=== PATIENT | male | born 1945 | race African-American/Black ===

== ENCOUNTER 2017-03-19 14:05 | Inpatient (IN) ==
--- NOTE | 2017-03-19 14:52 | EKG Report ---
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
[2017-03-19] MEDS ORDERED: VANCOMYCIN INJ 1,750 MG in SODIUM CHLORIDE 0.9% 500 ML IV PRN (14:57)
[2017-03-19 15:08] LABS: Basophils % 0.3 % (0.0-0.8); Eosinophils # 0.1 10*3/uL (0.0-0.87); Eosinophils % 0.6 % (0.00-10.9); Hematocrit 35.7 VOL% (42.0-52.0); Hemoglobin 11.4 GM/DL (14.0-18.0); Immature Granulocytes % 0.2 %; Immature Granulocytes Absolute 0.02 #; Lymphocytes % 9.6 % (21.2-54.2); Mean Corpuscular HGB Conc 31.9 GM/DL (32-36); Mean Corpuscular Hemoglobin 27 PG (27-34); Mean Corpuscular Volume 84.2 FL (87-102); Mean Platelet Volume 9.2 FL (9.6-12.0); Monocytes # 1.2 10*3/uL (0.11-0.8); Monocytes % 11.8 % (1.7-12.7); Neutrophils # 7.9 10*3/uL (1.4-7.4); Neutrophils % 77.5 % (38.7-73.9); Platelet Count 359 T/CUMM (130-400); Red Blood Count 4.24 MC/CUMM (3.8-5.5); Red Cell Distribution Width 12.9 % (9.3-17.3); White Blood Count 10.2 T/CUMM (4-12)
--- NOTE | 2017-03-19 15:13 | Cardiology Consult Note ---
<Mandi Espana E - Last Filed: 03/19/17 14:52> Assessment and Plan - Time spent with patient Time spent with patient: Greater than 30 minutes (1) PVD (peripheral vascular disease) Status: Chronic Assessment and plan: SEE PLAN OF CARE LISTED BELOW Current Visit: Yes (2) Dyslipidemia Status: Chronic Assessment and plan: SEE PLAN OF CARE LISTED BELOW Current Visit: Yes (3) Cardiac murmur Status: Chronic Assessment and plan: SEE PLAN OF CARE LISTED BELOW Current Visit: Yes (4) SOB (shortness of breath) Status: Chronic Assessment and plan: SEE PLAN OF CARE LISTED BELOW Current Visit: Yes (5) PTSD (post-traumatic stress disorder) Status: Chronic Assessment and plan: SEE PLAN OF CARE LISTED BELOW Current Visit: Yes (6) Sleep apnea Status: Chronic Assessment and plan: SEE PLAN OF CARE LISTED BELOW Current Visit: Yes (7) CAD (coronary artery disease) Status: Chronic Assessment and plan: SEE PLAN OF CARE LISTED BELOW Current Visit: No (8) S/P CABG (coronary artery bypass graft) Status: Chronic Assessment and plan: SEE PLAN OF CARE LISTED BELOW Current Visit: No (9) Hypertension Status: Chronic Assessment and plan: SEE PLAN OF CARE LISTED BELOW Current Visit: No (10) Diabetic neuropathy Status: Chronic Assessment and plan: SEE PLAN OF CARE LISTED BELOW Current Visit: No History of Present Illness - Data of Consult Patient: known to practice within the last 3 years Consult date: 03/19/17 Requesting Physician: Moiz Chambers - Consult Narrative Reason for consult: CAD, PVD History of present illness: SCALP TREATMENT SPECIALIST: DR. STONER Mr. Chong, 72BM, routinely followed by Dr. Stoner. He was last seen in cardiology clinic January 10, 2017. Risk factors include: Known coronary artery disease (S/P CABG: KAPLAN - LAD, SVG - OM February [address] Suero), hypertension, dyslipidemia, diabetes, PVD, sedentary lifestyle. EF 55-60% per LV gram February 2016. History of obstructive sleep apnea (intolerant to BiPAP/CPAP), PTSD. Patient was directly from Dr. Beard's office for right lower extremity PVD, severe pain in the right second toe with possible gangrene. He is to undergo CT angiogram today for evaluation of any vessel suitable for revascularization right lower extremity. However, he may require amputation. He is also going to be treated with Vancomycin, venous dopplers are ordered today. Patient denies chest pain, heaviness or tightness. He is chronically short of breath not necessarily with exertion. When he takes a deep breath, breathing does get better. He does have claudication of the right lower extremity which limits his exercise. In cardiology clinic in January, Dr. Stoner increased his Sertraline to a higher dose in the evening and he believes this may have helped his shortness of breath. He is chronically short of breath and uses nocturnal oxygen. He is intolerant to his sleep device. Shortness of breath actually improved after CABG 1 year ago. There is no orthopnea or PND. Denies heart racing or palpitations. His right lower extremity has been more swollen than the left lower extremity. At this time, patient is in a great deal of pain from his right foot. In anticipation of possible upcoming surgery, echocardiogram has been ordered. There is not an echocardiogram in our clinic computer system, nor do I see one in [facility]. Last LV gram February 2016 reveals EF of 55-60%. Venous Dopplers have been ordered. Pain control is imperative, IV vancomycin has been ordered as well. ASSESSMENT/PLAN: 1. PVD WITH GANGRENOUS RIGHT SECOND TOE - CT angiogram has been ordered today. Also venous ultrasound to rule out DVT. Patient may require amputation per Dr. Chambers's note. In anticipation of possible surgery, will order an EKG and echocardiogram today. 2. KNOWN CAD S/P CABG - currently takes aspirin, Plavix, beta-megha, ARB and lipid-lowering agent. I will hold Plavix at this time. 3. HYPERTENSION - usually well controlled. Will adjust medications accordingly during the hospital stay 4. DYSLIPIDEMIA - previous clinic notes revealed that patient has "statin intolerance." However, he is taking Pravastatin and we will reincorporate this into his medication regimen. Fasting lipid profile in the morning. 5. DIABETES - cover with sliding scale while hospitalized. 6. SLEEP APNEA INTOLERANT TO SLEEP DEVICE - consider having Dr. Morris reevaluate patient for sleep disorder and advice for tolerating machine. At this time, he uses nocturnal oxygen. 7. PTSD - continue home meds 8. RIGHT FOOT PAIN - control pain. He tells me Lortab makes him very nauseated. I will add to allergies. Will administer IV morphine 1 and defer pain management to Dr. Chambers. 9. SOB, CHRONIC - multifactorial. Echocardiogram has been ordered. Suspect much of this may be related to inability to use his sleep mask to treat sleep apnea. CC: Moiz Chambers MD - Home Medications and Allergies Home Medications: Home Medications Medication Instructions Recorded Confirmed Type Pravastatin [Pravachol] 80 mg PO BEDTIME #30 tablet 03/16/16 03/19/17 Rx ACETAMIN/diphenhydrAMIN 500-25 1 tablet PO BEDTIME PRN 08/22/16 03/19/17 History [Tylenol PM] Carvedilol [Coreg] 12.5 mg PO BID 08/22/16 03/19/17 History Clopidogrel [Plavix] 75 mg PO DAILY 08/22/16 03/19/17 History Docusate Sodium 100 mg PO BID PRN 08/22/16 03/19/17 History Furosemide 40 mg PO DAILY W/BREAKFAST 08/22/16 03/19/17 History Gabapentin Cap/Tab [Neurontin 800 mg PO TID 08/22/16 03/19/17 History Cap/Tab] Insulin Aspart Prot/Asp 70/30 55 unit SUBCUT AC BREAKFAST 08/22/16 03/19/17 History [NovoLOG Mix 70/30] Insulin Aspart Prot/Asp 70/30 55 unit SUBCUT AC SUPPER 08/22/16 03/19/17 History [NovoLOG Mix 70/30] Losartan Potassium [Cozaar] 50 mg PO DAILY 08/22/16 03/19/17 History Magnesium Oxide 420 mg PO DAILY 08/22/16 03/19/17 History Metformin HCl 1,000 mg PO BID 08/22/16 03/19/17 History Methocarbamol Tab [Robaxin Tab] 750 mg PO Q8HR PRN 08/22/16 03/19/17 History Sertraline [Zoloft] 50 mg PO DAILY 08/22/16 03/19/17 History Aspirin [Ecotrin] 81 mg PO BEDTIME 01/17/17 03/19/17 History Allergies/Adverse Reactions: Allergies Allergy/AdvReac Type Severity Reaction Status Date / Time No Known Allergies Allergy Verified 08/23/16 08:07 Review of systems: REVIEW OF SYSTEMS: See HPI - Constitutional Constitutional: Present: Fatigue. Absent: syncope, anorexia, night sweats - EENT Eyes: Absent: blurry vision, loss of vision, diplopia Ears: Absent: decreased hearing, ear pain, ear discharge - Cardiovascular Cardiovascular: Denies: chest pain with exertion or palpitations. RLE edema. Absent: chest pain with deep breath - Respiratory Respiratory: Present: MILLER and at rest. Denies cough. Absent: wheezing, hemoptysis, change in phlegm color - Gastrointestinal Gastrointestinal: Present: constipation. Absent: abdominal pain, hematemesis , hematochezia, melena, change in bowel habits, nausea - Genitourinary Genitourinary: Absent: difficulty urinating, dysuria, urinary hesitancy, flank pain - Musculoskeletal Musculoskeletal: Present: back pain, right foot pain. Claudication RLE. Absent: joint swelling, muscle cramps, muscle weakness - Neurological Neurological: Present: Without frequent falls. Absent: dizziness, hemiparesis - Psychiatric Psychiatric: Absent: anxiety, depression, difficulty concentrating - Endocrine Endocrine: Present: fatigue. Absent: cold intolerance, heat intolerance, polyuria, polyphagia, polydipsia - Hematologic/Lymphatic Hematologic/Lymphatic: Present: easy bruising. Absent: easy bleeding, easy bruisability -Integumentary Integumentary: Significant pain right foot. Excluding RLE, no other unusual lesions, rashes noted. 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) Neurology: History of: Cerebrovascular Accident (Mild), Peripheral Neuropathy No history of: Seizures HEENT: History of: Eye Problem (Glasses Reading), Dental Problems (Dental Implant Upper) Endocrine: History of: Diabetes Mellitus (IDDM), Dyslipidemia Respiratory: History of: Obstructive Sleep Apnea (Not using C-Pap; Oxygen 2L at night), Respiratory Problems (Flu Vac Current 2016 Season) Comment Only: Pneumonia (Hx Pneum Vac) Genitourinary: History of: Prostate Problems Gastrointestinal: No history of: Polyps Musculoskeletal: History of: Musculoskeletal Problems (Arthritis) Other: No history of: Anesthesia Reactions, Cancer - Surgical History Cardiac Surgeries: Sugical HX of: Cardiac Catheterization (stents), Cardiac Surgery (CABG 03/09/16) HEENT Surgeries: Surgical HX of: Eye Surgery (CATARACTS BILATERAL), Tonsilectomy & Adenoidectomy Abdominal Surgeries: Surgical HX of: Colonoscopy, Hernia Repair (Right inguinal hernia in [address] Beard) - Family History Family History: Reports;: Family Diabetes, Family Heart Disease, Family Hypertension - Social History Smoking Status: Former smoker Have you smoked in the last 12 months: No Frequency of Alcohol Use: None Type of Drug Use: None Marital Status: Lives With:: Spouse Physical Examination General: [] [Pleasant and cooperative. ] [Appears uncomfortable.] HEENT: [Bilateral arcus noted. Normocephalic, atraumatic. Mucous membranes moist. No jaundice noted. Conjunctiva moist and clear, sclerae anicteric] Neck: No JVD/HJR, no thyromegaly or lymphadenopathy noted. No carotid bruit appreciated Cardiac: [Regular rate and rhythm.] [Soft II/IV HSM heard best at 2ICS left. Well-healed sternotomy noted. Lungs: [Clear to auscultation without accessory muscle use to assist the respiratory pattern.] Not requiring oxygen. Abdomen: Soft, bowel sounds normoactive. Nontender and nondistended. No abdominal bruit or thrill noted. No masses noted. Musculoskeletal: No fluid collection. Decreased range of motion is noted. Extremities: Trace - 1+ RLE edema noted. Upper extremity pulses 2+. Left lower extremity pulse 2+. Difficult to palpate RLE pulses. Capillary refill less than 3 seconds. Skin: Second tow right foot, ischemic changes noted. No other unusual lesions or rashes. Neuro: Awake, alert and oriented 3. Moves all extremities well without hemiparesis or paralysis. No essential tremor is appreciated. Result/EKG - Labs Lab Results: I have reviewed the past 24 hour labs - Diagnostic Findings Procedure: Chest x-ray: pending, CT: pending, Ultrasound: pending (echo) <Stevenson Sun - Last Filed: 03/19/17 16:40> History of Present Illness - Consult Narrative History of present illness: Mr. Chong is a 72 year old male CC: Moiz Chambers MD Physical Examination Vital Signs Temp Pulse Resp BP Pulse Ox 99.7 F H 90 20 152/79 96 03/19/17 14:27 03/19/17 14:27 03/19/17 14:27 03/19/17 14:27 03/19/17 14:27 Result/EKG - Labs CBC & BMP: 03/19/17 14:52 03/19/17 14:49 Labs: Laboratory Results - last 24 hr 03/19/17 03/19/17 03/19/17 14:49 14:49 14:52 WBC 10.2 RBC 4.24 Hgb 11.4 L Hct 35.7 L MCV 84.2 L MCH 27 MCHC 31.9 L RDW 12.9 Plt Count 359 MPV 9.2 L Neut % (Auto) 77.5 H Lymph % (Auto) 9.6 L Mcminn % (Auto) 11.8 Eos % (Auto) 0.6 Baso % (Auto) 0.3 Neut # (Auto) 7.9 H Lymph # (Auto) 1.0 L Mcminn # (Auto) 1.2 H Eos # (Auto) 0.1 Baso # (Auto) 0.0 Immature Gran % 0.2 Nucleated RBC % 0.0 Immature Gran # 0.02 Nucleated RBCs # 0.00 Sodium 137 Potassium 4.4 Chloride 101 Carbon Dioxide 28 Anion Gap 12.4 BUN 17 Creatinine 1.30 GFR Calculation 90 BUN/Creatinine Ratio 13.00 Glucose 260 H POC Glucose Calculated Osmolality 283.8 Calcium 8.6 Total Bilirubin < 0.39 AST 20 ALT 25 Alkaline Phosphatase 140 H Total Protein 6.9 Albumin 3.4 Globulin 3.5 Albumin/Globulin Ratio 0.9 L Free T4 1.28 TSH 3rd Generation 0.702 03/19/17 16:32 WBC RBC Hgb Hct MCV MCH MCHC RDW Plt Count MPV Neut % (Auto) Lymph % (Auto) Mcminn % (Auto) Eos % (Auto) Baso % (Auto) Neut # (Auto) Lymph # (Auto) Mcminn # (Auto) Eos # (Auto) Baso # (Auto) Immature Gran % Nucleated RBC % Immature Gran # Nucleated RBCs # Sodium Potassium Chloride Carbon Dioxide Anion Gap BUN Creatinine GFR Calculation BUN/Creatinine Ratio Glucose POC Glucose 314 H Calculated Osmolality Calcium Total Bilirubin AST ALT Alkaline Phosphatase Total Protein Albumin Globulin Albumin/Globulin Ratio Free T4 TSH 3rd Generation
[2017-03-19] MEDS ORDERED: MORPHINE 2 MG/1 ML SYRINGE IV ONE (15:22)
[2017-03-19] MEDS ORDERED: GLUCAGON 1 MG VIAL IM PRN (15:23)
[2017-03-19] MEDS ORDERED: DEXTROSE 50% 25 GM/50 ML VIAL IV PRN (15:23)
[2017-03-19] MEDS ORDERED: DOCUSATE SODIUM 100 MG CAPSULE PO PRN (15:24)
[2017-03-19] MEDS ORDERED: METHOCARBAMOL 750 MG TABLET PO PRN (15:24)
[2017-03-19] MEDS ORDERED: ACETAMINOPHEN/diphenhydrAMINE 500-25 MG TABLET PO PRN (15:24)
--- NOTE | 2017-03-19 15:26 | XRay Report ---
Exam: XR foot 2V RT Date: 03/19/2017 2:39 PM Comparison: 01/17/2017 Indication: Gangrene right second toe Technique:[AP and lateral right foot] Findings: Soft tissue swelling. Chronic appearing deformity of the proximal phalanx of the great toe. Interval apparent amputation of the distal phalanx of the second toe with progressive deformity of the middle phalanx. Arterial calcifications are noted with small calcaneal osteophytes. Impression: Soft tissue swelling with chronic appearing fracture of the proximal phalanx of the great toe. Interval apparent amputation of the distal phalanx of the second toe. There is progressive deformity of the distal middle phalanx which may be related to postoperative findings. It is difficult to exclude possible minimal osteomyelitis with additional degenerative changes. PROCEDURE INTERPRETED AT [facility] DEPARTMENT OF RADIOLOGY Final Report Signed by: Dr. Myesha Loredo
--- NOTE | 2017-03-19 15:36 | Internal Medicine Consult Note ---
Assessment and Plan (1) Diabetic foot Status: Acute Assessment and plan: 72-year-old male admitted to acute care * Diabetic foot. Patient has developed dry gangrene and may require amputation of the second toe. He has been started on antibiotics and cultures have been done * Swelling in the right lower extremity with some tenderness in his calf. He will have venous Doppler studies done to rule out DVT. * Pain control. Morphine as needed * Diabetes. Will hold his metformin * Coronary artery disease. * Hypertension. Blood pressure is controlled * Reevaluate him in the morning Current Visit: No (2) CAD (coronary artery disease) Status: Chronic Current Visit: No (3) Diabetic neuropathy Status: Chronic Current Visit: No (4) Hypertension Status: Chronic Current Visit: No History of Present Illness - Consult Narrative Reason for consult: Medical management History of present illness: Mr. Chong is a 72 year old male with history of multiple medical problems including coronary artery disease, hypertension, dyslipidemia, diabetes, obstructive sleep apnea, PTSD, peripheral vascular disease who was admitted to acute care with pain in the right second toe. Patient had partial amputation of this toe in January of this year. He had a CT angiogram which did not show any significant vascular disease. Patient had been doing fairly well until a few days back. He apparently has developed some gangrene in the toe as it has turned black. He denies any chest pain or shortness of breath. He denies any nausea vomiting or diarrhea. He denies any fever or chills. His blood sugars have been doing fairly well. He is having more pain in his right lower extremity. Patient lives at home with his . He does not smoke or drink alcohol CC: Moiz Chambers MD - Home Medications and Allergies Home Medications: Home Medications Medication Instructions Recorded Confirmed Type Pravastatin [Pravachol] 80 mg PO BEDTIME #30 tablet 03/16/16 01/17/17 Rx ACETAMIN/diphenhydrAMIN 500-25 1 tablet PO BEDTIME PRN 08/22/16 01/17/17 History [Tylenol PM] Carvedilol [Coreg] 12.5 mg PO BID 08/22/16 01/17/17 History Clopidogrel [Plavix] 75 mg PO DAILY 08/22/16 01/17/17 History Docusate Sodium 100 mg PO BID PRN 08/22/16 01/17/17 History Furosemide 40 mg PO DAILY W/BREAKFAST 08/22/16 01/17/17 History Furosemide Tab [Lasix Tab] 20 mg PO BEDTIME 08/22/16 01/17/17 History Gabapentin Cap/Tab [Neurontin 800 mg PO TID 08/22/16 01/17/17 History Cap/Tab] Insulin Aspart Prot/Asp 70/30 55 unit SUBCUT AC BREAKFAST 08/22/16 01/17/17 History [NovoLOG Mix 70/30] Insulin Aspart Prot/Asp 70/30 55 unit SUBCUT AC SUPPER 08/22/16 01/17/17 History [NovoLOG Mix 70/30] Losartan Potassium [Cozaar] 50 mg PO DAILY 08/22/16 01/17/17 History Magnesium Oxide 420 mg PO DAILY 08/22/16 01/17/17 History Metformin HCl 1,000 mg PO BID 08/22/16 01/17/17 History Methocarbamol Tab [Robaxin Tab] 750 mg PO Q8HR PRN 08/22/16 01/17/17 History Sertraline [Zoloft] 50 mg PO DAILY 08/22/16 01/17/17 History Aspirin [Ecotrin] 81 mg PO BEDTIME 01/17/17 01/17/17 History Ciprofloxacin Tab [Cipro Tab] 500 mg PO Q12HR #30 tablet 01/19/17 Rx Allergies/Adverse Reactions: Allergies Allergy/AdvReac Type Severity Reaction Status Date / Time No Known Allergies Allergy Verified 08/23/16 08:07 12 point system: reviewed and no additional remarkable complaints except as stated (As mentioned in HPI) Medical,Surgical,& Family Hx - Medical History Cardio: History of: CAD, Hypertension, [place], PVD, 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) Neurology: History of: Cerebrovascular Accident (Mild), Peripheral Neuropathy No history of: Seizures HEENT: History of: Eye Problem (Glasses Reading), Dental Problems (Dental Implant Upper) Endocrine: History of: Diabetes Mellitus (IDDM), Dyslipidemia Respiratory: History of: Obstructive Sleep Apnea (Not using C-Pap; Oxygen 2L at night), Respiratory Problems (Flu Vac Current 2016 Season) Comment Only: Pneumonia (Hx Pneum Vac) Genitourinary: History of: Prostate Problems Gastrointestinal: No history of: Polyps Musculoskeletal: History of: Musculoskeletal Problems (Arthritis) Other: No history of: Anesthesia Reactions, Cancer - Surgical History Cardiac Surgeries: Sugical HX of: Cardiac Catheterization (stents), Cardiac Surgery (CABG 03/09/16) HEENT Surgeries: Surgical HX of: Eye Surgery (CATARACTS BILATERAL), Tonsilectomy & Adenoidectomy Abdominal Surgeries: Surgical HX of: Colonoscopy, Hernia Repair (Right inguinal hernia [place] [address] Beard) - Family History Family History: Reports;: Family Diabetes, Family Heart Disease, Family Hypertension - Social History Smoking Status: Former smoker Frequency of Alcohol Use: None Type of Drug Use: None Marital Status: Lives With:: Spouse Functional capacity: independent ambulation Exam (Progress Note) - Constitutional Exam: Examination: GENERAL: NAD. HEENT: PERRLA. EOMI. Mucous membranes are moist. NECK: Neck is supple. No JVD. No carotid bruit. No thyromegaly. CVS: Regular rate and rhythm. S1 and S2 are normal. Systolic ejection murmur at left upper sternal border RESPIRATORY: Lungs are clear. No rales or rhonchi. ABDOMEN: Soft and nontender. Bowel sounds are present. No hepatosplenomegaly. EXT: 1+ edema in right lower extremity. Peripheral pulses are present. Dressing is present on the right foot MATERIALS MGMT TECH: Patient is awake, alert and oriented to time place and person. Cranial nerves II through XII are grossly intact. Motor strength is 5 over 5 both upper and lower extremities. SKIN: Warm and dry. MSK: No obvious deformity. Results - Labs CBC & BMP: 03/19/17 14:52 Lab Results: I have reviewed the past 24 hour labs
[2017-03-19 15:40] LABS: Alanine Aminotransferase 25 U/L (16-61); Albumin 3.4 G/DL (3.4-5.0); Alkaline Phosphatase 140 U/L (45-117); Aspartate Amino Transferase 20 U/L (0-37); Bilirubin,Total < 0.39 MG/DL (0.2-1.0); Blood Urea Nitrogen 17 MG/DL (7-18); Calcium 8.6 MG/DL (8.5-10.1); Glucose 260 MG/DL (74-106); Osmolality,Calculated 283.8 MOS/KG (273-304); Potassium 4.4 MMOL/L (3.5-5.1); Sodium 137 MMOL/L (136-145); Total Protein 6.9 G/DL (6.4-8.3)
[2017-03-19] MEDS ORDERED: VANCOMYCIN INJ 2,500 MG in SODIUM CHLORIDE 0.9% 500 ML IV ONE (16:00)
[2017-03-19 16:03] LABS: Free T4 (Free Thyroxine) 1.28 NG/DL (0.76-1.46); Thyroid Stimulating Hormone 0.702 uIU/ml (0.358-3.74)
[2017-03-19] MEDS ORDERED: INSULIN REGULAR 100 UNIT/ML SUBCUT SCH (16:30)
[2017-03-19] MEDS ORDERED: HYDROmorphone 2 MG/1 ML VIAL IV PRN (16:33)
[2017-03-19] MEDS: SODIUM CHLORIDE 0.9% 1,000 ML IV SCH (16:53)
[2017-03-19] MEDS: INSULIN ASPART PROTAMINE/ASPART 70/30 100 UNIT/ML SUBCUT SCH (16:54)
--- NOTE | 2017-03-19 17:22 | Ultrasound Report ---
Exam: Right lower extremity venous Doppler/duplex ultrasound Comparison: None Clinical history: Right leg pain and swelling Technique: Duplex scan of the right lower extremity veins using th B- mode/grayscale imaging and Dopplers spectral analysis and color flow. Findings: There is normal compression and augmentation of the right common femoral, superficial femoral and popliteal veins. The proximal right greater saphenous veins appear to be patent. Major venous structures of the right lower extremity demonstrating normal course and caliber with normal color-flow study and spectral analysis. Impression: No evidence to suggest deep venous thrombosis within the right lower extremity. Ultrasound images were captured and stored. PROCEDURE INTERPRETED AT [facility] DEPARTMENT OF RADIOLOGY Final Report Signed by: Dr. Myesha Loredo
[2017-03-19] MEDS ORDERED: SODIUM CHLORIDE 0.9% 1,000 ML IV SCH (17:30)
[2017-03-19] MEDS ORDERED: ONDANSETRON 4 MG/2 ML VIAL ONE (17:37)
[2017-03-19] MEDS ORDERED: DILTIAZEM 50 MG/10 ML VIAL IV ONE ×3 (17:42→17:44)
--- NOTE | 2017-03-19 17:47 | EKG Report ---
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
[2017-03-19 17:57] LABS: Troponin I Only < 0.015 NG/ML (0.00-0.045)
[2017-03-19] MEDS ORDERED: METOCLOPRAMIDE 10 MG/2 ML VIAL IV ONE (18:02)
--- NOTE | 2017-03-19 18:05 | Event Note ---
Mr. Chong became acutely ill on the floor after receiving 2 mg of IV morphine for pain as well as completed his vancomycin and had just gotten some insulin for elevated blood sugar. He had what may have been seizure type of activity with eyes rolling back and he had getting back and not answering seem to be somewhat tacky cardiac at that point in time but he quickly responded but continued with tachycardia and severe nausea. This did not respond to Zofran and has been transferred to the intensive care unit. He is now awake and alert answering questions and does not appear to be postictal. We does note acute atrial fibrillation that is both tachycardia and normal cardiac EKG is done with cardiac isoenzymes pending and repeating labs. It appears that his echocardiogram did not indicate congestive heart failure or anything of that nature he has been transferred to the ICU we have started Cardizem infusion Dr. Magana is here to check on him from cardiac standpoint due to continued nausea I am going to try 10 mg of Reglan. He does not appear to have been septic on admission and I would not have thought so based on what I saw in his foot. Also noted that his labs on admission were normal with a normal white blood count. In blood sugar not particularly elevated although is 300 been treated with the insulin.
--- NOTE | 2017-03-19 18:12 | Event Note ---
Patient was earlier seen by Dr. Terry Hernadez. The patient has a history coronary artery disease and bypass surgery. This afternoon after getting morphine the patient became nauseated apparently has some type of unspecified event. Rapid response was called. The patient was brought to the ICU. ECG revealed atrial fibrillation rapid ventricular response. He was started on diltiazem but his blood pressures were low with this. He was given fluid and at present he is back in sinus rhythm with heart rate slowly improving down less than 120 and his systolic pressures 120s 130s. He is awake complaining mainly of nausea. He denies any chest pain. His first troponin is nondetectable. His ECG does not reveal any acute ischemic changes. We will follow-up with the patient and will order another set of cardiac enzymes.
[2017-03-19 18:14] LABS: PT Patient Result 11.1 SECS
[2017-03-19] MEDS: ENOXAPARIN 40 MG/0.4 ML SYRINGE SUBCUT SCH (18:14)
--- NOTE | 2017-03-19 19:07 | XRay Report ---
Referring Physician: Moiz Chambers Exam: XR chest 1V Date: March 19, 2017 at 5:46 PM Reason: Chest pain Comparison: Chest one view portable March 15, 2016 Findings: The previously seen left-sided central venous catheter has been removed. The cardiac silhouette is again enlarged, and the patient is status post sternotomy. There is persistent mild elevation of the left hemidiaphragm and bibasilar opacities. These opacities likely represent atelectasis, but pneumonia is not excluded, especially at the left lung base. No pneumothorax is identified, but there may be minimal left pleural fluid. The osseous structures appear stable. Impression: The previously seen left-sided central venous catheter has been removed. There is also slight increased atelectasis at the right lung base. The study is otherwise similar to before. PROCEDURE INTERPRETED AT [facility] DEPARTMENT OF RADIOLOGY Final Report Signed by: Dr. Stef Babb
[2017-03-19] MEDS: CARVEDILOL 12.5 MG TABLET PO SCH (20:33)
[2017-03-19] MEDS: GABAPENTIN 400 MG CAPSULE PO SCH (20:33)
[2017-03-19] MEDS: FUROSEMIDE 20 MG TABLET PO SCH (20:33)
[2017-03-19] MEDS: PRAVASTATIN 40 MG TABLET PO SCH (20:33)
[2017-03-19] MEDS: ASPIRIN EC 81 MG TABLET PO SCH (20:34)
[2017-03-19] MEDS: INSULIN REGULAR 100 UNIT/ML SUBCUT SCH (23:27)
[2017-03-20 01:09] LABS: CKMB % 2.1 %
[2017-03-20 01:10] LABS: Troponin I Only 0.744 NG/ML (0.00-0.045)
[2017-03-20] MEDS: SODIUM CHLORIDE 0.9% 1,000 ML IV SCH (03:47)
[2017-03-20] MEDS: oxyCODONE/ACETAMINOPHEN 5-325 MG TABLET PO PRN ×5 (04:56→20:01)
[2017-03-20 05:45] LABS: Basophils % 0.3 % (0.0-0.8); Eosinophils % 0.2 % (0.00-10.9); Hemoglobin 10.9 GM/DL (14.0-18.0); Immature Granulocytes % 0.2 %; Immature Granulocytes Absolute 0.02 #; Lymphocytes # 1.4 10*3/uL (1.4-4.0); Lymphocytes % 15.8 % (21.2-54.2); Mean Corpuscular HGB Conc 32.1 GM/DL (32-36); Mean Corpuscular Hemoglobin 27 PG (27-34); Mean Corpuscular Volume 84.6 FL (87-102); Mean Platelet Volume 9.8 FL (9.6-12.0); Monocytes # 1.1 10*3/uL (0.11-0.8); Monocytes % 12.4 % (1.7-12.7); Neutrophils # 6.3 10*3/uL (1.4-7.4); Neutrophils % 71.1 % (38.7-73.9); Platelet Count 353 T/CUMM (130-400); Red Blood Count 4.02 MC/CUMM (3.8-5.5); Red Cell Distribution Width 12.9 % (9.3-17.3); White Blood Count 8.9 T/CUMM (4-12)
[2017-03-20 05:48] LABS: Apearance,Urine Slightly Hazy (Clear); Bilirubin,Urine Negative (Negative); Blood, Urine Negative (Negative); Glucose,Urine (UA) >=500 mg/dL (Negative); Ketones,Urine Negative (Negative); Mucus,Urine Occasional /LPF (Occasional); Nitrite,Urine Negative (Negative); Protein,Urine Negative; RBC,Urine 1 /HPF (0-4); Squamous Epithelial Cell,Urine Occasional /HPF (0-10); Urine Color Yellow (Yellow); Urine Specific Gravity 1.017 (1.001-1.035); WBC,Urine 1 /HPF (0-6)
[2017-03-20] MEDS: INSULIN REGULAR 100 UNIT/ML SUBCUT SCH ×3 (06:10→17:44)
[2017-03-20 06:24] LABS: Calcium 8.4 MG/DL (8.5-10.1); Magnesium 2.2 MG/DL (1.8-2.4); Osmolality,Calculated 282.3 MOS/KG (273-304); Potassium 4.6 MMOL/L (3.5-5.1); Risk Ratio 3.1; VLDL CHOLESTEROL 15.6 MG/DL
--- NOTE | 2017-03-20 07:52 | Event Note ---
This morning Mr. Chong is awake alert seems to be feeling well heart rate is good blood pressures. I do not see any evidence of any sepsis of the leg and foot actually looks better this morning he had some problem pain. I think that unless there is a reason from a cardiac standpoint we can go ahead with amputation we should do so today my plan is to do it under monitored anesthesia care so we should have a great deal of stress.
--- NOTE | 2017-03-20 07:53 | Event Note ---
In further investigation it appears this episode developed after receiving a short small portion of his ordered vancomycin. While he had tolerated it well on his previous admission we have to consider whether this could have been an allergic reaction. I will stop the vancomycin and try Teflaro.
--- NOTE | 2017-03-20 08:04 | ECHO Report ---
Lius Chong 03/19/2017 Exam Date: 18:12 Referring Physician: Chica Kearns Technologist: AVELINO Age: 72 Ht (in): 78 Wt (lb): 248 MExam Location: [facility] Gender: Echo [id number]: PVD with gangrenous right second toeIndications:, Dyslipidemia, Cardiac murmur, unspecified, Atrial fibrillation, Shortness of breath, Essential (primary) hypertension, PTSD, CAD with previous CABG, IDDM, LUKE, Diabetic neuropathy BP: 97 / 62 HR: 107 Atrial fibrillationRhythm: FairTechnical Quality: IMPRESSIONS 1. Patient in atrial fibrillation. 2. Left ventricle is normal size mild to moderate concentric left ventricular hypertrophy. Ejection fraction is 50%. 3. Right ventricle is normal size and overall normal systolic function. 4. Right and left atrium are mildly dilated. 5. Aortic valve is tricuspid structure but sclerotic and calcified noncoronary cusp with some diminished motion. At worst there is mild aortic valve stenosis. 6. Tricuspid and pulmonic valves are anatomically functionally normal. 7. At worse mildly elevated right-sided pressures. MEASUREMENTS (Male / Female) Normal Values 2D ECHO LV Diastolic Diameter PLAX 3.3 cm 4.2 - 5.9 / 3.9 - 5.3 cm LV Systolic Diameter PLAX 2.8 cm LV Fractional Shortening PLAX 15.3 % IVS Diastolic Thickness 1.3 cm 0.6 - 1.0 / 0.6 - 0.9 cm LVPW Diastolic Thickness 1.5 cm 0.6 - 1.0 / 0.6 - 0.9 cm RV Internal Dim ED PLAX 3.3 cm Aortic Root Diameter 3.8 cm LA Systolic Diameter LX 4.7 cm 3.0 - 4.0 / 2.7 - 3.8 cm DOPPLER TR Peak Velocity 288.0 cm/s TR Peak Gradient 33.2 mmHg FINDINGS Left Ventricle Normal left ventricular cavity size. Mild to moderate left ventricular hypertrophy. Left ventricular ejection fraction is estimated at 50 %. Right Ventricle The right ventricle is normal in size and function. Right Atrium The right atrium is mildly enlarged. Left Atrium The left atrium is mildly enlarged. Mitral Valve Morphologically normal mitral valve. Trace mitral valve regurgitation. Aortic Valve Aortic valve is a tricuspid structure with sclerosis/calcification of the noncoronary cusp that has diminished motion but valve is without regurgitation. It worst there is mild stenosis. Tricuspid Valve Morphologically normal tricuspid valve. Trace tricuspid valve regurgitation. Tricuspid regurgitation velocities suggest a PAP of 43 mmHg. Pulmonic Valve Morphologically normal pulmonic valve without significant stenosis. There is no pulmonic regurgitation. Pericardium Normal pericardium without effusion. Aorta Normal ascending aorta dimension. Saulo Magana MD (Electronically Signed) 20 Mar 2017 08:03Final Date:
[2017-03-20] MEDS: CARVEDILOL 12.5 MG TABLET PO SCH ×2 (08:18→20:01)
--- NOTE | 2017-03-20 08:45 | Cardiology Progress Note ---
Assessment and Plan - Time spent with patient Time spent with patient: Greater than 30 minutes (1) CAD (coronary artery disease) Status: Chronic Assessment and plan: Prior coronary bypass surgery as well as apparent stent placement by history. This is clinically stable and well. He is had minimally increased troponin is nondiagnostic after having atrial fibrillation with RVR. Current Visit: No (2) S/P CABG (coronary artery bypass graft) Status: Chronic Assessment and plan: This is previously been stable. Current Visit: No (3) Hypertension Status: Chronic Assessment and plan: Blood pressures at present her clinically stable. Continue present medications. Current Visit: No (4) PVD (peripheral vascular disease) Status: Chronic Assessment and plan: This especially his right foot and for toe amputation of the right foot. Current Visit: Yes (5) Dyslipidemia Status: Chronic Assessment and plan: He is on medications and will continue his statin drug. Current Visit: Yes (6) Cardiac murmur Status: Chronic Assessment and plan: This is prostate is sclerotic aortic valve and has worse mild aortic valve stenosis. TAURUS mechanically stable. Current Visit: Yes Cardiology - PN: Subj Interval history: Patient's status more awake and alert. He denies any nausea shortness of breath or other symptomatology. He is never had any chest pain. His rhythm is remained sinus rhythm since he converted last night on the diltiazem. His heart rates are stable. His troponin initially was nondetectable but increased to peak of 0.744. His CK-MB did go up but his CPK diminished to lower level. His lipids are not quite to goal. We will continue his pravastatin. Follow up as an outpatient. In general I think the patient is stable for planned surgery. Echocardiogram reveals ejection fraction 50% mild to moderate concentric left ventricular hypertrophy and moderately dilated right and left atrial. His aortic valve is slightly sclerotic with it worst mild stenosis. Exam (Progress Note) - Constitutional Vitals: Period Temp Pulse Resp BP Sys/Askew Pulse Ox Last 24 Hr 97.9 F-100.0 F 66-148 14-39 65-152/39-79 92-100 Exam: General appearance: normal weight, no acute distress HEENT exam: normal inspection, atraumatic Neck exam: normal inspection no JVD. No carotid bruit. Trachea is in midline Respiratory/lungs exam: clear to auscultation bilaterally good air movement. Cardiovascular exam: regular rate and rhythm, 1/6 systolic murmur. No precordial lift. Chest wall exam: nontender GI/Abdominal exam: normal bowel sounds, soft, nontender, no abdominal bruits or pulsatile masses. Extremeties/musculoskeletal: 2+ radial pulses. Diminished pulses in his lower extremities especially right leg where he has ischemic changes Neurological exam: alert, oriented X3, no focal deficits Psychiatric exam: normal affect, normal mood. Cognitive function is grossly normal. Skin exam: normal color, warm, chronic ischemic changes the right foot especially second right toe. Result/EKG - Labs CBC & BMP: 03/20/17 04:15 03/20/17 04:15 Lab Results: I have reviewed the past 24 hour labs (this is reviewed in stable.) Labs: Laboratory Results - last 24 hr 03/19/17 03/19/17 03/19/17 14:49 14:49 14:52 WBC 10.2 RBC 4.24 Hgb 11.4 L Hct 35.7 L MCV 84.2 L MCH 27 MCHC 31.9 L RDW 12.9 Plt Count 359 MPV 9.2 L Neut % (Auto) 77.5 H Lymph % (Auto) 9.6 L Heard % (Auto) 11.8 Eos % (Auto) 0.6 Baso % (Auto) 0.3 Neut # (Auto) 7.9 H Lymph # (Auto) 1.0 L Heard # (Auto) 1.2 H Eos # (Auto) 0.1 Baso # (Auto) 0.0 Immature Gran % 0.2 Nucleated RBC % 0.0 Immature Gran # 0.02 Nucleated RBCs # 0.00 INR PT Patient/Control Mix Circ Anticoag PTT Sodium 137 Potassium 4.4 Chloride 101 Carbon Dioxide 28 Anion Gap 12.4 BUN 17 Creatinine 1.30 GFR Calculation 90 BUN/Creatinine Ratio 13.00 Glucose 260 H POC Glucose Calculated Osmolality 283.8 Lactic Acid Calcium 8.6 Magnesium Total Bilirubin < 0.39 AST 20 ALT 25 Alkaline Phosphatase 140 H Total Creatine Kinase CK-MB (CK-2) CK and CKMB Interp Troponin I Total Protein 6.9 Albumin 3.4 Globulin 3.5 Albumin/Globulin Ratio 0.9 L Triglycerides Cholesterol LDL Cholesterol VLDL Cholesterol HDL Cholesterol Heart Disease Risk Ratio Free T4 1.28 TSH 3rd Generation 0.702 Urine Color Urine Appearance Urine pH Ur Specific Manning Urine Protein Urine Glucose (UA) Urine Ketones Urine Blood Urine Nitrate Urine Bilirubin Urine Urobilinogen Urine Leukocytes Urine RBC Urine WBC Ur Squamous Epith Cells Urine Mucus Ur Culture Indicated? 03/19/17 03/19/17 03/19/17 15:30 15:30 16:32 WBC RBC Hgb Hct MCV MCH MCHC RDW Plt Count MPV Neut % (Auto) Lymph % (Auto) Heard % (Auto) Eos % (Auto) Baso % (Auto) Neut # (Auto) Lymph # (Auto) Heard # (Auto) Eos # (Auto) Baso # (Auto) Immature Gran % Nucleated RBC % Immature Gran # Nucleated RBCs # INR PT Patient/Control Mix Circ Anticoag PTT Sodium Potassium Chloride Carbon Dioxide Anion Gap BUN Creatinine GFR Calculation BUN/Creatinine Ratio Glucose POC Glucose 314 H Calculated Osmolality Lactic Acid Calcium Magnesium 2.0 Total Bilirubin AST ALT Alkaline Phosphatase Total Creatine Kinase 370 H CK-MB (CK-2) 2.5 CK and CKMB Interp Troponin I < 0.015 Total Protein Albumin Globulin Albumin/Globulin Ratio Triglycerides Cholesterol LDL Cholesterol VLDL Cholesterol HDL Cholesterol Heart Disease Risk Ratio Free T4 TSH 3rd Generation Urine Color Urine Appearance Urine pH Ur Specific Manning Urine Protein Urine Glucose (UA) Urine Ketones Urine Blood Urine Nitrate Urine Bilirubin Urine Urobilinogen Urine Leukocytes Urine RBC Urine WBC Ur Squamous Epith Cells Urine Mucus Ur Culture Indicated? 03/19/17 03/19/17 03/19/17 17:24 17:45 17:45 WBC RBC Hgb Hct MCV MCH MCHC RDW Plt Count MPV Neut % (Auto) Lymph % (Auto) Heard % (Auto) Eos % (Auto) Baso % (Auto) Neut # (Auto) Lymph # (Auto) Heard # (Auto) Eos # (Auto) Baso # (Auto) Immature Gran % Nucleated RBC % Immature Gran # Nucleated RBCs # INR 1.0 PT Patient/Control Mix 11.1 Circ Anticoag PTT 27.8 Sodium Potassium Chloride Carbon Dioxide Anion Gap BUN Creatinine GFR Calculation BUN/Creatinine Ratio Glucose POC Glucose 318 H Calculated Osmolality Lactic Acid Calcium Magnesium Total Bilirubin AST ALT Alkaline Phosphatase Total Creatine Kinase CK-MB (CK-2) CK and CKMB Interp Troponin I Total Protein Albumin Globulin Albumin/Globulin Ratio Triglycerides Cholesterol LDL Cholesterol VLDL Cholesterol HDL Cholesterol Heart Disease Risk Ratio Free T4 TSH 3rd Generation Urine Color Urine Appearance Urine pH Ur Specific Manning Urine Protein Urine Glucose (UA) Urine Ketones Urine Blood Urine Nitrate Urine Bilirubin Urine Urobilinogen Urine Leukocytes Urine RBC Urine WBC Ur Squamous Epith Cells Urine Mucus Ur Culture Indicated? 03/19/17 03/19/17 03/19/17 17:45 17:55 23:25 WBC RBC Hgb Hct MCV MCH MCHC RDW Plt Count MPV Neut % (Auto) Lymph % (Auto) Heard % (Auto) Eos % (Auto) Baso % (Auto) Neut # (Auto) Lymph # (Auto) Heard # (Auto) Eos # (Auto) Baso # (Auto) Immature Gran % Nucleated RBC % Immature Gran # Nucleated RBCs # INR PT Patient/Control Mix Circ Anticoag PTT Sodium Potassium Chloride Carbon Dioxide Anion Gap BUN Creatinine GFR Calculation BUN/Creatinine Ratio Glucose POC Glucose 179 H Calculated Osmolality Lactic Acid 5.9 H Calcium Magnesium Total Bilirubin AST ALT Alkaline Phosphatase Total Creatine Kinase CK-MB (CK-2) CK and CKMB Interp Troponin I < 0.015 Total Protein Albumin Globulin Albumin/Globulin Ratio Triglycerides Cholesterol LDL Cholesterol VLDL Cholesterol HDL Cholesterol Heart Disease Risk Ratio Free T4 TSH 3rd Generation Urine Color Urine Appearance Urine pH Ur Specific Manning Urine Protein Urine Glucose (UA) Urine Ketones Urine Blood Urine Nitrate Urine Bilirubin Urine Urobilinogen Urine Leukocytes Urine RBC Urine WBC Ur Squamous Epith Cells Urine Mucus Ur Culture Indicated? 03/20/17 03/20/17 03/20/17 00:29 04:15 04:15 WBC 8.9 RBC 4.02 Hgb 10.9 L Hct 34.0 L MCV 84.6 L MCH 27 MCHC 32.1 RDW 12.9 Plt Count 353 MPV 9.8 Neut % (Auto) 71.1 Lymph % (Auto) 15.8 L Heard % (Auto) 12.4 Eos % (Auto) 0.2 Baso % (Auto) 0.3 Neut # (Auto) 6.3 Lymph # (Auto) 1.4 Heard # (Auto) 1.1 H Eos # (Auto) 0.0 Baso # (Auto) 0.0 Immature Gran % 0.2 Nucleated RBC % 0.0 Immature Gran # 0.02 Nucleated RBCs # 0.00 INR PT Patient/Control Mix Circ Anticoag PTT Sodium 141 Potassium 4.6 Chloride 105 Carbon Dioxide 29 Anion Gap 11.6 BUN 20 H Creatinine 1.30 GFR Calculation 90 BUN/Creatinine Ratio 15.00 Glucose 84 POC Glucose Calculated Osmolality 282.3 Lactic Acid Calcium 8.4 L Magnesium 2.2 Total Bilirubin AST ALT Alkaline Phosphatase Total Creatine Kinase 311 H CK-MB (CK-2) 6.6 H CK and CKMB Interp 2.1 Troponin I 0.744 H D Total Protein Albumin Globulin Albumin/Globulin Ratio Triglycerides 78 Cholesterol 152 LDL Cholesterol 90.0 VLDL Cholesterol 15.6 HDL Cholesterol 49 Heart Disease Risk Ratio 3.10 Free T4 TSH 3rd Generation Urine Color Urine Appearance Urine pH Ur Specific Manning Urine Protein Urine Glucose (UA) Urine Ketones Urine Blood Urine Nitrate Urine Bilirubin Urine Urobilinogen Urine Leukocytes Urine RBC Urine WBC Ur Squamous Epith Cells Urine Mucus Ur Culture Indicated? 03/20/17 03/20/17 04:15 04:25 WBC RBC Hgb Hct MCV MCH MCHC RDW Plt Count MPV Neut % (Auto) Lymph % (Auto) Heard % (Auto) Eos % (Auto) Baso % (Auto) Neut # (Auto) Lymph # (Auto) Heard # (Auto) Eos # (Auto) Baso # (Auto) Immature Gran % Nucleated RBC % Immature Gran # Nucleated RBCs # INR PT Patient/Control Mix Circ Anticoag PTT Sodium Potassium Chloride Carbon Dioxide Anion Gap BUN Creatinine GFR Calculation BUN/Creatinine Ratio Glucose POC Glucose Calculated Osmolality Lactic Acid Calcium Magnesium Total Bilirubin AST ALT Alkaline Phosphatase Total Creatine Kinase CK-MB (CK-2) CK and CKMB Interp Troponin I 0.698 H Total Protein Albumin Globulin Albumin/Globulin Ratio Triglycerides Cholesterol LDL Cholesterol VLDL Cholesterol HDL Cholesterol Heart Disease Risk Ratio Free T4 TSH 3rd Generation Urine Color Yellow Urine Appearance Slightly hazy Urine pH 5.0 Ur Specific Manning 1.017 Urine Protein Negative Urine Glucose (UA) >=500 Urine Ketones Negative Urine Blood Negative Urine Nitrate Negative Urine Bilirubin Negative Urine Urobilinogen 2.0 H Urine Leukocytes Negative Urine RBC 1 Urine WBC 1 Ur Squamous Epith Cells Occasional Urine Mucus Occasional Ur Culture Indicated? Not indicated - Impressions Impressions: Telemetry normal sinus rhythm
--- NOTE | 2017-03-20 09:14 | Operative Note ---
Date of procedure: 03/20/17 Procedure: Dr. Chambers operative report Luis Chong. 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 Indications for the procedure: Luis Chong is a 72-year-old man with diabetes known peripheral vascular disease has developed gangrene of the distal right second toe I recommended amputation of that toe of explained the alternatives risks and complications which he understands and accepts. Description of procedure: After the patient received sedation his right foot is prepped with Hibiclens and draped in the usual fashion. 1% plain lidocaine was used for digital block about the second toe injecting around the head of the metatarsal. The very distal portion of the toe was showing dry gangrene and modest eschar no gross purulence I amputated just at the mid inner phalangeal joint coming through where there was punctate bleeding from the skin edges were reasonably clean tissues no gross infection I then debrided the proximal phalanx and was able to reapproximate the flexor and extensor tendons with a 4- 0 Vicryl and the skin with 4-0 nylon bulky dry dressing was applied. Blood loss estimated less than 5 cc sponge needle and his counts are correct and the patient taken to recovery thank you Surgeon / Physician: Moiz Chambers Results - Labs CBC & BMP: 03/20/17 04:15 03/20/17 04:15 Discharge Plan - Discharge Medications No Action Pravastatin [Pravachol] 80 mg PO BEDTIME #30 tablet Carvedilol [Coreg] 12.5 mg PO BID Insulin Aspart Prot/Asp 70/30 [NovoLOG Mix 70/30] 55 unit SUBCUT AC SUPPER Insulin Aspart Prot/Asp 70/30 [NovoLOG Mix 70/30] 55 unit SUBCUT AC BREAKFAST Gabapentin Cap/Tab [Neurontin Cap/Tab] 800 mg PO TID Magnesium Oxide 420 mg PO DAILY Sertraline [Zoloft] 50 mg PO DAILY Methocarbamol Tab [Robaxin Tab] 750 mg PO Q8HR PRN PRN Reason: Muscle Pain ACETAMIN/diphenhydrAMIN 500-25 [Tylenol PM] 1 tablet PO BEDTIME PRN PRN Reason: Sleep Metformin HCl 1,000 mg PO BID Losartan Potassium [Cozaar] 50 mg PO DAILY Furosemide 40 mg PO DAILY W/BREAKFAST Docusate Sodium 100 mg PO BID PRN PRN Reason: Constipation Clopidogrel [Plavix] 75 mg PO DAILY Aspirin [Ecotrin] 81 mg PO BEDTIME - Follow Up or Referral - Forms/Instructions
[2017-03-20] MEDS ORDERED: KETAMINE 500 MG/10 ML VIAL ONE (09:29)
[2017-03-20] MEDS ORDERED: fentaNYL 100 MCG/2 ML VIAL ONE (09:29)
[2017-03-20] MEDS ORDERED: MIDAZOLAM 2 MG/2 ML VIAL ONE (09:29)
--- NOTE | 2017-03-20 09:43 | Internal Med Progress Note ---
Assessment and Plan (1) Diabetic foot Status: Acute Assessment and plan: 72-year-old male admitted to acute care * Diabetic foot. Patient underwent amputation of right second toe. He is doing fairly well in the recovery * Swelling in the right lower extremity with some tenderness in his calf. Doppler ultrasounds were negative * Patient had an episode of A. fib with rapid ventricular rate after receiving vancomycin and morphine. He has received both medications in the past without any problems. * Diabetes. Continue sliding scale * Coronary artery disease. Patient had a bump in his troponin. This was probably secondary to A. fib with rapid ventricular rate. He has history of significant coronary artery disease * Hypertension. Blood pressure is controlled Current Visit: No (2) CAD (coronary artery disease) Status: Chronic Current Visit: No (3) Diabetic neuropathy Status: Chronic Current Visit: No (4) Hypertension Status: Chronic Current Visit: No Internal Medicine - PN: Subj Interval history: Events of yesterday evening noted. Patient seen and recovery after his surgery. He denies any complaints. No chest pain or shortness of breath Exam (Progress Note) - Constitutional Vitals: Period Temp Pulse Resp BP Sys/Askew Pulse Ox Last 24 Hr 97.9 F-100.0 F 66-148 14-39 65-152/39-79 92-100 Exam: Examination: GENERAL: NAD. HEENT: PERRLA. EOMI. NECK: Neck is supple. CVS: Regular rate and rhythm. S1 and S2 are normal. Systolic ejection murmur at left upper sternal border RESPIRATORY: Lungs are clear. ABDOMEN: Soft and nontender. EXT: 1+ edema in right lower extremity. WET END SUPERVISOR: Patient is awake, alert and oriented to time place and person. Cranial nerves II through XII are grossly intact. Motor strength is 5 over 5 both upper and lower extremities. SKIN: Warm and dry. Results - Labs CBC & BMP: 03/20/17 04:15 03/20/17 04:15 Lab Results: I have reviewed the past 24 hour labs
[2017-03-20] MEDS: CEFTAROLINE 600 MG in SODIUM CHLORIDE 0.9% 100 ML IV SCH ×2 (10:01→20:00)
[2017-03-20] MEDS: INSULIN ASPART PROTAMINE/ASPART 70/30 100 UNIT/ML SUBCUT SCH ×2 (10:09→17:02)
[2017-03-20] MEDS: SERTRALINE 25 MG TABLET PO SCH (10:15)
[2017-03-20] MEDS: GABAPENTIN 400 MG CAPSULE PO SCH ×3 (10:17→20:01)
[2017-03-20] MEDS: FUROSEMIDE 40 MG TABLET PO SCH (10:17)
[2017-03-20] MEDS: LOSARTAN 50 MG TABLET PO SCH (10:17)
[2017-03-20] MEDS: MAGNESIUM OXIDE 400 MG TABLET PO SCH (10:17)
[2017-03-20 10:29] LABS: CKMB % 2.1 %
--- NOTE | 2017-03-20 10:33 | Anesthesia Post-Op ---
Anesthesia Post OP - Post Ansesthetic Evaluation Patient seen in post op: Yes Resp: within normal limits CV: within normal limits Mental: within normal limits Temp: within normal limits [id number]: within normal limits Nausea and Vomiting: within normal limits Pain: within normal limits
[2017-03-20 10:34] LABS: Troponin I Only 0.6 NG/ML (0.00-0.045)
[2017-03-20] MEDS: ENOXAPARIN 40 MG/0.4 ML SYRINGE SUBCUT SCH (17:01)
[2017-03-20 18:51] LABS: CKMB % 1.8 %
[2017-03-20 18:52] LABS: Troponin I Only 0.385 NG/ML (0.00-0.045)
[2017-03-20] MEDS: ASPIRIN EC 81 MG TABLET PO SCH (20:01)
[2017-03-20] MEDS: PRAVASTATIN 40 MG TABLET PO SCH (20:01)
[2017-03-20] MEDS: FUROSEMIDE 20 MG TABLET PO SCH (20:01)
[2017-03-21] MEDS: INSULIN REGULAR 100 UNIT/ML SUBCUT SCH ×4 (01:10→18:17)
[2017-03-21] MEDS: oxyCODONE/ACETAMINOPHEN 5-325 MG TABLET PO PRN ×5 (02:26→18:16)
[2017-03-21 04:41] LABS: Basophils % 0.2 % (0.0-0.8); Eosinophils # 0.1 10*3/uL (0.0-0.87); Eosinophils % 0.5 % (0.00-10.9); Hematocrit 30.1 VOL% (42.0-52.0); Hemoglobin 9.7 GM/DL (14.0-18.0); Immature Granulocytes % 0.5 %; Immature Granulocytes Absolute 0.05 #; Lymphocytes % 9.5 % (21.2-54.2); Mean Corpuscular HGB Conc 32.2 GM/DL (32-36); Mean Corpuscular Hemoglobin 28 PG (27-34); Mean Corpuscular Volume 85.3 FL (87-102); Mean Platelet Volume 9.9 FL (9.6-12.0); Monocytes # 1.2 10*3/uL (0.11-0.8); Monocytes % 11.8 % (1.7-12.7); Neutrophils # 7.9 10*3/uL (1.4-7.4); Neutrophils % 77.5 % (38.7-73.9); Platelet Count 328 T/CUMM (130-400); Red Blood Count 3.53 MC/CUMM (3.8-5.5); Red Cell Distribution Width 12.9 % (9.3-17.3); White Blood Count 10.2 T/CUMM (4-12)
[2017-03-21 05:15] LABS: Calcium 8.4 MG/DL (8.5-10.1); Magnesium 2.2 MG/DL (1.8-2.4); Osmolality,Calculated 282.7 MOS/KG (273-304); Potassium 4.7 MMOL/L (3.5-5.1)
[2017-03-21] MEDS: FUROSEMIDE 40 MG TABLET PO SCH (08:03)
[2017-03-21] MEDS: INSULIN ASPART PROTAMINE/ASPART 70/30 100 UNIT/ML SUBCUT SCH ×2 (08:03→16:55)
[2017-03-21] MEDS: CEFTAROLINE 600 MG in SODIUM CHLORIDE 0.9% 100 ML IV SCH ×2 (08:04→20:54)
--- NOTE | 2017-03-21 08:41 | Event Note ---
Mr. Chong is doing well today no vital signs no further episodes of atrial fibrillation comfortable his foot actually looks reasonably good but I have concerns about the distal perfusion. I am going to ask Dr. Moyer to evaluate and determine if we can do atherectomy of the tibial peroneal and perhaps improved perfusion into the foot. I think it will be safe for him to transfer to a room upstairs but will keep him on a monitored bed
--- NOTE | 2017-03-21 08:58 | Internal Med Progress Note ---
Assessment and Plan (1) Diabetic foot Status: Acute Assessment and plan: 72-year-old male admitted to acute care * Diabetic foot. Doing well after amputation. Moving to a monitored bed * No arrhythmias noted * Diabetes. Continue sliding scale * Coronary artery disease. Stable * Hypertension. Blood pressure is controlled * Continue present management Current Visit: No (2) CAD (coronary artery disease) Status: Chronic Current Visit: No (3) Diabetic neuropathy Status: Chronic Current Visit: No (4) Hypertension Status: Chronic Current Visit: No Internal Medicine - PN: Subj Interval history: He is very comfortable this morning. No leg pain. He denies any chest pain or shortness of breath Exam (Progress Note) - Constitutional Vitals: Period Temp Pulse Resp BP Sys/Askew Pulse Ox Last 24 Hr 97.8 F-98.9 F 72-89 10-29 83-129/45-78 92-100 Exam: Examination: GENERAL: NAD. HEENT: PERRLA. EOMI. NECK: Neck is supple. CVS: Regular rate and rhythm. S1 and S2 are normal. Systolic ejection murmur at left upper sternal border RESPIRATORY: Lungs are clear. ABDOMEN: Soft and nontender. EXT: 1+ edema in right lower extremity. Status post amputation of right second toe. Wound looks clean GENERAL TECHNICIAN: Nonfocal SKIN: Warm and dry. Results - Labs CBC & BMP: 03/21/17 03:44 03/21/17 03:44 Lab Results: I have reviewed the past 24 hour labs
[2017-03-21] MEDS: MAGNESIUM OXIDE 400 MG TABLET PO SCH (09:14)
[2017-03-21] MEDS: LOSARTAN 50 MG TABLET PO SCH (09:14)
[2017-03-21] MEDS: GABAPENTIN 400 MG CAPSULE PO SCH ×3 (09:14→20:54)
[2017-03-21] MEDS: SERTRALINE 25 MG TABLET PO SCH (09:14)
[2017-03-21] MEDS: CARVEDILOL 12.5 MG TABLET PO SCH ×2 (09:14→20:54)
--- NOTE | 2017-03-21 17:08 | Cardiology Progress Note ---
Assessment and Plan (1) Critical ischemia of lower extremity Status: Acute Assessment and plan: Initial preop assessment: 1. 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 2. Ejection fraction was 60% with inferior hypokinesis December 15, 2016 in clinic 3. Follow-up echocardiogram is pending 4. He is having severe pain at this point; it seems reasonable to proceed with toe amputation, which is planned under MAC 5. He is on good medications from a cardiac/vascular standpoint with antiplatelet therapy, and statin therapy 6. We will follow with you. March 21, 2017 update: 1. Mr. Chong is hemodynamically stable after his episode of atrial fibrillation with RVR the evening of March 19, now maintaining normal sinus rhythm on Coreg with good blood pressure control 2. Status post amputation right toe with poor perfusion due to occluded anterior tibial and posterior tibial arteries as per CTA; we will schedule for angiography in the morning with intervention is appropriate to try to open one or both tibial arteries; anterior tibial may be the most favorable given the angiosome involving his second toe. 3. Change to high intensity statin with Crestor 40 mg daily 4. Agree with baby aspirin and low-dose Lovenox; will add low-dose Pletal and Plavix as well 5. Untreated LUKE; we need to get him follow-up for this given it is likely making him prone to atrial fibrillation as well as causing daytime somnolence and may be aggravating his hypertension 6. Borderline normal LV function on echocardiogram (EF 50%) I discussed with the patient the risks and benefits of peripheral angiography and intervention including but not limited to: , stroke, heart attack, vascular damage, reaction to medicine or dye, bleeding requiring blood transfusion, failure of the procedure, and the possible need for planned or emergency surgery. I have answered all the patient's questions regarding the procedure, and the patient is agreeable to proceed. Current Visit: Yes (2) Atrial fibrillation with RVR Status: Acute Current Visit: Yes (3) Sleep apnea Status: Chronic Current Visit: Yes (4) Hypertension Status: Chronic Current Visit: No (5) S/P CABG (coronary artery bypass graft) Status: Chronic Current Visit: No Cardiology - PN: Subj Interval history: Mr. Chong's toe pain is significant improved since his amputation yesterday. He has had some mild intermittent shortness of breath but "much better than the other night"referring to his atrial fibrillation RVR episode. He is maintaining normal sinus rhythm. He denies any chest discomfort. Exam (Progress Note) - Constitutional Vitals: Period Temp Pulse Resp BP Sys/Askew Pulse Ox Last 24 Hr 98.1 F-99.5 F 72-88 13-26 103-131/45-87 92-99 General appearance: no acute distress, over weight - Head Head exam: Present: normal inspection, normocephalic, atraumatic - Neck Neck exam: Present: normal inspection - Respiratory Respiratory exam: Absent: rhonchi, stridor, wheezes - Cardiovascular Cardiovascular exam: Present: regular rate and rhythm. Absent: diastolic murmur , rubs - GI/Abdominal GI/Abdominal exam: Present: soft. Absent: tenderness - Extremities Exam Extremities exam: Absent: edema - Neurological Exam Neurological exam: Present: alert, oriented X3 - Psychiatric Psychiatric exam: Present: normal affect Result/EKG - Labs CBC & BMP: 03/21/17 03:44 03/21/17 03:44 Labs: Laboratory Results - last 24 hr 03/20/17 03/20/17 03/21/17 17:41 18:07 00:22 WBC RBC Hgb Hct MCV MCH MCHC RDW Plt Count MPV Neut % (Auto) Lymph % (Auto) [place] % (Auto) Eos % (Auto) Baso % (Auto) Neut # (Auto) Lymph # (Auto) [place] # (Auto) Eos # (Auto) Baso # (Auto) Immature Gran % Nucleated RBC % Immature Gran # Nucleated RBCs # Sodium Potassium Chloride Carbon Dioxide Anion Gap BUN Creatinine GFR Calculation BUN/Creatinine Ratio Glucose POC Glucose 370 H 148 H Calculated Osmolality Calcium Magnesium Total Creatine Kinase 310 H CK-MB (CK-2) 5.6 H CK and CKMB Interp 1.8 Troponin I 0.385 H D 03/21/17 03/21/17 03/21/17 03:44 03:44 05:45 WBC 10.2 RBC 3.53 L Hgb 9.7 L Hct 30.1 L MCV 85.3 L MCH 28 MCHC 32.2 RDW 12.9 Plt Count 328 MPV 9.9 Neut % (Auto) 77.5 H Lymph % (Auto) 9.5 L [place] % (Auto) 11.8 Eos % (Auto) 0.5 Baso % (Auto) 0.2 Neut # (Auto) 7.9 H Lymph # (Auto) 1.0 L [place] # (Auto) 1.2 H Eos # (Auto) 0.1 Baso # (Auto) 0.0 Immature Gran % 0.5 Nucleated RBC % 0.0 Immature Gran # 0.05 Nucleated RBCs # 0.00 Sodium 138 Potassium 4.7 Chloride 103 Carbon Dioxide 27 Anion Gap 12.7 BUN 23 H Creatinine 1.30 GFR Calculation 90 BUN/Creatinine Ratio 17.00 Glucose 167 H POC Glucose 175 H Calculated Osmolality 282.7 Calcium 8.4 L Magnesium 2.2 Total Creatine Kinase CK-MB (CK-2) CK and CKMB Interp Troponin I 03/21/17 03/21/17 13:59 16:53 WBC RBC Hgb Hct MCV MCH MCHC RDW Plt Count MPV Neut % (Auto) Lymph % (Auto) [place] % (Auto) Eos % (Auto) Baso % (Auto) Neut # (Auto) Lymph # (Auto) [place] # (Auto) Eos # (Auto) Baso # (Auto) Immature Gran % Nucleated RBC % Immature Gran # Nucleated RBCs # Sodium Potassium Chloride Carbon Dioxide Anion Gap BUN Creatinine GFR Calculation BUN/Creatinine Ratio Glucose POC Glucose 112 H 154 H Calculated Osmolality Calcium Magnesium Total Creatine Kinase CK-MB (CK-2) CK and CKMB Interp Troponin I
[2017-03-21] MEDS: ROSUVASTATIN 20 MG TABLET PO SCH (17:33)
[2017-03-21] MEDS: ENOXAPARIN 40 MG/0.4 ML SYRINGE SUBCUT SCH (17:33)
[2017-03-21] MEDS: ASPIRIN EC 81 MG TABLET PO SCH (20:54)
[2017-03-21] MEDS: FUROSEMIDE 20 MG TABLET PO SCH (20:54)
[2017-03-21] MEDS: CILOSTAZOL 50 MG TABLET PO SCH (20:55)
[2017-03-22] MEDS: INSULIN REGULAR 100 UNIT/ML SUBCUT SCH ×4 (02:20→18:21)
[2017-03-22 04:39] LABS: Basophils % 0.3 % (0.0-0.8); Eosinophils # 0.1 10*3/uL (0.0-0.87); Eosinophils % 0.7 % (0.00-10.9); Hematocrit 29.1 VOL% (42.0-52.0); Hemoglobin 9.5 GM/DL (14.0-18.0); Immature Granulocytes % 0.5 %; Immature Granulocytes Absolute 0.06 #; Lymphocytes % 8.8 % (21.2-54.2); Mean Corpuscular HGB Conc 32.6 GM/DL (32-36); Mean Corpuscular Hemoglobin 28 PG (27-34); Mean Corpuscular Volume 85.3 FL (87-102); Mean Platelet Volume 9.5 FL (9.6-12.0); Monocytes # 1.3 10*3/uL (0.11-0.8); Monocytes % 11.3 % (1.7-12.7); Neutrophils # 8.7 10*3/uL (1.4-7.4); Neutrophils % 78.4 % (38.7-73.9); Platelet Count 323 T/CUMM (130-400); Red Blood Count 3.41 MC/CUMM (3.8-5.5); Red Cell Distribution Width 13.1 % (9.3-17.3); White Blood Count 11.1 T/CUMM (4-12)
[2017-03-22 05:07] LABS: Calcium 8.4 MG/DL (8.5-10.1); Magnesium 2.2 MG/DL (1.8-2.4); Osmolality,Calculated 287.8 MOS/KG (273-304); Potassium 4.5 MMOL/L (3.5-5.1)
[2017-03-22] MEDS ORDERED: POTASSIUM CHLORIDE RIDER 10 MEQ in PREMIX 1 EACH IV PRN (05:30)
[2017-03-22] MEDS ORDERED: MAGNESIUM SULF RIDER 2 GM in PREMIX 1 EACH IV PRN (05:30)
[2017-03-22] MEDS ORDERED: diphenhydrAMINE CAP 25 MG CAPSULE PO ONE (07:00)
[2017-03-22] MEDS ORDERED: CLOPIDOGREL 300 MG TABLET PO ONE (07:00)
[2017-03-22] MEDS ORDERED: DIAZEPAM 5 MG TABLET PO ONE (07:00)
[2017-03-22] MEDS: oxyCODONE/ACETAMINOPHEN 5-325 MG TABLET PO PRN ×2 (07:01→15:23)
[2017-03-22] MEDS: CARVEDILOL 12.5 MG TABLET PO SCH ×3 (07:10→21:45)
[2017-03-22] MEDS: ROSUVASTATIN 20 MG TABLET PO SCH ×2 (07:11→13:17)
[2017-03-22] MEDS: LOSARTAN 50 MG TABLET PO SCH ×2 (07:11→13:16)
[2017-03-22] MEDS ORDERED: LIDOCAINE 1% 20 ML VIAL ONE (08:14)
[2017-03-22] MEDS ORDERED: HYDROmorphone 2 MG/1 ML VIAL ONE (08:20)
[2017-03-22] MEDS ORDERED: MIDAZOLAM 2 MG/2 ML VIAL ONE (08:20)
[2017-03-22] MEDS ORDERED: HEPARIN 5,000 UNIT/1 ML VIAL ONE (09:06)
[2017-03-22] MEDS ORDERED: ASPIRIN 325 MG TABLET ONE (09:12)
[2017-03-22] MEDS ORDERED: CLOPIDOGREL 300 MG TABLET ONE (09:12)
[2017-03-22] MEDS ORDERED: NITROGLYCERIN DRIP 50 MG/250 ML BOTTLE IV ONE (10:25)
[2017-03-22] MEDS ORDERED: VERAPAMIL 5 MG/2 ML VIAL ONE ×2 (10:34)
--- NOTE | 2017-03-22 11:25 | Cardiology Operative Report ---
Date of Procedure:: 03/22/17 Post-op diagnosis: same Procedure: Procedure performed: 1. Right superficial femoral angiography with runoff 2. Orbital atherectomy, and angioplasty of proximal and mid right anterior tibial artery with 1.25 micro crown CSI device and 3.0 x 1 20 balloon 3. Right femoral arteriotomy closed with minx device Brief clinical summary: Mr. 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 He has bilateral tibial occlusions no by CTA. Description of procedure: After obtaining informed consent the patient had with the Station Examiner with a right groin was prepped and draped in usual sterile fashion. Next a short 6 Egyptian sheath placed in the right femoral artery using a modified center technique and ultrasonic guidance. Next a 65 cm destination sheath was changed out for the sheath. It was advanced in an antegrade fashion. The distal tip was at the popliteal segment. Additional antegrade was performed. Next a command wire was advanced and across the mid right anterior tibial occlusion fairly easily, but had difficulty in the distal vessel. However made fairly good progress using a 014 seeker support catheter. Eventually I was able to get to the reconstitution which was a short segment of the dorsalis pedis. The patient was given 7000 units of heparin initially was additionally given 1000 later as he had a ACT in the 220s. He was already on aspirin and Plavix but was given additional Plavix 300 at the end of the case. I attempt to cross with multiple pro-water wire as well as command wires. I decided to treat the area we had crossed. We changed out for a Viper wire through the seeker. Next a 1.25 micro crown was advanced and multiple low and medium passes were made in the proximal to mid anterior tibial vessel. At the ostium is a discrete critical lesion which was treated with low, medium, and high passes. Next the crown was removed and a 3.0 x 1 20 balloon was advanced and dilated in the midportion of the calf but the patient has a pain. Therefore I pulled back the wire a few centimeters and dilated without pain to approximate 3 barry for a minute. I then pulled back and repeated this. I performed a higher pressure inflation slowly to nominal pressures and slightly above at the proximal AT covering the ostium. Subsequent angiogram showed a good result at the ostium of the ATU but no flow past the mid AT. Thought at this point was futile to attempt further to restore normal flow to the ATV. The catheter and balloon was removed, hemostasis was obtained at the sheath site with a mixed device with no residual bleeding. Right SFA angiography with runoff: The right SFA and popliteal segment have trivial disease of less than 30% consistent with his CTA. There is a 95% ostial anterior tibial artery stenosis which is discrete. There is diffuse severe disease in the mid anterior tibial artery where it occludes. The reconstitution is somewhat sluggish and is at the dorsalis pedis which again occludes. The dorsalis pedis is occluded very proximally with a small "stump". The peroneal has a shorter occlusion and reconstitutes in the upper calf and reaches the ankle. Impression: 1. Trivial right SFA disease, with three-vessel l proximal occlusions at the trifurcation including but not limited to: A. Very proximal dorsalis pedis occlusion B. Short proximal peroneal occlusion which is the best runoff vessel as a reaches the ankle C. 95% ostial anterior tibial stenosis with high mid occlusion and sluggish runoff to the dorsalis pedis 2. Status post successful atherectomy and angioplasty of the ostial anterior tibial lesion (1.25 crown and 3.0 x 120 mm balloon) is with less than 30% residual stenosis 3. Status post atherectomy and angioplasty of proximal to mid anterior tibial vessel with suboptimal result (vessel still occludes in the high mid anterior tibial segment) Recommendation discussion: I believe achieved a good result with regard to treating Mr. Chong is ostial anterior tibial artery. Unfortunately unable to restore in-line flow through the anterior tibia which is the aneurysm which supplies his. Amputation. Treatment of his proximal peroneal occlusion could be considered. However he probably needs IV hydration given he has some mild renal insufficiency. In Anesthesia: minimal conscious sedation Surgeon / Physician: Stevenson Sun Rn Hemodialysis: other Estimated blood loss: minimal Specimens: none sent Condition: stable Disposition: floor
[2017-03-22] MEDS ORDERED: SODIUM CHLORIDE 0.45% 1,000 ML IV SCH (11:30)
[2017-03-22] MEDS: INSULIN ASPART PROTAMINE/ASPART 70/30 100 UNIT/ML SUBCUT SCH ×2 (12:04→18:23)
[2017-03-22] MEDS: SERTRALINE 25 MG TABLET PO SCH (13:16)
[2017-03-22] MEDS: CILOSTAZOL 50 MG TABLET PO SCH ×2 (13:17→21:45)
[2017-03-22] MEDS: MAGNESIUM OXIDE 400 MG TABLET PO SCH (13:17)
[2017-03-22] MEDS: FUROSEMIDE 40 MG TABLET PO SCH (13:17)
[2017-03-22] MEDS: GABAPENTIN 400 MG CAPSULE PO SCH ×3 (13:17→21:45)
[2017-03-22] MEDS: CLOPIDOGREL 75 MG TABLET PO SCH (13:19)
[2017-03-22] MEDS: CEFTAROLINE 600 MG in SODIUM CHLORIDE 0.9% 100 ML IV SCH ×2 (13:25→20:48)
--- NOTE | 2017-03-22 16:09 | Internal Med Progress Note ---
Assessment and Plan (1) Diabetic foot Status: Acute Assessment and plan: 72-year-old male admitted to acute care * Diabetic foot. Patient underwent atherectomy and angioplasty of mid anterior tibial vessel. He still has partial occlusion. Treatment per Dr. duffy * No arrhythmias noted * Diabetes. Blood glucose are higher. He was n.p.o. * Coronary artery disease. Stable * Hypertension. Blood pressure is controlled * Continue present management Current Visit: No (2) CAD (coronary artery disease) Status: Chronic Current Visit: No (3) Diabetic neuropathy Status: Chronic Current Visit: No (4) Hypertension Status: Chronic Current Visit: No Internal Medicine - PN: Subj Interval history: Patient seen after undergoing intervention. He denies any pain in his lower extremities or feet. No chest pain or shortness of breath Exam (Progress Note) - Constitutional Vitals: Period Temp Pulse Resp BP Sys/Askew Pulse Ox Last 24 Hr 97.8 F-100.1 F 77-95 18-22 109-141/59-79 90-98 Exam: Examination: GENERAL: NAD. HEENT: PERRLA. EOMI. NECK: Neck is supple. CVS: Regular rate and rhythm. S1 and S2 are normal. Systolic ejection murmur at left upper sternal border RESPIRATORY: Lungs are clear. ABDOMEN: Soft and nontender. EXT: 1+ edema in right lower extremity. Status post amputation of right second toe. GIFTS OFFICER: Nonfocal SKIN: Warm and dry. Results - Labs CBC & BMP: 03/22/17 04:19 03/22/17 04:19 Lab Results: I have reviewed the past 24 hour labs
[2017-03-22] MEDS: SODIUM CHLORIDE 0.45% 1,000 ML IV SCH (18:21)
[2017-03-22] MEDS: ENOXAPARIN 40 MG/0.4 ML SYRINGE SUBCUT SCH (18:28)
[2017-03-22] MEDS: FUROSEMIDE 20 MG TABLET PO SCH (21:45)
[2017-03-22] MEDS: ASPIRIN EC 81 MG TABLET PO SCH (21:45)
[2017-03-23] MEDS: INSULIN REGULAR 100 UNIT/ML SUBCUT SCH ×4 (00:18→17:49)
[2017-03-23 07:29] LABS: Basophils % 0.3 % (0.0-0.8); Eosinophils # 0.1 10*3/uL (0.0-0.87); Eosinophils % 0.7 % (0.00-10.9); Hematocrit 28.7 VOL% (42.0-52.0); Immature Granulocytes % 0.8 %; Lymphocytes # 1.2 10*3/uL (1.4-4.0); Lymphocytes % 9.4 % (21.2-54.2); Mean Corpuscular HGB Conc 31.4 GM/DL (32-36); Mean Corpuscular Hemoglobin 27 PG (27-34); Mean Platelet Volume 9.4 FL (9.6-12.0); Monocytes # 1.3 10*3/uL (0.11-0.8); Neutrophils # 9.5 10*3/uL (1.4-7.4); Neutrophils % 77.8 % (38.7-73.9); Platelet Count 342 T/CUMM (130-400); Red Cell Distribution Width 13.1 % (9.3-17.3); White Blood Count 12.2 T/CUMM (4-12)
[2017-03-23 08:05] LABS: Calcium 8.4 MG/DL (8.5-10.1); Magnesium 2.6 MG/DL (1.8-2.4); Osmolality,Calculated 283.7 MOS/KG (273-304); Potassium 4.4 MMOL/L (3.5-5.1)
--- NOTE | 2017-03-23 08:20 | Internal Med Progress Note ---
Assessment and Plan (1) Diabetic foot Status: Acute Assessment and plan: 72-year-old male admitted to acute care * Diabetic foot. He is doing fairly well. * Renal function is stable * Diabetes. Blood sugars should improve * Coronary artery disease. Stable * Hypertension. Blood pressure is controlled * Continue present management Current Visit: No (2) CAD (coronary artery disease) Status: Chronic Current Visit: No (3) Diabetic neuropathy Status: Chronic Current Visit: No (4) Hypertension Status: Chronic Current Visit: No Internal Medicine - PN: Subj Interval history: Patient is feeling better this morning. He does not have any pain in his right lower extremity. He denies any chest pain or shortness of breath. Exam (Progress Note) - Constitutional Vitals: Period Temp Pulse Resp BP Sys/Askew Pulse Ox Last 24 Hr 97.8 F-99.9 F 77-117 18-22 109-142/59-83 92-100 Exam: Examination: GENERAL: NAD. NECK: Neck is supple. CVS: Regular rate and rhythm. S1 and S2 are normal. Systolic ejection murmur at left upper sternal border RESPIRATORY: Lungs are clear. ABDOMEN: Soft and nontender. EXT: 1+ edema in right lower extremity. Status post amputation of right second toe. 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 Results - Labs CBC & BMP: 03/23/17 07:02 03/23/17 07:02 Lab Results: I have reviewed the past 24 hour labs
[2017-03-23] MEDS: INSULIN ASPART PROTAMINE/ASPART 70/30 100 UNIT/ML SUBCUT SCH ×2 (09:09→16:55)
[2017-03-23] MEDS: SERTRALINE 25 MG TABLET PO SCH (09:11)
[2017-03-23] MEDS: LOSARTAN 50 MG TABLET PO SCH (09:11)
[2017-03-23] MEDS: CILOSTAZOL 50 MG TABLET PO SCH ×2 (09:11→20:36)
[2017-03-23] MEDS: CARVEDILOL 12.5 MG TABLET PO SCH ×2 (09:11→20:36)
[2017-03-23] MEDS: FUROSEMIDE 40 MG TABLET PO SCH (09:12)
[2017-03-23] MEDS: ROSUVASTATIN 20 MG TABLET PO SCH (09:12)
[2017-03-23] MEDS: GABAPENTIN 400 MG CAPSULE PO SCH ×3 (09:12→20:36)
[2017-03-23] MEDS: MAGNESIUM OXIDE 400 MG TABLET PO SCH (09:13)
[2017-03-23] MEDS: oxyCODONE/ACETAMINOPHEN 5-325 MG TABLET PO PRN ×3 (09:16→20:36)
[2017-03-23] MEDS: CEFTAROLINE 600 MG in SODIUM CHLORIDE 0.9% 100 ML IV SCH ×2 (09:17→20:55)
[2017-03-23] MEDS: CLOPIDOGREL 75 MG TABLET PO SCH (09:25)
--- NOTE | 2017-03-23 10:50 | Cardiology Progress Note ---
Anat, Brooklyn Jacob RN, am scribing for, and in the presence of, Stevenson Sun MD 10:48. Assessment and Plan - Time spent with patient Time spent with patient: Greater than 30 minutes (1) Critical ischemia of lower extremity Status: Acute Assessment and plan: INIIAL CONSULT MARCH 19, 2017: ASSESSMENT/PLAN: 1. 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 2. Ejection fraction was 60% with inferior hypokinesis December 15, 2016 in clinic 3. Follow-up echocardiogram is pending 4. He is having severe pain at this point; it seems reasonable to proceed with toe amputation, which is planned under MAC 5. He is on good medications from a cardiac/vascular standpoint with antiplatelet therapy, and statin therapy 6. We will follow with you. UPDATE MAR 20 2017 : PATIENT SEEN IN ICU BY DR. THOMPSON. UPDATE MAR 21 2017: ASSESSMENT/PLAN: 1. Mr. Chong is hemodynamically stable after his episode of atrial fibrillation with RVR the evening of March 19, now maintaining normal sinus rhythm on Coreg with good blood pressure control 2. Status post amputation right toe with poor perfusion due to occluded anterior tibial and posterior tibial arteries as per CTA; we will schedule for angiography in the morning with intervention is appropriate to try to open one or both tibial arteries; anterior tibial may be the most favorable given the angiosome involving his second toe. 3. Change to high intensity statin with Crestor 40 mg daily 4. Agree with baby aspirin and low-dose Lovenox; will add low-dose Pletal and Plavix as well 5. Untreated LUKE; we need to get him follow-up for this given it is likely making him prone to atrial fibrillation as well as causing daytime somnolence and may be aggravating his hypertension 6. Borderline normal LV function on echocardiogram (EF 50%) I discussed with the patient the risks and benefits of peripheral angiography and intervention including but not limited to: , stroke, heart attack, vascular damage, reaction to medicine or dye, bleeding requiring blood transfusion, failure of the procedure, and the possible need for planned or emergency surgery. I have answered all the patient's questions regarding the procedure, and the patient is agreeable to proceed. UPDATE MARCH 22, 2017: ASSESSMENT/PLAN: Procedure performed: 1. Right superficial femoral angiography with runoff 2. Orbital atherectomy, and angioplasty of proximal and mid right anterior tibial artery with 1.25 micro crown CSI device and 3.0 x 1 20 balloon 3. Right femoral arteriotomy closed with minx device Impression: 1. Trivial right SFA disease, with three-vessel l proximal occlusions at the trifurcation including but not limited to: A. Very proximal dorsalis pedis occlusion B. Short proximal peroneal occlusion which is the best runoff vessel as a reaches the ankle C. 95% ostial anterior tibial stenosis with high mid occlusion and sluggish runoff to the dorsalis pedis 2. Status post successful atherectomy and angioplasty of the ostial anterior tibial lesion (1.25 crown and 3.0 x 120 mm balloon) is with less than 30% residual stenosis 3. Status post atherectomy and angioplasty of proximal to mid anterior tibial vessel with suboptimal result (vessel still occludes in the high mid anterior tibial segment) Recommendation discussion: I believe achieved a good result with regard to treating Mr. Chong is ostial anterior tibial artery. Unfortunately unable to restore in-line flow through the anterior tibia which is the angiosome which supplies his amputation site. Treatment of his proximal peroneal occlusion could be considered. However he probably needs IV hydration given he has some mild renal insufficiency. UPDATE MARCH 23, 2017: ASSESSMENT/PLAN: 1. Status post atherectomy and angioplasty of ostial right anterior tibial critical disease, and failure to open mid anterior tibial artery occlusion yesterday without foot pain, and with benign right groin site. He has three- vessel occlusions below the trifurcation with the peroneal being the best runoff vessel. 2. He is hemodynamic is stable 3. Creatinine is stable is actually slightly lower today 4. Recommend continuing baby aspirin, cilostazol, Plavix, and high intensity statin therapy (Crestor 40 mg per day) 5. Follow-up with Dr. Stoner his primary manufacturing assembler in about 2 weeks time ; he will need to decide best treatment regarding anticoagulation given he had atrial fibrillation with RVR; I suspect this was the cause of his mild troponin elevation. Follow-up pharmacologic SPECT prior to follow-up with Dr. Stoner. 6. Known LUKE, unable to tolerate facemask; given his daytime somnolence atrial fibrillation, we will try to make an appointment sooner than his follow-up in July to try get them treated if possible. Current Visit: Yes (2) Atrial fibrillation with RVR Status: Acute Current Visit: Yes (3) Cardiac murmur Status: Chronic Current Visit: Yes (4) Dyslipidemia Status: Chronic Current Visit: Yes (5) Sleep apnea Status: Chronic Current Visit: Yes (6) Diabetes Status: Acute Current Visit: No Qualifiers: Diabetes mellitus type: type 2 (7) CAD (coronary artery disease) Status: Chronic Current Visit: No (8) Hypertension Status: Chronic Current Visit: No (9) S/P CABG (coronary artery bypass graft) Status: Chronic Current Visit: No Cardiology - PN: Subj Interval history: PRIMARY AIRLINE STATION AGENT: DR. CODY STONER SUMMARY: Mr. Chong, 72BM, routinely followed by Dr. Stoner. He was last seen in cardiology clinic January 10, 2017. Risk factors include: Known coronary artery disease (S/P CABG: [place] - LAD, SVG - OM February [address] Suero), hypertension, dyslipidemia, diabetes, PVD, sedentary lifestyle. History of obstructive sleep apnea (intolerant to BiPAP/CPAP), PTSD. Patient was directly from Dr. Beard's office for right lower extremity PVD, severe pain in the right second toe with possible gangrene. Patient had an episode of atrial fibrillation with RVR on the evening of 03/19, and he was transferred to ICU overnight for treatment and close observation. Echocardiogram reveals ejection fraction 50% mild to moderate concentric left ventricular hypertrophy and moderately dilated right and left atrial. His aortic valve is slightly sclerotic with it worst mild stenosis. Underwent amputation of right second toe on 03/20/[address] Chambers. On , patient was taken to cardiac catheterization lab and underwent right SFA angiography with runoff, orbital artherectomy and angioplasty of proximal and mid right anterior tibial artery. Unable to restore flow to anterior tibial artery area that supplies area of amputation. IV hydration for mild renal insufficiency after peripheral procedure. MARCH 23, 2017: Mr. Chong has rested well overnight. He is awake and alert this morning. Denies chest discomfort, dyspnea, or extremity pain this morning. Received gentle hydration overnight with 1/2 NS after peripheral angiography and PEPPER CUTTER as he has had renal insufficiency. Creatinine improved to 1.4 this morning (1.6 yesterday). Electrolytes within acceptable range. WBC mildly elevated 12,200 and low grade temp overnight 99.9F. Sinus rhythm per telemetry monitoring. Systolic BP 130-140 mmHg. Exam (Progress Note) - Constitutional Vitals: Period Temp Pulse Resp BP Sys/Askew Pulse Ox Last 24 Hr 97.8 F-99.9 F 77-117 18-22 109-142/59-83 92-100 Exam: General appearance: normal weight, no acute distress HEENT exam: normal inspection, atraumatic Neck exam: normal inspection no JVD. No carotid bruit. Trachea is in midline Respiratory/lungs exam: clear to auscultation bilaterally good air movement. Cardiovascular exam: regular rate and rhythm, 1/6 systolic murmur. No precordial lift. Chest wall exam: nontender GI/Abdominal exam: normal bowel sounds, soft, nontender, no abdominal bruits or pulsatile masses. Extremeties/musculoskeletal: 2+ radial pulses. Diminished pulses in his lower extremities especially right leg where he has ischemic changes Neurological exam: alert, oriented X3, no focal deficits Psychiatric exam: normal affect, normal mood. Cognitive function is grossly normal. Skin exam: normal color, warm, chronic ischemic changes the right foot especially second right toe. Result/EKG - Labs CBC & BMP: 03/23/17 07:02 03/23/17 07:02 Lab Results: I have reviewed the past 24 hour labs Labs: Laboratory Results - last 24 hr 03/22/17 03/22/17 03/22/17 13:08 13:11 20:03 WBC RBC Hgb Hct MCV MCH MCHC RDW Plt Count MPV Neut % (Auto) Lymph % (Auto) [place] % (Auto) Eos % (Auto) Baso % (Auto) Neut # (Auto) Lymph # (Auto) [place] # (Auto) Eos # (Auto) Baso # (Auto) Immature Gran % Nucleated RBC % Immature Gran # Nucleated RBCs # Sodium Potassium Chloride Carbon Dioxide Anion Gap BUN Creatinine GFR Calculation BUN/Creatinine Ratio Glucose POC Glucose 295 H 303 H 321 H Calculated Osmolality Calcium Magnesium 03/23/17 03/23/17 03/23/17 00:05 05:41 07:02 WBC 12.2 H RBC 3.30 L Hgb 9.0 L Hct 28.7 L MCV 87.0 MCH 27 MCHC 31.4 L RDW 13.1 Plt Count 342 MPV 9.4 L Neut % (Auto) 77.8 H Lymph % (Auto) 9.4 L [place] % (Auto) 11.0 Eos % (Auto) 0.7 Baso % (Auto) 0.3 Neut # (Auto) 9.5 H Lymph # (Auto) 1.2 L [place] # (Auto) 1.3 H Eos # (Auto) 0.1 Baso # (Auto) 0.0 Immature Gran % 0.8 Nucleated RBC % 0.0 Immature Gran # 0.10 Nucleated RBCs # 0.00 Sodium Potassium Chloride Carbon Dioxide Anion Gap BUN Creatinine GFR Calculation BUN/Creatinine Ratio Glucose POC Glucose 323 H 249 H Calculated Osmolality Calcium Magnesium 03/23/17 07:02 WBC RBC Hgb Hct MCV MCH MCHC RDW Plt Count MPV Neut % (Auto) Lymph % (Auto) [place] % (Auto) Eos % (Auto) Baso % (Auto) Neut # (Auto) Lymph # (Auto) [place] # (Auto) Eos # (Auto) Baso # (Auto) Immature Gran % Nucleated RBC % Immature Gran # Nucleated RBCs # Sodium 138 Potassium 4.4 Chloride 103 Carbon Dioxide 29 Anion Gap 10.4 BUN 22 H Creatinine 1.40 H GFR Calculation 83 BUN/Creatinine Ratio 15.00 Glucose 204 H POC Glucose Calculated Osmolality 283.7 Calcium 8.4 L Magnesium 2.6 H - EKG EKG results: interpreted by me, no acute changes EKG shows: sinus rhythm Corinne Coppola Randall Scott, MD, personally performed the services described in this documentation, ascribed by Brooklyn Jacob RN in my presence, and it is both accurate and complete .
--- NOTE | 2017-03-23 11:16 | Event Note ---
Mr. Chong had a atherectomy and opening of the proximal anterior tibial artery yesterday was not able to get down into the tibial peroneal. The does have occlusion of his vessels at the level of the foot today he is not having pain in his second toe as he was but definitely the distal portion is very dark and will probably become necrotic. My feeling is that as long as we are not dealing with infection or unremitting pain to simply treat this locally perhaps on autoamputation will occur I do not think that we need to try to further revascularize at this time and Dr. Sun agrees. We will plan for Mr. Chong to stay here on IV Teflaro through tomorrow then possibly be discharged tomorrow
[2017-03-23] MEDS: SODIUM CHLORIDE 0.45% 1,000 ML IV SCH (13:05)
[2017-03-23] MEDS: ENOXAPARIN 40 MG/0.4 ML SYRINGE SUBCUT SCH (17:49)
[2017-03-23] MEDS: FUROSEMIDE 20 MG TABLET PO SCH (20:36)
[2017-03-23] MEDS: ASPIRIN EC 81 MG TABLET PO SCH (20:36)
[2017-03-24] MEDS: INSULIN REGULAR 100 UNIT/ML SUBCUT SCH ×3 (00:21→12:39)
[2017-03-24] MEDS: oxyCODONE/ACETAMINOPHEN 5-325 MG TABLET PO PRN ×2 (04:26→08:53)
[2017-03-24] MEDS: SODIUM CHLORIDE 0.45% 1,000 ML IV SCH ×2 (05:34→11:22)
[2017-03-24 07:00] LABS: Basophils % 0.2 % (0.0-0.8); Eosinophils # 0.1 10*3/uL (0.0-0.87); Eosinophils % 1.1 % (0.00-10.9); Hematocrit 27.6 VOL% (42.0-52.0); Hemoglobin 9.1 GM/DL (14.0-18.0); Immature Granulocytes % 0.5 %; Immature Granulocytes Absolute 0.05 #; Lymphocytes # 0.9 10*3/uL (1.4-4.0); Lymphocytes % 7.8 % (21.2-54.2); Mean Corpuscular Hemoglobin 28 PG (27-34); Mean Corpuscular Volume 84.9 FL (87-102); Mean Platelet Volume 9.9 FL (9.6-12.0); Monocytes # 1.5 10*3/uL (0.11-0.8); Monocytes % 13.6 % (1.7-12.7); Neutrophils # 8.3 10*3/uL (1.4-7.4); Neutrophils % 76.8 % (38.7-73.9); Platelet Count 333 T/CUMM (130-400); Red Blood Count 3.25 MC/CUMM (3.8-5.5); Red Cell Distribution Width 12.9 % (9.3-17.3); White Blood Count 10.9 T/CUMM (4-12)
[2017-03-24 07:24] LABS: Calcium 8.5 MG/DL (8.5-10.1); Magnesium 2.4 MG/DL (1.8-2.4); Osmolality,Calculated 281.5 MOS/KG (273-304); Potassium 4.2 MMOL/L (3.5-5.1)
[2017-03-24] MEDS: CEFTAROLINE 600 MG in SODIUM CHLORIDE 0.9% 100 ML IV SCH (08:46)
[2017-03-24] MEDS: INSULIN ASPART PROTAMINE/ASPART 70/30 100 UNIT/ML SUBCUT SCH (08:47)
[2017-03-24] MEDS: MAGNESIUM OXIDE 400 MG TABLET PO SCH (08:47)
[2017-03-24] MEDS: ROSUVASTATIN 20 MG TABLET PO SCH (08:47)
[2017-03-24] MEDS: SERTRALINE 25 MG TABLET PO SCH (08:48)
[2017-03-24] MEDS: CILOSTAZOL 50 MG TABLET PO SCH (08:48)
[2017-03-24] MEDS: LOSARTAN 50 MG TABLET PO SCH (08:48)
[2017-03-24] MEDS: GABAPENTIN 400 MG CAPSULE PO SCH (08:48)
[2017-03-24] MEDS: CARVEDILOL 12.5 MG TABLET PO SCH (08:48)
[2017-03-24] MEDS: FUROSEMIDE 40 MG TABLET PO SCH (08:48)
--- NOTE | 2017-03-24 09:18 | Discharge Summary ---
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 Sun to try to revascularize the tibial vessels as much as possible and he was able to improve perfusion somewhat through the anterior tibial artery. We do see however significant tibial occlusive disease and he does not have palpable pedal pulses. His toe appears to be developing continued ischemia on the distal portion which may require future amputation but at this point in time his pain is been relieved he has no fevers and no evidence of ongoing infection. I am therefore going to let him be discharged home and I have instructed him in wound care and drying in my thoughts are to try to lift this toe auto amputate as much as feasible. I will discharge him on Keflex 500 mg twice daily to continue for another 10 days I will give him Percocet for pain #20 with no refills and he will resume his normal insulin and form and I have asked him to limit his ambulation to in the house I will see him in the office in approximately 10 days Discharge Plan - Discharge Data Disposition: Disch To Home/Self Care Condition at Discharge: Stable Discharge Diet: diabetic diet Activity: ambulate only with your walker Hygiene: may shower Weight Bearing at Discharge: weight bear as tolerated Driving: not until seen by doctor Contact your physician if you experience:: fever over 101, Redness or swelling - Discharge Medications New Aspirin EC Tab 81 mg PO BEDTIME tablet Cilostazol [Pletal] 100 mg PO BID #100 tablet Furosemide Tab [Lasix Tab] 20 mg PO BEDTIME #30 tablet oxyCODONE/ACETAMINOPHEN 5-325 [Percocet 5-325] 1 tablet PO Q6H PRN #20 tablet PRN Reason: Pain Moderate (4-7) cephALEXin [Keflex] 500 mg PO Q12HR #20 capsule Continue Pravastatin [Pravachol] 80 mg PO BEDTIME #30 tablet Carvedilol [Coreg] 12.5 mg PO BID Insulin Aspart Prot/Asp 70/30 [NovoLOG Mix 70/30] 55 unit SUBCUT AC SUPPER Insulin Aspart Prot/Asp 70/30 [NovoLOG Mix 70/30] 55 unit SUBCUT AC BREAKFAST Gabapentin Cap/Tab [Neurontin Cap/Tab] 800 mg PO TID Magnesium Oxide 420 mg PO DAILY Sertraline [Zoloft] 50 mg PO DAILY Methocarbamol Tab [Robaxin Tab] 750 mg PO Q8HR PRN PRN Reason: Muscle Pain ACETAMIN/diphenhydrAMIN 500-25 [Tylenol PM] 1 tablet PO BEDTIME PRN PRN Reason: Sleep Metformin HCl 1,000 mg PO BID Losartan Potassium [Cozaar] 50 mg PO DAILY Furosemide 40 mg PO DAILY W/BREAKFAST Docusate Sodium 100 mg PO BID PRN PRN Reason: Constipation Clopidogrel [Plavix] 75 mg PO DAILY Aspirin [Ecotrin] 81 mg PO BEDTIME - Follow Up or Referral Follow Up: Moiz Chambers MD [Physician] - 04/02/17 - Forms/Instructions Exam - Constitutional Vitals: Period Temp Pulse Resp BP Sys/Askew Pulse Ox Last 24 Hr 97.3 F-98.7 F 76-86 18-20 112-157/69-81 92-99 Discharge Results Procedures and tests throughout hospitalization: Pending Orders 03/25/17 04:00 BMP w/ Mg [Basic Metabolic Panel w/Mg] IN AM CBC [Comp Blood Count Auto Diff] IN AM 03/26/17 04:00 BMP w/ Mg [Basic Metabolic Panel w/Mg] IN AM CBC [Comp Blood Count Auto Diff] IN AM Labs on day of discharge: Labs from last 24 hours 03/24/17 03/24/17 03/24/17 05:56 05:56 05:47 WBC 10.9 RBC 3.25 L Hgb 9.1 L Hct 27.6 L MCV 84.9 L MCH 28 MCHC 33.0 RDW 12.9 Plt Count 333 MPV 9.9 Neut % (Auto) 76.8 H Lymph % (Auto) 7.8 L Collin % (Auto) 13.6 H Eos % (Auto) 1.1 Baso % (Auto) 0.2 Neut # (Auto) 8.3 H Lymph # (Auto) 0.9 L Collin # (Auto) 1.5 H Eos # (Auto) 0.1 Baso # (Auto) 0.0 Immature Gran % 0.5 Nucleated RBC % 0.0 Immature Gran # 0.05 Nucleated RBCs # 0.00 Sodium 139 Potassium 4.2 Chloride 103 Carbon Dioxide 28 Anion Gap 12.2 BUN 22 H Creatinine 1.40 H GFR Calculation 83 BUN/Creatinine Ratio 15.00 Glucose 141 H POC Glucose 160 H Calculated Osmolality 281.5 Calcium 8.5 Magnesium 2.4 03/23/17 03/23/17 03/23/17 23:59 17:41 11:07 WBC RBC Hgb Hct MCV MCH MCHC RDW Plt Count MPV Neut % (Auto) Lymph % (Auto) Collin % (Auto) Eos % (Auto) Baso % (Auto) Neut # (Auto) Lymph # (Auto) Collin # (Auto) Eos # (Auto) Baso # (Auto) Immature Gran % Nucleated RBC % Immature Gran # Nucleated RBCs # Sodium Potassium Chloride Carbon Dioxide Anion Gap BUN Creatinine GFR Calculation BUN/Creatinine Ratio Glucose POC Glucose 148 H 364 H 239 H Calculated Osmolality Calcium Magnesium DS: Provider Date of admission: 03/20/17 12:32 Primary care physician: Nils Savage MD Attending physician on admission: Moiz Chambers MD Consults: 03/19/17 14:43 Consult to Physician [CONS] Routine Comment: Consulting Provider: Nils Savage Consulting Provider Notified: Yes When should Consulting Provider be notified: Now Person Notified: amberly grady Date Notified: 03/19/17 Time Notified: 14:30 03/19/17 14:44 Consult to Physician [CONS] Routine Comment: Consulting Provider: Alexey Stoner Consulting Provider Notified: Yes When should Consulting Provider be notified: Now Person Notified: adam grady Date Notified: 03/19/17 Time Notified: 14:45 03/19/17 15:01 Consult to Pharmacy [CONS] Routine Reason for Pharmacy Consult: Dose/Manage Vancomycin 03/21/17 08:47 Consult to Physician [CONS] Routine Comment: evaluate right tibioperoneal for possible athrecto Consulting Provider: Stevenson Sun Consulting Provider Notified: Yes Consult to Specialist Group: Cardiology Person Notified: WIL Date Notified: 03/21/17 Time Notified: 11:05 Discharging clinician: Moiz Chambers MD
--- NOTE | 2017-03-24 09:25 | Cardiology Progress Note ---
Assessment and Plan (1) Critical ischemia of lower extremity Status: Acute Assessment and plan: INIIAL CONSULT MARCH 19, 2017: ASSESSMENT/PLAN: 1. 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 2. Ejection fraction was 60% with inferior hypokinesis December 15, 2016 in clinic 3. Follow-up echocardiogram is pending 4. He is having severe pain at this point; it seems reasonable to proceed with toe amputation, which is planned under MAC 5. He is on good medications from a cardiac/vascular standpoint with antiplatelet therapy, and statin therapy 6. We will follow with you. UPDATE MAR 20 2017 : PATIENT SEEN IN ICU BY DR. THOMPSON. UPDATE MAR 21 2017: ASSESSMENT/PLAN: 1. Mr. Chong is hemodynamically stable after his episode of atrial fibrillation with RVR the evening of March 19, now maintaining normal sinus rhythm on Coreg with good blood pressure control 2. Status post amputation right toe with poor perfusion due to occluded anterior tibial and posterior tibial arteries as per CTA; we will schedule for angiography in the morning with intervention is appropriate to try to open one or both tibial arteries; anterior tibial may be the most favorable given the angiosome involving his second toe. 3. Change to high intensity statin with Crestor 40 mg daily 4. Agree with baby aspirin and low-dose Lovenox; will add low-dose Pletal and Plavix as well 5. Untreated LUKE; we need to get him follow-up for this given it is likely making him prone to atrial fibrillation as well as causing daytime somnolence and may be aggravating his hypertension 6. Borderline normal LV function on echocardiogram (EF 50%) I discussed with the patient the risks and benefits of peripheral angiography and intervention including but not limited to: , stroke, heart attack, vascular damage, reaction to medicine or dye, bleeding requiring blood transfusion, failure of the procedure, and the possible need for planned or emergency surgery. I have answered all the patient's questions regarding the procedure, and the patient is agreeable to proceed. UPDATE MARCH 22, 2017: ASSESSMENT/PLAN: Procedure performed: 1. Right superficial femoral angiography with runoff 2. Orbital atherectomy, and angioplasty of proximal and mid right anterior tibial artery with 1.25 micro crown CSI device and 3.0 x 1 20 balloon 3. Right femoral arteriotomy closed with minx device Impression: 1. Trivial right SFA disease, with three-vessel l proximal occlusions at the trifurcation including but not limited to: A. Very proximal dorsalis pedis occlusion B. Short proximal peroneal occlusion which is the best runoff vessel as a reaches the ankle C. 95% ostial anterior tibial stenosis with high mid occlusion and sluggish runoff to the dorsalis pedis 2. Status post successful atherectomy and angioplasty of the ostial anterior tibial lesion (1.25 crown and 3.0 x 120 mm balloon) is with less than 30% residual stenosis 3. Status post atherectomy and angioplasty of proximal to mid anterior tibial vessel with suboptimal result (vessel still occludes in the high mid anterior tibial segment) Recommendation discussion: I believe achieved a good result with regard to treating Mr. Chong is ostial anterior tibial artery. Unfortunately unable to restore in-line flow through the anterior tibia which is the angiosome which supplies his amputation site. Treatment of his proximal peroneal occlusion could be considered. However he probably needs IV hydration given he has some mild renal insufficiency. UPDATE MARCH 23, 2017: ASSESSMENT/PLAN: 1. Status post atherectomy and angioplasty of ostial right anterior tibial critical disease, and failure to open mid anterior tibial artery occlusion yesterday without foot pain, and with benign right groin site. He has three- vessel occlusions below the trifurcation with the peroneal being the best runoff vessel. 2. He is hemodynamic is stable 3. Creatinine is stable is actually slightly lower today 4. Recommend continuing baby aspirin, cilostazol, Plavix, and high intensity statin therapy (Crestor 40 mg per day) 5. Follow-up with Dr. Stoner his primary seed tester in about 2 weeks time ; he will need to decide best treatment regarding anticoagulation given he had atrial fibrillation with RVR; I suspect this was the cause of his mild troponin elevation. Follow-up pharmacologic SPECT prior to follow-up with Dr. Stoner. 6. Known LUKE, unable to tolerate facemask; given his daytime somnolence atrial fibrillation, we will try to make an appointment sooner than his follow-up in July to try get them treated if possible. March 24, 2017 update: 1. Mr. Chong is doing well clinically with no recurrence of his atrial fibrillation or shortness of breath 2. His hematocrit continues to slowly drift down his microcytic; would discontinue Plavix and simply continue cilostazol and baby aspirin 3. Given risk for CAD with his episode of atrial fibrillation RVR and mild troponin elevation, we scheduled pharmacologic myocardial scan in the next week or so, and follow-up with Dr. Stoner thereafter. 4. His untreated LUKE is likely a factor in his episode of atrial fibrillation; we are trying to schedule sooner follow-up with sleep medicine, and have encouraged him to try different mask and make efforts to use CPAP regularly. Current Visit: Yes (2) Atrial fibrillation with RVR Status: Acute Current Visit: Yes (3) Cardiac murmur Status: Chronic Current Visit: Yes (4) Dyslipidemia Status: Chronic Current Visit: Yes (5) Sleep apnea Status: Chronic Current Visit: Yes (6) Diabetes Status: Acute Current Visit: No (7) CAD (coronary artery disease) Status: Chronic Current Visit: No (8) Hypertension Status: Chronic Current Visit: No (9) S/P CABG (coronary artery bypass graft) Status: Chronic Current Visit: No Cardiology - PN: Subj Interval history: Mr. Chong is doing well this morning. He reports he has had some balance problems off and on. He is having no chest discomfort palpitations. Is not having foot pain, he is waiting to get his foot redressed. Exam (Progress Note) - Constitutional Vitals: Period Temp Pulse Resp BP Sys/Askew Pulse Ox Last 24 Hr 97.3 F-98.7 F 76-86 18-20 112-157/69-81 92-99 General appearance: normal weight, no acute distress - Head Head exam: Present: normal inspection, normocephalic, atraumatic - Neck Neck exam: Present: normal inspection - Respiratory Respiratory exam: Present: clear to auscultation bilaterally. Absent: stridor, wheezes - Cardiovascular Cardiovascular exam: Present: regular rate and rhythm. Absent: diastolic murmur , rubs - GI/Abdominal GI/Abdominal exam: Present: soft. Absent: tenderness - Extremities Exam Extremities exam: Present: other (Right foot/toe amputation site bandaged). Absent: edema - Neurological Exam Neurological exam: Present: alert, oriented X3 Result/EKG - Labs CBC & BMP: 03/24/17 05:56 03/24/17 05:56 Labs: Laboratory Results - last 24 hr 03/23/17 03/23/17 03/23/17 11:07 17:41 23:59 WBC RBC Hgb Hct MCV MCH MCHC RDW Plt Count MPV Neut % (Auto) Lymph % (Auto) Wood % (Auto) Eos % (Auto) Baso % (Auto) Neut # (Auto) Lymph # (Auto) Wood # (Auto) Eos # (Auto) Baso # (Auto) Immature Gran % Nucleated RBC % Immature Gran # Nucleated RBCs # Sodium Potassium Chloride Carbon Dioxide Anion Gap BUN Creatinine GFR Calculation BUN/Creatinine Ratio Glucose POC Glucose 239 H 364 H 148 H Calculated Osmolality Calcium Magnesium 03/24/17 03/24/17 03/24/17 05:47 05:56 05:56 WBC 10.9 RBC 3.25 L Hgb 9.1 L Hct 27.6 L MCV 84.9 L MCH 28 MCHC 33.0 RDW 12.9 Plt Count 333 MPV 9.9 Neut % (Auto) 76.8 H Lymph % (Auto) 7.8 L Wood % (Auto) 13.6 H Eos % (Auto) 1.1 Baso % (Auto) 0.2 Neut # (Auto) 8.3 H Lymph # (Auto) 0.9 L Wood # (Auto) 1.5 H Eos # (Auto) 0.1 Baso # (Auto) 0.0 Immature Gran % 0.5 Nucleated RBC % 0.0 Immature Gran # 0.05 Nucleated RBCs # 0.00 Sodium 139 Potassium 4.2 Chloride 103 Carbon Dioxide 28 Anion Gap 12.2 BUN 22 H Creatinine 1.40 H GFR Calculation 83 BUN/Creatinine Ratio 15.00 Glucose 141 H POC Glucose 160 H Calculated Osmolality 281.5 Calcium 8.5 Magnesium 2.4
[2017-03-24 11:14] VITALS: BP 132/77
== END 2017-03-24 11:30 | disposition home or self-care (01) | DRG 271 ==
LOC: N.3WOUT 14:05 → N.3E 14:05 → N.ICU 17:39 → EDSTATUS 03-21 10:24 → N.3E 03-21 11:39
PROVIDERS: ADMIT Surgery; ATTEND Surgery

== ENCOUNTER 2017-03-25 16:33 | Inpatient (IN) ==
[2017-03-25 18:29] LABS: Basophils % 0.3 % (0.0-0.8); Eosinophils % 0.2 % (0.00-10.9); Hematocrit 27.8 VOL% (42.0-52.0); Hemoglobin 9.2 GM/DL (14.0-18.0); Immature Granulocytes % 0.8 %; Immature Granulocytes Absolute 0.09 #; Lymphocytes # 0.8 10*3/uL (1.4-4.0); Lymphocytes % 6.9 % (21.2-54.2); Mean Corpuscular HGB Conc 33.1 GM/DL (32-36); Mean Corpuscular Hemoglobin 28 PG (27-34); Mean Platelet Volume 9.1 FL (9.6-12.0); Monocytes # 1.5 10*3/uL (0.11-0.8); Neutrophils # 9.3 10*3/uL (1.4-7.4); Neutrophils % 78.8 % (38.7-73.9); Platelet Count 367 T/CUMM (130-400); Red Blood Count 3.31 MC/CUMM (3.8-5.5); Red Cell Distribution Width 13.3 % (9.3-17.3); White Blood Count 11.8 T/CUMM (4-12)
[2017-03-25] MEDS ORDERED: SODIUM CHLORIDE 0.9% 500 ML IV STA (18:41)
[2017-03-25] MEDS ORDERED: ACETAMINOPHEN 500 MG TABLET PO STA (18:41)
[2017-03-25] MEDS ORDERED: ALBUTEROL/IPRATROPIUM 3 ML NEB RESP TX STA (18:41)
[2017-03-25] MEDS ORDERED: cefTRIAXone 1,000 MG in SODIUM CHLORIDE 0.9% 100 ML IV STA (18:41)
[2017-03-25 19:08] LABS: Calcium 8.7 MG/DL (8.5-10.1); Magnesium 2.3 MG/DL (1.8-2.4); Osmolality,Calculated 284.4 MOS/KG (273-304); Potassium 4.2 MMOL/L (3.5-5.1)
[2017-03-25] MEDS ORDERED: ACETAMINOPHEN 500 MG TABLET ONE (19:08)
[2017-03-25 19:09] LABS: Albumin 2.5 G/DL (3.4-5.0); Bilirubin,Total 0.4 MG/DL (0.2-1.0); Calcium 8.4 MG/DL (8.5-10.1); Osmolality,Calculated 284.4 MOS/KG (273-304); Potassium 4.4 MMOL/L (3.5-5.1); Total Protein 6.2 G/DL (6.4-8.3)
[2017-03-25 19:13] LABS: Apearance,Urine Slightly Hazy (Clear); Bilirubin,Urine Negative (Negative); Blood, Urine Small mg/dL (Negative); Glucose,Urine (UA) 50 mg/dL (Negative); Hyaline Casts,Urine 5 /LPF (0-3); Ketones,Urine Negative (Negative); Mucus,Urine Occasional /LPF (Occasional); Nitrite,Urine Negative (Negative); Protein,Urine Negative; RBC,Urine 2 /HPF (0-4); Squamous Epithelial Cell,Urine Occasional /HPF (0-10); Urine Color Yellow (Yellow); Urine Specific Gravity 1.015 (1.001-1.035); WBC,Urine 1 /HPF (0-6)
[2017-03-25] MEDS ORDERED: cefTRIAXone 1,000 MG VIAL ONE (19:30)
--- NOTE | 2017-03-25 19:40 | Emergency Department Note ---
ISmith Brooke, am scribing for, and in the presence of, Mathew Mills MD 18 :46. Gene Coppola Charles R, MD, personally performed the services described in this documentation, ascribed by Sunita Mtz in my presence, and it is both accurate and complete 940 . Arrival - Arrival Chief Complaint: Non-Specific Stated Complaint: chills and high temp/recently discharged from hosp ED Nursing Triage Note: c/o discharged from last evening from having right great toe removed by ., states today around 1400 he started having chills, + temp 101.8 , states they called 's office answering service and was told to come here., + SOB., + Coughing and congestion Mode of Arrival: Wheelchair Limitations: No Limitations Source: Patient, Significant other, RN Notes Reviewed Time Seen by Provider: 03/25/17 18:23 - History of Present Illness HPI Narrative: Patient is a 72 year old male who presents to the ED with c/o fever that started today. Patient is a poor historian. He was discharged from the hospital , yesterday, after having his right second toe amputated due to poor circulation. Patient says he felt fine yesterday. His says she had to turn the heater on in the house because Patient was shaking and cold. She says she checked his temperature, at home, and it was 101.8. His temperature during triage was 101.4. says she changed his bandage, this morning, and states that there was no erythema to the foot, however the foot is now red with streaks going up into the leg. Patient was prescribed Cephalexin and is taking them. Patient also complains of having a cough but says that is normal for him. Patient has PMHx of HTN, NM, PVD, CAD, peripheral neuropathy, CVA, IDDM, dyslipidemia, obstructive sleep apnea, arthritis, and prostate problems. His Primary Care Provider is Dr. Garcia. Onset (ago): day(s) (1) Allergies/Adverse Reactions: Allergies Allergy/AdvReac Type Severity Reaction Status Date / Time vancomycin Allergy Seizure Verified 03/25/17 16:59 Home Medications: Home Medications Medication Instructions Recorded Confirmed Type Pravastatin [Pravachol] 80 mg PO BEDTIME #30 tablet 03/16/16 03/19/17 Rx ACETAMIN/diphenhydrAMIN 500-25 1 tablet PO BEDTIME PRN 08/22/16 03/19/17 History [Tylenol PM] Carvedilol [Coreg] 12.5 mg PO BID 08/22/16 03/19/17 History Clopidogrel [Plavix] 75 mg PO DAILY 08/22/16 03/19/17 History Docusate Sodium 100 mg PO BID PRN 08/22/16 03/19/17 History Furosemide 40 mg PO DAILY W/BREAKFAST 08/22/16 03/19/17 History Gabapentin Cap/Tab [Neurontin 800 mg PO TID 08/22/16 03/19/17 History Cap/Tab] Insulin Aspart Prot/Asp 70/30 55 unit SUBCUT AC BREAKFAST 08/22/16 03/19/17 History [NovoLOG Mix 70/30] Insulin Aspart Prot/Asp 70/30 55 unit SUBCUT AC SUPPER 08/22/16 03/19/17 History [NovoLOG Mix 70/30] Losartan Potassium [Cozaar] 50 mg PO DAILY 08/22/16 03/19/17 History Magnesium Oxide 420 mg PO DAILY 08/22/16 03/19/17 History Metformin HCl 1,000 mg PO BID 08/22/16 03/19/17 History Methocarbamol Tab [Robaxin Tab] 750 mg PO Q8HR PRN 08/22/16 03/19/17 History Sertraline [Zoloft] 50 mg PO DAILY 08/22/16 03/19/17 History Aspirin [Ecotrin] 81 mg PO BEDTIME 01/17/17 03/19/17 History Aspirin EC Tab 81 mg PO BEDTIME tablet 03/24/17 Rx Cilostazol [Pletal] 100 mg PO BID #100 tablet 03/24/17 Rx Furosemide Tab [Lasix Tab] 20 mg PO BEDTIME #30 tablet 03/24/17 Rx cephALEXin [Keflex] 500 mg PO Q12HR #20 capsule 03/24/17 Rx oxyCODONE/ACETAMINOPHEN 5-325 1 tablet PO Q6H PRN #20 tablet 03/24/17 Rx [Percocet 5-325] Review of System - Review of System 12 point system: reviewed and no additional remarkable complaints except as stated - Review of System Constitutional: Present: fever Respiratory: Present: cough. Absent: respiratory distress Skin: Present: other (Right second toe amputation recently done- erythema and streaks going up leg). 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) Neurology: History of: Cerebrovascular Accident (Mild), Peripheral Neuropathy No history of: Seizures HEENT: History of: Eye Problem (Glasses Reading), Dental Problems (Dental Implant Upper) Endocrine: History of: Diabetes Mellitus (IDDM), Dyslipidemia Respiratory: History of: Obstructive Sleep Apnea (Not using C-Pap; Oxygen 2L at night), Respiratory Problems (Flu Vac Current 2016 Season) Comment Only: Pneumonia (Hx Pneum Vac) Genitourinary: History of: Prostate Problems Gastrointestinal: No history of: Polyps Musculoskeletal: History of: Musculoskeletal Problems (arthritis) Other: No history of: Anesthesia Reactions, Cancer - Surgical History Cardiac Surgeries: Sugical HX of: Cardiac Catheterization (stents), Cardiac Surgery (CABG 03/09/16) HEENT Surgeries: Surgical HX of: Eye Surgery (CATARACTS BILATERAL), Tonsilectomy & Adenoidectomy Abdominal Surgeries: Surgical HX of: Colonoscopy, Hernia Repair (Right inguinal hernia in [address] Beard) - Family History Family History: Reports;: Family Diabetes, Family Heart Disease, Family Hypertension - Social History Smoking Status: Former smoker Frequency of Alcohol Use: None Type of Drug Use: None Exam Vital Signs: Vital Signs Temperature 101.4 F H 03/25/17 16:52 Pulse Rate 89 03/25/17 19:00 Respiratory Rate 18 03/25/17 19:00 Blood Pressure 157/72 03/25/17 19:00 O2 Sat by Pulse Oximetry 99 03/25/17 19:00 - General General appearance: alert, in no apparent distress - Head Head exam: Present: atraumatic, normocephalic - Eye Eye exam: Present: normal appearance, PERRL, EOMI - ENT ENT exam: Present: normal exam - Neck Neck exam: Present: normal inspection - Chest Chest inspection: Present: normal inspection, symmetric chest wall rise - Respiratory Respiratory exam: Present: rhonchi (bilateral) - Cardiovascular Cardiovascular exam: Present: normal rhythm, tachycardia, normal heart sounds - Abdominal Exam Abdominal exam: Present: soft, diminished bowel sounds. Absent: distention, tenderness - Extremities Exam Extremities exam: Present: pedal edema (+2 bilateral lower extremities) - Back Exam Back exam: Present: normal inspection - Neurological Exam Neurological exam: Present: alert, oriented X3 - Psychiatric Psychiatric exam: Present: normal affect, normal mood - Skin Skin exam: Present: warm, dry, intact, other (Feels febrile. Right great toe cold. Right second toe warm with erythema and red streaks going up leg.) Course - Consultations Consultation #1: Spoke to hospitalist he said that the patient was seen and treated in the hospital Dr. Savage just recently up to the 12th so for continuity care he said to go ahead and admitted to Dr. Savage again Time: 20:12 Consultation #2: Dr. Cassandra Licea will admit patient for Dr. Savage Time: 20:21 Results - Labs CBC & BMP: 03/25/17 18:29 03/25/17 18:29 Lab Results: I have reviewed the patients labs Labs: Laboratory Tests 03/25/17 18:29 RBC 3.31 L Hgb 9.2 L Hct 27.8 L MCV 84.0 L MPV 9.1 L Neut % (Auto) 78.8 H Lymph % (Auto) 6.9 L Mellette % (Auto) 13.0 H Neut # (Auto) 9.3 H Lymph # (Auto) 0.8 L Mellette # (Auto) 1.5 H Laboratory Tests 03/25/17 03/25/17 03/25/17 18:23 18:29 18:41 Sodium 133 L 133 L BUN 27 H 26 H Creatinine 1.90 H 1.90 H Glucose 347 H 342 H Calcium 8.4 L AST 38 H Alkaline Phosphatase 318 H C-Reactive Protein 30.20 H Total Protein 6.2 L Albumin 2.5 L Globulin 3.7 H Albumin/Globulin Ratio 0.6 L Lipase 38.0 L Urine Blood Small Urine Urobilinogen 4.0 H Laboratory Tests 03/25/17 18:23 ESR Westergren 121 H - Diagnostic Findings Procedure: Chest x-ray: report reviewed by me (Bilateral lower lung density, could indicate pneumonia.), X-ray: report reviewed by me (XR foot 3V RT: Second digit partial amputation, appears within normal limits.) Critical Care Time Critical Care Time: Yes Total Critical Care Time: 60 Disposition Clinical Impression: Sepsis, Community acquired pneumonia, Diabetic neuropathy, Hypertension, PVD ( peripheral vascular disease), Renal insufficiency, Hyperglycemia, Acute dyspnea Case discussed with: patient, patient's family Disposition: Still a Patient Condition: Stable Time of Disposition: 20:12
--- NOTE | 2017-03-25 19:50 | XRay Report ---
XR chest 1V portable Indication: Shortness of breath Comparison: 19 Mar 2017 Findings: The heart and mediastinum are stable in size and configuration. The pulmonary vascularity is normal in caliber. Bilateral lower lung density is present. No other infiltrates, effusions, pneumothorax or other abnormality is demonstrated. Impression: Bilateral lower lung density, could indicate pneumonia. PROCEDURE INTERPRETED AT [facility] DEPARTMENT OF RADIOLOGY Final Report Signed by: Dr. Alex Bryant
--- NOTE | 2017-03-25 19:53 | XRay Report ---
XR foot 3V RT Indication: Surgery Comparison: None available Findings: Amputation distal second digit is present, appears within normal limits. No other evidence of fracture seen. The alignment of the joints appears normal. No degenerative change is present. No soft tissue abnormality is seen. Impression: Second digit partial amputation, appears within normal limits. PROCEDURE INTERPRETED AT [facility] DEPARTMENT OF RADIOLOGY Final Report Signed by: Dr. Alex Bryant
[2017-03-25] MEDS ORDERED: GLUCAGON 1 MG VIAL IM PRN (22:01)
[2017-03-25] MEDS ORDERED: LACTULOSE 20 GM/30 ML UDCUP PO PRN (22:01)
[2017-03-25] MEDS ORDERED: MORPHINE 2 MG/1 ML SYRINGE IV PRN (22:01)
[2017-03-25] MEDS ORDERED: ALBUTEROL/IPRATROPIUM 3 ML NEB RESP TX PRN (22:01)
[2017-03-25] MEDS ORDERED: DEXTROSE 50% 25 GM/50 ML VIAL IV PRN (22:01)
[2017-03-25] MEDS ORDERED: ONDANSETRON 4 MG/2 ML VIAL IV PRN (22:01)
[2017-03-25] MEDS ORDERED: SODIUM CHLORIDE 0.9% 1,000 ML IV SCH (22:01)
[2017-03-26] MEDS: INSULIN REGULAR 100 UNIT/ML SUBCUT SCH ×7 (00:26→21:50)
[2017-03-26] MEDS: DOCUSATE SODIUM 100 MG CAPSULE PO SCH ×3 (00:26→21:51)
[2017-03-26] MEDS: CEFTAROLINE 600 MG in SODIUM CHLORIDE 0.9% 100 ML IV SCH ×3 (01:12→23:29)
[2017-03-26 07:24] LABS: Basophils % 0.3 % (0.0-0.8); Eosinophils % 0.1 % (0.00-10.9); Hematocrit 29.2 VOL% (42.0-52.0); Hemoglobin 9.4 GM/DL (14.0-18.0); Immature Granulocytes Absolute 0.11 #; Lymphocytes # 0.9 10*3/uL (1.4-4.0); Lymphocytes % 8.2 % (21.2-54.2); Mean Corpuscular HGB Conc 32.2 GM/DL (32-36); Mean Corpuscular Hemoglobin 27 PG (27-34); Mean Corpuscular Volume 85.1 FL (87-102); Mean Platelet Volume 9.7 FL (9.6-12.0); Monocytes # 1.3 10*3/uL (0.11-0.8); Monocytes % 12.4 % (1.7-12.7); NRBC # 0.02 10*3/uL; Neutrophils # 8.2 10*3/uL (1.4-7.4); Platelet Count 392 T/CUMM (130-400); Red Blood Count 3.43 MC/CUMM (3.8-5.5); Red Cell Distribution Width 13.4 % (9.3-17.3); White Blood Count 10.6 T/CUMM (4-12)
[2017-03-26 07:54] LABS: Albumin 2.6 G/DL (3.4-5.0); Bilirubin,Total 1.1 MG/DL (0.2-1.0); Calcium 8.5 MG/DL (8.5-10.1); Magnesium 2.3 MG/DL (1.8-2.4); Osmolality,Calculated 285.8 MOS/KG (273-304); Potassium 4.3 MMOL/L (3.5-5.1); Total Protein 6.7 G/DL (6.4-8.3)
[2017-03-26] MEDS ORDERED: METHOCARBAMOL 750 MG TABLET PO PRN (08:16)
[2017-03-26] MEDS ORDERED: DOCUSATE SODIUM 100 MG CAPSULE PO PRN (08:16)
--- NOTE | 2017-03-26 08:32 | Internal Med History&Physical ---
Assessment and Plan (1) Cellulitis Status: Acute Assessment and plan: 72-year-old male admitted to acute care * Cellulitis. Patient is status post amputation of right second toe. He may have developed cellulitis. Patient with significant fever and chills. He has been started on IV antibiotics. Will consult Dr. Chambers to follow the patient * Left-sided pneumonia. It appears patient may have a pleural effusion. Will add Levaquin. He will be started on respiratory treatments * Peripheral vascular disease. Patient is status post angioplasty of right anterior tibial artery * Hypertension. Blood pressure is stable * Diabetes. Will hold metformin. Continue sliding scale * Mild fluid overload. Will check a BNP on the patient. * Diabetic neuropathy. He will be continued on Neurontin * Atrial fibrillation. Patient had a recent episode of A. fib with rapid ventricular rate. It was related to drug reaction * Will follow patient closely. Current Visit: Yes (2) Renal insufficiency Status: Acute Current Visit: Yes (3) Diabetic neuropathy Status: Chronic Current Visit: Yes (4) Hypertension Status: Chronic Current Visit: Yes (5) PVD (peripheral vascular disease) Status: Chronic Current Visit: Yes (6) CAD (coronary artery disease) Status: Chronic Current Visit: No History of Present Illness Chief complaint: Fever and chills History of present illness: Mr. Chong is a 72 year old male with history of coronary artery disease, diabetes, hypertension, peripheral vascular disease who was recently admitted and underwent right second toe amputation due to gangrene. He was discharged from the hospital on Sunday and was readmitted last night with fever and chills. He was having shaking chills and was extremely cold. His temperature at home was 101.8. He denied any pain in his feet. He denied any nausea vomiting or diarrhea. He has been having a cough for last day. Patient feels short of breath this morning. He denies any nausea or vomiting. He is still having some shaking chills. He denies any pain in his feet. He denies any chest pain but is feeling short of breath. He lives at home with his . No history of smoking or alcohol use recently Home Medications Medication Instructions Recorded Confirmed Type Pravastatin [Pravachol] 80 mg PO BEDTIME #30 tablet 03/16/16 03/25/17 Rx Carvedilol [Coreg] 12.5 mg PO BID 08/22/16 03/25/17 History Clopidogrel [Plavix] 75 mg PO DAILY 08/22/16 03/25/17 History Docusate Sodium 100 mg PO BID PRN 08/22/16 03/25/17 History Gabapentin Cap/Tab [Neurontin 800 mg PO TID 08/22/16 03/25/17 History Cap/Tab] Insulin Aspart Prot/Asp 70/30 55 unit SUBCUT AC BREAKFAST 08/22/16 03/25/17 History [NovoLOG Mix 70/30] Insulin Aspart Prot/Asp 70/30 55 unit SUBCUT AC SUPPER 08/22/16 03/25/17 History [NovoLOG Mix 70/30] Losartan Potassium [Cozaar] 50 mg PO DAILY 08/22/16 03/25/17 History Magnesium Oxide 420 mg PO DAILY 08/22/16 03/25/17 History Metformin HCl 1,000 mg PO BID 08/22/16 03/25/17 History Methocarbamol Tab [Robaxin Tab] 750 mg PO Q8HR PRN 08/22/16 03/25/17 History Sertraline [Zoloft] 50 mg PO DAILY 08/22/16 03/25/17 History Aspirin [Ecotrin] 81 mg PO BEDTIME 01/17/17 03/25/17 History Cilostazol [Pletal] 100 mg PO BID #100 tablet 03/24/17 03/25/17 Rx Furosemide Tab [Lasix Tab] 20 mg PO BEDTIME #30 tablet 03/24/17 03/25/17 Rx cephALEXin [Keflex] 500 mg PO Q12HR #20 capsule 03/24/17 03/25/17 Rx oxyCODONE/ACETAMINOPHEN 5-325 1 tablet PO Q6H PRN #20 tablet 03/24/17 03/25/17 Rx [Percocet 5-325] Allergies Allergy/AdvReac Type Severity Reaction Status Date / Time vancomycin Allergy Seizure Verified 03/25/17 16:59 Medical,Surgical,& Family Hx - Medical History Cardio: History of: CAD, Hypertension, CT, PVD ( orbital atherectomy and angioplasty of right anterior tibial artery), Cardiovascular Problems ( Anthropology Faculty Member Dr. Stoner) Neurology: History of: Cerebrovascular Accident (Mild, ?), Peripheral Neuropathy No history of: Seizures HEENT: History of: Eye Problem (Glasses Reading), Dental Problems (Dental Implant Upper) Endocrine: History of: Diabetes Mellitus (IDDM), Dyslipidemia Respiratory: History of: Obstructive Sleep Apnea (Not using C-Pap; Oxygen 2L at night), Respiratory Problems (Flu Vac Current 2016 Season) Comment Only: Pneumonia (Hx Pneum Vac) Genitourinary: History of: Prostate Problems Gastrointestinal: No history of: Polyps Musculoskeletal: History of: Musculoskeletal Problems (arthritis) Other: No history of: Anesthesia Reactions, Cancer - Surgical History Cardiac Surgeries: Sugical HX of: Cardiac Catheterization (stents), Cardiac Surgery (CABG 03/09/16) HEENT Surgeries: Surgical HX of: Eye Surgery (CATARACTS BILATERAL), Tonsilectomy & Adenoidectomy Abdominal Surgeries: Surgical HX of: Colonoscopy, Hernia Repair (Right inguinal hernia in [address] Beard) - Family History Family History: Reports;: Family Diabetes, Family Heart Disease, Family Hypertension - Social History Smoking Status: Former smoker Frequency of Alcohol Use: None Type of Drug Use: None Marital Status: Lives With:: Spouse Functional capacity: independent ambulation 12 point system: reviewed and no additional remarkable complaints except as stated (As mentioned in HPI) Exam - Constitutional Vitals: Period Temp Pulse Resp BP Sys/Askew Pulse Ox Last 24 Hr 98.7 F-99.2 F 80-84 18-20 158-163/79-91 94-96 Exam: Examination: GENERAL: NAD. HEENT: PERRLA. EOMI. Mucous membranes are moist. NECK: Neck is supple. No JVD. No carotid bruit. No thyromegaly. CVS: Regular rate and rhythm. S1 and S2 are normal. RESPIRATORY: Decreased air entry especially at left base. Few bilateral rales. ABDOMEN: Soft and nontender. Bowel sounds are present. No hepatosplenomegaly. EXT: No edema. Peripheral pulses are present. Amputation of the right second toe. Wound appears clean. Mild erythema over the dorsum of the foot COMMUNITY RELATIONS SPECIALIST: Patient is awake, alert and oriented to time place and person. Cranial nerves II through XII are grossly intact. Motor strength is 4/5 SKIN: Warm and dry. Results - Labs CBC & BMP: 03/26/17 06:39 03/26/17 06:39 Lab Results: I have reviewed the past 24 hour labs
[2017-03-26] MEDS ORDERED: ENOXAPARIN 40 MG/0.4 ML SYRINGE SUBCUT SCH (09:00)
[2017-03-26] MEDS ORDERED: metFORMIN 500 MG TABLET PO SCH (09:00)
[2017-03-26] MEDS ORDERED: PANTOPRAZOLE 40 MG VIAL IV SCH (09:00)
[2017-03-26] MEDS ORDERED: CLOPIDOGREL 75 MG TABLET PO SCH (09:00)
[2017-03-26] MEDS ORDERED: FUROSEMIDE 40 MG/4 ML VIAL IV SCH (09:00)
--- NOTE | 2017-03-26 09:23 | XRay Report ---
Exam: XR chest 1V Date: 03/26/2017 4:00 AM Comparison: 03/25/2017 Indication: Shortness of breath Technique:[PA chest Findings: The heart is minimally enlarged prior median sternotomy. Chronic elevation of the left hemidiaphragm with reduced parenchymal findings in the lungs and persistent blunting of the left costophrenic angle. Stable mediastinum and osseous structures. Impression: Improved CHF/bilateral pneumonia. Persistent relative elevation of the left hemidiaphragm with residual dense adjacent atelectasis/infiltrates with possible small left pleural effusion. Prior median sternotomy. PROCEDURE INTERPRETED AT [facility] DEPARTMENT OF RADIOLOGY Final Report Signed by: Dr. Myesha Loredo
[2017-03-26] MEDS: LOSARTAN 50 MG TABLET PO SCH (10:27)
[2017-03-26] MEDS: CILOSTAZOL 50 MG TABLET PO SCH ×2 (10:27→21:53)
[2017-03-26] MEDS: LEVOFLOXACIN 500 MG TABLET PO SCH (10:27)
[2017-03-26] MEDS: PANTOPRAZOLE 40 MG TABLET PO SCH (10:27)
[2017-03-26] MEDS: GABAPENTIN 400 MG CAPSULE PO SCH ×3 (10:27→21:53)
[2017-03-26] MEDS: SERTRALINE 25 MG TABLET PO SCH (10:27)
[2017-03-26] MEDS: CARVEDILOL 25 MG TABLET PO SCH ×2 (10:27→21:52)
[2017-03-26] MEDS: MAGNESIUM OXIDE 400 MG TABLET PO SCH (10:28)
[2017-03-26] MEDS: SODIUM CHLORIDE 0.9% 1,000 ML IV SCH ×2 (11:24→19:50)
--- NOTE | 2017-03-26 11:31 | Event Note ---
Mr. Barry is a 72-year-old man just discharged Sunday following the amputation of his right fifth toe and the atherectomy of the origin of the right anterior tibial artery. He has severe tibial occlusive disease bilaterally but this has been stable as demonstrated from a CT angiogram that was done 2010 another in January 2017 showing little progression. The amputated second toe are showing progressive ischemia and dry gangrene but does not appear to be actively infected. I suggested he may be suffering with a pneumonia at this point time I am going to go ahead and go back to the wound care that we were providing and limited ambulation I will continue to follow while here.
[2017-03-26] MEDS: BACITRACIN OINT 0.9 GM PACK TOP SCH (12:15)
[2017-03-26] MEDS: ACETAMINOPHEN 325 MG TABLET PO PRN (13:02)
[2017-03-26 14:51] LABS: Apearance,Urine CLEAR (Clear); Bilirubin,Urine Negative (Negative); Blood, Urine Small mg/dL (Negative); Glucose,Urine (UA) 50 mg/dL (Negative); Hyaline Casts,Urine 1 /LPF (0-3); Ketones,Urine Negative (Negative); Nitrite,Urine Negative (Negative); Protein,Urine Negative; RBC,Urine 1 /HPF (0-4); Urine Color Yellow (Yellow); Urine Specific Gravity 1.006 (1.001-1.035); Urine Urobilinogen < 2.0 EU/DL (0.2-1.0); WBC,Urine 1 /HPF (0-6)
[2017-03-26] MEDS: INSULIN ASPART PROTAMINE/ASPART 70/30 100 UNIT/ML SUBCUT SCH (16:43)
[2017-03-26] MEDS ORDERED: FUROSEMIDE 20 MG TABLET PO SCH (21:00)
[2017-03-26] MEDS: ASPIRIN EC 81 MG TABLET PO SCH (21:51)
[2017-03-26] MEDS: PRAVASTATIN 40 MG TABLET PO SCH (21:54)
[2017-03-27] MEDS: ACETAMINOPHEN 325 MG TABLET PO PRN ×2 (00:44→12:23)
[2017-03-27 06:38] LABS: Basophils % 0.4 % (0.0-0.8); Eosinophils % 0.1 % (0.00-10.9); Hematocrit 29.2 VOL% (42.0-52.0); Hemoglobin 9.5 GM/DL (14.0-18.0); Immature Granulocytes % 1.6 %; Immature Granulocytes Absolute 0.17 #; Lymphocytes # 0.8 10*3/uL (1.4-4.0); Lymphocytes % 7.8 % (21.2-54.2); Mean Corpuscular HGB Conc 32.5 GM/DL (32-36); Mean Corpuscular Hemoglobin 28 PG (27-34); Mean Corpuscular Volume 85.9 FL (87-102); Mean Platelet Volume 9.4 FL (9.6-12.0); Monocytes # 1.6 10*3/uL (0.11-0.8); Monocytes % 14.6 % (1.7-12.7); Neutrophils # 8.2 10*3/uL (1.4-7.4); Neutrophils % 75.5 % (38.7-73.9); Platelet Count 391 T/CUMM (130-400); Red Cell Distribution Width 13.4 % (9.3-17.3); White Blood Count 10.8 T/CUMM (4-12)
[2017-03-27 07:21] LABS: Calcium 8.9 MG/DL (8.5-10.1); Osmolality,Calculated 283.3 MOS/KG (273-304)
--- NOTE | 2017-03-27 08:03 | XRay Report ---
Exam: XR chest 2V Date: 03/27/2017 4:00 AM Indication: Follow-up pneumonia Comparison: 03/26/2017 Technical: PA lateral Findings: Cardiomegaly present with previous sternotomy. Low volume left effusion and atelectatic change infiltrate persists. Mild thickening of the minor fissure. External cardiac leads are present. No pneumothorax. Impression: 1. Persistent left basilar change infiltrate and effusion 2. Previous sternotomy 3. No significant interval change PROCEDURE INTERPRETED AT [facility] DEPARTMENT OF RADIOLOGY Final Report Signed by: Dr. Fredo Coleman
--- NOTE | 2017-03-27 08:25 | Internal Med Progress Note ---
Assessment and Plan (1) Cellulitis Status: Acute Assessment and plan: 72-year-old male admitted to acute care * Cellulitis. Appears to be better. Continue antibiotic * Left-sided pneumonia. Chest x-ray is better. Continue antibiotic * Peripheral vascular disease. Patient is status post angioplasty of right anterior tibial artery * Hypertension. Blood pressure is stable * Diabetes. Will hold metformin. Continue sliding scale * Mild fluid overload. Patient had an echocardiogram done earlier this month. His ejection fraction was 50%. Will continue him on Lasix * Diabetic neuropathy. He will be continued on Neurontin * Hematuria. His anticoagulation was held. Urologist to see the patient * Will follow patient closely. Current Visit: Yes (2) Renal insufficiency Status: Acute Current Visit: Yes (3) Diabetic neuropathy Status: Chronic Current Visit: Yes (4) Hypertension Status: Chronic Current Visit: Yes (5) PVD (peripheral vascular disease) Status: Chronic Current Visit: Yes (6) CAD (coronary artery disease) Status: Chronic Current Visit: No Internal Medicine - PN: Subj Interval history: He is feeling better this morning. No chest pain or shortness of breath. No nausea or vomiting Exam (Progress Note) - Constitutional Vitals: Period Temp Pulse Resp BP Sys/Askew Pulse Ox Last 24 Hr 97.5 F-101.6 F 76-98 18-20 111-149/57-91 91-97 Exam: Examination: GENERAL: NAD. HEENT: PERRLA. EOMI. NECK: Neck is supple. CVS: Regular rate and rhythm. S1 and S2 are normal. RESPIRATORY: Better air entry. Still rales at left base ABDOMEN: Soft and nontender. Bowel sounds are present. No hepatosplenomegaly. EXT: No edema. Peripheral pulses are present. Amputation of the right second toe. Wound looks better LAMPS TESTER AND INSPECTOR: Patient is awake, alert and oriented to time place and person. Cranial nerves II through XII are grossly intact. Motor strength is 4/5 SKIN: Warm and dry. Results - Labs CBC & BMP: 03/27/17 06:08 03/27/17 06:08 Lab Results: I have reviewed the past 24 hour labs
[2017-03-27] MEDS: SODIUM CHLORIDE 0.9% 1,000 ML IV SCH ×2 (08:52→19:22)
[2017-03-27] MEDS: INSULIN ASPART PROTAMINE/ASPART 70/30 100 UNIT/ML SUBCUT SCH ×2 (08:52→17:21)
[2017-03-27] MEDS: INSULIN REGULAR 100 UNIT/ML SUBCUT SCH ×4 (08:53→21:57)
[2017-03-27] MEDS: SERTRALINE 25 MG TABLET PO SCH (08:53)
[2017-03-27] MEDS: CARVEDILOL 25 MG TABLET PO SCH ×2 (08:54→21:31)
[2017-03-27] MEDS: GABAPENTIN 400 MG CAPSULE PO SCH ×3 (08:54→21:31)
[2017-03-27] MEDS: DOCUSATE SODIUM 100 MG CAPSULE PO SCH ×2 (08:54→21:31)
[2017-03-27] MEDS: PANTOPRAZOLE 40 MG TABLET PO SCH (08:54)
[2017-03-27] MEDS: LOSARTAN 50 MG TABLET PO SCH (08:54)
[2017-03-27] MEDS: FUROSEMIDE 40 MG TABLET PO SCH (08:54)
[2017-03-27] MEDS: MAGNESIUM OXIDE 400 MG TABLET PO SCH (08:54)
[2017-03-27] MEDS: BACITRACIN OINT 0.9 GM PACK TOP SCH (08:55)
[2017-03-27] MEDS: CILOSTAZOL 50 MG TABLET PO SCH ×2 (08:55→21:31)
[2017-03-27] MEDS: LEVOFLOXACIN 500 MG TABLET PO SCH (08:59)
[2017-03-27] MEDS: CEFTAROLINE 600 MG in SODIUM CHLORIDE 0.9% 100 ML IV SCH ×2 (10:15→23:48)
[2017-03-27] MEDS: oxyCODONE/ACETAMINOPHEN 5-325 MG TABLET PO PRN ×3 (12:03→23:47)
--- NOTE | 2017-03-27 12:05 | Urology Consultation ---
Assessment and Plan - Time spent with patient Time spent with patient: Greater than 30 minutes (1) Gross hematuria Status: Acute Assessment and plan: The hematuria is cleared. I think he can restart his Plavix. I would remove his Casas in the next day or so. Current Visit: Yes (2) BPH with elevated PSA Status: Acute Assessment and plan: Waiting to biopsy him. I have been waiting 6-8 months. Hopefully we can do this soon. His PSA is elevated to almost 10 and it has been rising. Current Visit: Yes History of Present Illness - Data of Consult Patient: known to practice within the last 3 years Consult date: 03/27/17 Requesting Physician: Nils Savage - Consult Narrative Reason for consult: Hematuria History of present illness: Mr. Chong is a 72 year old male who is known to me. He has BPH with an elevated and rising PSA. I have tried to schedule transrectal ultrasound biopsy the last 6-8 months. He has had cardiovascular disease and had a stent placed. He has been on blood thinners. We have been waiting to the time frame comes to the point where we could biopsy him because we will have to hold ALL his blood thinners. He is now in the hospital with pneumonia. He is on blood thinners. He had a Casas catheter placed and developed some gross hematuria after that. The Plavix has been held. But his urine is cleared up. I think he can restart the Plavix. Keep the Casas until you do not need and then remove it. I will reappoint him to my office in 1 month because he does not have an appointment. I do not want him to get lost to follow-up. I hope will be at a time or we can biopsy him. He has a moderately sized prostate but his PSA is almost 10 now. CC: Nils Savage MD - Home Medications and Allergies Home Medications: Home Medications Medication Instructions Recorded Confirmed Type Pravastatin [Pravachol] 80 mg PO BEDTIME #30 tablet 03/16/16 03/25/17 Rx Carvedilol [Coreg] 12.5 mg PO BID 08/22/16 03/25/17 History Clopidogrel [Plavix] 75 mg PO DAILY 08/22/16 03/25/17 History Docusate Sodium 100 mg PO BID PRN 08/22/16 03/25/17 History Gabapentin Cap/Tab [Neurontin 800 mg PO TID 08/22/16 03/25/17 History Cap/Tab] Insulin Aspart Prot/Asp 70/30 55 unit SUBCUT AC BREAKFAST 08/22/16 03/25/17 History [NovoLOG Mix 70/30] Insulin Aspart Prot/Asp 70/30 55 unit SUBCUT AC SUPPER 08/22/16 03/25/17 History [NovoLOG Mix 70/30] Losartan Potassium [Cozaar] 50 mg PO DAILY 08/22/16 03/25/17 History Magnesium Oxide 420 mg PO DAILY 08/22/16 03/25/17 History Metformin HCl 1,000 mg PO BID 08/22/16 03/25/17 History Methocarbamol Tab [Robaxin Tab] 750 mg PO Q8HR PRN 08/22/16 03/25/17 History Sertraline [Zoloft] 50 mg PO DAILY 08/22/16 03/25/17 History Aspirin [Ecotrin] 81 mg PO BEDTIME 01/17/17 03/25/17 History Cilostazol [Pletal] 100 mg PO BID #100 tablet 03/24/17 03/25/17 Rx Furosemide Tab [Lasix Tab] 20 mg PO BEDTIME #30 tablet 03/24/17 03/25/17 Rx cephALEXin [Keflex] 500 mg PO Q12HR #20 capsule 03/24/17 03/25/17 Rx oxyCODONE/ACETAMINOPHEN 5-325 1 tablet PO Q6H PRN #20 tablet 03/24/17 03/25/17 Rx [Percocet 5-325] Allergies/Adverse Reactions: Allergies Allergy/AdvReac Type Severity Reaction Status Date / Time vancomycin Allergy Seizure Verified 03/25/17 16:59 12 point system: reviewed and no additional remarkable complaints except as stated - Genitourinary Genitourinary: Present: hematuria, urinary incontinence (Functional, difficult to get into the restroom), other (Urgency). Absent: difficulty urinating, dysuria, flank pain, nocturia, scrotal swelling, testicular mass, testicular pain, urinary frequency Exam - Constitutional Vitals: Period Temp Pulse Resp BP Sys/Askew Pulse Ox Last 24 Hr 97.5 F-101.6 F 76-89 18-20 111-130/57-71 91-98 - Genitourinary Genitourinary: scrotum without lesions, cysts, edema or rash, penis with no lesions or discharge (Casas catheter in place), diffusely enlarged prostate without tenderness, other (No hernias) Results - Labs CBC & BMP: 03/27/17 06:08 03/27/17 06:08 Lab Results: I have reviewed the past 24 hour labs Specialty Discharge - Follow Up or Referrals Follow up with: Derek Andrade MD [Physician] - 1 Month
--- NOTE | 2017-03-27 14:41 | Physician Query Form ---
CLICK EDIT DOCUMENT TO SELECT QUERY ANSWER --> OK --> SIGN Celia Medellin RN Clinical Plastics Process Hand W) [phone] (f) [phone] [email or web address] PROVIDERS: Make your selection(s) from the choices in EACH section by typing an "x" and enter comments in the comment section. Please use your independent medical judgment in providing your response. This request does not imply that any particular answer is desired or expected. CLINICAL INDICATORS: (Providers should not edit this section) Based on documentation of "acute renal insufficiency", creatinine on admission of 1.90 with a GFR of 57 and decreased to 1.40. Pt. treated with IV fluids of Normal Saline. Clarify which of the following most accurately represents the patient's renal status: ( ) Acute kidney injury (non-traumatic) ( ) Acute renal failure ( ) Acute renal failure with underlying Chronic Kidney Disease (CKD) - please provide stage below ( ) CKD - please provide stage below (x ) Other, please specify: Patient was dehydrated secondary to infection ( ) Clinically unable to determine Chronic Kidney Disease Stages Source: National Kidney Disease Foundation ( ) Stage I (eGFR > or = 90) ( x) Stage II (eGFR 60 - 89) ( ) Stage III (eGFR 30 - 59) ( ) Stage IV (eGFR 15 - 29) ( ) Stage V (eGFR < 15 or dialysis) COMMENTS: PLEASE ALSO DOCUMENT RESPONSE IN PROGRESS NOTES AND/OR DISCHARGE SUMMARY Use of terms such as suspected, likely, or probable (associated with a specific diagnosis that is being evaluated, monitored, or treated as if it exists) are acceptable and can be restated in the discharge summary if not ruled out. MTDD
--- NOTE | 2017-03-27 16:34 | Event Note ---
Mr. Jackson still running fever but I do not see gross infection involving his right foot or leg or the the second toe although there is dry gangrene developing on the amputated second toe I do not think we should re-amputate at this point in time unless I see stronger evidence of infection there very concerned that we will never actually get this to heal due to the severe tibial occlusive disease that he has
[2017-03-27] MEDS: PRAVASTATIN 40 MG TABLET PO SCH (21:31)
[2017-03-27] MEDS: ASPIRIN EC 81 MG TABLET PO SCH (21:37)
[2017-03-28] MEDS: SODIUM CHLORIDE 0.9% 1,000 ML IV SCH ×2 (04:38→22:48)
[2017-03-28 06:09] LABS: Basophils # 0.1 10*3/uL (0.0-0.2); Basophils % 0.5 % (0.0-0.8); Eosinophils % 0.4 % (0.00-10.9); Hematocrit 28.5 VOL% (42.0-52.0); Hemoglobin 9.2 GM/DL (14.0-18.0); Immature Granulocytes % 1.2 %; Immature Granulocytes Absolute 0.12 #; Lymphocytes # 1.1 10*3/uL (1.4-4.0); Mean Corpuscular HGB Conc 32.3 GM/DL (32-36); Mean Corpuscular Hemoglobin 27 PG (27-34); Mean Corpuscular Volume 84.3 FL (87-102); Mean Platelet Volume 9.7 FL (9.6-12.0); Monocytes # 1.8 10*3/uL (0.11-0.8); Monocytes % 17.2 % (1.7-12.7); Neutrophils # 7.1 10*3/uL (1.4-7.4); Neutrophils % 69.7 % (38.7-73.9); Platelet Count 369 T/CUMM (130-400); Red Blood Count 3.38 MC/CUMM (3.8-5.5); Red Cell Distribution Width 13.4 % (9.3-17.3); White Blood Count 10.2 T/CUMM (4-12)
[2017-03-28 06:35] LABS: Calcium 8.3 MG/DL (8.5-10.1); Osmolality,Calculated 277.5 MOS/KG (273-304); Potassium 3.9 MMOL/L (3.5-5.1)
[2017-03-28 06:38] LABS: Band Neutrophils 1 % (0-10); Hypochromasia 1+; Lymphocytes 13 % (20-55); Myelocytes 1 %; Nucleated Red Blood Cells 1 (0-5); Platelet Estimate Adequate; Segmented Neutrophils 76 % (50-85); Total Cells Counted 100
[2017-03-28] MEDS: oxyCODONE/ACETAMINOPHEN 5-325 MG TABLET PO PRN ×3 (08:06→21:00)
[2017-03-28] MEDS: INSULIN REGULAR 100 UNIT/ML SUBCUT SCH ×4 (08:30→20:00)
[2017-03-28] MEDS: GABAPENTIN 400 MG CAPSULE PO SCH ×3 (09:24→20:05)
[2017-03-28] MEDS: CILOSTAZOL 50 MG TABLET PO SCH ×2 (09:24→20:04)
[2017-03-28] MEDS: SERTRALINE 25 MG TABLET PO SCH (09:24)
[2017-03-28] MEDS: LEVOFLOXACIN 500 MG TABLET PO SCH (09:25)
[2017-03-28] MEDS: PANTOPRAZOLE 40 MG TABLET PO SCH (09:25)
[2017-03-28] MEDS: MAGNESIUM OXIDE 400 MG TABLET PO SCH (09:25)
[2017-03-28] MEDS: FUROSEMIDE 40 MG TABLET PO SCH (09:25)
[2017-03-28] MEDS: LOSARTAN 50 MG TABLET PO SCH (09:25)
[2017-03-28] MEDS: CARVEDILOL 25 MG TABLET PO SCH ×2 (09:25→20:05)
[2017-03-28] MEDS: DOCUSATE SODIUM 100 MG CAPSULE PO SCH ×2 (09:25→20:04)
[2017-03-28] MEDS: INSULIN ASPART PROTAMINE/ASPART 70/30 100 UNIT/ML SUBCUT SCH ×2 (09:25→16:26)
--- NOTE | 2017-03-28 09:30 | Internal Med Progress Note ---
Assessment and Plan (1) Cellulitis Status: Acute Assessment and plan: 72-year-old male admitted to acute care * Cellulitis. Appears to be better. Continue antibiotic * Left-sided pneumonia. Repeat chest x-ray in the morning * Peripheral vascular disease. Patient is status post angioplasty of right anterior tibial artery * Hypertension. Blood pressure is stable * Patient had an episode of A. fib with rapid ventricular rate during the night. He had a similar episode few weeks back and had to be moved to the unit. He was asymptomatic during this episode. Will get cardiology input. * Diabetes. Will hold metformin. Continue sliding scale * Diabetic neuropathy. He will be continued on Neurontin * Hematuria. Resolved. Restart Plavix Current Visit: Yes (2) Renal insufficiency Status: Acute Current Visit: Yes (3) Diabetic neuropathy Status: Chronic Current Visit: Yes (4) Hypertension Status: Chronic Current Visit: Yes (5) PVD (peripheral vascular disease) Status: Chronic Current Visit: Yes (6) CAD (coronary artery disease) Status: Chronic Current Visit: No Internal Medicine - PN: Subj Interval history: He is feeling better this morning. He does not remember his heart running away. No chest pain or shortness of breath Exam (Progress Note) - Constitutional Vitals: Period Temp Pulse Resp BP Sys/Askew Pulse Ox Last 24 Hr 98.4 F-101.5 F 80-95 18-20 109-129/53-66 94-99 Exam: Examination: GENERAL: NAD. HEENT: PERRLA. EOMI. NECK: Neck is supple. CVS: Regular rate and rhythm. S1 and S2 are normal. RESPIRATORY: Better air entry. ABDOMEN: Soft and nontender. Bowel sounds are present. No hepatosplenomegaly. EXT: No edema. Peripheral pulses are present. Amputation of the right second toe. Wound looks better SKIN: Warm and dry. Results - Labs CBC & BMP: 03/28/17 05:02 03/28/17 05:02 Lab Results: I have reviewed the past 24 hour labs Specialty Discharge - Follow Up or Referrals Follow up with: Derek Andrade MD [Physician] - 1 Month
[2017-03-28] MEDS: BACITRACIN OINT 0.9 GM PACK TOP SCH (09:35)
--- NOTE | 2017-03-28 09:41 | EKG Report ---
Stationary ECG Study [facility] Test Date: 03/28/2017 9:40:18 AM Pat Name: BRIT FARIA Department: Room: 523 Gender: M Orthotic Aide: : 1945 Requested by: Kp Wong Order Number: [id number] Reading MD: JAYLIN HARRIS Intervals [place] Rate: 88 P: 70 NV: 116 QRS: 14 QRSD: 85 T: 66 QT: 373 QTc: 419 Interpretive Statements SINUS RHYTHM WITH SHORT NV INTERVAL WITH FREQUENT VENTRICULAR PREMATURE COMPLEXES WITH OCCASIONAL SUPRAVENTRICULAR PREMATURE CO NONSPECIFIC T-WAVE ABNORMALITY ABNORMAL RHYTHM ECG Electronically Signed On 03-28-17 18:43:13 CDT by JAYLIN HARRIS [email or web address]
[2017-03-28] MEDS: CEFTAROLINE 600 MG in SODIUM CHLORIDE 0.9% 100 ML IV SCH ×2 (10:14→22:48)
[2017-03-28] MEDS: CLOPIDOGREL 75 MG TABLET PO SCH (10:14)
--- NOTE | 2017-03-28 11:22 | Event Note ---
No further fever no tachycardia foot generally improving with current therapy.
[2017-03-28] MEDS: ACETAMINOPHEN 325 MG TABLET PO PRN (11:41)
--- NOTE | 2017-03-28 15:48 | Cardiology Consult Note ---
Farhan Coppola April RN, am scribing for, and in the presence of, Kp Wong MD 15:47. Assessment and Plan - Time spent with patient Time spent with patient: Greater than 30 minutes (Due to assessment, planning, documentation, medication review) (1) Hypertension Status: Chronic Current Visit: Yes (2) PVD (peripheral vascular disease) Status: Chronic Current Visit: Yes (3) CAD (coronary artery disease) Status: Chronic Current Visit: Yes Qualifiers: Coronary Disease-Associated Artery/Lesion type: bypass graft [place] vs. transplanted heart: [place] heart Associated angina: without angina Qualified Code(s): I25.810 - Atherosclerosis of coronary artery bypass graft(s) without angina pectoris (4) Dyslipidemia Status: Chronic Current Visit: Yes (5) S/P CABG (coronary artery bypass graft) Status: Chronic Current Visit: Yes History of Present Illness - Data of Consult Patient: known to practice within the last 3 years Consult date: 03/28/17 Requesting Physician: Nils Savage - Consult Narrative Reason for consult: A. fib with RVR History of present illness: Cardiology consult note Wire Stitcher Operator: Dr. Stoner Mr. Chong is a 72 year old male who is routinely followed by Dr. arguello with a history of CAD, hypertension, PVD, CVA, IDDM, dyslipidemia, LUKE, and prostate problems. He was recently in the hospital for amputation of toes on the right foot. During that admission after being given IV morphine, he had an episode of atrial fibrillation with RVR with heart rates in the 150s. Patient converted on IV diltiazem. The patient and his tell me he has had atrial fibrillation before this as well, however I cannot find any documentation of this at [facility] or at [facility]. Echo done 03/19/2017 with ejection fraction 50%. He had CABG with Dr. Suero in February 2016 with KAPLAN to LAD and SVG to OM. Other surgical history includes rotator cuff, carpal tunnel, right knee replacement, and recent amputation of the right second toe. During his recent admission he also underwent right femoral angiography with the following findings: 1. Trivial right SFA disease, with three-vessel l proximal occlusions at the trifurcation including but not limited to: A. Very proximal dorsalis pedis occlusion B. Short proximal peroneal occlusion which is the best runoff vessel as a reaches the ankle C. 95% ostial anterior tibial stenosis with high mid occlusion and sluggish runoff to the dorsalis pedis 2. Status post successful atherectomy and angioplasty of the ostial anterior tibial lesion (1.25 crown and 3.0 x 120 mm balloon) is with less than 30% residual stenosis 3. Status post atherectomy and angioplasty of proximal to mid anterior tibial vessel with suboptimal result (vessel still occludes in the high mid anterior tibial segment) Family history includes diabetes, heart disease, and hypertension. He reports he is a former smoker. Mr. Chong was discharged on Sunday. On Sunday he began having fever and chills. He presented to the emergency department for further evaluation his temp in the emergency department was 101.4 with heart rate of 102, O2 sat was 88 % on 2 L of oxygen, Blood pressure was 140/70. He has had gross hematuria and Plavix have been held. Urology has seen him for this. The hematuria has cleared and they recommend he restart his Plavix. The noted he needs a biopsy related to elevated PSA, I plan to do this when he can be off his blood thinners. Chest x-ray showed probable pneumonia. EKG has not been on this admission, but nuclear monitoring technician strips that have been scanned in all appear to be sinus rhythm with PVCs. Cardiology has been asked to evaluate because of elevated heart rate during the night in the 140s. Mr. Chong is seen resting in bed in no acute distress. Oxygen is in use via nasal cannula. He denies any chest pain, shortness of breath, palpitations, or dizziness. He reports that they told him that his heart rate did get fast during the night, but he denies any symptoms with this. EKG done this morning shows sinus rhythm with heart rate of 88. Home meds including Coreg 12.5 mg p.o. twice daily and losartan 50 mg p.o. daily have been started. O2 sat 96% on 2 L oxygen Blood pressure 106/92 Temp this morning 99.4 Lab data: White count 10.2 hemoglobin 9.2 hematocrit 28.5 Sodium 139 potassium 3.9 chloride 99 CO2 31 BUN 14 creatinine 1.30 magnesium 2.2 Cardiology addendum Patient examined and chart reviewed and discussed with nurse Cindy Real RN. Patient had brief episode of atrial flutter earlier today ventricular rate 150 resolve spontaneously. He had episode of atrial fibrillation perhaps medication induced 1 week ago. Status post two-vessel CABG February 2016 with KAPLAN graft to LAD and vein graft to OM branch. Recent echo showed ejection fraction of 55-60% Untreated obstructive sleep apnea Plan Begin a Cardizem CD 180 mg daily Observe rhythm Wound care per Dr. Beard CC: Nils Savage MD - Home Medications and Allergies Home Medications: Home Medications Medication Instructions Recorded Confirmed Type Pravastatin [Pravachol] 80 mg PO BEDTIME #30 tablet 03/16/16 03/25/17 Rx Carvedilol [Coreg] 12.5 mg PO BID 08/22/16 03/25/17 History Clopidogrel [Plavix] 75 mg PO DAILY 08/22/16 03/25/17 History Docusate Sodium 100 mg PO BID PRN 08/22/16 03/25/17 History Gabapentin Cap/Tab [Neurontin 800 mg PO TID 08/22/16 03/25/17 History Cap/Tab] Insulin Aspart Prot/Asp 70/30 55 unit SUBCUT AC BREAKFAST 08/22/16 03/25/17 History [NovoLOG Mix 70/30] Insulin Aspart Prot/Asp 70/30 55 unit SUBCUT AC SUPPER 08/22/16 03/25/17 History [NovoLOG Mix 70/30] Losartan Potassium [Cozaar] 50 mg PO DAILY 08/22/16 03/25/17 History Magnesium Oxide 420 mg PO DAILY 08/22/16 03/25/17 History Metformin HCl 1,000 mg PO BID 08/22/16 03/25/17 History Methocarbamol Tab [Robaxin Tab] 750 mg PO Q8HR PRN 08/22/16 03/25/17 History Sertraline [Zoloft] 50 mg PO DAILY 08/22/16 03/25/17 History Aspirin [Ecotrin] 81 mg PO BEDTIME 01/17/17 03/25/17 History Cilostazol [Pletal] 100 mg PO BID #100 tablet 03/24/17 03/25/17 Rx Furosemide Tab [Lasix Tab] 20 mg PO BEDTIME #30 tablet 03/24/17 03/25/17 Rx cephALEXin [Keflex] 500 mg PO Q12HR #20 capsule 03/24/17 03/25/17 Rx oxyCODONE/ACETAMINOPHEN 5-325 1 tablet PO Q6H PRN #20 tablet 03/24/17 03/25/17 Rx [Percocet 5-325] Allergies/Adverse Reactions: Allergies Allergy/AdvReac Type Severity Reaction Status Date / Time vancomycin Allergy Seizure Verified 03/25/17 16:59 - Constitutional Constitutional: Present: as per HPI - EENT Eyes: Absent: blurry vision, loss of vision Ears: Absent: decreased hearing, ear pain - Cardiovascular Cardiovascular: Present: dyspnea on exertion. Absent: chest pain at rest, chest pain with activity, edema, radiating jaw, neck or arm pain, palpitations - Respiratory Respiratory: Present: dyspnea on exertion. Absent: cough, hemoptysis, wheezing - Gastrointestinal Gastrointestinal: Present: constipation. Absent: abdominal pain, diarrhea, hematemesis, hematochezia, melena, nausea, vomiting - Genitourinary Genitourinary: Present: hematuria, other ([place] presently draining yellow urine) . Absent: dysuria - Musculoskeletal Musculoskeletal: Present: back pain, limited range of motion, muscle weakness - Neurological Neurological: Present: abnormal gait. Absent: abnormal speech, dizziness - Psychiatric Psychiatric: Absent: anxiety, depression - Endocrine Endocrine: Present: fatigue - Hematologic/Lymphatic Hematologic/Lymphatic: Present: easy bruising. Absent: easy bleeding Medical,Surgical,& Family Hx - Medical History Cardio: History of: Cardiac Dysrhythmia (Atrial fibrillation), CAD, Hypertension , PA, PVD ( orbital atherectomy and angioplasty of right anterior tibial artery) Neurology: History of: Cerebrovascular Accident (Mild, ?), Peripheral Neuropathy HEENT: History of: Eye Problem (Glasses Reading), Dental Problems (Dental Implant Upper) Endocrine: History of: Diabetes Mellitus (IDDM), Dyslipidemia Respiratory: History of: Obstructive Sleep Apnea Genitourinary: History of: Prostate Problems Musculoskeletal: History of: Musculoskeletal Problems (arthritis) - Surgical History Cardiac Surgeries: Sugical HX of: Cardiac Catheterization (stents), Cardiac Surgery (CABG 03/09/16) HEENT Surgeries: Surgical HX of: Eye Surgery (CATARACTS BILATERAL), Tonsilectomy & Adenoidectomy Abdominal Surgeries: Surgical HX of: Colonoscopy, Hernia Repair (Right inguinal hernia in [address] Beard) Additional Surgical History: Amputation second toe on the right foot - Family History Family History: Reports;: Family Diabetes, Family Heart Disease, Family Hypertension - Social History Smoking Status: Former smoker Frequency of Alcohol Use: None Type of Drug Use: None Marital Status: Lives With:: Spouse Functional capacity: uses cane/walker Physical Examination Vital Signs Temp Pulse Resp BP Pulse Ox 101.4 F H 102 H 20 140/70 88 L 03/25/17 16:52 03/25/17 16:52 03/25/17 16:52 03/25/17 16:52 03/25/17 16:52 General: Present: Appears Well, No Apparent Distress HEENT: Present: PERRL, Mucus Membranes Moist Neck: Present: Supple Neck, Midline Trachea, No Bruit Cardiac: Present: Reg Rate and Rhythm, Tachycardia Lungs: Present: Normal Breath Sounds, Oxygen (Via nasal cannula), No Wheeze, Rales, Rhonchi Neuro: Absent: Resting Tremor, Essential Tremor Abdomen: Present: Soft, Active Bowel Sounds, Non-Tender. Absent: Distended Skin: Absent: Rash Extremities: Present: No Edema, Normal Upper Extr. Pulses, Other (Right foot is bandaged). Absent: Normal Lower Extr. Pulses Result/EKG - Labs CBC & BMP: 03/28/17 05:02 03/28/17 05:02 Lab Results: I have reviewed the past 24 hour labs Labs: Laboratory Results - last 24 hr 03/27/17 03/27/17 03/27/17 07:17 12:07 16:36 WBC RBC Hgb Hct MCV MCH MCHC RDW Plt Count MPV Neut % (Auto) Lymph % (Auto) [place] % (Auto) Eos % (Auto) Baso % (Auto) Neut # (Auto) Lymph # (Auto) [place] # (Auto) Eos # (Auto) Baso # (Auto) Total Counted Immature Gran % Nucleated RBC % Immature Gran # Segmented Neutrophils Band Neutrophils Lymphocytes Monocytes Myelocytes Nucleated RBCs Nucleated RBCs # Platelet Estimate Hypochromasia Sodium Potassium Chloride Carbon Dioxide Anion Gap BUN Creatinine GFR Calculation BUN/Creatinine Ratio Glucose POC Glucose 173 H 215 H 167 H Calculated Osmolality Calcium Magnesium 03/27/17 03/28/17 03/28/17 21:13 05:02 05:02 WBC 10.2 RBC 3.38 L Hgb 9.2 L Hct 28.5 L MCV 84.3 L MCH 27 MCHC 32.3 RDW 13.4 Plt Count 369 MPV 9.7 Neut % (Auto) 69.7 Lymph % (Auto) 11.0 L [place] % (Auto) 17.2 H Eos % (Auto) 0.4 Baso % (Auto) 0.5 Neut # (Auto) 7.1 Lymph # (Auto) 1.1 L [place] # (Auto) 1.8 H Eos # (Auto) 0.0 Baso # (Auto) 0.1 Total Counted 100 Immature Gran % 1.2 Nucleated RBC % 0.0 Immature Gran # 0.12 Segmented Neutrophils 76 Band Neutrophils 1 Lymphocytes 13 L Monocytes 9 Myelocytes 1 Nucleated RBCs 1 Nucleated RBCs # 0.00 Platelet Estimate Adequate Hypochromasia 1+ Sodium 139 Potassium 3.9 Chloride 99 Carbon Dioxide 31 Anion Gap 12.9 BUN 14 Creatinine 1.30 GFR Calculation 91 BUN/Creatinine Ratio 10.00 Glucose 106 POC Glucose 115 H Calculated Osmolality 277.5 Calcium 8.3 L Magnesium 03/28/17 05:02 WBC RBC Hgb Hct MCV MCH MCHC RDW Plt Count MPV Neut % (Auto) Lymph % (Auto) [place] % (Auto) Eos % (Auto) Baso % (Auto) Neut # (Auto) Lymph # (Auto) [place] # (Auto) Eos # (Auto) Baso # (Auto) Total Counted Immature Gran % Nucleated RBC % Immature Gran # Segmented Neutrophils Band Neutrophils Lymphocytes Monocytes Myelocytes Nucleated RBCs Nucleated RBCs # Platelet Estimate Hypochromasia Sodium Potassium Chloride Carbon Dioxide Anion Gap BUN Creatinine GFR Calculation BUN/Creatinine Ratio Glucose POC Glucose Calculated Osmolality Calcium Magnesium 2.2 - EKG EKG results: interpreted by me EKG shows: sinus rhythm Specialty Discharge - Follow Up or Referrals Follow up with: Derek Andrade MD [Physician] - 1 Month IJudith Thomas, MD, personally performed the services described in this documentation, ascribed by Cindy Real RN in my presence, and it is both accurate and complete [id number] .
[2017-03-28] MEDS: ASPIRIN EC 81 MG TABLET PO SCH (20:04)
[2017-03-28] MEDS: PRAVASTATIN 40 MG TABLET PO SCH (20:05)
[2017-03-29 05:52] LABS: Basophils % 0.3 % (0.0-0.8); Eosinophils # 0.1 10*3/uL (0.0-0.87); Eosinophils % 0.6 % (0.00-10.9); Hematocrit 28.2 VOL% (42.0-52.0); Hemoglobin 9.1 GM/DL (14.0-18.0); Immature Granulocytes % 1.2 %; Immature Granulocytes Absolute 0.16 #; Lymphocytes # 1.3 10*3/uL (1.4-4.0); Lymphocytes % 10.3 % (21.2-54.2); Mean Corpuscular HGB Conc 32.3 GM/DL (32-36); Mean Corpuscular Hemoglobin 28 PG (27-34); Mean Corpuscular Volume 85.5 FL (87-102); Mean Platelet Volume 9.3 FL (9.6-12.0); Monocytes # 1.9 10*3/uL (0.11-0.8); Monocytes % 15.1 % (1.7-12.7); Neutrophils # 9.3 10*3/uL (1.4-7.4); Neutrophils % 72.5 % (38.7-73.9); Platelet Count 396 T/CUMM (130-400); Red Cell Distribution Width 13.4 % (9.3-17.3); White Blood Count 12.9 T/CUMM (4-12)
[2017-03-29 06:25] LABS: Calcium 8.2 MG/DL (8.5-10.1); Osmolality,Calculated 275.7 MOS/KG (273-304); Potassium 3.8 MMOL/L (3.5-5.1)
--- NOTE | 2017-03-29 07:29 | XRay Report ---
Exam: XR chest 2V Date: 03/29/2017 4:00 AM Indication: Follow-up pneumonia Comparison: 03/27/2017 Technical: PA lateral Findings: Cardiomegaly is present previous sternotomy. Left basilar atelectatic change infiltrate and effusion persist. Mild interstitial thickening in the right base. No pneumothorax. External cardiac leads are present. Impression: 1. Persistent atelectatic change infiltrate in the left base 2. Previous sternotomy PROCEDURE INTERPRETED AT [facility] DEPARTMENT OF RADIOLOGY Final Report Signed by: Dr. Fredo Coleman
[2017-03-29] MEDS: INSULIN REGULAR 100 UNIT/ML SUBCUT SCH ×2 (08:13→12:22)
--- NOTE | 2017-03-29 08:21 | Discharge Summary ---
Hospital Course - Hospital Course Hospital Course: Patient is a 72-year-old male with history of coronary artery disease, status post CABG, hypertension, peripheral vascular disease, CVA, insulin-dependent diabetes, dyslipidemia, obstructive sleep apnea who was admitted with high- grade fever and shaking chills. Was felt to have cellulitis of his right foot. He had undergone amputation of the toe. He was also found to have a left lower lobe pneumonia. He was in mild fluid overload. His Lasix was increased. He had to have a catheter placed and patient started having hematuria. He was seen in consultation by Dr. Andrade. Patient did have an episode of atrial flutter with rapid ventricular rate and was seen by cardiology. He has been started on Cardizem CD. He has improved and wants to go home. His blood cultures have been negative so far. Patient also had chest x-rays which showed left lower lobe pneumonia. It has improved but he still has some atelectasis. He is ready to be discharged home. I will follow him in office in about 10 days. We will repeat a chest x-ray. Discussed with patient. Diagnosis - Discharge Diagnosis (1) Cellulitis Status: Acute (2) Renal insufficiency Status: Acute (3) Diabetic neuropathy Status: Chronic (4) Hypertension Status: Chronic (5) PVD (peripheral vascular disease) Status: Chronic (6) CAD (coronary artery disease) Status: Chronic Specialty Discharge - Follow Up or Referrals Follow up with: Derek Andrade MD [Physician] - 1 Month Discharge Plan - Discharge Data Disposition: Disch To Home/Self Care Condition at Discharge: Stable Discharge Diet: advance to your usual diet, diabetic diet Activity: resume usual activities as tolerated - Discharge Medications New Diltiazem Cd Cap [Cardizem CD] 180 mg PO DAILY #30 capsule Levofloxacin Tab [Levaquin Tab] 500 mg PO Q24H #7 tablet Continue Pravastatin [Pravachol] 80 mg PO BEDTIME #30 tablet Carvedilol [Coreg] 12.5 mg PO BID Insulin Aspart Prot/Asp 70/30 [NovoLOG Mix 70/30] 55 unit SUBCUT AC SUPPER Insulin Aspart Prot/Asp 70/30 [NovoLOG Mix 70/30] 55 unit SUBCUT AC BREAKFAST Gabapentin Cap/Tab [Neurontin Cap/Tab] 800 mg PO TID Magnesium Oxide 420 mg PO DAILY Sertraline [Zoloft] 50 mg PO DAILY Methocarbamol Tab [Robaxin Tab] 750 mg PO Q8HR PRN PRN Reason: Muscle Pain Metformin HCl 1,000 mg PO BID Losartan Potassium [Cozaar] 50 mg PO DAILY Docusate Sodium 100 mg PO BID PRN PRN Reason: Constipation Clopidogrel [Plavix] 75 mg PO DAILY Aspirin [Ecotrin] 81 mg PO BEDTIME Cilostazol [Pletal] 100 mg PO BID #100 tablet Furosemide Tab [Lasix Tab] 20 mg PO BEDTIME #30 tablet oxyCODONE/ACETAMINOPHEN 5-325 [Percocet 5-325] 1 tablet PO Q6H PRN #20 tablet PRN Reason: Pain Moderate (4-7) Discontinued cephALEXin [Keflex] 500 mg PO Q12HR #20 capsule - Follow Up or Referral Follow Up: Derek Andrade MD [Physician] - 1 Month - Forms/Instructions Exam - Constitutional Vitals: Period Temp Pulse Resp BP Sys/Askew Pulse Ox Last 24 Hr 97.7 F-100 F 69-86 16-20 105-139/48-74 91-98 Exam: Examination: GENERAL: NAD. HEENT: PERRLA. EOMI. NECK: Neck is supple. CVS: Regular rate and rhythm. S1 and S2 are normal. RESPIRATORY: Lungs are clear to auscultation ABDOMEN: Soft and nontender. EXT: No edema. Peripheral pulses are present. Amputation of the right second toe. Wound looks better SKIN: Warm and dry. Discharge Results Labs on day of discharge: Labs from last 24 hours 03/29/17 03/29/17 03/29/17 07:46 05:20 05:20 WBC 12.9 H RBC 3.30 L Hgb 9.1 L Hct 28.2 L MCV 85.5 L MCH 28 MCHC 32.3 RDW 13.4 Plt Count 396 MPV 9.3 L Neut % (Auto) 72.5 Lymph % (Auto) 10.3 L [place] % (Auto) 15.1 H Eos % (Auto) 0.6 Baso % (Auto) 0.3 Neut # (Auto) 9.3 H Lymph # (Auto) 1.3 L [place] # (Auto) 1.9 H Eos # (Auto) 0.1 Baso # (Auto) 0.0 Immature Gran % 1.2 Nucleated RBC % 0.0 Immature Gran # 0.16 Nucleated RBCs # 0.00 Sodium 138 Potassium 3.8 Chloride 98 Carbon Dioxide 31 Anion Gap 12.8 BUN 14 Creatinine 1.40 H GFR Calculation 83 BUN/Creatinine Ratio 10.00 Glucose 103 POC Glucose 128 H Calculated Osmolality 275.7 Calcium 8.2 L 03/28/17 03/28/17 03/28/17 19:50 16:21 15:33 WBC RBC Hgb Hct MCV MCH MCHC RDW Plt Count MPV Neut % (Auto) Lymph % (Auto) [place] % (Auto) Eos % (Auto) Baso % (Auto) Neut # (Auto) Lymph # (Auto) [place] # (Auto) Eos # (Auto) Baso # (Auto) Immature Gran % Nucleated RBC % Immature Gran # Nucleated RBCs # Sodium Potassium Chloride Carbon Dioxide Anion Gap BUN Creatinine GFR Calculation BUN/Creatinine Ratio Glucose POC Glucose 106 169 H 163 H Calculated Osmolality Calcium 03/28/17 03/28/17 11:32 07:13 WBC RBC Hgb Hct MCV MCH MCHC RDW Plt Count MPV Neut % (Auto) Lymph % (Auto) [place] % (Auto) Eos % (Auto) Baso % (Auto) Neut # (Auto) Lymph # (Auto) [place] # (Auto) Eos # (Auto) Baso # (Auto) Immature Gran % Nucleated RBC % Immature Gran # Nucleated RBCs # Sodium Potassium Chloride Carbon Dioxide Anion Gap BUN Creatinine GFR Calculation BUN/Creatinine Ratio Glucose POC Glucose 204 H 133 H Calculated Osmolality Calcium DS: Provider Date of admission: 03/25/17 20:24 Primary care physician: Nils Savage MD Attending physician on admission: Nils Savage MD Consults: 03/25/17 22:01 Consult to Case Mgmt/Social Srvs [CONS] Routine Reason for Case Mgmt/Social Srvs: Discharge Planning Consult to [facility], Educator [CONS] Routine Reason for Shingle Grader: Diabetes Education Consult to Physician [CONS] Routine Comment: Postop amputated Consulting Provider: Moiz Chambers When should Consulting Provider be notified: In am Person Notified: MACY Date Notified: 03/26/17 Time Notified: 09:31 Consult to Wound Care - [place] [CONS] Routine Reason for Wound Care: Wound Care Management 03/26/17 10:37 PT [Consult to Physical Therapy] [CONS] Routine Reason for Physical Therapy: Other Consult Comment: please bring a walker to the room. 03/26/17 14:06 Consult to Occupational Therapy [CONS] Routine Reason for Occupational Therapy: Evaluate and Treat PT [Consult to Physical Therapy] [CONS] Routine Reason for Physical Therapy: Evaluate and Treat 03/26/17 15:57 Consult to Physician [CONS] Routine Comment: Consulting Provider: Derek Andrade Person Notified: aníbal Date Notified: 03/26/17 Time Notified: 16:09 03/28/17 03:48 Consult to Physician [CONS] Routine Comment: Consulting Provider: Kp Wong When should Consulting Provider be notified: In am Consult to Specialist Group: Cardiology Person Notified: WIL Date Notified: 03/28/17 Time Notified: 07:37 Discharging clinician: Nils Savage MD
[2017-03-29] MEDS: CILOSTAZOL 50 MG TABLET PO SCH (09:04)
[2017-03-29] MEDS: GABAPENTIN 400 MG CAPSULE PO SCH (09:04)
[2017-03-29] MEDS: SERTRALINE 25 MG TABLET PO SCH (09:04)
[2017-03-29] MEDS: INSULIN ASPART PROTAMINE/ASPART 70/30 100 UNIT/ML SUBCUT SCH (09:04)
[2017-03-29] MEDS: BACITRACIN OINT 0.9 GM PACK TOP SCH (09:04)
[2017-03-29] MEDS: CARVEDILOL 25 MG TABLET PO SCH (09:05)
[2017-03-29] MEDS: MAGNESIUM OXIDE 400 MG TABLET PO SCH (09:06)
[2017-03-29] MEDS: CLOPIDOGREL 75 MG TABLET PO SCH (09:06)
[2017-03-29] MEDS: LEVOFLOXACIN 500 MG TABLET PO SCH (09:06)
[2017-03-29] MEDS: LOSARTAN 50 MG TABLET PO SCH (09:06)
[2017-03-29] MEDS: FUROSEMIDE 40 MG TABLET PO SCH (09:06)
[2017-03-29] MEDS: PANTOPRAZOLE 40 MG TABLET PO SCH (09:06)
[2017-03-29] MEDS: DOCUSATE SODIUM 100 MG CAPSULE PO SCH (09:07)
--- NOTE | 2017-03-29 09:45 | Cardiology Progress Note ---
Assessment and Plan (1) Hypertension Status: Chronic Current Visit: Yes (2) PVD (peripheral vascular disease) Status: Chronic Current Visit: Yes (3) CAD (coronary artery disease) Status: Chronic Current Visit: Yes Qualifiers: Coronary Disease-Associated Artery/Lesion type: bypass graft [place] vs. transplanted heart: [place] heart Associated angina: without angina Qualified Code(s): I25.810 - Atherosclerosis of coronary artery bypass graft(s) without angina pectoris (4) Dyslipidemia Status: Chronic Current Visit: Yes (5) S/P CABG (coronary artery bypass graft) Status: Chronic Current Visit: Yes Cardiology - PN: Subj Interval history: Cardiology note . no temperature Appetite good Telemetry shows sinus rhythm with rare PACs O2 sat 98% room air Blood pressure 130/70 in left arm by me Regular rhythm. Soft systolic murmur upper right sternal border Clear lungs Abdomen benign Lab data White count 12.9 hemoglobin 9.1 hematocrit 28.2 Sodium 138 potassium 3.8 chloride 98 CO2 31 BUN 14 creatinine 1.40 Glucose 103 Impression no further atrial flutter on Cardizem CD 180 mg daily Status post two-vessel CABG February 2016 KAPLAN graft to LAD and vein graft OM branch Recent echo showed ejection fraction of 55-60% Status post amputation right second toe Untreated obstructive sleep apnea Plan Agree with discharge Cardizem CD 180 mg daily Exam (Progress Note) - Constitutional Vitals: Period Temp Pulse Resp BP Sys/Askew Pulse Ox Last 24 Hr 97.7 F-100 F 69-86 16-20 105-139/48-74 91-98 Result/EKG - Labs CBC & BMP: 03/29/17 05:20 03/29/17 05:20 Labs: Laboratory Results - last 24 hr 03/28/17 03/28/17 03/28/17 07:13 11:32 15:33 WBC RBC Hgb Hct MCV MCH MCHC RDW Plt Count MPV Neut % (Auto) Lymph % (Auto) [place] % (Auto) Eos % (Auto) Baso % (Auto) Neut # (Auto) Lymph # (Auto) [place] # (Auto) Eos # (Auto) Baso # (Auto) Immature Gran % Nucleated RBC % Immature Gran # Nucleated RBCs # Sodium Potassium Chloride Carbon Dioxide Anion Gap BUN Creatinine GFR Calculation BUN/Creatinine Ratio Glucose POC Glucose 133 H 204 H 163 H Calculated Osmolality Calcium 05/03/28/17 03/29/17 16:21 19:50 05:20 WBC 12.9 H RBC 3.30 L Hgb 9.1 L Hct 28.2 L MCV 85.5 L MCH 28 MCHC 32.3 RDW 13.4 Plt Count 396 MPV 9.3 L Neut % (Auto) 72.5 Lymph % (Auto) 10.3 L [place] % (Auto) 15.1 H Eos % (Auto) 0.6 Baso % (Auto) 0.3 Neut # (Auto) 9.3 H Lymph # (Auto) 1.3 L [place] # (Auto) 1.9 H Eos # (Auto) 0.1 Baso # (Auto) 0.0 Immature Gran % 1.2 Nucleated RBC % 0.0 Immature Gran # 0.16 Nucleated RBCs # 0.00 Sodium Potassium Chloride Carbon Dioxide Anion Gap BUN Creatinine GFR Calculation BUN/Creatinine Ratio Glucose POC Glucose 169 H 106 Calculated Osmolality Calcium 03/29/17 03/29/17 05:20 07:46 WBC RBC Hgb Hct MCV MCH MCHC RDW Plt Count MPV Neut % (Auto) Lymph % (Auto) [place] % (Auto) Eos % (Auto) Baso % (Auto) Neut # (Auto) Lymph # (Auto) [place] # (Auto) Eos # (Auto) Baso # (Auto) Immature Gran % Nucleated RBC % Immature Gran # Nucleated RBCs # Sodium 138 Potassium 3.8 Chloride 98 Carbon Dioxide 31 Anion Gap 12.8 BUN 14 Creatinine 1.40 H GFR Calculation 83 BUN/Creatinine Ratio 10.00 Glucose 103 POC Glucose 128 H Calculated Osmolality 275.7 Calcium 8.2 L Specialty Discharge - Follow Up or Referrals Follow up with: Derek Andrade MD [Physician] - 05/03/17 3:00 pm Nils Savage MD [Primary Care Provider] - 04/05/17 1:30 pm (CBC,BMP AND CHEST XRAY)
[2017-03-29 12:06] VITALS: BP 143/68
[2017-03-29] MEDS: CEFTAROLINE 600 MG in SODIUM CHLORIDE 0.9% 100 ML IV SCH (12:13)
--- NOTE | 2017-04-05 16:24 | Physician Query Form ---
CLICK EDIT DOCUMENT TO SELECT QUERY ANSWER --> OK --> SIGN Celia Medellin RN Clinical Wrapper Off W) [phone] (f) [phone] [email or web address]: Make your selection(s) from the choices in EACH section by typing an "x" and enter comments in the comment section. Please use your independent medical judgment in providing your response. This request does not imply that any particular answer is desired or expected. CLINICAL INDICATORS: (Providers should not edit this section) Based on documentation in discharge summary of "acute cellulitis,was felt to have cellulitis of his right foot". Dr. Chambers's note states "The amputated second toe are showing progressive ischemia and dry gangrene but does not appear to be actively infected". Pt. treated with IV Teflaro and Rocephin. Please clarify the diagnosis of cellulitis. Diagnosis: Cellulitis Please clarify the following: ( ) The above diagnosis was monitored, evaluated, and/or treated and is a confirmed diagnosis ( ) The above diagnosis was ruled out (x ) Other, please specify: He had cellulitis with foul-smelling drainage and positive culture ( ) Clinically unable to determine COMMENTS: PLEASE ALSO DOCUMENT RESPONSE IN PROGRESS NOTES AND/OR DISCHARGE SUMMARY Use of terms such as suspected, likely, or probable (associated with a specific diagnosis that is being evaluated, monitored, or treated as if it exists) are acceptable and can be restated in the discharge summary if not ruled out. MTDD
== END 2017-03-29 13:00 | disposition home or self-care (01) | DRG 637 ==
LOC: N.ED 16:33 → N.EDINP 20:24 → N.5E 20:57
PROVIDERS: ADMIT Internal Medicine; ATTEND Internal Medicine

== ENCOUNTER 2017-04-03 12:06 | Inpatient (IN) ==
[2017-04-03] MEDS ORDERED: ACETAMINOPHEN 325 MG TABLET PO PRN (12:24)
[2017-04-03] MEDS ORDERED: GLUCAGON 1 MG VIAL IM PRN (12:24)
[2017-04-03] MEDS ORDERED: ONDANSETRON 4 MG/2 ML VIAL IV PRN (12:24)
[2017-04-03] MEDS ORDERED: DEXTROSE 50% 25 GM/50 ML VIAL IV PRN (12:24)
[2017-04-03] MEDS ORDERED: SODIUM CHLORIDE 0.9% 1,000 ML IV SCH (12:30)
--- NOTE | 2017-04-03 12:34 | Internal Med History&Physical ---
Assessment and Plan (1) Diabetic foot Status: Acute Assessment and plan: 72-year-old male is being admitted to acute care * Diabetic foot. It appears he has cellulitis in the dorsum of foot with gangrene. Will check x-rays of the foot. Will consult Dr. Beard. We will start him on broad-spectrum antibiotic. Blood cultures will be done. * Uncontrolled diabetes. Will start him on insulin and sliding scale * Peripheral vascular disease. Patient had intervention done by Dr. duffy recently. We will continue his medication * Hypertension. Will continue his blood pressure medication * Recent pneumonia. Will check a chest x-ray * Coronary artery disease. Stable * Discussed with patient and his (2) Hypoglycemia associated with diabetes Status: Acute (3) Paroxysmal a-fib Status: Acute (4) CAD (coronary artery disease) Status: Chronic Qualifiers: Coronary Disease-Associated Artery/Lesion type: bypass graft [place] vs. transplanted heart: [place] heart Associated angina: without angina Qualified Code(s): I25.810 - Atherosclerosis of coronary artery bypass graft(s) without angina pectoris (5) Diabetic neuropathy Status: Chronic (6) Dyslipidemia Status: Chronic (7) Hypertension Status: Chronic (8) PVD (peripheral vascular disease) Status: Chronic (9) S/P CABG (coronary artery bypass graft) Status: Chronic History of Present Illness Chief complaint: Diabetic foot uncontrolled diabetes History of present illness: Mr. Chong is a 72 year old male with history of coronary artery disease status post CABG, hypertension, peripheral vascular disease, CVA, insulin- dependent diabetes, dyslipidemia, obstructive sleep apnea, atrial flutter and mild dementia was seen in the office with elevated blood sugars and increasing pain in the right foot. Patient had undergone partial amputation of right toe by Dr. Beard earlier this month. He has not been doing well at home. His blood sugars have been running high. His feet has been hurting more. He has been confused according to his . This gets worse when he takes Percocet for pain. He denies any chest pain or shortness of breath. He denies any nausea vomiting or diarrhea. He lives at home with his . He is a former smoker Home Medications Medication Instructions Recorded Confirmed Type Pravastatin [Pravachol] 80 mg PO BEDTIME #30 tablet 03/16/16 03/25/17 Rx Carvedilol [Coreg] 12.5 mg PO BID 08/22/16 03/25/17 History Clopidogrel [Plavix] 75 mg PO DAILY 08/22/16 03/25/17 History Docusate Sodium 100 mg PO BID PRN 08/22/16 03/25/17 History Gabapentin Cap/Tab [Neurontin 800 mg PO TID 08/22/16 03/25/17 History Cap/Tab] Insulin Aspart Prot/Asp 70/30 55 unit SUBCUT AC BREAKFAST 08/22/16 03/25/17 History [NovoLOG Mix 70/30] Insulin Aspart Prot/Asp 70/30 55 unit SUBCUT AC SUPPER 08/22/16 03/25/17 History [NovoLOG Mix 70/30] Losartan Potassium [Cozaar] 50 mg PO DAILY 08/22/16 03/25/17 History Magnesium Oxide 420 mg PO DAILY 08/22/16 03/25/17 History Metformin HCl 1,000 mg PO BID 08/22/16 03/25/17 History Methocarbamol Tab [Robaxin Tab] 750 mg PO Q8HR PRN 08/22/16 03/25/17 History Sertraline [Zoloft] 50 mg PO DAILY 08/22/16 03/25/17 History Aspirin [Ecotrin] 81 mg PO BEDTIME 01/17/17 03/25/17 History Cilostazol [Pletal] 100 mg PO BID #100 tablet 03/24/17 03/25/17 Rx Furosemide Tab [Lasix Tab] 20 mg PO BEDTIME #30 tablet 03/24/17 03/25/17 Rx oxyCODONE/ACETAMINOPHEN 5-325 1 tablet PO Q6H PRN #20 tablet 03/24/17 03/25/17 Rx [Percocet 5-325] Diltiazem Cd Cap [Cardizem CD] 180 mg PO DAILY #30 capsule 03/29/17 Rx Levofloxacin Tab [Levaquin Tab] 500 mg PO Q24H #7 tablet 03/29/17 Rx Allergies Allergy/AdvReac Type Severity Reaction Status Date / Time vancomycin Allergy Seizure Verified 03/25/17 16:59 Medical,Surgical,& Family Hx - Medical History Cardio: History of: Cardiac Dysrhythmia (Atrial fibrillation), CAD, Hypertension , [place], PVD ( orbital atherectomy and angioplasty of right anterior tibial artery) , Cardiovascular Problems (Bilingual Hr Generalist Dr. Touchstone) Neurology: History of: Cerebrovascular Accident (Mild, ?), Dementia (Mild), Peripheral Neuropathy No history of: Seizures HEENT: History of: Eye Problem (Glasses Reading), Dental Problems (Dental Implant Upper) Endocrine: History of: Diabetes Mellitus (IDDM), Dyslipidemia Respiratory: History of: Obstructive Sleep Apnea, Respiratory Problems (Flu Vac Current 2016 Season) Comment Only: Pneumonia (Hx Pneum Vac) Genitourinary: History of: Prostate Problems Gastrointestinal: No history of: Polyps Musculoskeletal: History of: Musculoskeletal Problems (arthritis) - Surgical History Cardiac Surgeries: Sugical HX of: Cardiac Catheterization (stents), Cardiac Surgery (CABG 03/09/16) HEENT Surgeries: Surgical HX of: Eye Surgery (CATARACTS BILATERAL), Tonsilectomy & Adenoidectomy Abdominal Surgeries: Surgical HX of: Colonoscopy, Hernia Repair (Right inguinal hernia [place] [address] Beard) Additional Surgical History: Amputation of right second toe earlier this month - Family History Family History: Reports;: Family Diabetes, Family Heart Disease, Family Hypertension - Social History Smoking Status: Former smoker Type of Drug Use: None Marital Status: Lives With:: Spouse Functional capacity: independent ambulation 12 point system: reviewed and no additional remarkable complaints except as stated (As mentioned in HPI) Exam - Constitutional Exam: Examination: GENERAL: NAD. HEENT: PERRLA. EOMI. Mucous membranes are moist. NECK: Neck is supple. No JVD. No carotid bruit. No thyromegaly. CVS: Regular rate and rhythm. S1 and S2 are normal. RESPIRATORY: Lungs are clear. No rales or rhonchi. ABDOMEN: Soft and nontender. Bowel sounds are present. No hepatosplenomegaly. EXT: 1+ edema in the right lower extremity. The dorsum of the foot is warm and tender. There is erythema. Base of the second toe. Amputation was done is black and foul-smelling. There appears to be gangrene. There is also drainage from the toe stump FILLING ROOM OPERATOR: Patient is awake, alert and oriented to time place and person. Cranial nerves II through XII are grossly intact. Motor strength is 4/5 SKIN: Warm and dry. MSK: No obvious deformity.
[2017-04-03 14:40] LABS: Basophils % 0.1 % (0.0-0.8); Eosinophils % 0.1 % (0.00-10.9); Hematocrit 29.5 VOL% (42.0-52.0); Hemoglobin 9.6 GM/DL (14.0-18.0); Immature Granulocytes % 1.3 %; Immature Granulocytes Absolute 0.24 #; Lymphocytes # 1.5 10*3/uL (1.4-4.0); Lymphocytes % 8.1 % (21.2-54.2); Mean Corpuscular HGB Conc 32.5 GM/DL (32-36); Mean Corpuscular Hemoglobin 27 PG (27-34); Mean Corpuscular Volume 83.3 FL (87-102); Mean Platelet Volume 9.2 FL (9.6-12.0); Monocytes # 1.6 10*3/uL (0.11-0.8); Monocytes % 8.5 % (1.7-12.7); Neutrophils # 15.2 10*3/uL (1.4-7.4); Neutrophils % 81.9 % (38.7-73.9); Platelet Count 804 T/CUMM (130-400); Red Blood Count 3.54 MC/CUMM (3.8-5.5); Red Cell Distribution Width 13.9 % (9.3-17.3); White Blood Count 18.5 T/CUMM (4-12)
--- NOTE | 2017-04-03 14:59 | XRay Report ---
Exam: Chest 2 views Date: April 03, 2017 at 2:39 PM Comparison: Chest 2 views March 29, 2017 Reason: Follow-up pneumonia Findings: The cardiac silhouette is borderline enlarged, and the patient is status post sternotomy. There is persistent mild elevation of the left hemidiaphragm and mild opacities at the left lung base. These opacities likely represent atelectasis and possibly pneumonia. No pneumothorax is identified. The osseous structures appear stable. Impression: There has been no significant change. PROCEDURE INTERPRETED AT [facility] DEPARTMENT OF RADIOLOGY Final Report Signed by: Dr. Stef Babb
[2017-04-03 15:00] LABS: Calcium 9.2 MG/DL (8.5-10.1); Potassium 4.4 MMOL/L (3.5-5.1)
--- NOTE | 2017-04-03 15:03 | XRay Report ---
Referring Physician: Nils Savage Exam: XR foot 2V RT Date: April 03, 2017 at 2:41 PM Reason: Diabetic foot, status post amputation second toe Comparison: Right foot x-rays March 25, 2017 Findings: The patient is status post amputation of the second digit to the distal aspect of the proximal phalanx. There is minimal calcaneal spurring and minimal degenerative change at some of the interphalangeal joints. No acute fracture, dislocation or osseous destructive process is identified. There is prominent arterial calcification and soft tissue swelling at the right foot. A 0.5 cm curvilinear metallic foreign body is seen within the soft tissues anterior to the right ankle. Impression: 1. The patient is status post amputation of the second digit as above. There is also soft tissue swelling at the right foot. However, there is no convincing evidence of osteomyelitis. 2. A 0.5 cm curvilinear metallic foreign body is seen within the soft tissues anterior to the right ankle. PROCEDURE INTERPRETED AT [facility] DEPARTMENT OF RADIOLOGY Final Report Signed by: Dr. Stef Babb
[2017-04-03] MEDS: CEFTAROLINE 600 MG in SODIUM CHLORIDE 0.9% 100 ML IV SCH (15:16)
--- NOTE | 2017-04-03 16:16 | Vascular Surgery Consult Note ---
History of Present Illness Chief complaint: gangrene right 2nd toe History of present illness: Mr. Chong is a 72 year old male Mr. Betts is a 72-year-old man who is been followed here for the last 2 months with gangrene of the tip of the second toe with known tibial vascular occlusive disease he is undergone attempted recanalization of the tibial peroneal trunk that was unsuccessful but did have recanalization into the proximal anterior tibial he has known diabetic peripheral vascular disease primarily involving the tibial vessels that has been chronic. He had developed a gangrene of the tip of the second toe and this was amputated several weeks ago appear to be doing well initially but now has been readmitted with progressive gangrene and infection spreading into the forefoot itself. I have recommended to Mr. Chong with his present amputation of this toe leaving the wound open to try to control infection I very clearly explained that perfusion is borderline at best and that we may in fact not be able to salvage the entire foot but we will certainly try to do so he understands and agrees with this plan Home Medications Medication Instructions Recorded Confirmed Type Pravastatin [Pravachol] 80 mg PO BEDTIME #30 tablet 03/16/16 04/03/17 Rx Carvedilol [Coreg] 12.5 mg PO BID 08/22/16 04/03/17 History Clopidogrel [Plavix] 75 mg PO DAILY 08/22/16 04/03/17 History Docusate Sodium 100 mg PO BID PRN 08/22/16 04/03/17 History Gabapentin Cap/Tab [Neurontin 800 mg PO TID 08/22/16 04/03/17 History Cap/Tab] Insulin Aspart Prot/Asp 70/30 55 unit SUBCUT AC BREAKFAST 08/22/16 04/03/17 History [NovoLOG Mix 70/30] Insulin Aspart Prot/Asp 70/30 55 unit SUBCUT AC SUPPER 08/22/16 04/03/17 History [NovoLOG Mix 70/30] Losartan Potassium [Cozaar] 50 mg PO DAILY 08/22/16 04/03/17 History Magnesium Oxide 420 mg PO DAILY 08/22/16 04/03/17 History Metformin HCl 1,000 mg PO BID 08/22/16 04/03/17 History Methocarbamol Tab [Robaxin Tab] 750 mg PO Q8HR PRN 08/22/16 04/03/17 History Sertraline [Zoloft] 50 mg PO DAILY 08/22/16 04/03/17 History Aspirin [Ecotrin] 81 mg PO BEDTIME 01/17/17 04/03/17 History Cilostazol [Pletal] 100 mg PO BID #100 tablet 03/24/17 04/03/17 Rx Furosemide Tab [Lasix Tab] 20 mg PO BEDTIME #30 tablet 03/24/17 04/03/17 Rx oxyCODONE/ACETAMINOPHEN 5-325 1 tablet PO Q6H PRN #20 tablet 03/24/17 04/03/17 Rx [Percocet 5-325] Diltiazem Cd Cap [Cardizem CD] 180 mg PO DAILY #30 capsule 03/29/17 04/03/17 Rx Levofloxacin Tab [Levaquin Tab] 500 mg PO Q24H #7 tablet 03/29/17 04/03/17 Rx Allergies Allergy/AdvReac Type Severity Reaction Status Date / Time vancomycin Allergy Seizure Verified 03/25/17 16:59 Medical,Surgical,& Family Hx - Medical History Cardio: History of: Cardiac Dysrhythmia (Atrial fibrillation), CAD, Hypertension , [place], PVD ( orbital atherectomy and angioplasty of right anterior tibial artery) , Cardiovascular Problems (Geophysical Data Technician Dr. Stoner) Neurology: History of: Cerebrovascular Accident (Mild, ?), Dementia (Mild), Peripheral Neuropathy No history of: Seizures HEENT: History of: Eye Problem (Glasses Reading), Dental Problems (Dental Implant Upper) Endocrine: History of: Diabetes Mellitus (IDDM), Dyslipidemia Respiratory: History of: Obstructive Sleep Apnea, Respiratory Problems (Flu Vac Current 2015 Season) Comment Only: Pneumonia (Hx Pneum Vac) Genitourinary: History of: Prostate Problems Gastrointestinal: No history of: Polyps Musculoskeletal: History of: Amputation (Right 2nd toe), Musculoskeletal Problems (arthritis) Other: No history of: Anesthesia Reactions, Cancer - Surgical History Cardiac Surgeries: Sugical HX of: Cardiac Catheterization (stents), Cardiac Surgery (CABG 03/09/16) HEENT Surgeries: Surgical HX of: Eye Surgery (CATARACTS BILATERAL), Tonsilectomy & Adenoidectomy Abdominal Surgeries: Surgical HX of: Colonoscopy, Hernia Repair (Right inguinal hernia [place] [address] Beard) - Family History Family History: Reports;: Family Diabetes, Family Heart Disease, Family Hypertension - Social History Smoking Status: Former smoker Type of Drug Use: None Results - Labs CBC & BMP: 04/03/17 14:28 04/03/17 14:28
[2017-04-03] MEDS ORDERED: DOCUSATE SODIUM 100 MG CAPSULE PO PRN (16:32)
[2017-04-03] MEDS: traMADol 50 MG TABLET PO PRN (16:41)
[2017-04-03] MEDS ORDERED: MORPHINE 2 MG/1 ML SYRINGE SUBCUT PRN ×2 (16:43→17:00)
[2017-04-03] MEDS: INSULIN LISPRO 100 UNIT/ML SUBCUT SCH ×2 (17:23→20:43)
[2017-04-03] MEDS: GABAPENTIN 400 MG CAPSULE PO SCH (20:43)
[2017-04-03] MEDS: CARVEDILOL 12.5 MG TABLET PO SCH (20:43)
[2017-04-03] MEDS: PRAVASTATIN 40 MG TABLET PO SCH (20:43)
[2017-04-03] MEDS: DOCUSATE SODIUM 100 MG CAPSULE PO SCH (20:43)
[2017-04-03] MEDS: CILOSTAZOL 50 MG TABLET PO SCH (20:43)
[2017-04-03] MEDS: ASPIRIN EC 81 MG TABLET PO SCH (20:43)
[2017-04-04] MEDS: CEFTAROLINE 600 MG in SODIUM CHLORIDE 0.9% 100 ML IV SCH ×2 (01:33→14:29)
[2017-04-04 06:06] LABS: Basophils # 0.1 10*3/uL (0.0-0.2); Basophils % 0.3 % (0.0-0.8); Eosinophils # 0.1 10*3/uL (0.0-0.87); Eosinophils % 0.6 % (0.00-10.9); Hematocrit 27.7 VOL% (42.0-52.0); Hemoglobin 9.1 GM/DL (14.0-18.0); Immature Granulocytes Absolute 0.16 #; Lymphocytes # 1.4 10*3/uL (1.4-4.0); Lymphocytes % 8.8 % (21.2-54.2); Mean Corpuscular HGB Conc 32.9 GM/DL (32-36); Mean Corpuscular Hemoglobin 27 PG (27-34); Mean Corpuscular Volume 82.4 FL (87-102); Mean Platelet Volume 9.3 FL (9.6-12.0); Monocytes # 1.3 10*3/uL (0.11-0.8); Monocytes % 8.5 % (1.7-12.7); Neutrophils # 12.6 10*3/uL (1.4-7.4); Neutrophils % 80.8 % (38.7-73.9); Platelet Count 803 T/CUMM (130-400); Red Blood Count 3.36 MC/CUMM (3.8-5.5); Red Cell Distribution Width 13.9 % (9.3-17.3); White Blood Count 15.6 T/CUMM (4-12)
[2017-04-04 06:35] LABS: Calcium 9.1 MG/DL (8.5-10.1); Potassium 4.6 MMOL/L (3.5-5.1)
[2017-04-04] MEDS: INSULIN ASPART PROTAMINE/ASPART 70/30 100 UNIT/ML SUBCUT SCH ×2 (07:30→17:18)
[2017-04-04] MEDS: INSULIN LISPRO 100 UNIT/ML SUBCUT SCH ×4 (08:21→21:24)
--- NOTE | 2017-04-04 08:56 | Internal Med Progress Note ---
Assessment and Plan (1) Diabetic foot Status: Acute Assessment and plan: 72-year-old male is being admitted to acute care * Diabetic foot. Patient to undergo amputation of second toe per Dr. Beard. * Uncontrolled diabetes. Will start him on insulin and sliding scale * Peripheral vascular disease. Patient had intervention done by Dr. duffy recently. We will continue his medication * Hypertension. Will continue his blood pressure medication * Recent pneumonia. Chest x-ray reviewed * Coronary artery disease. Stable * Discussed with patient and his Current Visit: Yes (2) Hypoglycemia associated with diabetes Status: Acute Current Visit: Yes (3) Paroxysmal a-fib Status: Acute Current Visit: Yes (4) CAD (coronary artery disease) Status: Chronic Current Visit: No Qualifiers: Coronary Disease-Associated Artery/Lesion type: bypass graft [place] vs. transplanted heart: [place] heart Associated angina: without angina Qualified Code(s): I25.810 - Atherosclerosis of coronary artery bypass graft(s) without angina pectoris (5) Diabetic neuropathy Status: Chronic Current Visit: No (6) Dyslipidemia Status: Chronic Current Visit: No (7) Hypertension Status: Chronic Current Visit: No (8) PVD (peripheral vascular disease) Status: Chronic Current Visit: No (9) S/P CABG (coronary artery bypass graft) Status: Chronic Current Visit: No Internal Medicine - PN: Subj Interval history: He is feeling better this morning. No chest pain or shortness of breath. No nausea or vomiting. His pain is better controlled Exam (Progress Note) - Constitutional Vitals: Period Temp Pulse Resp BP Sys/Askew Pulse Ox Last 24 Hr 98.1 F-99.8 F 87-99 18-20 116-161/57-79 92-97 Exam: Examination: GENERAL: NAD. HEENT: PERRLA. EOMI. NECK: Neck is supple. CVS: Regular rate and rhythm. S1 and S2 are normal. RESPIRATORY: Lungs are clear. ABDOMEN: Soft and nontender. EXT: 1+ edema in the right lower extremity. The dorsum of the foot is warm and tender. There is erythema. Gangrene of the second toe PITCH GATHERER: Patient is awake, alert and oriented to time place and person. Cranial nerves II through XII are grossly intact. Motor strength is 4/5 SKIN: Warm and dry. Results - Labs CBC & BMP: 04/04/17 05:27 04/04/17 05:27 Lab Results: I have reviewed the past 24 hour labs
[2017-04-04] MEDS: DOCUSATE SODIUM 100 MG CAPSULE PO SCH ×2 (09:00→21:24)
[2017-04-04] MEDS: GABAPENTIN 400 MG CAPSULE PO SCH ×3 (09:00→21:15)
[2017-04-04] MEDS: CILOSTAZOL 50 MG TABLET PO SCH ×2 (09:00→21:23)
[2017-04-04] MEDS ORDERED: BUPIVACAINE 0.5% 50 ML VIAL ONE (09:15)
[2017-04-04] MEDS: DILTIAZEM CD 180 MG CAPSULE PO SCH (09:19)
[2017-04-04] MEDS: CARVEDILOL 12.5 MG TABLET PO SCH ×2 (09:19→21:23)
[2017-04-04] MEDS: LOSARTAN 50 MG TABLET PO SCH (09:19)
[2017-04-04] MEDS ORDERED: PROPOFOL 200 MG/20 ML VIAL IV ONE (09:47)
[2017-04-04] MEDS ORDERED: METOPROLOL TARTRATE 5 MG/5 ML VIAL IV ONE (09:47)
[2017-04-04] MEDS ORDERED: ESMOLOL 100 MG/10 ML VIAL IV ONE (09:47)
[2017-04-04] MEDS ORDERED: LIDOCAINE 1% 5 ML VIAL ONE (09:47)
--- NOTE | 2017-04-04 10:35 | Anesthesia Post-Op ---
Anesthesia Post OP - Post Ansesthetic Evaluation Patient seen in post op: Yes Resp: within normal limits CV: within normal limits Mental: within normal limits Temp: within normal limits [id number]: within normal limits Nausea and Vomiting: within normal limits Pain: within normal limits
--- NOTE | 2017-04-04 10:35 | Operative Note ---
Date of procedure: 04/04/17 Surgeon / Physician: Moiz Chambers Results - Labs CBC & BMP: 04/04/17 05:27 04/04/17 05:27 Discharge Plan - Discharge Medications No Action Pravastatin [Pravachol] 80 mg PO BEDTIME #30 tablet Carvedilol [Coreg] 12.5 mg PO BID Insulin Aspart Prot/Asp 70/30 [NovoLOG Mix 70/30] 55 unit SUBCUT AC SUPPER Insulin Aspart Prot/Asp 70/30 [NovoLOG Mix 70/30] 55 unit SUBCUT AC BREAKFAST Gabapentin Cap/Tab [Neurontin Cap/Tab] 800 mg PO TID Magnesium Oxide 420 mg PO DAILY Sertraline [Zoloft] 50 mg PO DAILY Methocarbamol Tab [Robaxin Tab] 750 mg PO Q8HR PRN PRN Reason: Muscle Pain Metformin HCl 1,000 mg PO BID Losartan Potassium [Cozaar] 50 mg PO DAILY Docusate Sodium 100 mg PO BID PRN PRN Reason: Constipation Clopidogrel [Plavix] 75 mg PO DAILY Aspirin [Ecotrin] 81 mg PO BEDTIME Cilostazol [Pletal] 100 mg PO BID #100 tablet Furosemide Tab [Lasix Tab] 20 mg PO BEDTIME #30 tablet oxyCODONE/ACETAMINOPHEN 5-325 [Percocet 5-325] 1 tablet PO Q6H PRN #20 tablet PRN Reason: Pain Moderate (4-7) Diltiazem Cd Cap [Cardizem CD] 180 mg PO DAILY #30 capsule Levofloxacin Tab [Levaquin Tab] 500 mg PO Q24H #7 tablet - Follow Up or Referral - Forms/Instructions
[2017-04-04] MEDS ORDERED: MIDAZOLAM 2 MG/2 ML VIAL ONE (10:37)
[2017-04-04] MEDS ORDERED: fentaNYL 100 MCG/2 ML VIAL ONE (10:37)
--- NOTE | 2017-04-04 10:42 | Operative Note ---
Date of procedure: 04/04/17 Procedure: Dr. Chambers operative report Luis Chong. Surgeon: Reyes Anesthesia: [place] CHRISTOPHER Preoperative diagnosis: Gangrene and infection of the right second toe secondary to diabetic peripheral vascular disease Postoperative diagnosis: Same Procedure: Transmetatarsal amputation of the right second toe Indications for the procedure Mr. Chong is 72-year-old man with a long- standing diabetic peripheral vascular occlusive disease has progressive gangrene involving her right his right second toe I have recommended amputation of the toe for control of infection realizing with the significant peripheral vascular disease that higher amputation may become necessary in the future the patient understands and agrees Description of the procedure: Patient received mild sedation his right foot was prepped with Betadine soap and solution draped in usual fashion 0.5% [place] is infiltrated for a digital block using approximately 15 cc with adequate time for the block to work I then amputated through the frankly gangrenous toe noting that there was gangrene of the entire toe and onto the dorsum of the metatarsal side also noted that there now appears to be significant cyanosis of the right third toe of the there was dry there was loose skin spreading over onto the first and third toes went ahead with a transmetatarsal amputation of the second toe removing all frankly gangrenous portions cultures were taken and sent to pathology is no active bleeding in the head of the metatarsals amputated with the ambrose areas irrigated and packed with Dakin's moist gauze and cast padding blood loss negligible patient taken to recovery in fair condition although he did have spells of rapid PAT during the procedure will be active monitored. On the floor Surgeon / Physician: Moiz Chambers Results - Labs CBC & BMP: 04/04/17 05:27 04/04/17 05:27 Discharge Plan - Discharge Medications No Action Pravastatin [Pravachol] 80 mg PO BEDTIME #30 tablet Carvedilol [Coreg] 12.5 mg PO BID Insulin Aspart Prot/Asp 70/30 [NovoLOG Mix 70/30] 55 unit SUBCUT AC SUPPER Insulin Aspart Prot/Asp 70/30 [NovoLOG Mix 70/30] 55 unit SUBCUT AC BREAKFAST Gabapentin Cap/Tab [Neurontin Cap/Tab] 800 mg PO TID Magnesium Oxide 420 mg PO DAILY Sertraline [Zoloft] 50 mg PO DAILY Methocarbamol Tab [Robaxin Tab] 750 mg PO Q8HR PRN PRN Reason: Muscle Pain Metformin HCl 1,000 mg PO BID Losartan Potassium [Cozaar] 50 mg PO DAILY Docusate Sodium 100 mg PO BID PRN PRN Reason: Constipation Clopidogrel [Plavix] 75 mg PO DAILY Aspirin [Ecotrin] 81 mg PO BEDTIME Cilostazol [Pletal] 100 mg PO BID #100 tablet Furosemide Tab [Lasix Tab] 20 mg PO BEDTIME #30 tablet oxyCODONE/ACETAMINOPHEN 5-325 [Percocet 5-325] 1 tablet PO Q6H PRN #20 tablet PRN Reason: Pain Moderate (4-7) Diltiazem Cd Cap [Cardizem CD] 180 mg PO DAILY #30 capsule Levofloxacin Tab [Levaquin Tab] 500 mg PO Q24H #7 tablet - Follow Up or Referral - Forms/Instructions
[2017-04-04] MEDS ORDERED: GLUCAGON 1 MG VIAL IM PRN (13:58)
[2017-04-04] MEDS ORDERED: DEXTROSE 50% 25 GM/50 ML VIAL IV PRN (13:58)
[2017-04-04] MEDS: CLOPIDOGREL 75 MG TABLET PO SCH (14:19)
[2017-04-04] MEDS: PANTOPRAZOLE 40 MG TABLET PO SCH (14:19)
[2017-04-04] MEDS: MAGNESIUM OXIDE 400 MG TABLET PO SCH (14:19)
[2017-04-04] MEDS: SERTRALINE 50 MG TABLET PO SCH (14:19)
[2017-04-04] MEDS: oxyCODONE/ACETAMINOPHEN 5-325 MG TABLET PO PRN (14:35)
[2017-04-04] MEDS: ASPIRIN EC 81 MG TABLET PO SCH (21:23)
[2017-04-04] MEDS: PRAVASTATIN 40 MG TABLET PO SCH (21:23)
--- NOTE | 2017-04-04 21:53 | Cardiology Consult Note ---
Cecil Coppola Vanessa, RN, am scribing for, and in the presence of, Tana Ruff MD 21:53. Assessment and Plan - Time spent with patient Time spent with patient: Greater than 30 minutes (Due to assessment, planning, documentation, and medication review) (1) Tachycardia, paroxysmal Status: Acute Assessment and plan: SEE PLAN OF CARE LISTED BELOW. Current Visit: Yes (2) Gangrene of right foot Status: Acute Assessment and plan: SEE PLAN OF CARE LISTED BELOW. Current Visit: Yes (3) Paroxysmal a-fib Status: Chronic Assessment and plan: SEE PLAN OF CARE LISTED BELOW. Current Visit: Yes (4) Diabetes Status: Chronic Assessment and plan: SEE PLAN OF CARE LISTED BELOW. Current Visit: No Qualifiers: Diabetes mellitus type: type 2 (5) CAD (coronary artery disease) Status: Chronic Assessment and plan: SEE PLAN OF CARE LISTED BELOW. Current Visit: No Qualifiers: Coronary Disease-Associated Artery/Lesion type: bypass graft [place] vs. transplanted heart: [place] heart Associated angina: without angina Qualified Code(s): I25.810 - Atherosclerosis of coronary artery bypass graft(s) without angina pectoris (6) Cardiac murmur Status: Chronic Assessment and plan: SEE PLAN OF CARE LISTED BELOW. Current Visit: No (7) Diabetic neuropathy Status: Chronic Assessment and plan: SEE PLAN OF CARE LISTED BELOW. Current Visit: No (8) Dyslipidemia Status: Chronic Assessment and plan: SEE PLAN OF CARE LISTED BELOW. Current Visit: No (9) Hypertension Status: Chronic Assessment and plan: SEE PLAN OF CARE LISTED BELOW. Current Visit: No (10) PVD (peripheral vascular disease) Status: Chronic Assessment and plan: SEE PLAN OF CARE LISTED BELOW. Current Visit: No (11) S/P CABG (coronary artery bypass graft) Status: Chronic Assessment and plan: SEE PLAN OF CARE LISTED BELOW. Current Visit: No History of Present Illness - Data of Consult Patient: known to practice within the last 3 years Consult date: 04/04/17 Requesting Physician: Nils Savage - Consult Narrative Reason for consult: intraoperative PAT History of present illness: PRIMARY BOTTOM FILLER: DR. STONER CARDIOLOGY CONSULT NOTE: INTRAOPERATIVE ATRIAL TACHYARRHYTHMIA Mr. Chong is a 72 year old black male with risk factors significant for: Hypertension, hyperlipidemia, diabetes, PVD, known CAD with previous CABG in February [address] Suero, sedentary lifestyle. He also has a history of obstructive sleep apnea with intolerance to BiPAP and CPAP, PTSD. Patient was recently admitted to hospital on March 19 after being directly admitted from Dr. Chambers's office for right lower extremity PVD, severe pain in the right second toe with possible gangrene. On the evening of March 19, patient required observation in the ICU overnight after possible reaction to medication-IV vancomycin or IV morphine, became nauseated, and developed atrial fibrillation with RVR. He did have some mild overload and mildly elevated cardiac enzymes. Atrial fibrillation responded well to IV Cardizem, and he did convert to sinus rhythm. Echocardiogram on March 19 with moderate LVH and ejection fraction 50%, mild aortic stenosis, tricuspid regurgitation with a PA pressure [address] Chambers performed amputation of right second toe on March 20. Dr. Sun later took patient to [facility] on March 22 where he underwent orbital atherectomy and angioplasty of proximal and mid right AT artery. Discharged from hospital on March 24, and readmitted on March 25 with fever, chills, and had developed cellulitis of right lower extremity. He was also treated for left sided pneumonia. During this admission, he also had a self sustained, asymptomatic episode of atrial fibrillation RVR. He was discharged home on March 29 with p.o. Cardizem. Patient was readmitted again on April [address] Savage's office with elevated glucose and increasing pain of the right foot. Patient's also reported he had had increasing confusion which was worse after taking Percocet. Patient has been found to have progressive gangrene of the right foot including dorsum. He was taken to the OR by Dr. Beard for amputation of right second toe earlier today. Intraoperatively, patient was noted to be having spells of a rapid atrial tachyarrhythmia. Cardiology has been consulted. Patient is being observed in the MedSurg floor. There is no EKG or helper coordinator strips available of atrial tachyarrhythmia during surgery. It is noted in the anesthesia record patient had a "run of SVT, 150 bpm's with spontaneous break and conversion to sinus rhythm pulse 80s". He received a total of 10 mg IV Lopressor. He was asymptomatic with this according to records. Patient now wearing helper coordinator, and reveals sinus rhythm with pulse rate in the 70s, occasional PAC. Glucose levels are greater than 300. White blood cell count 15 ,600. Potassium is 4.6. H&H stable 9.1 and 27.7. His Cardizem and carvedilol have been continued, and he did receive them this morning. On exam, patient is resting quietly without distress. He is receiving IV pain medication, and currently pain is fairly well controlled. Rouses easily, and he is not experiencing any nausea, shortness of breath, chest pain, palpitations, presyncope, or other complaint at this time. He does have mild discomfort of right lower extremity when he is awakened. Surgical dressing at right lower extremity is dry and intact without drainage. Spouse is present at bedside. ASSESSMENT/PLAN: 1. ATRIAL TACHYCARDIA -currently in sinus rhythm 2. PAROXYSMAL ATRIAL FIBRILLATION -currently in sinus rhythm 3. GANGRENE OF RIGHT FOOT -status post surgery of the left foot 4. DIABETES -chronic, stable 5. HYPERTENSION -chronic 6. PVD -chronic 7. CAD WITH PREVIOUS CABG -chronic, stable 8. DYSLIPIDEMIA -chronic 9. OBSTRUCTIVE SLEEP APNEA WITH CPAP INTOLERANCE -chronic CC: Nils Savage MD - Home Medications and Allergies Home Medications: Home Medications Medication Instructions Recorded Confirmed Type Pravastatin [Pravachol] 80 mg PO BEDTIME #30 tablet 03/16/16 04/03/17 Rx Carvedilol [Coreg] 12.5 mg PO BID 08/22/16 04/03/17 History Clopidogrel [Plavix] 75 mg PO DAILY 08/22/16 04/03/17 History Docusate Sodium 100 mg PO BID PRN 08/22/16 04/03/17 History Gabapentin Cap/Tab [Neurontin 800 mg PO TID 08/22/16 04/03/17 History Cap/Tab] Insulin Aspart Prot/Asp 70/30 55 unit SUBCUT AC BREAKFAST 08/22/16 04/03/17 History [NovoLOG Mix 70/30] Insulin Aspart Prot/Asp 70/30 55 unit SUBCUT AC SUPPER 08/22/16 04/03/17 History [NovoLOG Mix 70/30] Losartan Potassium [Cozaar] 50 mg PO DAILY 08/22/16 04/03/17 History Magnesium Oxide 420 mg PO DAILY 08/22/16 04/03/17 History Metformin HCl 1,000 mg PO BID 08/22/16 04/03/17 History Methocarbamol Tab [Robaxin Tab] 750 mg PO Q8HR PRN 08/22/16 04/03/17 History Sertraline [Zoloft] 50 mg PO DAILY 08/22/16 04/03/17 History Aspirin [Ecotrin] 81 mg PO BEDTIME 01/17/17 04/03/17 History Cilostazol [Pletal] 100 mg PO BID #100 tablet 03/24/17 04/03/17 Rx Furosemide Tab [Lasix Tab] 20 mg PO BEDTIME #30 tablet 03/24/17 04/03/17 Rx oxyCODONE/ACETAMINOPHEN 5-325 1 tablet PO Q6H PRN #20 tablet 03/24/17 04/03/17 Rx [Percocet 5-325] Diltiazem Cd Cap [Cardizem CD] 180 mg PO DAILY #30 capsule 03/29/17 04/03/17 Rx Levofloxacin Tab [Levaquin Tab] 500 mg PO Q24H #7 tablet 03/29/17 04/03/17 Rx Allergies/Adverse Reactions: Allergies Allergy/AdvReac Type Severity Reaction Status Date / Time vancomycin Allergy Seizure Verified 03/25/17 16:59 - Constitutional Constitutional: Present: as per HPI - EENT Eyes: Present: as per HPI Nose, mouth and throat: Present: as per HPI - Cardiovascular Cardiovascular: Present: as per HPI - Respiratory Respiratory: Present: as per HPI - Gastrointestinal Gastrointestinal: Present: as per HPI - Genitourinary Genitourinary: Present: as per HPI - Musculoskeletal Musculoskeletal: Present: as per HPI - Neurological Neurological: Present: as per HPI - Psychiatric Psychiatric: Present: as per HPI - Endocrine Endocrine: Present: as per HPI - Hematologic/Lymphatic Hematologic/Lymphatic: Present: as per HPI Medical,Surgical,& Family Hx - Medical History Cardio: History of: Cardiac Dysrhythmia (Atrial fibrillation), CAD, Hypertension , [place], PVD ( orbital atherectomy and angioplasty of right anterior tibial artery) , 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) Neurology: History of: Cerebrovascular Accident (Mild, ?), Dementia (Mild), Peripheral Neuropathy No history of: Seizures HEENT: History of: Eye Problem (Glasses Reading), Dental Problems (Dental Implant Upper) Endocrine: History of: Diabetes Mellitus (IDDM), Dyslipidemia Respiratory: History of: Obstructive Sleep Apnea, Respiratory Problems (Flu Vac Current 2016 Season) Comment Only: Pneumonia (Hx Pneum Vac) Genitourinary: History of: Prostate Problems Gastrointestinal: No history of: Polyps Musculoskeletal: History of: Amputation (Right 2nd toe), Musculoskeletal Problems (arthritis) Other: No history of: Anesthesia Reactions, Cancer - Surgical History Cardiac Surgeries: Sugical HX of: Cardiac Catheterization (stents), Cardiac Surgery (CABG 03/09/16) HEENT Surgeries: Surgical HX of: Eye Surgery (CATARACTS BILATERAL), Tonsilectomy & Adenoidectomy Abdominal Surgeries: Surgical HX of: Colonoscopy, Hernia Repair (Right inguinal hernia in [address] Beard) - Family History Family History: Reports;: Family Diabetes, Family Heart Disease, Family Hypertension - Social History Smoking Status: Former smoker Frequency of Alcohol Use: None Type of Drug Use: None Physical Examination Vital Signs Temp Pulse Resp BP Pulse Ox 98.5 F 87 20 157/77 97 04/03/17 13:25 04/03/17 13:25 04/03/17 13:25 04/03/17 13:25 04/03/17 13:25 Other: General appearance: normal weight, no acute distress - Head Head exam: Present: normal inspection, normocephalic, atraumatic. Absent: hematoma, laceration - Eye Eye exam: Present: EOMI. Absent: conjunctival injection, nystagmus, periorbital swelling, scleral icterus, laceration to eyelids Pupils: Present: PERRL. Absent: constricted, dilated, fixed, irregular, unequal - ENT ENT exam: Present: normal exam, normal external ear exam - Neck Neck exam: Present: normal inspection. Absent: lymphadenopathy, meningismus, tenderness, thyromegaly - Respiratory Respiratory exam: Present: clear to auscultation bilaterally. Absent: accessory muscle use, chest wall tenderness - Cardiovascular Cardiovascular exam: Present: regular rate and rhythm. Absent: carotid bruit, gallop, JVD, rubs - GI/Abdominal GI/Abdominal exam: Present: normal bowel sounds, soft. Absent: distended, firm , guarding, hernia, mass, tenderness, rebound. - Extremities Exam Extremities exam: Present: Left foot is with a surgical dressing, there are decreased pulses in the bilateral lower extremities which are barely palpable. Absent: calf tenderness, edema - Back Exam Back exam: Present: normal inspection. Absent: muscle spasm, vertebral tenderness - Neurological Exam Neurological exam: Present: alert, oriented X3, grossly intact without resting or intention tremor - Psychiatric Psychiatric exam: Present: normal affect, normal mood - Skin Skin exam: Present: normal color, warm, dry, intact. Absent: cyanosis, diaphoretic, rash, urticaria Result/EKG - Labs CBC & BMP: 04/04/17 05:27 04/04/17 05:27 Lab Results: I have reviewed the past 24 hour labs Labs: Laboratory Results - last 24 hr 04/03/17 04/03/17 04/03/17 14:28 14:28 16:11 WBC 18.5 H RBC 3.54 L Hgb 9.6 L Hct 29.5 L MCV 83.3 L MCH 27 MCHC 32.5 RDW 13.9 Plt Count 804 H MPV 9.2 L Neut % (Auto) 81.9 H Lymph % (Auto) 8.1 L Banks % (Auto) 8.5 Eos % (Auto) 0.1 Baso % (Auto) 0.1 Neut # (Auto) 15.2 H Lymph # (Auto) 1.5 Banks # (Auto) 1.6 H Eos # (Auto) 0.0 Baso # (Auto) 0.0 Immature Gran % 1.3 Nucleated RBC % 0.0 Immature Gran # 0.24 Nucleated RBCs # 0.00 Sodium 136 Potassium 4.4 Chloride 96 L Carbon Dioxide 29 Anion Gap 15.4 H BUN 14 Creatinine 1.30 GFR Calculation 0 BUN/Creatinine Ratio 10.00 Glucose 340 H POC Glucose 399 H Calculated Osmolality 285.0 Calcium 9.2 04/03/17 04/04/17 04/04/17 19:53 05:27 05:27 WBC 15.6 H RBC 3.36 L Hgb 9.1 L Hct 27.7 L MCV 82.4 L MCH 27 MCHC 32.9 RDW 13.9 Plt Count 803 H MPV 9.3 L Neut % (Auto) 80.8 H Lymph % (Auto) 8.8 L Banks % (Auto) 8.5 Eos % (Auto) 0.6 Baso % (Auto) 0.3 Neut # (Auto) 12.6 H Lymph # (Auto) 1.4 Banks # (Auto) 1.3 H Eos # (Auto) 0.1 Baso # (Auto) 0.1 Immature Gran % 1.0 Nucleated RBC % 0.0 Immature Gran # 0.16 Nucleated RBCs # 0.00 Sodium 136 Potassium 4.6 Chloride 100 Carbon Dioxide 24 Anion Gap 16.6 H BUN 13 Creatinine 1.10 GFR Calculation 107 BUN/Creatinine Ratio 11.00 Glucose 278 H POC Glucose 353 H Calculated Osmolality 281.0 Calcium 9.1 04/04/17 04/04/17 04/04/17 07:16 09:43 10:35 WBC RBC Hgb Hct MCV MCH MCHC RDW Plt Count MPV Neut % (Auto) Lymph % (Auto) Banks % (Auto) Eos % (Auto) Baso % (Auto) Neut # (Auto) Lymph # (Auto) Banks # (Auto) Eos # (Auto) Baso # (Auto) Immature Gran % Nucleated RBC % Immature Gran # Nucleated RBCs # Sodium Potassium Chloride Carbon Dioxide Anion Gap BUN Creatinine GFR Calculation BUN/Creatinine Ratio Glucose POC Glucose 304 H 318 H 325 H Calculated Osmolality Calcium - Diagnostic Findings Procedure: Chest x-ray: image reviewed by me, report reviewed by me - EKG EKG results: interpreted by me, no acute changes Speedy Coppola Jennifer, MD, personally performed the services described in this documentation, ascribed by Brooklyn Jacob RN in my presence, and it is both accurate and complete 153 .
[2017-04-05] MEDS: CEFTAROLINE 600 MG in SODIUM CHLORIDE 0.9% 100 ML IV SCH ×2 (01:07→13:57)
[2017-04-05 01:31] LABS: Basophils % 0.3 % (0.0-0.8); Eosinophils # 0.1 10*3/uL (0.0-0.87); Eosinophils % 0.8 % (0.00-10.9); Hematocrit 26.6 VOL% (42.0-52.0); Hemoglobin 8.7 GM/DL (14.0-18.0); Immature Granulocytes % 1.1 %; Immature Granulocytes Absolute 0.14 #; Lymphocytes # 1.4 10*3/uL (1.4-4.0); Mean Corpuscular HGB Conc 32.7 GM/DL (32-36); Mean Corpuscular Hemoglobin 27 PG (27-34); Mean Corpuscular Volume 82.1 FL (87-102); Mean Platelet Volume 9.1 FL (9.6-12.0); Monocytes # 1.3 10*3/uL (0.11-0.8); Monocytes % 9.9 % (1.7-12.7); Neutrophils # 9.7 10*3/uL (1.4-7.4); Neutrophils % 76.9 % (38.7-73.9); Platelet Count 817 T/CUMM (130-400); Red Blood Count 3.24 MC/CUMM (3.8-5.5); White Blood Count 12.7 T/CUMM (4-12)
[2017-04-05 06:34] LABS: Calcium 8.6 MG/DL (8.5-10.1); Osmolality,Calculated 283.7 MOS/KG (273-304); Potassium 4.6 MMOL/L (3.5-5.1)
[2017-04-05] MEDS: oxyCODONE/ACETAMINOPHEN 5-325 MG TABLET PO PRN ×2 (08:49→13:33)
[2017-04-05] MEDS: INSULIN LISPRO 100 UNIT/ML SUBCUT SCH ×4 (08:52→22:16)
[2017-04-05] MEDS: INSULIN ASPART PROTAMINE/ASPART 70/30 100 UNIT/ML SUBCUT SCH ×2 (08:52→17:06)
[2017-04-05] MEDS: DILTIAZEM CD 180 MG CAPSULE PO SCH (08:53)
[2017-04-05] MEDS: LOSARTAN 50 MG TABLET PO SCH (08:54)
[2017-04-05] MEDS: MAGNESIUM OXIDE 400 MG TABLET PO SCH (08:54)
[2017-04-05] MEDS: CARVEDILOL 12.5 MG TABLET PO SCH ×2 (08:54→20:53)
[2017-04-05] MEDS: DOCUSATE SODIUM 100 MG CAPSULE PO SCH ×2 (08:54→22:16)
[2017-04-05] MEDS: CILOSTAZOL 50 MG TABLET PO SCH ×2 (08:55→22:15)
[2017-04-05] MEDS: PANTOPRAZOLE 40 MG TABLET PO SCH (08:55)
[2017-04-05] MEDS: GABAPENTIN 400 MG CAPSULE PO SCH ×3 (08:55→22:16)
[2017-04-05] MEDS: CLOPIDOGREL 75 MG TABLET PO SCH (08:55)
[2017-04-05] MEDS: SERTRALINE 50 MG TABLET PO SCH (08:55)
[2017-04-05] MEDS: SODIUM HYPOCHLORITE 0.25% IRRIG 473 ML BOTTLE TOP SCH (09:25)
[2017-04-05] MEDS: traMADol 50 MG TABLET PO PRN (10:53)
--- NOTE | 2017-04-05 12:21 | Internal Med Progress Note ---
Assessment and Plan (1) Diabetic foot Status: Acute Assessment and plan: 72-year-old male is being admitted to acute care * Diabetic foot. Patient underwent amputation yesterday. His wound looks good. Continue antibiotics. Waiting for cultures * Uncontrolled diabetes. Will start him on insulin and sliding scale * Peripheral vascular disease. Continue medications * Hypertension. Will continue his blood pressure medication * Recent pneumonia. Chest x-ray reviewed * Episode of sinus tachycardia during surgery. He has been in sinus rhythm. Cardiology is following * Coronary artery disease. Stable * Discussed with patient. Current Visit: Yes (2) Hypoglycemia associated with diabetes Status: Acute Current Visit: Yes (3) Paroxysmal a-fib Status: Chronic Current Visit: Yes (4) CAD (coronary artery disease) Status: Chronic Current Visit: No Qualifiers: Coronary Disease-Associated Artery/Lesion type: bypass graft [place] vs. transplanted heart: [place] heart Associated angina: without angina Qualified Code(s): I25.810 - Atherosclerosis of coronary artery bypass graft(s) without angina pectoris (5) Diabetic neuropathy Status: Chronic Current Visit: No (6) Dyslipidemia Status: Chronic Current Visit: No (7) Hypertension Status: Chronic Current Visit: No (8) PVD (peripheral vascular disease) Status: Chronic Current Visit: No (9) S/P CABG (coronary artery bypass graft) Status: Chronic Current Visit: No Internal Medicine - PN: Subj Interval history: Patient is having concerns about not able to control his bladder. He has not been using urinal. He denies any chest pain or shortness of breath Exam (Progress Note) - Constitutional Vitals: Period Temp Pulse Resp BP Sys/Askew Pulse Ox Last 24 Hr 97 F-99.2 F 71-88 16-20 114-151/55-80 91-100 Exam: Examination: GENERAL: NAD. HEENT: PERRLA. EOMI. NECK: Neck is supple. CVS: Regular rate and rhythm. S1 and S2 are normal. RESPIRATORY: Lungs are clear. ABDOMEN: Soft and nontender. EXT: 1+ edema in the right lower extremity. 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 Cranial nerves II through XII are grossly intact. Motor strength is 4/5 SKIN: Warm and dry. Results - Labs CBC & BMP: 04/05/17 00:58 04/05/17 00:58 Lab Results: I have reviewed the past 24 hour labs Quality Measures - VTE Contraindication to Pharmacological VTE Prophylaxis: High Risk of Bleeding Contraindication to Mechanical VTE Prophylaxis: Ischemic Vascular Disease
--- NOTE | 2017-04-05 13:06 | Event Note ---
Gibbons disease foot shows further necrosis and I think we are looking at just an adequate perfusion of the forefoot I am not certain that I can salvage the main portion of the foot or not I am going to watch this over the weekend and reevaluate Sunday to determine if there is something that I can do to salvage the foot or whether we are simply going to go to a below-knee amputation
[2017-04-05] MEDS: ENOXAPARIN 40 MG/0.4 ML SYRINGE SUBCUT SCH (15:12)
--- NOTE | 2017-04-05 19:56 | Cardiology Progress Note ---
Cecil Coppola Vanessa, RN, am scribing for, and in the presence of, Tana Ruff MD 19:56. Assessment and Plan - Time spent with patient Time spent with patient: Greater than 30 minutes (1) Tachycardia, paroxysmal Status: Acute Assessment and plan: SEE PLAN OF CARE LISTED BELOW. Current Visit: Yes (2) Gangrene of right foot Status: Acute Assessment and plan: SEE PLAN OF CARE LISTED BELOW. Current Visit: Yes (3) Paroxysmal a-fib Status: Chronic Assessment and plan: SEE PLAN OF CARE LISTED BELOW. Current Visit: Yes (4) Diabetes Status: Chronic Assessment and plan: SEE PLAN OF CARE LISTED BELOW. Current Visit: No Qualifiers: Diabetes mellitus type: type 2 (5) CAD (coronary artery disease) Status: Chronic Assessment and plan: SEE PLAN OF CARE LISTED BELOW. Current Visit: No Qualifiers: Coronary Disease-Associated Artery/Lesion type: bypass graft [place] vs. transplanted heart: [place] heart Associated angina: without angina Qualified Code(s): I25.810 - Atherosclerosis of coronary artery bypass graft(s) without angina pectoris (6) Cardiac murmur Status: Chronic Assessment and plan: SEE PLAN OF CARE LISTED BELOW. Current Visit: No (7) Diabetic neuropathy Status: Chronic Assessment and plan: SEE PLAN OF CARE LISTED BELOW. Current Visit: No (8) Dyslipidemia Status: Chronic Assessment and plan: SEE PLAN OF CARE LISTED BELOW. Current Visit: No (9) Hypertension Status: Chronic Assessment and plan: SEE PLAN OF CARE LISTED BELOW. Current Visit: No (10) PVD (peripheral vascular disease) Status: Chronic Assessment and plan: SEE PLAN OF CARE LISTED BELOW. Current Visit: No (11) S/P CABG (coronary artery bypass graft) Status: Chronic Assessment and plan: SEE PLAN OF CARE LISTED BELOW. Current Visit: No Cardiology - PN: Subj Interval history: PRIMARY SHIP'S ENGINEER: DR. SILVA CARDIOLOGY CONSULT NOTE: INTRAOPERATIVE ATRIAL TACHYARRHYTHMIA Mr. Chong is a 72 year old black male with risk factors significant for: Hypertension, hyperlipidemia, diabetes, PVD, known CAD with previous CABG in February [address] Suero, sedentary lifestyle. He also has a history of obstructive sleep apnea with intolerance to BiPAP and CPAP, PTSD. Patient was recently admitted to hospital on March 19 after being directly admitted from Dr. Chambers's office for right lower extremity PVD, severe pain in the right second toe with possible gangrene. On the evening of March 19, patient required observation in the ICU overnight after possible reaction to medication-IV vancomycin or IV morphine, became nauseated, and developed atrial fibrillation with RVR. He did have some mild overload and mildly elevated cardiac enzymes. Atrial fibrillation responded well to IV Cardizem, and he did convert to sinus rhythm. Echocardiogram on March 19 with moderate LVH and ejection fraction 50%, mild aortic stenosis, tricuspid regurgitation with a PA pressure [address] Chambers performed amputation of right second toe on March 20. Dr. Sun later took patient to Sales Branch Manager on March 22 where he underwent orbital atherectomy and angioplasty of proximal and mid right AT artery. Discharged from hospital on March 24, and readmitted on March 25 with fever, chills, and had developed cellulitis of right lower extremity. He was also treated for left sided pneumonia. During this admission, he also had a self sustained, asymptomatic episode of atrial fibrillation RVR. He was discharged home on March 29 with p.o. Cardizem. Patient was readmitted again on April [address] Savage's office with elevated glucose and increasing pain of the right foot. Patient's also reported he had had increasing confusion which was worse after taking Percocet. Patient has been found to have progressive gangrene of the right foot including dorsum. He was taken to the OR by Dr. Beard for amputation of right second toe earlier today. Intraoperatively, patient was noted to be having spells of a rapid atrial tachyarrhythmia. Cardiology has been consulted. APRIL 05, 2017: Mr. Chong is sleeping quietly on left side this morning. His spouse is present at bedside. Reports patient slept without complaint overnight, did experience some right lower extremity discomfort during the wound care earlier this morning, and he has recently received pain medication. He is arousable but he is drowsy. No chest pain or shortness of breath. Cardiac monitoring has revealed sinus rhythm with pulse rate in the 70s without overt ectopy or arrhythmia appreciated. Afebrile, vital signs are stable. White blood cell count improved from 15,600 to 12,700 today. H&H without significant change is 8.7 and 26.6. Potassium 4.6. Glucose level continues to run >300. ASSESSMENT/PLAN: 1. ATRIAL TACHYCARDIA -remains in sinus rhythm without tachyarrhythmia or other seen 2. PAROXYSMAL ATRIAL FIBRILLATION -currently in sinus rhythm. 3. GANGRENE OF RIGHT FOOT -status post amputation of right second toe 4. DIABETES -chronic, currently blood sugar uncontrolled and is ranging 300- 400. Dr. Savage is managing. 5. HYPERTENSION -chronic, and is overall well controlled at this time. 6. PVD -chronic 7. CAD WITH PREVIOUS CABG -chronic, stable. No clinical findings for ACS. 8. DYSLIPIDEMIA -chronic. Continue current treatment. 9. OBSTRUCTIVE SLEEP APNEA WITH CPAP INTOLERANCE -chronic Exam (Progress Note) - Constitutional Vitals: Period Temp Pulse Resp BP Sys/Askew Pulse Ox Last 24 Hr 98.3 F-99.2 F 76-88 16-20 124-151/56-75 91-99 Exam: General appearance: Overweight, no acute distress - Head Head exam: Present: normal inspection, normocephalic, atraumatic. Absent: hematoma, laceration - Eye Eye exam: Present: EOMI. Absent: conjunctival injection, nystagmus, periorbital swelling, scleral icterus, laceration to eyelids Pupils: Present: PERRL. Absent: constricted, dilated, fixed, irregular, unequal - ENT ENT exam: Present: normal exam, normal external ear exam - Neck Neck exam: Present: normal inspection. Absent: lymphadenopathy, meningismus, tenderness, thyromegaly - Respiratory Respiratory exam: Present: clear to auscultation bilaterally. Absent: accessory muscle use, chest wall tenderness - Cardiovascular Cardiovascular exam: Present: regular rate and rhythm. Absent: carotid bruit, gallop, JVD, rubs - GI/Abdominal GI/Abdominal exam: Present: normal bowel sounds, soft. Absent: distended, firm , guarding, hernia, mass, tenderness, rebound. - Extremities Exam Extremities exam: Present: Right foot foot is with a surgical dressing, there are decreased pulses in the bilateral lower extremities which are not palpable. Absent: calf tenderness, edema - Back Exam Back exam: Present: normal inspection. Absent: muscle spasm, vertebral tenderness - Neurological Exam Neurological exam: Present: alert, oriented X3, grossly intact without resting or intention tremor - Psychiatric Psychiatric exam: Present: normal affect, normal mood. Absent: Anxiety, depression. - Skin Skin exam: Present: normal color, warm, dry, intact. Absent: cyanosis, diaphoretic, rash, urticaria Result/EKG - Labs CBC & BMP: 04/05/17 00:58 04/05/17 00:58 Lab Results: I have reviewed the past 24 hour labs Labs: Laboratory Results - last 24 hr 04/04/17 04/04/17 04/04/17 13:48 15:23 20:37 WBC RBC Hgb Hct MCV MCH MCHC RDW Plt Count MPV Neut % (Auto) Lymph % (Auto) [place] % (Auto) Eos % (Auto) Baso % (Auto) Neut # (Auto) Lymph # (Auto) [place] # (Auto) Eos # (Auto) Baso # (Auto) Immature Gran % Nucleated RBC % Immature Gran # Nucleated RBCs # Sodium Potassium Chloride Carbon Dioxide Anion Gap BUN Creatinine GFR Calculation BUN/Creatinine Ratio Glucose POC Glucose 302 H 330 H 306 H Calculated Osmolality Calcium 04/05/17 04/05/17 04/05/17 00:58 00:58 07:07 WBC 12.7 H RBC 3.24 L Hgb 8.7 L Hct 26.6 L MCV 82.1 L MCH 27 MCHC 32.7 RDW 14.0 Plt Count 817 H MPV 9.1 L Neut % (Auto) 76.9 H Lymph % (Auto) 11.[address] [place] % (Auto) 9.9 Eos % (Auto) 0.8 Baso % (Auto) 0.3 Neut # (Auto) 9.7 H Lymph # (Auto) 1.4 [place] # (Auto) 1.3 H Eos # (Auto) 0.1 Baso # (Auto) 0.0 Immature Gran % 1.1 Nucleated RBC % 0.0 Immature Gran # 0.14 Nucleated RBCs # 0.00 Sodium 138 Potassium 4.6 Chloride 101 Carbon Dioxide 26 Anion Gap 15.6 H BUN 14 Creatinine 1.20 GFR Calculation 97 BUN/Creatinine Ratio 11.00 Glucose 242 H POC Glucose 331 H Calculated Osmolality 283.7 Calcium 8.6 04/05/17 10:57 WBC RBC Hgb Hct MCV MCH MCHC RDW Plt Count MPV Neut % (Auto) Lymph % (Auto) [place] % (Auto) Eos % (Auto) Baso % (Auto) Neut # (Auto) Lymph # (Auto) [place] # (Auto) Eos # (Auto) Baso # (Auto) Immature Gran % Nucleated RBC % Immature Gran # Nucleated RBCs # Sodium Potassium Chloride Carbon Dioxide Anion Gap BUN Creatinine GFR Calculation BUN/Creatinine Ratio Glucose POC Glucose 391 H Calculated Osmolality Calcium - EKG EKG results: interpreted by me, no acute changes EKG shows: sinus rhythm Quality Measures - VTE Contraindication to Pharmacological VTE Prophylaxis: High Risk of Bleeding Contraindication to Mechanical VTE Prophylaxis: Ischemic Vascular Disease Speedy Coppola Jennifer, MD, personally performed the services described in this documentation, ascribed by Brooklyn Jacob RN in my presence, and it is both accurate and complete [id number] .
[2017-04-05] MEDS: PRAVASTATIN 40 MG TABLET PO SCH (22:15)
[2017-04-05] MEDS: ASPIRIN EC 81 MG TABLET PO SCH (22:15)
[2017-04-06] MEDS: CEFTAROLINE 600 MG in SODIUM CHLORIDE 0.9% 100 ML IV SCH ×2 (01:14→14:46)
[2017-04-06] MEDS: traMADol 50 MG TABLET PO PRN ×3 (04:36→14:44)
[2017-04-06] MEDS: oxyCODONE/ACETAMINOPHEN 5-325 MG TABLET PO PRN ×3 (05:35→18:23)
[2017-04-06] MEDS: INSULIN ASPART PROTAMINE/ASPART 70/30 100 UNIT/ML SUBCUT SCH ×2 (08:09→16:30)
[2017-04-06] MEDS: INSULIN LISPRO 100 UNIT/ML SUBCUT SCH ×4 (08:10→21:47)
[2017-04-06] MEDS: DILTIAZEM CD 180 MG CAPSULE PO SCH (08:11)
[2017-04-06] MEDS: CARVEDILOL 12.5 MG TABLET PO SCH ×2 (08:14→21:46)
[2017-04-06] MEDS: DOCUSATE SODIUM 100 MG CAPSULE PO SCH ×2 (08:14→21:47)
[2017-04-06] MEDS: MAGNESIUM OXIDE 400 MG TABLET PO SCH (08:15)
[2017-04-06] MEDS: LOSARTAN 50 MG TABLET PO SCH (08:15)
[2017-04-06] MEDS: GABAPENTIN 400 MG CAPSULE PO SCH ×3 (08:16→21:47)
[2017-04-06] MEDS: CLOPIDOGREL 75 MG TABLET PO SCH (08:16)
[2017-04-06] MEDS: CILOSTAZOL 50 MG TABLET PO SCH ×2 (08:16→21:47)
[2017-04-06] MEDS: PANTOPRAZOLE 40 MG TABLET PO SCH (08:17)
[2017-04-06] MEDS: SERTRALINE 50 MG TABLET PO SCH (08:17)
--- NOTE | 2017-04-06 08:44 | Internal Med Progress Note ---
Assessment and Plan (1) Diabetic foot Status: Acute Assessment and plan: 72-year-old male is being admitted to acute care * Diabetic foot. Patient underwent amputation yesterday. Patient will be watched over the weekend. He may possibly require a below-knee amputation. Cultures are pending. * Uncontrolled diabetes. Better controlled * Peripheral vascular disease. Continue medications * Hypertension. Will continue his blood pressure medication * Recent pneumonia. Chest x-ray reviewed * SVT. No further episodes * Coronary artery disease. Stable * Discussed with patient. Current Visit: Yes (2) Hypoglycemia associated with diabetes Status: Acute Current Visit: Yes (3) Paroxysmal a-fib Status: Chronic Current Visit: Yes (4) CAD (coronary artery disease) Status: Chronic Current Visit: No Qualifiers: Coronary Disease-Associated Artery/Lesion type: bypass graft [place] vs. transplanted heart: [place] heart Associated angina: without angina Qualified Code(s): I25.810 - Atherosclerosis of coronary artery bypass graft(s) without angina pectoris (5) Diabetic neuropathy Status: Chronic Current Visit: No (6) Dyslipidemia Status: Chronic Current Visit: No (7) Hypertension Status: Chronic Current Visit: No (8) PVD (peripheral vascular disease) Status: Chronic Current Visit: No (9) S/P CABG (coronary artery bypass graft) Status: Chronic Current Visit: No Internal Medicine - PN: Subj Interval history: Patient is feeling much better this morning. His appetite is good. He denies any problems with his bladder Exam (Progress Note) - Constitutional Vitals: Period Temp Pulse Resp BP Sys/Askew Pulse Ox Last 24 Hr 97.3 F-98.2 F 71-80 16-20 82-151/42-83 90-95 Exam: Examination: GENERAL: NAD. NECK: Neck is supple. CVS: Regular rate and rhythm. S1 and S2 are normal. RESPIRATORY: Lungs are clear. ABDOMEN: Soft and nontender. EXT: 1+ edema in the right lower extremity. His wound looks good and clean SKIN: Warm and dry. Results - Labs CBC & BMP: 04/05/17 00:58 04/05/17 00:58 Lab Results: I have reviewed the past 24 hour labs Quality Measures - VTE Contraindication to Pharmacological VTE Prophylaxis: High Risk of Bleeding Contraindication to Mechanical VTE Prophylaxis: Ischemic Vascular Disease
--- NOTE | 2017-04-06 09:15 | Event Note ---
Luis Chong has diabetic peripheral vascular disease with gangrene of the second toe that has undergone transmetatarsal amputation and now has gangrene of the third toe beginning on the lateral aspect of the first toe does appear to be that we have progressive ischemic and infectious changes. Culture is showing 3 different bacteria but not on have been fully identified at this point in time. I am going to let his try to demarcate further over the weekend and consider possible transmetatarsal amputation on Sunday. I will keep him n.p.o. after midnight on Sunday
[2017-04-06] MEDS: SODIUM HYPOCHLORITE 0.25% IRRIG 473 ML BOTTLE TOP SCH (12:40)
[2017-04-06] MEDS: ENOXAPARIN 40 MG/0.4 ML SYRINGE SUBCUT SCH (14:45)
--- NOTE | 2017-04-06 18:02 | Cardiology Progress Note ---
Cecil Coppola Vanessa, RN, am scribing for, and in the presence of, Tana Ruff MD 18:02. Assessment and Plan - Time spent with patient Time spent with patient: Greater than 30 minutes (1) Tachycardia, paroxysmal Status: Acute Assessment and plan: SEE PLAN OF CARE LISTED BELOW. Current Visit: Yes (2) Gangrene of right foot Status: Acute Assessment and plan: SEE PLAN OF CARE LISTED BELOW. Current Visit: Yes (3) Paroxysmal a-fib Status: Chronic Assessment and plan: SEE PLAN OF CARE LISTED BELOW. Current Visit: Yes (4) Diabetes Status: Chronic Assessment and plan: SEE PLAN OF CARE LISTED BELOW. Current Visit: No Qualifiers: Diabetes mellitus type: type 2 (5) CAD (coronary artery disease) Status: Chronic Assessment and plan: SEE PLAN OF CARE LISTED BELOW. Current Visit: No Qualifiers: Coronary Disease-Associated Artery/Lesion type: bypass graft [place] vs. transplanted heart: [place] heart Associated angina: without angina Qualified Code(s): I25.810 - Atherosclerosis of coronary artery bypass graft(s) without angina pectoris (6) Cardiac murmur Status: Chronic Assessment and plan: SEE PLAN OF CARE LISTED BELOW. Current Visit: No (7) Diabetic neuropathy Status: Chronic Assessment and plan: SEE PLAN OF CARE LISTED BELOW. Current Visit: No (8) Dyslipidemia Status: Chronic Assessment and plan: SEE PLAN OF CARE LISTED BELOW. Current Visit: No (9) Hypertension Status: Chronic Assessment and plan: SEE PLAN OF CARE LISTED BELOW. Current Visit: No (10) PVD (peripheral vascular disease) Status: Chronic Assessment and plan: SEE PLAN OF CARE LISTED BELOW. Current Visit: No (11) S/P CABG (coronary artery bypass graft) Status: Chronic Assessment and plan: SEE PLAN OF CARE LISTED BELOW. Current Visit: No Cardiology - PN: Subj Interval history: PRIMARY PRODUCT SUPPORT ENGINEER: DR. SILVA CARDIOLOGY CONSULT NOTE: INTRAOPERATIVE ATRIAL TACHYARRHYTHMIA Mr. Chong is a 72 year old black male with risk factors significant for: Hypertension, hyperlipidemia, diabetes, PVD, known CAD with previous CABG in February [address] Suero, sedentary lifestyle. He also has a history of obstructive sleep apnea with intolerance to BiPAP and CPAP, PTSD. Patient was recently admitted to hospital on March 19 after being directly admitted from Dr. Chambers's office for right lower extremity PVD, severe pain in the right second toe with possible gangrene. On the evening of March 19, patient required observation in the ICU overnight after possible reaction to medication-IV vancomycin or IV morphine, became nauseated, and developed atrial fibrillation with RVR. He did have some mild overload and mildly elevated cardiac enzymes. Atrial fibrillation responded well to IV Cardizem, and he did convert to sinus rhythm. Echocardiogram on March 19 with moderate LVH and ejection fraction 50%, mild aortic stenosis, tricuspid regurgitation with a PA pressure [address] Chambers performed amputation of right second toe on March 20. Dr. Sun later took patient to Lead Infrastructure Architect on March 22 where he underwent orbital atherectomy and angioplasty of proximal and mid right AT artery. Discharged from hospital on March 24, and readmitted on March 25 with fever, chills, and had developed cellulitis of right lower extremity. He was also treated for left sided pneumonia. During this admission, he also had a self sustained, asymptomatic episode of atrial fibrillation RVR. He was discharged home on March 29 with p.o. Cardizem. Patient was readmitted again on April [address] Savage's office with elevated glucose and increasing pain of the right foot. Patient's also reported he had had increasing confusion which was worse after taking Percocet. Patient has been found to have progressive gangrene of the right foot including dorsum. He was taken to the OR by Dr. Beard for amputation of right second toe earlier April 04. Intraoperatively, patient was noted to be having spells of a rapid atrial tachyarrhythmia. Cardiology has been consulted. March: Overnight, telemetry monitoring has revealed no ectopy or dysrhythmia. Patient remains in a sinus rhythm with pulse rate 70s-80s. Afebrile, blood pressure is overall fairly well controlled. Patient has had no chest pain, shortness of breath, anginal complaint. Glucose levels somewhat improved and are averaging 200-250 this morning. Following amputation of toes of the right foot 2 days ago , patient is now being observed over the weekend and will be reevaluated Sunday to determine whether or not below the knee amputation will be indicated. Overall, at this time patient appears to be hemodynamically stable. We have nothing further to add, and we will sign off. Please reconsult us if we can be of assistance during hospital admission. Thank you for this consult. ASSESSMENT/PLAN: 1. ATRIAL TACHYCARDIA -patient remains in sinus rhythm and there has been no recurrence of tachyarrhythmia since intraoperative episode on April 04. 2. PAROXYSMAL ATRIAL FIBRILLATION -currently in sinus rhythm. 3. GANGRENE OF RIGHT FOOT -status post amputation of right second toe. Patient will be reevaluated on Sunday, April 09 for possible below the knee amputation. 4. DIABETES -chronic, blood glucose levels with improvement today, and are less than 300. Defer management to attending physician. 5. HYPERTENSION -chronic, and is overall well controlled at this time. 6. PVD -chronic 7. CAD WITH PREVIOUS CABG -chronic, stable. No clinical findings for ACS. 8. DYSLIPIDEMIA -chronic. Continue current treatment. 9. OBSTRUCTIVE SLEEP APNEA WITH CPAP INTOLERANCE -chronic Exam (Progress Note) - Constitutional Vitals: Period Temp Pulse Resp BP Sys/Askew Pulse Ox Last 24 Hr 97.3 F-98.2 F 71-80 16-20 82-140/42-83 90-95 Exam: General appearance: Overweight, no acute distress - Head Head exam: Present: normal inspection, normocephalic, atraumatic. Absent: hematoma, laceration - Eye Eye exam: Present: EOMI. Absent: conjunctival injection, nystagmus, periorbital swelling, scleral icterus, laceration to eyelids Pupils: Present: PERRL. Absent: constricted, dilated, fixed, irregular, unequal - ENT ENT exam: Present: normal exam, normal external ear exam - Neck Neck exam: Present: normal inspection. Absent: lymphadenopathy, meningismus, tenderness, thyromegaly - Respiratory Respiratory exam: Present: clear to auscultation bilaterally. Absent: accessory muscle use, chest wall tenderness - Cardiovascular Cardiovascular exam: Present: regular rate and rhythm. Absent: carotid bruit, gallop, JVD, rubs - GI/Abdominal GI/Abdominal exam: Present: normal bowel sounds, soft. Absent: distended, firm , guarding, hernia, mass, tenderness, rebound. - Extremities Exam Extremities exam: Present: Right foot foot is with a surgical dressing, there are decreased pulses in the bilateral lower extremities which are not palpable. Absent: calf tenderness, edema - Back Exam Back exam: Present: normal inspection. Absent: muscle spasm, vertebral tenderness - Neurological Exam Neurological exam: Present: alert, oriented X3, grossly intact without resting or intention tremor - Psychiatric Psychiatric exam: Present: normal affect, normal mood. Absent: Anxiety, depression. - Skin Skin exam: Present: normal color, warm, dry, intact. Absent: cyanosis, diaphoretic, rash, urticaria Result/EKG - Labs CBC & BMP: 04/05/17 00:58 04/05/17 00:58 Lab Results: I have reviewed the past 24 hour labs Labs: Laboratory Results - last 24 hr 04/05/17 04/05/17 04/05/17 10:57 15:24 20:25 POC Glucose 391 H 288 H 236 H 04/06/17 07:05 POC Glucose 210 H - EKG EKG results: interpreted by me, no acute changes EKG shows: sinus rhythm Quality Measures - VTE Contraindication to Pharmacological VTE Prophylaxis: High Risk of Bleeding Contraindication to Mechanical VTE Prophylaxis: Ischemic Vascular Disease ISpeedy Jennifer, MD, personally performed the services described in this documentation, ascribed by Brooklyn Jacob RN in my presence, and it is both accurate and complete [id number] .
[2017-04-06] MEDS: ASPIRIN EC 81 MG TABLET PO SCH (21:47)
[2017-04-06] MEDS: PRAVASTATIN 40 MG TABLET PO SCH (21:47)
[2017-04-07] MEDS: CEFTAROLINE 600 MG in SODIUM CHLORIDE 0.9% 100 ML IV SCH ×2 (01:52→14:06)
[2017-04-07 04:57] LABS: Basophils % 0.3 % (0.0-0.8); Eosinophils # 0.2 10*3/uL (0.0-0.87); Eosinophils % 2.2 % (0.00-10.9); Hematocrit 25.9 VOL% (42.0-52.0); Hemoglobin 8.3 GM/DL (14.0-18.0); Immature Granulocytes % 0.7 %; Immature Granulocytes Absolute 0.08 #; Lymphocytes # 1.3 10*3/uL (1.4-4.0); Mean Corpuscular Hemoglobin 27 PG (27-34); Mean Corpuscular Volume 84.9 FL (87-102); Mean Platelet Volume 8.6 FL (9.6-12.0); Monocytes # 1.2 10*3/uL (0.11-0.8); Monocytes % 10.7 % (1.7-12.7); Neutrophils # 8.1 10*3/uL (1.4-7.4); Neutrophils % 74.1 % (38.7-73.9); Platelet Count 762 T/CUMM (130-400); Red Blood Count 3.05 MC/CUMM (3.8-5.5); Red Cell Distribution Width 14.2 % (9.3-17.3); White Blood Count 10.9 T/CUMM (4-12)
[2017-04-07 05:32] LABS: Calcium 8.5 MG/DL (8.5-10.1); Osmolality,Calculated 275.5 MOS/KG (273-304); Potassium 4.2 MMOL/L (3.5-5.1)
[2017-04-07] MEDS: oxyCODONE/ACETAMINOPHEN 5-325 MG TABLET PO PRN ×3 (07:49→18:22)
--- NOTE | 2017-04-07 08:16 | Family Practice Progress Note ---
Family Practice - PN: Subj Interval history: Patient states she had a good night sweats feeling some better. He is hoping to avoid a BKA. He denies any chest pain or shortness of breath this morning and states he is ready for his breakfast. Exam (Progress Note) - Constitutional Vitals: Period Temp Pulse Resp BP Sys/Askew Pulse Ox Last 24 Hr 97.4 F-98.5 F 68-82 17-20 111-145/54-96 87-96 Exam: Objective a well-developed gentleman in no acute distress. Is able give good history. Cardiovascular: Heart rates regular without murmurs Respiratory: Lungs clear to auscultation bilaterally. Abdomen: Abdomen soft and nontender to palpation. Results - Labs CBC & BMP: 04/07/17 04:45 04/07/17 04:45 Lab Results: I have reviewed the past 24 hour labs Assessment and Plan (1) Diabetic foot Status: Acute Assessment and plan: 04/07/2017: Patient's blood sugars are improved and patient's foot discomfort is improving as well. Patient will be reevaluated by surgery concerning any further surgery. Current Visit: Yes Quality Measures - VTE Contraindication to Pharmacological VTE Prophylaxis: High Risk of Bleeding Contraindication to Mechanical VTE Prophylaxis: Ischemic Vascular Disease
[2017-04-07] MEDS: INSULIN LISPRO 100 UNIT/ML SUBCUT SCH ×4 (09:13→21:01)
[2017-04-07] MEDS: INSULIN ASPART PROTAMINE/ASPART 70/30 100 UNIT/ML SUBCUT SCH ×2 (09:42→16:44)
[2017-04-07] MEDS: GABAPENTIN 400 MG CAPSULE PO SCH ×3 (09:43→20:02)
[2017-04-07] MEDS: CLOPIDOGREL 75 MG TABLET PO SCH (09:44)
[2017-04-07] MEDS: CILOSTAZOL 50 MG TABLET PO SCH ×2 (09:44→20:02)
[2017-04-07] MEDS: LOSARTAN 50 MG TABLET PO SCH (09:44)
[2017-04-07] MEDS: DOCUSATE SODIUM 100 MG CAPSULE PO SCH ×2 (09:45→20:03)
[2017-04-07] MEDS: PANTOPRAZOLE 40 MG TABLET PO SCH (09:46)
[2017-04-07] MEDS: SERTRALINE 50 MG TABLET PO SCH (09:46)
[2017-04-07] MEDS: CARVEDILOL 12.5 MG TABLET PO SCH ×2 (09:47→20:02)
[2017-04-07] MEDS: MAGNESIUM OXIDE 400 MG TABLET PO SCH (09:47)
[2017-04-07] MEDS: DILTIAZEM CD 180 MG CAPSULE PO SCH (09:47)
[2017-04-07] MEDS: SODIUM HYPOCHLORITE 0.25% IRRIG 473 ML BOTTLE TOP SCH (09:49)
[2017-04-07] MEDS: traMADol 50 MG TABLET PO PRN ×2 (11:04→20:03)
[2017-04-07] MEDS: ENOXAPARIN 40 MG/0.4 ML SYRINGE SUBCUT SCH (14:10)
[2017-04-07] MEDS: ASPIRIN EC 81 MG TABLET PO SCH (20:02)
[2017-04-07] MEDS: PRAVASTATIN 40 MG TABLET PO SCH (20:03)
[2017-04-08] MEDS: oxyCODONE/ACETAMINOPHEN 5-325 MG TABLET PO PRN ×3 (01:01→18:42)
[2017-04-08] MEDS: CEFTAROLINE 600 MG in SODIUM CHLORIDE 0.9% 100 ML IV SCH ×2 (01:01→13:36)
[2017-04-08] MEDS: traMADol 50 MG TABLET PO PRN (02:55)
--- NOTE | 2017-04-08 08:24 | Family Practice Progress Note ---
Family Practice - PN: Subj Interval history: Patient is doing very well and is ready to go home. His wound culture was positive for Serratia marcescens, Enterococcus faecalis and Enterococcus faecium. He is presently on Teflaro and I am going to add Zyvox. Exam (Progress Note) - Constitutional Vitals: Period Temp Pulse Resp BP Sys/Askew Pulse Ox Last 24 Hr 98.5 F-99.2 F 80-88 16-20 107-150/56-68 90-98 Exam: Objective a well-developed gentleman in no acute distress. Is able give good history. He states his foot is feeling better. Cardiovascular: Heart rates regular without murmurs Respiratory: Lungs clear to auscultation bilaterally. Abdomen: Abdomen soft and nontender to palpation. Results - Labs CBC & BMP: 04/07/17 04:45 04/07/17 04:45 Lab Results: I have reviewed the past 24 hour labs Assessment and Plan (1) Diabetic foot Status: Acute Assessment and plan: 04/07/2017: Patient's blood sugars are improved and patient's foot discomfort is improving as well. Patient will be reevaluated by surgery concerning any further surgery. 04/08/2017: Patient has polymicrobial wound infection. Will adjust antibiotics accordingly. Current Visit: Yes Quality Measures - VTE Contraindication to Pharmacological VTE Prophylaxis: High Risk of Bleeding Contraindication to Mechanical VTE Prophylaxis: Ischemic Vascular Disease
[2017-04-08] MEDS: INSULIN LISPRO 100 UNIT/ML SUBCUT SCH ×4 (08:42→22:47)
[2017-04-08] MEDS: INSULIN ASPART PROTAMINE/ASPART 70/30 100 UNIT/ML SUBCUT SCH ×2 (08:43→16:22)
[2017-04-08] MEDS: CILOSTAZOL 50 MG TABLET PO SCH ×2 (08:44→22:35)
[2017-04-08] MEDS: CLOPIDOGREL 75 MG TABLET PO SCH (08:45)
[2017-04-08] MEDS: LOSARTAN 50 MG TABLET PO SCH (08:46)
[2017-04-08] MEDS: PANTOPRAZOLE 40 MG TABLET PO SCH (08:46)
[2017-04-08] MEDS: GABAPENTIN 400 MG CAPSULE PO SCH ×3 (08:46→22:35)
[2017-04-08] MEDS: DOCUSATE SODIUM 100 MG CAPSULE PO SCH ×2 (08:47→22:35)
[2017-04-08] MEDS: SERTRALINE 50 MG TABLET PO SCH (08:48)
[2017-04-08] MEDS: CARVEDILOL 12.5 MG TABLET PO SCH ×2 (08:48→22:35)
[2017-04-08] MEDS: MAGNESIUM OXIDE 400 MG TABLET PO SCH (08:48)
[2017-04-08] MEDS: DILTIAZEM CD 180 MG CAPSULE PO SCH (09:23)
[2017-04-08] MEDS: LINEZOLID INJ 600 MG in PREMIX 1 EACH IV SCH ×2 (10:21→22:47)
[2017-04-08] MEDS: SODIUM HYPOCHLORITE 0.25% IRRIG 473 ML BOTTLE TOP SCH (13:00)
--- NOTE | 2017-04-08 13:21 | Event Note ---
He has no complaints. He denies pain currently. He is afebrile and his dressing is dry. Plans are for surgery tomorrow with Dr. Beard.
[2017-04-08] MEDS: METHOCARBAMOL 750 MG TABLET PO PRN ×2 (13:37→20:49)
[2017-04-08] MEDS: ENOXAPARIN 40 MG/0.4 ML SYRINGE SUBCUT SCH (13:41)
[2017-04-08] MEDS: PRAVASTATIN 40 MG TABLET PO SCH (22:35)
[2017-04-08] MEDS: ASPIRIN EC 81 MG TABLET PO SCH (22:47)
[2017-04-09] MEDS: oxyCODONE/ACETAMINOPHEN 5-325 MG TABLET PO PRN ×2 (00:02→07:30)
[2017-04-09] MEDS: CEFTAROLINE 600 MG in SODIUM CHLORIDE 0.9% 100 ML IV SCH (02:59)
[2017-04-09] MEDS: INSULIN ASPART PROTAMINE/ASPART 70/30 100 UNIT/ML SUBCUT SCH ×2 (07:30→17:32)
[2017-04-09] MEDS: INSULIN LISPRO 100 UNIT/ML SUBCUT SCH ×4 (07:50→20:46)
[2017-04-09] MEDS: DOCUSATE SODIUM 100 MG CAPSULE PO SCH ×2 (09:00→20:54)
[2017-04-09] MEDS: CILOSTAZOL 50 MG TABLET PO SCH ×2 (09:00→20:53)
[2017-04-09] MEDS: GABAPENTIN 400 MG CAPSULE PO SCH ×3 (09:00→20:53)
[2017-04-09] MEDS: LOSARTAN 50 MG TABLET PO SCH (09:07)
[2017-04-09] MEDS: CARVEDILOL 12.5 MG TABLET PO SCH ×2 (09:07→20:53)
[2017-04-09] MEDS: DILTIAZEM CD 180 MG CAPSULE PO SCH (09:07)
--- NOTE | 2017-04-09 09:08 | Event Note ---
Mr. Chong shows continued gangrene of the forefoot the third toe first toe portion of the forefoot and continued severe ischemic rest pain into the main midfoot. While it does not appear to be major infection certainly do not have any reason to think that a forefoot amputation is likely to heal. I discussed with him and his whether to proceed with a transmetatarsal an attempt to heal in or go ahead with a below-knee amputation I have not been encouraging the forefoot amputation is likely to heal and he therefore would prefer to go ahead with a below-knee amputation I think we can schedule that for today and that is what he would like to do we will schedule right below-knee amputation for this later this morning when or time is available
--- NOTE | 2017-04-09 09:10 | Family Practice Progress Note ---
Family Practice - PN: Subj Interval history: Patient states he is having increasing pain in his foot. His cultures were positive for 3 organisms. I added Zyvox his medicines yesterday. I believe he is scheduled for surgery either today or tomorrow. Exam (Progress Note) - Constitutional Vitals: Period Temp Pulse Resp BP Sys/Askew Pulse Ox Last 24 Hr 97.1 F-99.1 F 81-89 17-22 101-154/47-71 92-97 Exam: Objective a well-developed gentleman who appears quite uncomfortable. States his foot is giving him a lot of pain this morning. Cardiovascular: Heart rates regular without murmurs Respiratory: Lungs clear to auscultation bilaterally. Abdomen: Abdomen soft and nontender to palpation. Results - Labs CBC & BMP: 04/07/17 04:45 04/07/17 04:45 Lab Results: I have reviewed the past 24 hour labs Assessment and Plan (1) Diabetic foot Status: Acute Assessment and plan: 04/07/2017: Patient's blood sugars are improved and patient's foot discomfort is improving as well. Patient will be reevaluated by surgery concerning any further surgery. 04/08/2017: Patient has polymicrobial wound infection. Will adjust antibiotics accordingly. 04/09/2017: Patient is having increasing pain in the foot. Surgery is looming. Current Visit: Yes Quality Measures - VTE Contraindication to Pharmacological VTE Prophylaxis: High Risk of Bleeding Contraindication to Mechanical VTE Prophylaxis: Ischemic Vascular Disease
[2017-04-09] MEDS ORDERED: ROPIVACAINE 0.5% 30 ML VIAL ONE (10:10)
[2017-04-09] MEDS ORDERED: VANCOMYCIN 500 MG VIAL ONE (11:05)
[2017-04-09] MEDS: LINEZOLID INJ 600 MG in PREMIX 1 EACH IV SCH ×2 (11:30→21:06)
[2017-04-09] MEDS ORDERED: LIDOCAINE 2% 5 ML VIAL ONE (11:40)
[2017-04-09] MEDS ORDERED: ONDANSETRON 4 MG/2 ML VIAL ONE (11:40)
[2017-04-09] MEDS ORDERED: ETOMIDATE 20 MG/10 ML VIAL IV ONE (11:40)
[2017-04-09] MEDS ORDERED: SUCCINYLCHOLINE 200 MG/10 ML VIAL ONE (11:40)
[2017-04-09] MEDS ORDERED: KETOROLAC 30 MG/1 ML VIAL ONE (11:40)
[2017-04-09] MEDS ORDERED: PHENYLEPHRINE 1 MG/10 ML SYRINGE IV ONE (11:40)
[2017-04-09] MEDS ORDERED: DEXTROSE 50% 25 GM/50 ML VIAL IV PRN (12:50)
[2017-04-09] MEDS ORDERED: GLUCAGON 1 MG VIAL IM PRN (12:50)
--- NOTE | 2017-04-09 12:50 | Operative Note ---
Date of procedure: 04/09/17 Procedure: Dr. Chambers operative report Luis Chong. Surgeon: Reyes Anesthesia: [place] general LMA and popliteal block Preoperative diagnosis: Gangrene of the right forefoot secondary to diabetic peripheral vascular disease Postoperative diagnosis: Same Procedure: Right below-knee amputation. Indications for the procedure Mr. Chong is a 72-year-old man long-standing diabetic peripheral vascular disease who is now developed gangrene of the right forefoot that despite localized amputations of infection has progression and ischemic rest pain I have offered a right below-knee amputation of fully discussed the alternatives risks and complications which he understands and accepts Description of the procedure: After the induction of general endotracheal anesthesia with a popliteal block patient's right leg is prepped with ChloraPrep and draped in usual fashion the foot is draped out with sterile dressing leg is marked for posterior flap type of below-knee amputation skin incision was made with scalpel and there is active venous bleeding and good bleeding from the skin edges cautery was used to divide the skin and the subcu and the muscle bundles anterior tibial compartment shows good muscle with good contraction anterior tibial neurovascular bundle is ligated with 0 silks and divided the fibula was divided approximately an inch higher than the tibia amputation saw was used to complete posterior flap notably there is not active arterial bleeding from the popliteal artery but there is good bleeding from all muscle bundles and good venous bleeding. The muscle appears to be healthy and there is no gross infection. Soleus muscle was trimmed to debulk the posterior flap the leg is irrigated copiously I bring the posterior flap to the anterior fascia with interrupted #1 Vicryl quarter inch Genet drain is placed through and through to aid in drainage as there is a good bit of venous and punctate bleeding from the edges of the muscle and skin the subcu was closed with 2-0 Monocryl there is no tension on the posterior flap and the skin is approximated with wide skin clips posterior splint and dressing is applied blood loss estimated at 300 cc sponge needle and his counts are correct. Patient taken to recovery in stable condition Surgeon / Physician: Moiz Chambers Results - Labs CBC & BMP: 04/07/17 04:45 04/07/17 04:45 Discharge Plan - Discharge Medications No Action Pravastatin [Pravachol] 80 mg PO BEDTIME #30 tablet Carvedilol [Coreg] 12.5 mg PO BID Insulin Aspart Prot/Asp 70/30 [NovoLOG Mix 70/30] 55 unit SUBCUT AC SUPPER Insulin Aspart Prot/Asp 70/30 [NovoLOG Mix 70/30] 55 unit SUBCUT AC BREAKFAST Gabapentin Cap/Tab [Neurontin Cap/Tab] 800 mg PO TID Magnesium Oxide 420 mg PO DAILY Sertraline [Zoloft] 50 mg PO DAILY Methocarbamol Tab [Robaxin Tab] 750 mg PO Q8HR PRN PRN Reason: Muscle Pain Metformin HCl 1,000 mg PO BID Losartan Potassium [Cozaar] 50 mg PO DAILY Docusate Sodium 100 mg PO BID PRN PRN Reason: Constipation Clopidogrel [Plavix] 75 mg PO DAILY Aspirin [Ecotrin] 81 mg PO BEDTIME Cilostazol [Pletal] 100 mg PO BID #100 tablet Furosemide Tab [Lasix Tab] 20 mg PO BEDTIME #30 tablet oxyCODONE/ACETAMINOPHEN 5-325 [Percocet 5-325] 1 tablet PO Q6H PRN #20 tablet PRN Reason: Pain Moderate (4-7) Diltiazem Cd Cap [Cardizem CD] 180 mg PO DAILY #30 capsule Levofloxacin Tab [Levaquin Tab] 500 mg PO Q24H #7 tablet - Follow Up or Referral - Forms/Instructions
[2017-04-09] MEDS ORDERED: NALOXONE 0.4 MG/ML VIAL IV PRN (12:53)
--- NOTE | 2017-04-09 12:59 | Anesthesia Post-Op ---
Anesthesia Post OP - Post Ansesthetic Evaluation Patient seen in post op: Yes Resp: within normal limits CV: within normal limits Mental: within normal limits Temp: within normal limits Mvjc-Ml-Cjweyfoyi: within normal limits Nausea and Vomiting: within normal limits Pain: within normal limits
[2017-04-09] MEDS: KETOROLAC 10 MG TABLET PO SCH ×2 (13:00→18:28)
[2017-04-09] MEDS ORDERED: MIDAZOLAM 2 MG/2 ML VIAL ONE (13:02)
[2017-04-09] MEDS ORDERED: fentaNYL 100 MCG/2 ML VIAL ONE (13:03)
[2017-04-09] MEDS ORDERED: ePHEDrine 50 MG/ML AMP ONE (13:03)
[2017-04-09] MEDS ORDERED: SEVOFLURANE 1 UNIT/15 MINUTE INH ONE (13:03)
[2017-04-09] MEDS ORDERED: HYDROmorphone PCA 30 MG/30 ML SYRINGE IV ONE (13:05)
[2017-04-09] MEDS: HYDROmorphone PCA 30 MG/30 ML SYRINGE IV SCH (13:09)
[2017-04-09] MEDS: SODIUM CHLORIDE 0.9% 1,000 ML IV SCH (15:45)
[2017-04-09] MEDS: MAGNESIUM OXIDE 400 MG TABLET PO SCH (16:42)
[2017-04-09] MEDS: PANTOPRAZOLE 40 MG TABLET PO SCH (16:43)
[2017-04-09] MEDS: SERTRALINE 50 MG TABLET PO SCH (16:43)
[2017-04-09] MEDS: CLOPIDOGREL 75 MG TABLET PO SCH (17:02)
[2017-04-09] MEDS: ENOXAPARIN 40 MG/0.4 ML SYRINGE SUBCUT SCH (17:31)
[2017-04-09] MEDS: INSULIN REGULAR 100 UNIT/ML SUBCUT SCH ×2 (17:31→20:52)
[2017-04-09] MEDS: ASPIRIN EC 81 MG TABLET PO SCH (20:53)
[2017-04-09] MEDS: PRAVASTATIN 40 MG TABLET PO SCH (20:53)
[2017-04-10 06:18] LABS: Basophils % 0.3 % (0.0-0.8); Eosinophils # 0.1 10*3/uL (0.0-0.87); Eosinophils % 1.2 % (0.00-10.9); Hematocrit 19.5 VOL% (42.0-52.0); Immature Granulocytes % 0.6 %; Immature Granulocytes Absolute 0.06 #; Lymphocytes # 1.1 10*3/uL (1.4-4.0); Lymphocytes % 11.9 % (21.2-54.2); Mean Corpuscular HGB Conc 31.8 GM/DL (32-36); Mean Corpuscular Hemoglobin 27 PG (27-34); Mean Corpuscular Volume 83.7 FL (87-102); Mean Platelet Volume 8.9 FL (9.6-12.0); Monocytes # 0.9 10*3/uL (0.11-0.8); Monocytes % 9.3 % (1.7-12.7); Neutrophils # 7.1 10*3/uL (1.4-7.4); Neutrophils % 76.7 % (38.7-73.9); Platelet Count 670 T/CUMM (130-400); Red Blood Count 2.33 MC/CUMM (3.8-5.5); Red Cell Distribution Width 14.3 % (9.3-17.3); White Blood Count 9.3 T/CUMM (4-12)
[2017-04-10 06:33] LABS: Hemoglobin 6.2 GM/DL (14.0-18.0)
[2017-04-10 06:44] LABS: Calcium 7.7 MG/DL (8.5-10.1); Magnesium 2.3 MG/DL (1.8-2.4); Potassium 4.9 MMOL/L (3.5-5.1)
[2017-04-10] MEDS ORDERED: SODIUM CHLORIDE 0.9% 250 ML IV PRN ×2 (06:44→08:34)
[2017-04-10] MEDS: SODIUM CHLORIDE 0.9% 1,000 ML IV SCH ×3 (06:53→19:11)
[2017-04-10] MEDS: KETOROLAC 10 MG TABLET PO SCH ×4 (06:57→19:14)
[2017-04-10] MEDS: oxyCODONE/ACETAMINOPHEN 5-325 MG TABLET PO PRN (08:08)
[2017-04-10] MEDS: INSULIN ASPART PROTAMINE/ASPART 70/30 100 UNIT/ML SUBCUT SCH ×2 (08:19→16:34)
[2017-04-10] MEDS: INSULIN REGULAR 100 UNIT/ML SUBCUT SCH ×4 (08:20→20:53)
[2017-04-10] MEDS: DILTIAZEM CD 180 MG CAPSULE PO SCH (08:22)
[2017-04-10] MEDS: MAGNESIUM OXIDE 400 MG TABLET PO SCH (08:23)
[2017-04-10] MEDS: LOSARTAN 50 MG TABLET PO SCH (08:23)
[2017-04-10] MEDS: DOCUSATE SODIUM 100 MG CAPSULE PO SCH ×2 (08:23→20:44)
[2017-04-10] MEDS: CARVEDILOL 12.5 MG TABLET PO SCH ×2 (08:23→20:52)
[2017-04-10] MEDS: CLOPIDOGREL 75 MG TABLET PO SCH (08:24)
[2017-04-10] MEDS: CILOSTAZOL 50 MG TABLET PO SCH ×2 (08:24→20:50)
[2017-04-10] MEDS: PANTOPRAZOLE 40 MG TABLET PO SCH (08:24)
[2017-04-10] MEDS: SERTRALINE 50 MG TABLET PO SCH (08:24)
[2017-04-10] MEDS: GABAPENTIN 400 MG CAPSULE PO SCH ×3 (08:24→20:50)
[2017-04-10] MEDS: INSULIN LISPRO 100 UNIT/ML SUBCUT SCH ×4 (08:27→20:53)
[2017-04-10] MEDS ORDERED: FUROSEMIDE 20 MG/2 ML VIAL IV ONE (09:17)
--- NOTE | 2017-04-10 09:43 | Internal Med Progress Note ---
Assessment and Plan (1) Diabetic foot Status: Acute Assessment and plan: 72-year-old male is being admitted to acute care * Diabetic foot. Patient underwent below-knee amputation of right lower extremity. * Uncontrolled diabetes. Better controlled * Anemia. Will transfuse him 2 units of packed RBCs * Hypertension. Will continue his blood pressure medication * Recent pneumonia. Chest x-ray reviewed * SVT. No further episodes * Coronary artery disease. Stable * Discussed with patient and his . Current Visit: Yes (2) Hypoglycemia associated with diabetes Status: Acute Current Visit: Yes (3) Paroxysmal a-fib Status: Chronic Current Visit: Yes (4) CAD (coronary artery disease) Status: Chronic Current Visit: No Qualifiers: Coronary Disease-Associated Artery/Lesion type: bypass graft [place] vs. transplanted heart: [place] heart Associated angina: without angina Qualified Code(s): I25.810 - Atherosclerosis of coronary artery bypass graft(s) without angina pectoris (5) Diabetic neuropathy Status: Chronic Current Visit: No (6) Dyslipidemia Status: Chronic Current Visit: No (7) Hypertension Status: Chronic Current Visit: No (8) PVD (peripheral vascular disease) Status: Chronic Current Visit: No (9) S/P CABG (coronary artery bypass graft) Status: Chronic Current Visit: No Internal Medicine - PN: Subj Interval history: Events of the weekend noted. Patient underwent right below-knee amputation. He states that this was the best night he has had in over a month. Exam (Progress Note) - Constitutional Vitals: Period Temp Pulse Resp BP Sys/Askew Pulse Ox Last 24 Hr 97.1 F-98.7 F 68-87 16-20 90-134/42-72 94-100 Exam: Examination: GENERAL: NAD. NECK: Neck is supple. CVS: Regular rate and rhythm. S1 and S2 are normal. RESPIRATORY: Lungs are clear. ABDOMEN: Soft and nontender. EXT: Right below-knee amputation. Patient has dressing on SKIN: Warm and dry. Results - Labs CBC & BMP: 04/10/17 05:38 04/10/17 05:38 Lab Results: I have reviewed the past 24 hour labs Quality Measures - VTE Contraindication to Pharmacological VTE Prophylaxis: High Risk of Bleeding Contraindication to Mechanical VTE Prophylaxis: Ischemic Vascular Disease
[2017-04-10] MEDS: LINEZOLID INJ 600 MG in PREMIX 1 EACH IV SCH ×2 (10:00→21:00)
[2017-04-10] MEDS: HYDROmorphone PCA 30 MG/30 ML SYRINGE IV SCH (13:00)
[2017-04-10] MEDS: ASPIRIN EC 81 MG TABLET PO SCH (20:50)
[2017-04-10] MEDS: PRAVASTATIN 40 MG TABLET PO SCH (20:51)
[2017-04-10] MEDS: SODIUM HYPOCHLORITE 0.25% IRRIG 473 ML BOTTLE TOP SCH (21:14)
[2017-04-11] MEDS: KETOROLAC 10 MG TABLET PO SCH ×4 (00:16→18:03)
[2017-04-11] MEDS: SODIUM CHLORIDE 0.9% 1,000 ML IV SCH ×2 (02:30→21:47)
[2017-04-11 04:52] LABS: Basophils % 0.3 % (0.0-0.8); Eosinophils # 0.2 10*3/uL (0.0-0.87); Eosinophils % 1.9 % (0.00-10.9); Hematocrit 22.1 VOL% (42.0-52.0); Hemoglobin 7.1 GM/DL (14.0-18.0); Immature Granulocytes % 0.6 %; Immature Granulocytes Absolute 0.05 #; Lymphocytes # 1.5 10*3/uL (1.4-4.0); Lymphocytes % 19.3 % (21.2-54.2); Mean Corpuscular HGB Conc 32.1 GM/DL (32-36); Mean Corpuscular Hemoglobin 27 PG (27-34); Mean Platelet Volume 8.7 FL (9.6-12.0); Monocytes # 0.7 10*3/uL (0.11-0.8); Monocytes % 9.5 % (1.7-12.7); Neutrophils # 5.3 10*3/uL (1.4-7.4); Neutrophils % 68.4 % (38.7-73.9); Platelet Count 614 T/CUMM (130-400); Red Blood Count 2.63 MC/CUMM (3.8-5.5); Red Cell Distribution Width 14.4 % (9.3-17.3); White Blood Count 7.8 T/CUMM (4-12)
[2017-04-11] MEDS ORDERED: FUROSEMIDE 20 MG/2 ML VIAL IV ONE (08:53)
--- NOTE | 2017-04-11 09:02 | Internal Med Progress Note ---
Assessment and Plan (1) Diabetic foot Status: Acute Assessment and plan: 72-year-old male is being admitted to acute care * Diabetic foot. He is doing well. Continue antibiotics. * Uncontrolled diabetes. Better controlled * Anemia. Hematocrit is better but will transfuse another 2 units. * Hypertension. Stable * Constipation. Will give him MiraLAX as needed * SVT. No further episodes * Coronary artery disease. Stable * Discussed with patient and his . Current Visit: Yes (2) Hypoglycemia associated with diabetes Status: Acute Current Visit: Yes (3) Paroxysmal a-fib Status: Chronic Current Visit: Yes (4) CAD (coronary artery disease) Status: Chronic Current Visit: No Qualifiers: Coronary Disease-Associated Artery/Lesion type: bypass graft [place] vs. transplanted heart: [place] heart Associated angina: without angina Qualified Code(s): I25.810 - Atherosclerosis of coronary artery bypass graft(s) without angina pectoris (5) Diabetic neuropathy Status: Chronic Current Visit: No (6) Dyslipidemia Status: Chronic Current Visit: No (7) Hypertension Status: Chronic Current Visit: No (8) PVD (peripheral vascular disease) Status: Chronic Current Visit: No (9) S/P CABG (coronary artery bypass graft) Status: Chronic Current Visit: No Internal Medicine - PN: Subj Interval history: Patient is doing well. He had a good night. His pain is under good control. No chest pain or shortness of breath. His main complaint is constipation. Exam (Progress Note) - Constitutional Vitals: Period Temp Pulse Resp BP Sys/Askew Pulse Ox Last 24 Hr 97.3 F-99.0 F 59-90 16-20 87-128/41-67 91-97 Exam: Examination: GENERAL: NAD. NECK: Neck is supple. CVS: Regular rate and rhythm. RESPIRATORY: Lungs are clear. ABDOMEN: Soft and nontender. EXT: Right below-knee amputation. Patient has dressing on the stump SKIN: Warm and dry. Results - Labs CBC & BMP: 04/11/17 04:25 04/10/17 05:38 Lab Results: I have reviewed the past 24 hour labs Quality Measures - VTE Contraindication to Pharmacological VTE Prophylaxis: High Risk of Bleeding Contraindication to Mechanical VTE Prophylaxis: Ischemic Vascular Disease
[2017-04-11] MEDS: INSULIN REGULAR 100 UNIT/ML SUBCUT SCH ×4 (09:03→21:46)
[2017-04-11] MEDS ORDERED: SODIUM CHLORIDE 0.9% 250 ML IV PRN (09:03)
[2017-04-11] MEDS: INSULIN LISPRO 100 UNIT/ML SUBCUT SCH ×4 (09:03→21:46)
[2017-04-11] MEDS: INSULIN ASPART PROTAMINE/ASPART 70/30 100 UNIT/ML SUBCUT SCH ×2 (09:03→16:36)
[2017-04-11] MEDS: GABAPENTIN 400 MG CAPSULE PO SCH ×3 (09:04→21:40)
[2017-04-11] MEDS: SERTRALINE 50 MG TABLET PO SCH (09:04)
[2017-04-11] MEDS: DOCUSATE SODIUM 100 MG CAPSULE PO SCH ×2 (09:04→21:40)
[2017-04-11] MEDS: CLOPIDOGREL 75 MG TABLET PO SCH (09:04)
[2017-04-11] MEDS: MAGNESIUM OXIDE 400 MG TABLET PO SCH (09:04)
[2017-04-11] MEDS: LOSARTAN 50 MG TABLET PO SCH (09:04)
[2017-04-11] MEDS: CILOSTAZOL 50 MG TABLET PO SCH ×2 (09:04→21:40)
[2017-04-11] MEDS: LINEZOLID INJ 600 MG in PREMIX 1 EACH IV SCH ×2 (09:04→21:40)
[2017-04-11] MEDS: DILTIAZEM CD 180 MG CAPSULE PO SCH (09:04)
[2017-04-11] MEDS: CARVEDILOL 12.5 MG TABLET PO SCH ×2 (09:04→21:40)
[2017-04-11] MEDS: PANTOPRAZOLE 40 MG TABLET PO SCH (09:04)
[2017-04-11 09:13] LABS: Calcium 7.8 MG/DL (8.5-10.1); Magnesium 2.3 MG/DL (1.8-2.4); Osmolality,Calculated 277.8 MOS/KG (273-304); Potassium 4.7 MMOL/L (3.5-5.1)
--- NOTE | 2017-04-11 11:20 | Pathology Report from [facility] ---
[facility] – [place] ACCESSION # : [id number] PATIENT NAME : Brit Ramon ORDERING DR : RUTH ESCOBAR MD CLINICAL HX: Diabetic peripheral vascular disease POST-OP DX: Same SPECIMEN INFO: Right below knee leg GROSS DESCRIPTION: Received fresh unlabeled is a 42.0 cm right leg below the knee amputation. The skin is by[place] brown with sparse hair noted. The 2nd toe has been previously amputated with gangrenous changes involving the incision as well as the great and 3rd toes. Atherosclerotic changes are identified. Blender Operator sections are submitted in one cassette. DIAGNOSIS FOR BRIT RAMON: RIGHT B-K AMPUTATION: Ulceration, gangrene; advanced atherosclerosis. COLLECTED DATE: 04/10/2017 [facility] – [place] REPORT DATE: 04/11/2017 ELECTRONICALLY SIGNED BY: Katya Mello M.D. 04/11/2017 - 9:56:46 [facility]
[2017-04-11] MEDS: HYDROmorphone PCA 30 MG/30 ML SYRINGE IV SCH (13:16)
[2017-04-11] MEDS: oxyCODONE/ACETAMINOPHEN 5-325 MG TABLET PO PRN (19:50)
[2017-04-11] MEDS: PRAVASTATIN 40 MG TABLET PO SCH (21:40)
[2017-04-11] MEDS: ASPIRIN EC 81 MG TABLET PO SCH (21:40)
[2017-04-12] MEDS: KETOROLAC 10 MG TABLET PO SCH ×4 (00:02→18:01)
[2017-04-12 04:34] LABS: Basophils % 0.4 % (0.0-0.8); Eosinophils # 0.2 10*3/uL (0.0-0.87); Eosinophils % 2.3 % (0.00-10.9); Hematocrit 26.3 VOL% (42.0-52.0); Hemoglobin 8.6 GM/DL (14.0-18.0); Immature Granulocytes % 0.5 %; Immature Granulocytes Absolute 0.04 #; Lymphocytes # 1.5 10*3/uL (1.4-4.0); Lymphocytes % 19.7 % (21.2-54.2); Mean Corpuscular HGB Conc 32.7 GM/DL (32-36); Mean Corpuscular Hemoglobin 28 PG (27-34); Mean Corpuscular Volume 84.3 FL (87-102); Mean Platelet Volume 8.5 FL (9.6-12.0); Monocytes # 0.8 10*3/uL (0.11-0.8); Monocytes % 9.7 % (1.7-12.7); Neutrophils # 5.2 10*3/uL (1.4-7.4); Neutrophils % 67.4 % (38.7-73.9); Platelet Count 592 T/CUMM (130-400); Red Blood Count 3.12 MC/CUMM (3.8-5.5); Red Cell Distribution Width 14.6 % (9.3-17.3); White Blood Count 7.7 T/CUMM (4-12)
--- NOTE | 2017-04-12 08:07 | Internal Med Progress Note ---
Assessment and Plan (1) Diabetic foot Status: Acute Assessment and plan: 72-year-old male is being admitted to acute care * Diabetic foot. Status post BKA. Continue current treatment. To rehab when okay with Dr. Beard * Uncontrolled diabetes. Better controlled * Anemia. Hematocrit is better after 4 units * Hypertension. Stable * Constipation. Will give him MiraLAX as needed * SVT. No further episodes * Coronary artery disease. Stable * Discussed with patient and his . Current Visit: Yes (2) Hypoglycemia associated with diabetes Status: Acute Current Visit: Yes (3) Paroxysmal a-fib Status: Chronic Current Visit: Yes (4) CAD (coronary artery disease) Status: Chronic Current Visit: No Qualifiers: Coronary Disease-Associated Artery/Lesion type: bypass graft [place] vs. transplanted heart: [place] heart Associated angina: without angina Qualified Code(s): I25.810 - Atherosclerosis of coronary artery bypass graft(s) without angina pectoris (5) Diabetic neuropathy Status: Chronic Current Visit: No (6) Dyslipidemia Status: Chronic Current Visit: No (7) Hypertension Status: Chronic Current Visit: No (8) PVD (peripheral vascular disease) Status: Chronic Current Visit: No (9) S/P CABG (coronary artery bypass graft) Status: Chronic Current Visit: No Internal Medicine - PN: Subj Interval history: Patient is doing well. He had a good night. No problems. He received 2 units of packed RBCs yesterday. Exam (Progress Note) - Constitutional Vitals: Period Temp Pulse Resp BP Sys/Askew Pulse Ox Last 24 Hr 97.4 F-98.6 F 69-78 16-20 115-153/60-81 93-98 Exam: Examination: GENERAL: NAD. NECK: Neck is supple. CVS: Regular rate and rhythm. RESPIRATORY: Lungs are clear. ABDOMEN: Soft and nontender. EXT: Right below-knee amputation. Patient has dressing on the stump SKIN: Warm and dry. Results - Labs CBC & BMP: 04/12/17 04:14 04/11/17 04:25 Lab Results: I have reviewed the past 24 hour labs Quality Measures - VTE Contraindication to Pharmacological VTE Prophylaxis: High Risk of Bleeding Contraindication to Mechanical VTE Prophylaxis: Ischemic Vascular Disease
[2017-04-12] MEDS: INSULIN LISPRO 100 UNIT/ML SUBCUT SCH ×4 (08:23→20:55)
[2017-04-12] MEDS: INSULIN REGULAR 100 UNIT/ML SUBCUT SCH ×4 (08:23→20:46)
[2017-04-12] MEDS: INSULIN ASPART PROTAMINE/ASPART 70/30 100 UNIT/ML SUBCUT SCH ×2 (08:24→17:28)
[2017-04-12] MEDS: MAGNESIUM OXIDE 400 MG TABLET PO SCH (09:45)
[2017-04-12] MEDS: LOSARTAN 50 MG TABLET PO SCH (09:45)
[2017-04-12] MEDS: GABAPENTIN 400 MG CAPSULE PO SCH ×3 (09:45→20:58)
[2017-04-12] MEDS: PANTOPRAZOLE 40 MG TABLET PO SCH (09:45)
[2017-04-12] MEDS: CARVEDILOL 12.5 MG TABLET PO SCH ×2 (09:45→20:59)
[2017-04-12] MEDS: CLOPIDOGREL 75 MG TABLET PO SCH (09:45)
[2017-04-12] MEDS: DOCUSATE SODIUM 100 MG CAPSULE PO SCH ×2 (09:45→20:58)
[2017-04-12] MEDS: DILTIAZEM CD 180 MG CAPSULE PO SCH (09:45)
[2017-04-12] MEDS: CILOSTAZOL 50 MG TABLET PO SCH ×2 (09:45→20:58)
[2017-04-12] MEDS: LINEZOLID INJ 600 MG in PREMIX 1 EACH IV SCH ×2 (09:46→21:01)
[2017-04-12] MEDS: SERTRALINE 50 MG TABLET PO SCH (09:46)
[2017-04-12] MEDS: METHOCARBAMOL 750 MG TABLET PO PRN (09:47)
[2017-04-12] MEDS: SODIUM CHLORIDE 0.9% 1,000 ML IV SCH (16:21)
[2017-04-12] MEDS: HYDROmorphone PCA 30 MG/30 ML SYRINGE IV SCH (16:36)
[2017-04-12] MEDS: PRAVASTATIN 40 MG TABLET PO SCH (20:58)
[2017-04-12] MEDS: ASPIRIN EC 81 MG TABLET PO SCH (20:59)
[2017-04-12] MEDS: oxyCODONE/ACETAMINOPHEN 5-325 MG TABLET PO PRN (21:04)
[2017-04-13] MEDS: KETOROLAC 10 MG TABLET PO SCH ×2 (01:25→06:22)
[2017-04-13 06:25] LABS: Basophils % 0.5 % (0.0-0.8); Eosinophils # 0.3 10*3/uL (0.0-0.87); Eosinophils % 4.1 % (0.00-10.9); Hematocrit 26.6 VOL% (42.0-52.0); Hemoglobin 8.6 GM/DL (14.0-18.0); Immature Granulocytes % 0.3 %; Immature Granulocytes Absolute 0.02 #; Lymphocytes # 1.4 10*3/uL (1.4-4.0); Lymphocytes % 21.7 % (21.2-54.2); Mean Corpuscular HGB Conc 32.3 GM/DL (32-36); Mean Corpuscular Hemoglobin 28 PG (27-34); Mean Platelet Volume 8.2 FL (9.6-12.0); Monocytes # 0.6 10*3/uL (0.11-0.8); Neutrophils # 4.1 10*3/uL (1.4-7.4); Neutrophils % 64.4 % (38.7-73.9); Platelet Count 568 T/CUMM (130-400); Red Blood Count 3.13 MC/CUMM (3.8-5.5); Red Cell Distribution Width 14.6 % (9.3-17.3); White Blood Count 6.3 T/CUMM (4-12)
[2017-04-13 06:48] LABS: Calcium 8.3 MG/DL (8.5-10.1); Osmolality,Calculated 280.4 MOS/KG (273-304); Potassium 4.8 MMOL/L (3.5-5.1)
[2017-04-13] MEDS: INSULIN REGULAR 100 UNIT/ML SUBCUT SCH ×2 (08:35→11:42)
[2017-04-13] MEDS: INSULIN ASPART PROTAMINE/ASPART 70/30 100 UNIT/ML SUBCUT SCH (08:36)
[2017-04-13] MEDS: DILTIAZEM CD 180 MG CAPSULE PO SCH (08:37)
[2017-04-13] MEDS: DOCUSATE SODIUM 100 MG CAPSULE PO SCH (08:38)
[2017-04-13] MEDS: MAGNESIUM OXIDE 400 MG TABLET PO SCH (08:38)
[2017-04-13] MEDS: CARVEDILOL 12.5 MG TABLET PO SCH (08:38)
[2017-04-13] MEDS: LOSARTAN 50 MG TABLET PO SCH (08:38)
[2017-04-13] MEDS: CILOSTAZOL 50 MG TABLET PO SCH (08:39)
[2017-04-13] MEDS: PANTOPRAZOLE 40 MG TABLET PO SCH (08:39)
[2017-04-13] MEDS: GABAPENTIN 400 MG CAPSULE PO SCH (08:39)
[2017-04-13] MEDS: CLOPIDOGREL 75 MG TABLET PO SCH (08:39)
[2017-04-13] MEDS: SERTRALINE 50 MG TABLET PO SCH (08:39)
--- NOTE | 2017-04-13 09:04 | Internal Med Progress Note ---
Assessment and Plan (1) Diabetic foot Status: Acute Assessment and plan: 72-year-old male is being admitted to acute care * Diabetic foot. Patient to go to rehab today. * Uncontrolled diabetes. Better controlled * Anemia. Hematocrit is stable * Hypertension. Stable * Constipation. Will give him MiraLAX as needed * SVT. No further episodes * Coronary artery disease. Stable * Discussed with patient and his . * I will follow him on [facility] rehab Current Visit: Yes (2) Hypoglycemia associated with diabetes Status: Acute Current Visit: Yes (3) Paroxysmal a-fib Status: Chronic Current Visit: Yes (4) CAD (coronary artery disease) Status: Chronic Current Visit: No Qualifiers: Coronary Disease-Associated Artery/Lesion type: bypass graft [place] vs. transplanted heart: [place] heart Associated angina: without angina Qualified Code(s): I25.810 - Atherosclerosis of coronary artery bypass graft(s) without angina pectoris (5) Diabetic neuropathy Status: Chronic Current Visit: No (6) Dyslipidemia Status: Chronic Current Visit: No (7) Hypertension Status: Chronic Current Visit: No (8) PVD (peripheral vascular disease) Status: Chronic Current Visit: No (9) S/P CABG (coronary artery bypass graft) Status: Chronic Current Visit: No Internal Medicine - PN: Subj Interval history: Patient is doing well. He had a good night. He has moved his bowels. No chest pain or shortness of breath Exam (Progress Note) - Constitutional Vitals: Period Temp Pulse Resp BP Sys/Askew Pulse Ox Last 24 Hr 97.6 F-98.8 F 69-82 18-20 119-146/56-74 93-96 Exam: Examination: GENERAL: NAD. NECK: Neck is supple. CVS: Regular rate and rhythm. RESPIRATORY: Lungs are clear. ABDOMEN: Soft and nontender. EXT: Right below-knee amputation. Patient has dressing on the stump SKIN: Warm and dry. Results - Labs CBC & BMP: 04/13/17 06:15 04/13/17 06:15 Lab Results: I have reviewed the past 24 hour labs Quality Measures - VTE Contraindication to Pharmacological VTE Prophylaxis: High Risk of Bleeding Contraindication to Mechanical VTE Prophylaxis: Ischemic Vascular Disease Specialty Discharge - Follow Up or Referrals Follow up with: Moiz Chambers MD [Physician] - 04/30/17 2:00 pm
--- NOTE | 2017-04-13 09:20 | Discharge Summary ---
Hospital Course - Hospital Course Hospital Course: Mr. Chong was admitted with diabetic infection of the left forefoot gangrene and diabetic peripheral vascular disease this was nonsalvageable and he had a left excuse me that is a right below-knee amputation on Sunday, 09 April. He is actually healing well and his leg looks good I removed his Genet drain and redressed with lower leg his pain is resolved. He is ready for rehab and is been doing physical therapy and occupational therapy here and he is moving to the [facility] rehab center. He did require transfusion as he had considerable bleeding at the time of surgery but this is stabilized with a hematocrit of 26. We will leave his skin mandie for approximately 2-1/2 more weeks I will be out of town next week but will follow him the following week at [facility] Specialty Discharge - Follow Up or Referrals Follow up with: Moiz Chambers MD [Physician] - Discharge Plan - Discharge Data Disposition: Disch/Xfer-Ip Rehab Fac Condition at Discharge: Stable Discharge Diet: diabetic diet Activity: as per physical therapy Hygiene: may shower Weight Bearing at Discharge: weight bear as tolerated Driving: not until seen by doctor Wound / Dressing Care Instructions: wash leg daily with shower, dry with alcohol , wrap with cast padding and kurt. DO NOT WRAP KURT TIGHTLY. - Discharge Medications New Cilostazol [Pletal] 100 mg PO BID tablet Clopidogrel [Plavix] 75 mg PO DAILY tablet Diltiazem Cd Cap [Cardizem CD] 180 mg PO DAILY capsule Docusate Sodium Cap [Colace Cap] 100 mg PO BID capsule Gabapentin Cap/Tab [Neurontin Cap/Tab] 800 mg PO TID capsule Losartan [Cozaar] 50 mg PO DAILY tablet Magnesium Oxide 400 mg PO DAILY tablet Methocarbamol Tab [Robaxin Tab] 750 mg PO Q8HR PRN tablet PRN Reason: Muscle Pain Pantoprazole Tab [Protonix Tab] 40 mg PO DAILY tablet Pravastatin [Pravachol] 80 mg PO BEDTIME tablet Sertraline [Zoloft] 50 mg PO DAILY tablet Aspirin EC Tab 81 mg PO BEDTIME tablet Carvedilol [Coreg] 12.5 mg PO BID tablet Insulin Lispro [HumaLOG] See Protocol SUBCUT ACHS unit oxyCODONE/ACETAMINOPHEN 5-325 [Percocet 5-325] 2 tablet PO Q6H PRN tablet PRN Reason: Pain Moderate (4-7) Continue Insulin Aspart Prot/Asp 70/30 [NovoLOG Mix 70/30] 55 unit SUBCUT AC SUPPER Insulin Aspart Prot/Asp 70/30 [NovoLOG Mix 70/30] 55 unit SUBCUT AC BREAKFAST Metformin HCl 1,000 mg PO BID Furosemide Tab [Lasix Tab] 20 mg PO BEDTIME #30 tablet oxyCODONE/ACETAMINOPHEN 5-325 [Percocet 5-325] 1 tablet PO Q6H PRN #20 tablet PRN Reason: Pain Moderate (4-7) No Action Pravastatin [Pravachol] 80 mg PO BEDTIME #30 tablet Carvedilol [Coreg] 12.5 mg PO BID Gabapentin Cap/Tab [Neurontin Cap/Tab] 800 mg PO TID Magnesium Oxide 420 mg PO DAILY Sertraline [Zoloft] 50 mg PO DAILY Methocarbamol Tab [Robaxin Tab] 750 mg PO Q8HR PRN PRN Reason: Muscle Pain Losartan Potassium [Cozaar] 50 mg PO DAILY Docusate Sodium 100 mg PO BID PRN PRN Reason: Constipation Clopidogrel [Plavix] 75 mg PO DAILY Aspirin [Ecotrin] 81 mg PO BEDTIME Cilostazol [Pletal] 100 mg PO BID #100 tablet Diltiazem Cd Cap [Cardizem CD] 180 mg PO DAILY #30 capsule Levofloxacin Tab [Levaquin Tab] 500 mg PO Q24H #7 tablet - Follow Up or Referral Follow Up: Moiz Chambers MD [Physician] - - Forms/Instructions Instructions: Below the Knee Amputation (DC) Exam - Constitutional Vitals: Period Temp Pulse Resp BP Sys/Askew Pulse Ox Last 24 Hr 97.6 F-98.8 F 69-82 18-20 119-146/56-74 93-96 Discharge Results Labs on day of discharge: Labs from last 24 hours 04/13/17 04/13/17 04/13/17 07:12 06:15 06:15 WBC 6.3 RBC 3.13 L Hgb 8.6 L Hct 26.6 L MCV 85.0 L MCH 28 MCHC 32.3 RDW 14.6 Plt Count 568 H MPV 8.2 L Neut % (Auto) 64.4 Lymph % (Auto) 21.7 [place] % (Auto) 9.0 Eos % (Auto) 4.1 Baso % (Auto) 0.5 Neut # (Auto) 4.1 Lymph # (Auto) 1.4 [place] # (Auto) 0.6 Eos # (Auto) 0.3 Baso # (Auto) 0.0 Immature Gran % 0.3 Nucleated RBC % 0.0 Immature Gran # 0.02 Nucleated RBCs # 0.00 Sodium 140 Potassium 4.8 Chloride 105 Carbon Dioxide 25 Anion Gap 14.8 BUN 12 Creatinine 1.00 GFR Calculation 124 BUN/Creatinine Ratio 12.00 Glucose 134 H POC Glucose 159 H Calculated Osmolality 280.4 Calcium 8.3 L 04/12/17 04/12/17 04/12/17 20:31 16:09 11:08 WBC RBC Hgb Hct MCV MCH MCHC RDW Plt Count MPV Neut % (Auto) Lymph % (Auto) [place] % (Auto) Eos % (Auto) Baso % (Auto) Neut # (Auto) Lymph # (Auto) [place] # (Auto) Eos # (Auto) Baso # (Auto) Immature Gran % Nucleated RBC % Immature Gran # Nucleated RBCs # Sodium Potassium Chloride Carbon Dioxide Anion Gap BUN Creatinine GFR Calculation BUN/Creatinine Ratio Glucose POC Glucose 121 H 257 H 271 H Calculated Osmolality Calcium DS: Provider Date of admission: 04/03/17 12:24 Primary care physician: Nils Savage MD Attending physician on admission: Nils Savage MD Consults: 04/03/17 12:24 Consult to Case Mgmt/Social Srvs [CONS] Routine Reason for Case Mgmt/Social Srvs: Discharge Planning Consult to Physician [CONS] Routine Comment: Diabetic foot Consulting Provider: Moiz Chambers Person Notified: Jose Guadalupe Date Notified: 04/03/17 Time Notified: 13:45 04/04/17 11:16 Consult to Physician [CONS] Routine Comment: Consulting Provider: Cardiology - [facility] Consulting Provider Notified: Yes When should Consulting Provider be notified: Now Person Notified: adam grady Date Notified: 04/04/17 Time Notified: 11:22 04/09/17 12:54 Consult to Occupational Therapy [CONS] Routine Reason for Occupational Therapy: Evaluate and Treat Consult to Physical Therapy [CONS] Routine Reason for Physical Therapy: Evaluate and Treat Discharging clinician: Moiz Chambers MD
[2017-04-13] MEDS: INSULIN LISPRO 100 UNIT/ML SUBCUT SCH ×2 (09:42→11:47)
[2017-04-13] MEDS: LINEZOLID INJ 600 MG in PREMIX 1 EACH IV SCH (10:09)
[2017-04-13 11:31] VITALS: BP 141/66
--- NOTE | 2017-04-17 08:42 | Physician Query Form ---
CLICK EDIT DOCUMENT TO SELECT QUERY ANSWER --> OK --> SIGN Annabel Loyd RN Clinical Rfp Writer W) [phone] (f) [phone] [email or web address]: Make your selection(s) from the choices in EACH section by typing an "x" and enter comments in the comment section. Please use your independent medical judgment in providing your response. This request does not imply that any particular answer is desired or expected. CLINICAL INDICATORS: (Providers should not edit this section) Based on documentation of "Anemia- Hematocrit is better after four units" Transfused 4 units PRBC. Had amputation of the right second toes and then amputation of the right forefoot secondary to gangrene with diabetic PVD. Estimated blood loss was 300cc. Based on the above, could you clarify which of the following conditions you are evaluating, treating, and/or monitoring? ( ) Blood loss anemia ( ) acute ( ) chronic ( ) acute on chronic ( x) Acute blood loss anemia on baseline chronic anemia ( ) Acute blood loss anemia as a complication of a procedure ( ) Iron deficiency anemia not associated with blood loss ( ) Dilutional anemia due to IV fluids ( ) Anemia due to chemotherapy ( ) Anemia due to neoplastic disease ( ) Anemia due to chronic kidney disease ( ) Pernicious anemia ( ) Aplastic anemia ( ) Hemolytic anemia ( ) immune ( ) non-immune - please specify cause: ( ) Anemia due to other condition, please specify: ( ) Clinically unable to determine COMMENTS: PLEASE ALSO DOCUMENT RESPONSE IN PROGRESS NOTES AND/OR DISCHARGE SUMMARY Use of terms such as suspected, likely, or probable (associated with a specific diagnosis that is being evaluated, monitored, or treated as if it exists) are acceptable and can be restated in the discharge summary if not ruled out. MTDD
== END 2017-04-13 12:05 | DRG 240 ==
LOC: N.3E 12:24
PROVIDERS: ADMIT Internal Medicine; ATTEND Internal Medicine

== ENCOUNTER 2017-04-14 15:40 | Inpatient (IN) ==
[2017-04-14] MEDS ORDERED: ALUMINUM/MAGNES/SIMETH MAX STR 30 ML UDCUP PO PRN (16:58)
[2017-04-14] MEDS ORDERED: ONDANSETRON 4 MG/2 ML VIAL IV PRN (16:58)
[2017-04-14] MEDS ORDERED: HYDROmorphone 2 MG/1 ML VIAL IV PRN (16:58)
[2017-04-14] MEDS ORDERED: DEXTROSE 50% 25 GM/50 ML VIAL IV PRN (16:58)
[2017-04-14] MEDS ORDERED: GLUCAGON 1 MG VIAL IM PRN (16:58)
[2017-04-14] MEDS ORDERED: METHOCARBAMOL 750 MG TABLET PO PRN (17:03)
--- NOTE | 2017-04-14 17:11 | General Surg History&Physical ---
Assessment and Plan (1) BKA stump complication Status: Acute Assessment and plan: Impression:1. 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 Wound dehiscence of the B-K amputation stump secondary to a fall 3. Hematoma of the right became to a stump secondary to a fall 4. Diabetes insulin-dependent. Plan: Will plan to take him to surgery tomorrow for debridement and evacuation and closure of the wound. Current Visit: Yes History of Present Illness Chief complaint: Fall with right BKA stump dehiscence and hematoma History of present illness: Mr. Chong is a 72 year old male -Dominican who is a diabetic and has peripheral vascular disease. Patient underwent a right BKA amputation last week and was transferred to rehab. Apparently patient undergoing got up and fell in the night. Nurses reinforced his dressing but nobody looked at him until this afternoon when they call me about some more bleeding on the dressing. The nurses taking it down to the wound is . I went down to [facility] at the rehab and look at the wound and found it to be about half of the center portion of the wound with a hematoma present underneath the stump. It moved him back up here so that he could go to surgery and have a revision to have a closed before the chances that this could get infected. Home Medications Medication Instructions Recorded Confirmed Type Docusate Sodium 100 mg PO BID PRN 08/22/16 04/13/17 History Insulin Aspart Prot/Asp 70/30 55 unit SUBCUT AC BREAKFAST 08/22/16 04/13/17 History [NovoLOG Mix 70/30] Losartan Potassium [Cozaar] 50 mg PO DAILY 08/22/16 04/13/17 History Metformin HCl 1,000 mg PO BID 08/22/16 04/13/17 History Aspirin [Ecotrin] 81 mg PO BEDTIME 01/17/17 04/13/17 History Furosemide Tab [Lasix Tab] 20 mg PO BEDTIME #30 tablet 03/24/17 04/13/17 Rx oxyCODONE/ACETAMINOPHEN 5-325 1 tablet PO Q6H PRN #20 tablet 03/24/17 04/13/17 Rx [Percocet 5-325] Diltiazem Cd Cap [Cardizem CD] 180 mg PO DAILY #30 capsule 03/29/17 04/13/17 Rx Carvedilol [Coreg] 12.5 mg PO BID tablet 04/13/17 04/13/17 Rx Cilostazol [Pletal] 100 mg PO BID tablet 04/13/17 04/13/17 Rx Clopidogrel [Plavix] 75 mg PO DAILY tablet 04/13/17 04/13/17 Rx Docusate Sodium Cap [Colace Cap] 100 mg PO BID capsule 04/13/17 04/13/17 Rx Gabapentin Cap/Tab [Neurontin 800 mg PO TID capsule 04/13/17 04/13/17 Rx Cap/Tab] Losartan [Cozaar] 50 mg PO DAILY tablet 04/13/17 04/13/17 Rx Magnesium Oxide 400 mg PO DAILY tablet 04/13/17 04/13/17 Rx Methocarbamol Tab [Robaxin Tab] 750 mg PO Q8HR PRN tablet 04/13/17 04/13/17 Rx Pantoprazole Tab [Protonix Tab] 40 mg PO DAILY tablet 04/13/17 04/13/17 Rx Pravastatin [Pravachol] 80 mg PO BEDTIME tablet 04/13/17 04/13/17 Rx Sertraline [Zoloft] 50 mg PO DAILY tablet 04/13/17 04/13/17 Rx oxyCODONE/ACETAMINOPHEN 5-325 2 tablet PO Q6H PRN tablet 04/13/17 04/13/17 Rx [Percocet 5-325] Allergies Allergy/AdvReac Type Severity Reaction Status Date / Time vancomycin Allergy Seizure Verified 03/25/17 16:59 Medical,Surgical,& Family Hx - Medical History Cardio: History of: Cardiac Dysrhythmia (Atrial fibrillation), CAD, Hypertension , [place], PVD ( orbital atherectomy and angioplasty of right anterior tibial artery) , Cardiovascular Problems ([employer] Dr. Stoner) Neurology: History of: Cerebrovascular Accident (Mild, ?), Dementia (Mild), Peripheral Neuropathy No history of: Seizures HEENT: History of: Eye Problem (Glasses Reading), Dental Problems (Dental Implant Upper) Endocrine: History of: Diabetes Mellitus (IDDM), Dyslipidemia Respiratory: History of: Obstructive Sleep Apnea, Respiratory Problems (Flu Vac Current 2016 Season) Comment Only: Pneumonia (Hx Pneum Vac) Genitourinary: History of: Prostate Problems Gastrointestinal: No history of: Polyps Musculoskeletal: History of: Amputation (:Right 2nd toe; Right below knee amputation on April 07, 2017), Musculoskeletal Problems (arthritis) Other: No history of: Anesthesia Reactions, Cancer - Surgical History Cardiac Surgeries: Sugical HX of: Cardiac Catheterization (stents), Cardiac Surgery (CABG 03/09/16) HEENT Surgeries: Surgical HX of: Eye Surgery (CATARACTS BILATERAL), Tonsilectomy & Adenoidectomy Abdominal Surgeries: Surgical HX of: Colonoscopy, Hernia Repair (Right inguinal hernia [place] [address] Beard) - Family History Family History: Reports;: Family Diabetes, Family Heart Disease, Family Hypertension - Social History Smoking Status: Former smoker Exam - Constitutional General appearance: mild distress - Head Head exam: Present: normal inspection - ENT ENT exam: Present: normal exam - Neck Neck exam: Present: normal inspection - Respiratory Respiratory exam: Present: clear to auscultation bilaterally, rales - Cardiovascular Cardiovascular exam: Present: RRR - GI/Abdominal GI/Abdominal exam: Present: normal bowel sounds, soft. Absent: tenderness - Extremities Exam Extremities exam: Present: other (Right BKA wound that is in the center with some hematoma underneath the flap.) - Back Exam Back exam: Present: normal inspection - Neurological Exam Neurological exam: Present: alert, oriented X3, CN II-XII intact - Skin Skin exam: Present: normal color, warm, dry 12 point system: reviewed and no additional remarkable complaints except as stated Quality Measures - VTE Contraindication to Pharmacological VTE Prophylaxis: High Risk of Bleeding Contraindication to Mechanical VTE Prophylaxis: Vascular Ulceration
--- NOTE | 2017-04-14 17:25 | EKG Report ---
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
[2017-04-14 17:49] LABS: Basophils % 0.4 % (0.0-0.8); Eosinophils # 0.2 10*3/uL (0.0-0.87); Hematocrit 26.1 VOL% (42.0-52.0); Hemoglobin 8.5 GM/DL (14.0-18.0); Immature Granulocytes % 0.5 %; Immature Granulocytes Absolute 0.04 #; Lymphocytes % 11.8 % (21.2-54.2); Mean Corpuscular HGB Conc 32.6 GM/DL (32-36); Mean Corpuscular Hemoglobin 27 PG (27-34); Mean Corpuscular Volume 84.2 FL (87-102); Mean Platelet Volume 8.2 FL (9.6-12.0); Monocytes # 0.6 10*3/uL (0.11-0.8); Monocytes % 7.7 % (1.7-12.7); Neutrophils # 6.4 10*3/uL (1.4-7.4); Neutrophils % 77.6 % (38.7-73.9); Platelet Count 520 T/CUMM (130-400); Red Cell Distribution Width 14.6 % (9.3-17.3); White Blood Count 8.2 T/CUMM (4-12)
[2017-04-14 18:02] LABS: INR 1.2; PT Patient Result 13.1 SECS
[2017-04-14 18:07] LABS: Bilirubin,Total 0.4 MG/DL (0.2-1.0); Osmolality,Calculated 283.5 MOS/KG (273-304); Potassium 4.5 MMOL/L (3.5-5.1)
[2017-04-14] MEDS: SODIUM CHLORIDE 0.45% 1,000 ML IV SCH (19:04)
[2017-04-14] MEDS: PIPERACILLIN/TAZOBACTAM 3,375 MG in SODIUM CHLORIDE 0.9% 100 ML IV SCH (19:04)
--- NOTE | 2017-04-14 21:42 | XRay Report ---
Exam: XR chest 1V Indication: Preop, revision of the BKA stump Comparison study: 04/03/2017 Findings: The heart, mediastinum and bony structures are stable from prior. Minimal patchy basilar opacities are noted. Elevation of left hemidiaphragm is again noted but slightly less prominent as compared to prior. Median sternotomy wiring is noted. There is no focal consolidation, pneumothorax or pleural effusion identified. Impression: Elevation left hemidiaphragm with minimal patchy basilar opacities appear similar to slightly decreased from prior. Otherwise, no definite acute cardiopulmonary process or significant change. PROCEDURE INTERPRETED AT [facility] DEPARTMENT OF RADIOLOGY Final Report Signed by: José Osorio
[2017-04-14] MEDS: DOCUSATE SODIUM 100 MG CAPSULE PO SCH (21:47)
[2017-04-14] MEDS: CARVEDILOL 12.5 MG TABLET PO SCH (21:48)
[2017-04-14] MEDS: GABAPENTIN 400 MG CAPSULE PO SCH (21:48)
[2017-04-14] MEDS: INSULIN REGULAR 100 UNIT/ML SUBCUT SCH (21:48)
[2017-04-14] MEDS: FUROSEMIDE 20 MG TABLET PO SCH (21:48)
[2017-04-14] MEDS: PRAVASTATIN 40 MG TABLET PO SCH (21:48)
[2017-04-14] MEDS: ASPIRIN EC 81 MG TABLET PO SCH (21:54)
[2017-04-15] MEDS: PIPERACILLIN/TAZOBACTAM 3,375 MG in SODIUM CHLORIDE 0.9% 100 ML IV SCH ×3 (01:35→17:43)
[2017-04-15] MEDS: SODIUM CHLORIDE 0.45% 1,000 ML IV SCH (05:02)
[2017-04-15] MEDS: INSULIN REGULAR 100 UNIT/ML SUBCUT SCH ×4 (07:30→21:10)
[2017-04-15] MEDS ORDERED: NEOMYCIN/POLYMYXIN IRRIG SOLN 1 ML AMP BLADDERIRR ONE ×2 (07:33→07:49)
[2017-04-15] MEDS: INSULIN ASPART PROTAMINE/ASPART 70/30 100 UNIT/ML SUBCUT SCH (07:48)
[2017-04-15] MEDS ORDERED: ROPIVACAINE 0.5% 30 ML VIAL ONE (07:50)
--- NOTE | 2017-04-15 08:38 | Anesthesia Post-Op ---
Anesthesia Post OP - Post Ansesthetic Evaluation Patient seen in post op: Yes Resp: within normal limits CV: within normal limits Mental: within normal limits Temp: within normal limits [id number]: within normal limits Nausea and Vomiting: within normal limits Pain: within normal limits
[2017-04-15] MEDS ORDERED: fentaNYL 100 MCG/2 ML VIAL ONE (08:44)
[2017-04-15] MEDS ORDERED: MIDAZOLAM 2 MG/2 ML VIAL ONE (08:45)
[2017-04-15] MEDS ORDERED: ePHEDrine 50 MG/ML AMP ONE (08:45)
[2017-04-15] MEDS ORDERED: SEVOFLURANE 1 UNIT/15 MINUTE INH ONE (08:45)
[2017-04-15] MEDS ORDERED: DEXTROSE 50% 25 GM/50 ML VIAL IV PRN (10:19)
[2017-04-15] MEDS ORDERED: GLUCAGON 1 MG VIAL IM PRN (10:19)
[2017-04-15] MEDS: DILTIAZEM CD 180 MG CAPSULE PO SCH (10:58)
[2017-04-15] MEDS: DOCUSATE SODIUM 100 MG CAPSULE PO SCH ×2 (10:59→21:10)
[2017-04-15] MEDS: PANTOPRAZOLE 40 MG TABLET PO SCH (11:00)
[2017-04-15] MEDS: GABAPENTIN 400 MG CAPSULE PO SCH ×3 (11:00→21:10)
[2017-04-15] MEDS: MAGNESIUM OXIDE 400 MG TABLET PO SCH (11:00)
[2017-04-15] MEDS: LOSARTAN 50 MG TABLET PO SCH (11:00)
[2017-04-15] MEDS: CARVEDILOL 12.5 MG TABLET PO SCH ×2 (11:00→21:10)
[2017-04-15] MEDS: SERTRALINE 50 MG TABLET PO SCH (11:01)
[2017-04-15] MEDS: PRAVASTATIN 40 MG TABLET PO SCH (21:09)
[2017-04-15] MEDS: ASPIRIN EC 81 MG TABLET PO SCH (21:10)
[2017-04-15] MEDS: FUROSEMIDE 20 MG TABLET PO SCH (21:10)
[2017-04-16] MEDS: PIPERACILLIN/TAZOBACTAM 3,375 MG in SODIUM CHLORIDE 0.9% 100 ML IV SCH ×3 (01:30→16:03)
[2017-04-16] MEDS ORDERED: PHENYLEPHRINE 1 MG/10 ML SYRINGE IV ONE (07:25)
[2017-04-16] MEDS ORDERED: LIDOCAINE 1% 5 ML VIAL ONE (07:25)
[2017-04-16] MEDS ORDERED: DEXAMETHASONE 10 MG/1 ML VIAL ONE (07:25)
[2017-04-16] MEDS ORDERED: KETOROLAC 30 MG/1 ML VIAL ONE (07:25)
[2017-04-16] MEDS ORDERED: PROPOFOL 200 MG/20 ML VIAL IV ONE (07:25)
[2017-04-16] MEDS ORDERED: ONDANSETRON 4 MG/2 ML VIAL ONE (07:25)
[2017-04-16] MEDS: INSULIN REGULAR 100 UNIT/ML SUBCUT SCH ×4 (08:22→21:16)
[2017-04-16] MEDS: INSULIN ASPART PROTAMINE/ASPART 70/30 100 UNIT/ML SUBCUT SCH (08:23)
[2017-04-16] MEDS: PANTOPRAZOLE 40 MG TABLET PO SCH (08:24)
[2017-04-16] MEDS: GABAPENTIN 400 MG CAPSULE PO SCH ×3 (08:24→21:11)
[2017-04-16] MEDS: MAGNESIUM OXIDE 400 MG TABLET PO SCH (08:24)
[2017-04-16] MEDS: DOCUSATE SODIUM 100 MG CAPSULE PO SCH ×2 (08:24→21:11)
[2017-04-16] MEDS: LOSARTAN 50 MG TABLET PO SCH (08:25)
[2017-04-16] MEDS: DILTIAZEM CD 180 MG CAPSULE PO SCH (08:25)
[2017-04-16] MEDS: SERTRALINE 50 MG TABLET PO SCH (08:26)
[2017-04-16] MEDS: CARVEDILOL 12.5 MG TABLET PO SCH ×2 (08:26→21:11)
[2017-04-16] MEDS: ACETAMINOPHEN 325 MG TABLET PO PRN (08:37)
[2017-04-16] MEDS: SODIUM CHLORIDE 0.45% 1,000 ML IV SCH ×2 (08:39→18:06)
--- NOTE | 2017-04-16 09:36 | Internal Medicine Consult Note ---
Assessment and Plan (1) BKA stump complication Status: Acute Assessment and plan: 72-year-old male admitted to acute care * Status post repair of BKA stump. Treatment per surgery * Diabetes. Continue current treatment. * Hypertension. His medications will be continued * Coronary artery disease. Stable * Anemia. Will check hematocrit in the morning * Peripheral vascular disease. Restart antiplatelet agents when okay with surgery * Discussed with patient Current Visit: Yes (2) CAD (coronary artery disease) Status: Chronic Current Visit: No Qualifiers: Coronary Disease-Associated Artery/Lesion type: bypass graft [place] vs. transplanted heart: [place] heart Associated angina: without angina Qualified Code(s): I25.810 - Atherosclerosis of coronary artery bypass graft(s) without angina pectoris (3) Diabetes Status: Chronic Current Visit: No Qualifiers: Diabetes mellitus type: type 2 (4) Diabetic neuropathy Status: Chronic Current Visit: No (5) Dyslipidemia Status: Chronic Current Visit: No (6) Hypertension Status: Chronic Current Visit: No (7) PTSD (post-traumatic stress disorder) Status: Chronic Current Visit: No (8) PVD (peripheral vascular disease) Status: Chronic Current Visit: No (9) Paroxysmal a-fib Status: Chronic Current Visit: No (10) S/P CABG (coronary artery bypass graft) Status: Chronic Current Visit: No History of Present Illness - Data of Consult Patient: known to practice within the last 3 years - Consult Narrative Reason for consult: Medical management History of present illness: Mr. Chong is a 72 year old male well-known to me with history of diabetes, coronary artery disease, peripheral vascular disease, hypertension, diabetic neuropathy, mild dementia who had just undergone right below-knee amputation. He was readmitted to acute care after a fall at rehab. There was dehiscence his stump wound. He required surgical repair by Dr. Beard. He feels better this morning. He denies any chest pain or shortness of breath. He denies any pain in his stump. He denies any nausea vomiting or diarrhea. Patient has been confused at times after his surgery. This is probably secondary to narcotics and his baseline dementia. His blood sugars have been running high. He lives at home with his . He is a former smoker CC: Chuckie Davidson MD - Home Medications and Allergies Home Medications: Home Medications Medication Instructions Recorded Confirmed Type Docusate Sodium 100 mg PO BID PRN 08/22/16 04/15/17 History Insulin Aspart Prot/Asp 70/30 55 unit SUBCUT AC BREAKFAST 08/22/16 04/15/17 History [NovoLOG Mix 70/30] Losartan Potassium [Cozaar] 50 mg PO DAILY 08/22/16 04/15/17 History Metformin HCl 1,000 mg PO BID 08/22/16 04/15/17 History Aspirin [Ecotrin] 81 mg PO BEDTIME 01/17/17 04/15/17 History Furosemide Tab [Lasix Tab] 20 mg PO BEDTIME #30 tablet 03/24/17 04/15/17 Rx oxyCODONE/ACETAMINOPHEN 5-325 1 tablet PO Q6H PRN #20 tablet 03/24/17 04/15/17 Rx [Percocet 5-325] Diltiazem Cd Cap [Cardizem CD] 180 mg PO DAILY #30 capsule 03/29/17 04/15/17 Rx Carvedilol [Coreg] 12.5 mg PO BID tablet 04/13/17 04/15/17 Rx Cilostazol [Pletal] 100 mg PO BID tablet 04/13/17 04/15/17 Rx Clopidogrel [Plavix] 75 mg PO DAILY tablet 04/13/17 04/15/17 Rx Docusate Sodium Cap [Colace Cap] 100 mg PO BID capsule 04/13/17 04/15/17 Rx Gabapentin Cap/Tab [Neurontin 800 mg PO TID capsule 04/13/17 04/15/17 Rx Cap/Tab] Losartan [Cozaar] 50 mg PO DAILY tablet 04/13/17 04/15/17 Rx Magnesium Oxide 400 mg PO DAILY tablet 04/13/17 04/15/17 Rx Methocarbamol Tab [Robaxin Tab] 750 mg PO Q8HR PRN tablet 04/13/17 04/15/17 Rx Pantoprazole Tab [Protonix Tab] 40 mg PO DAILY tablet 04/13/17 04/15/17 Rx Pravastatin [Pravachol] 80 mg PO BEDTIME tablet 04/13/17 04/15/17 Rx Sertraline [Zoloft] 50 mg PO DAILY tablet 04/13/17 04/15/17 Rx oxyCODONE/ACETAMINOPHEN 5-325 2 tablet PO Q6H PRN tablet 04/13/17 04/15/17 Rx [Percocet 5-325] Allergies/Adverse Reactions: Allergies Allergy/AdvReac Type Severity Reaction Status Date / Time vancomycin Allergy Seizure Verified 03/25/17 16:59 12 point system: reviewed and no additional remarkable complaints except as stated (As mentioned in HPI) Medical,Surgical,& Family Hx - Medical History Cardio: History of: Cardiac Dysrhythmia (Atrial fibrillation), CAD, Hypertension , [place], PVD ( orbital atherectomy and angioplasty of right anterior tibial artery) , Cardiovascular Problems ([employer] Dr. Stoner) Neurology: History of: Cerebrovascular Accident (Mild, ?), Dementia (Mild), Peripheral Neuropathy No history of: Seizures HEENT: History of: Eye Problem (Glasses Reading), Dental Problems (Dental Implant Upper) Endocrine: History of: Diabetes Mellitus (IDDM), Dyslipidemia Respiratory: History of: Obstructive Sleep Apnea, Respiratory Problems (Flu Vac Current 2016 Season) Comment Only: Pneumonia (Hx Pneum Vac) Genitourinary: History of: Prostate Problems Gastrointestinal: No history of: Polyps Musculoskeletal: History of: Amputation (:Right 2nd toe; Right below knee amputation on April 07, 2017), Musculoskeletal Problems (arthritis) Other: No history of: Anesthesia Reactions, Cancer - Surgical History Cardiac Surgeries: Sugical HX of: Cardiac Catheterization (stents), Cardiac Surgery (CABG 03/09/16) HEENT Surgeries: Surgical HX of: Eye Surgery (CATARACTS BILATERAL), Tonsilectomy & Adenoidectomy Abdominal Surgeries: Surgical HX of: Colonoscopy, Hernia Repair (Right inguinal hernia in [address] Beard) Orthopedic Surgeries: Surgical HX of;: Orthopedic Surgery (Right below-knee amputation) - Family History Family History: Reports;: Family Diabetes, Family Heart Disease, Family Hypertension - Social History Smoking Status: Former smoker Marital Status: Lives With:: Spouse Functional capacity: independent ambulation Exam (Progress Note) - Constitutional Vitals: Period Temp Pulse Resp BP Sys/Askew Pulse Ox Last 24 Hr 97.2 F-98.8 F 72-87 16-20 113-145/63-76 93-100 Exam: Examination: GENERAL: NAD. HEENT: PERRLA. EOMI. Mucous membranes are moist. NECK: Neck is supple. No JVD. No carotid bruit. No thyromegaly. CVS: Regular rate and rhythm. S1 and S2 are normal. RESPIRATORY: Lungs are clear. No rales or rhonchi. ABDOMEN: Soft and nontender. Bowel sounds are present. No hepatosplenomegaly. EXT: No edema. Peripheral pulses are present. 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 Cranial nerves II through XII are grossly intact. Motor strength is 5 over 5 except for right lower extremity SKIN: Warm and dry. MSK: Patient has right below-knee amputation which is covered with dressing and has some drains in it. Results - Labs CBC & BMP: 04/14/17 17:18 04/14/17 17:18 Lab Results: I have reviewed the past 24 hour labs Specialty Discharge - Follow Up or Referrals Follow up with: Moiz Chambers MD [Physician] -
[2017-04-16] MEDS ORDERED: SKIN HEALING OINT (AQUAPHOR) 50 GM TUBE TOP PRN (11:40)
--- NOTE | 2017-04-16 13:34 | General Surgery Progress Note ---
Assessment and Plan - Time spent with patient Time spent with patient: Less than 30 minutes (1) BKA stump complication Status: Acute Assessment and plan: Impression:1. 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 Wound dehiscence of the B-K amputation stump secondary to a fall 3. Hematoma of the right became to a stump secondary to a fall 4. Diabetes insulin-dependent. Plan: Will plan to take him to surgery tomorrow for debridement and evacuation and closure of the wound. 04/16/2017. Patient is doing well postop revision and repair of right BKA stump. Has drains in place and our nurses indicated a small area that was reinforced. We will leave these present dressings in place for now changing it tomorrow and see what we are dealing with. Family certainly indicated that they may want to try to go to a different place possibly like [place] because it would be closer to their home. Current Visit: Yes Subjective Patient reports: Present: feels better, pain is less, afebrile Exam - Constitutional Vitals: Period Temp Pulse Resp BP Sys/Askew Pulse Ox Last 24 Hr 97.2 F-98.8 F 67-86 16-18 113-128/63-73 94-100 General appearance: no acute distress - Head Head exam: Present: normal inspection - ENT ENT exam: Present: normal exam - Neck Neck exam: Present: normal inspection - Respiratory Respiratory exam: Present: clear to auscultation bilaterally, rales - Cardiovascular Cardiovascular exam: Present: RRR - GI/Abdominal GI/Abdominal exam: Present: normal bowel sounds, soft - Extremities Exam Extremities exam: Present: other (Minimal drainage on the right BKA and the dressing is dry at this time.) - Neurological Exam Neurological exam: Present: alert, oriented X3, CN II-XII intact - Skin Skin exam: Present: normal color, warm, dry Results - Labs CBC & BMP: 04/14/17 17:18 04/14/17 17:18 Lab Results: I have reviewed the past 24 hour labs Quality Measures - VTE Contraindication to Pharmacological VTE Prophylaxis: High Risk of Bleeding Contraindication to Mechanical VTE Prophylaxis: Vascular Ulceration Specialty Discharge - Follow Up or Referrals Follow up with: Moiz Chambers MD [Physician] -
[2017-04-16] MEDS: ASPIRIN EC 81 MG TABLET PO SCH (21:11)
[2017-04-16] MEDS: PRAVASTATIN 40 MG TABLET PO SCH (21:11)
[2017-04-16] MEDS: FUROSEMIDE 20 MG TABLET PO SCH (21:11)
[2017-04-17] MEDS: SODIUM CHLORIDE 0.45% 1,000 ML IV SCH ×3 (00:34→06:01)
[2017-04-17] MEDS: PIPERACILLIN/TAZOBACTAM 3,375 MG in SODIUM CHLORIDE 0.9% 100 ML IV SCH ×3 (01:31→17:47)
[2017-04-17 06:01] LABS: Basophils % 0.4 % (0.0-0.8); Eosinophils # 0.1 10*3/uL (0.0-0.87); Eosinophils % 1.3 % (0.00-10.9); Hematocrit 25.4 VOL% (42.0-52.0); Hemoglobin 8.1 GM/DL (14.0-18.0); Immature Granulocytes % 0.4 %; Immature Granulocytes Absolute 0.03 #; Lymphocytes # 1.5 10*3/uL (1.4-4.0); Mean Corpuscular HGB Conc 31.9 GM/DL (32-36); Mean Corpuscular Hemoglobin 28 PG (27-34); Mean Corpuscular Volume 86.1 FL (87-102); Mean Platelet Volume 8.4 FL (9.6-12.0); Monocytes # 0.6 10*3/uL (0.11-0.8); Monocytes % 8.2 % (1.7-12.7); Neutrophils # 5.5 10*3/uL (1.4-7.4); Neutrophils % 70.7 % (38.7-73.9); Platelet Count 458 T/CUMM (130-400); Red Blood Count 2.95 MC/CUMM (3.8-5.5); White Blood Count 7.8 T/CUMM (4-12)
[2017-04-17] MEDS: ACETAMINOPHEN 325 MG TABLET PO PRN (06:06)
[2017-04-17 06:29] LABS: Calcium 8.7 MG/DL (8.5-10.1); Magnesium 2.1 MG/DL (1.8-2.4); Osmolality,Calculated 285.5 MOS/KG (273-304); Potassium 4.4 MMOL/L (3.5-5.1)
[2017-04-17] MEDS: INSULIN REGULAR 100 UNIT/ML SUBCUT SCH ×4 (08:08→20:51)
[2017-04-17] MEDS: INSULIN ASPART PROTAMINE/ASPART 70/30 100 UNIT/ML SUBCUT SCH (08:08)
[2017-04-17] MEDS: CARVEDILOL 12.5 MG TABLET PO SCH ×2 (08:20→20:51)
[2017-04-17] MEDS: GABAPENTIN 400 MG CAPSULE PO SCH ×3 (08:20→20:51)
[2017-04-17] MEDS: DOCUSATE SODIUM 100 MG CAPSULE PO SCH ×2 (08:21→20:51)
[2017-04-17] MEDS: SERTRALINE 50 MG TABLET PO SCH (08:21)
[2017-04-17] MEDS: MAGNESIUM OXIDE 400 MG TABLET PO SCH (08:21)
[2017-04-17] MEDS: DILTIAZEM CD 180 MG CAPSULE PO SCH (08:22)
[2017-04-17] MEDS: LOSARTAN 50 MG TABLET PO SCH (08:22)
[2017-04-17] MEDS: PANTOPRAZOLE 40 MG TABLET PO SCH (08:22)
[2017-04-17] MEDS ORDERED: SODIUM CHLORIDE 0.9% 250 ML IV PRN (08:31)
--- NOTE | 2017-04-17 09:13 | General Surgery Progress Note ---
Assessment and Plan - Time spent with patient Time spent with patient: Greater than 30 minutes (1) BKA stump complication Status: Acute Assessment and plan: 04/17/2017. Patient is stable status post revision and repair of right BKA wound dehiscence. His H&H does seem to have dropped a little in the past 2 days, so we will go ahead and transfuse him. We are looking at discharge options at this time. The patient and his family are adamant at this point that they would like to be closer to [place], their home town. We will go ahead with the transfusion today, recheck labs, and have case management discuss this with them again. Current Visit: Yes Subjective Patient reports: Present: other (Mr. Chong is sitting up in bed without complaints this morning. His family is present. He denies shortness of breath , weakness, dizziness, confusion.) Exam - Constitutional Vitals: Period Temp Pulse Resp BP Sys/Askew Pulse Ox Last 24 Hr 97.3 F-98.0 F 65-82 16-20 110-169/56-90 95-99 General appearance: no acute distress, other (He is alert and oriented 3. He is cooperative with the exam.) - Respiratory Respiratory exam: Present: clear to auscultation bilaterally - Cardiovascular Cardiovascular exam: Present: RRR - Extremities Exam Extremities exam: Present: other (Right BK stump with moist dressing but no oozing oozing from the incision. There is bloody drainage and the Hemovac tubing, but no active drainage observed. There is no hematoma, no unusual induration, and no redness. The skin edges are well approximated. He is not unusually tender. He has good knee joint range of motion, and good anterior thigh muscle tone. The wound was cleaned and redressed.) Results - Labs CBC & BMP: 04/17/17 05:34 04/17/17 05:34 Lab Results: I have reviewed the past 24 hour labs (H&H noted.) Quality Measures - VTE Contraindication to Pharmacological VTE Prophylaxis: High Risk of Bleeding Contraindication to Mechanical VTE Prophylaxis: Vascular Ulceration Specialty Discharge - Follow Up or Referrals Follow up with: Moiz Chambers MD [Physician] -
--- NOTE | 2017-04-17 09:53 | Internal Med Progress Note ---
Assessment and Plan (1) BKA stump complication Status: Acute Assessment and plan: 72-year-old male admitted to acute care * Status post repair of BKA stump. 1 of the drain was removed. * Diabetes. Continue current treatment. * Hypertension. His medications will be continued * Coronary artery disease. Stable * Anemia. Hematocrit is slightly lower * Patient has decided to go to swing bed at [facility]. It is much closer to his home and will be easy on his . * Peripheral vascular disease. Restart antiplatelet agents when okay with surgery * Discussed with patient Current Visit: Yes (2) CAD (coronary artery disease) Status: Chronic Current Visit: No Qualifiers: Coronary Disease-Associated Artery/Lesion type: bypass graft [place] vs. transplanted heart: [place] heart Associated angina: without angina Qualified Code(s): I25.810 - Atherosclerosis of coronary artery bypass graft(s) without angina pectoris (3) Diabetes Status: Chronic Current Visit: No Qualifiers: Diabetes mellitus type: type 2 (4) Diabetic neuropathy Status: Chronic Current Visit: No (5) Dyslipidemia Status: Chronic Current Visit: No (6) Hypertension Status: Chronic Current Visit: No (7) PTSD (post-traumatic stress disorder) Status: Chronic Current Visit: No (8) PVD (peripheral vascular disease) Status: Chronic Current Visit: No (9) Paroxysmal a-fib Status: Chronic Current Visit: No (10) S/P CABG (coronary artery bypass graft) Status: Chronic Current Visit: No Internal Medicine - PN: Subj Interval history: He is feeling better this morning. No chest pain or shortness of breath. No nausea or vomiting. He is not complaining of pain in his stump. 1 of the drains was removed by surgery. Exam (Progress Note) - Constitutional Vitals: Period Temp Pulse Resp BP Sys/Askew Pulse Ox Last 24 Hr 97.3 F-98.0 F 65-82 16-20 110-169/56-90 95-99 Exam: Examination: GENERAL: NAD. NECK: Neck is supple. CVS: Regular rate and rhythm. S1 and S2 are normal. RESPIRATORY: Lungs are clear. ABDOMEN: Soft and nontender. EXT: No edema. 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 MSK: Patient has right below-knee amputation which is covered with dressing. Patient still has 1 drain. Results - Labs CBC & BMP: 04/17/17 05:34 04/17/17 05:34 Lab Results: I have reviewed the past 24 hour labs Quality Measures - VTE Contraindication to Pharmacological VTE Prophylaxis: High Risk of Bleeding Contraindication to Mechanical VTE Prophylaxis: Vascular Ulceration Specialty Discharge - Follow Up or Referrals Follow up with: Moiz Chambers MD [Physician] -
[2017-04-17 18:47] LABS: Hematocrit 31.6 VOL% (42.0-52.0)
[2017-04-17] MEDS: PRAVASTATIN 40 MG TABLET PO SCH (20:51)
[2017-04-17] MEDS: ASPIRIN EC 81 MG TABLET PO SCH (20:51)
[2017-04-18] MEDS: PIPERACILLIN/TAZOBACTAM 3,375 MG in SODIUM CHLORIDE 0.9% 100 ML IV SCH ×3 (00:27→16:48)
[2017-04-18] MEDS: ACETAMINOPHEN 325 MG TABLET PO PRN ×2 (01:25→14:53)
[2017-04-18] MEDS: SODIUM CHLORIDE 0.45% 1,000 ML IV SCH ×2 (07:57→18:45)
[2017-04-18] MEDS: INSULIN ASPART PROTAMINE/ASPART 70/30 100 UNIT/ML SUBCUT SCH ×2 (08:53→16:35)
[2017-04-18] MEDS: INSULIN REGULAR 100 UNIT/ML SUBCUT SCH ×4 (08:55→22:13)
[2017-04-18] MEDS: GABAPENTIN 400 MG CAPSULE PO SCH ×3 (08:56→20:13)
[2017-04-18] MEDS: SERTRALINE 50 MG TABLET PO SCH (08:56)
[2017-04-18] MEDS: FUROSEMIDE 20 MG TABLET PO SCH (08:57)
[2017-04-18] MEDS: PANTOPRAZOLE 40 MG TABLET PO SCH (08:57)
[2017-04-18] MEDS: CARVEDILOL 12.5 MG TABLET PO SCH ×2 (08:57→20:13)
[2017-04-18] MEDS: MAGNESIUM OXIDE 400 MG TABLET PO SCH (08:57)
[2017-04-18] MEDS: DOCUSATE SODIUM 100 MG CAPSULE PO SCH ×2 (08:58→22:12)
[2017-04-18] MEDS: DILTIAZEM CD 180 MG CAPSULE PO SCH (08:58)
--- NOTE | 2017-04-18 09:02 | Internal Med Progress Note ---
Assessment and Plan (1) BKA stump complication Status: Acute Assessment and plan: 72-year-old male admitted to acute care * Status post repair of BKA stump. Hemovac will be removed per Dr. Jensen * Diabetes. Will adjust his medications * Hypertension. His medications will be continued * Coronary artery disease. Stable * Anemia. Hematocrit is better after transfusion * Peripheral vascular disease. Restart antiplatelet agents when okay with surgery * Discussed with patient and his Current Visit: Yes (2) CAD (coronary artery disease) Status: Chronic Current Visit: No Qualifiers: Coronary Disease-Associated Artery/Lesion type: bypass graft [place] vs. transplanted heart: [place] heart Associated angina: without angina Qualified Code(s): I25.810 - Atherosclerosis of coronary artery bypass graft(s) without angina pectoris (3) Diabetes Status: Chronic Current Visit: No Qualifiers: Diabetes mellitus type: type 2 (4) Diabetic neuropathy Status: Chronic Current Visit: No (5) Dyslipidemia Status: Chronic Current Visit: No (6) Hypertension Status: Chronic Current Visit: No (7) PTSD (post-traumatic stress disorder) Status: Chronic Current Visit: No (8) PVD (peripheral vascular disease) Status: Chronic Current Visit: No (9) Paroxysmal a-fib Status: Chronic Current Visit: No (10) S/P CABG (coronary artery bypass graft) Status: Chronic Current Visit: No Internal Medicine - PN: Subj Interval history: He is feeling better this morning. No chest pain or shortness of breath. His pain is better controlled. Exam (Progress Note) - Constitutional Vitals: Period Temp Pulse Resp BP Sys/Askew Pulse Ox Last 24 Hr 97.2 F-98.6 F 61-77 14-20 105-169/59-84 96-100 Exam: Examination: GENERAL: NAD. CVS: Regular rate and rhythm. S1 and S2 are normal. RESPIRATORY: Lungs are clear. ABDOMEN: Soft and nontender. EXT: No edema. 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 MSK: He still has Hemovac Results - Labs CBC & BMP: 04/17/17 18:20 04/17/17 05:34 Lab Results: I have reviewed the past 24 hour labs Quality Measures - VTE Contraindication to Pharmacological VTE Prophylaxis: High Risk of Bleeding Contraindication to Mechanical VTE Prophylaxis: Vascular Ulceration Specialty Discharge - Follow Up or Referrals Follow up with: Moiz Chambers MD [Physician] -
[2017-04-18] MEDS: LOSARTAN 50 MG TABLET PO SCH (09:09)
[2017-04-18] MEDS ORDERED: DOCUSATE SODIUM 100 MG CAPSULE PO PRN (09:22)
--- NOTE | 2017-04-18 09:26 | General Surgery Progress Note ---
Assessment and Plan - Time spent with patient Time spent with patient: Less than 30 minutes (1) BKA stump complication Status: Acute Assessment and plan: Impression:1. 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 Wound dehiscence of the B-K amputation stump secondary to a fall 3. Hematoma of the right became to a stump secondary to a fall 4. Diabetes insulin-dependent. Plan: Will plan to take him to surgery tomorrow for debridement and evacuation and closure of the wound. 04/16/2017. Patient is doing well postop revision and repair of right BKA stump. Has drains in place and our nurses indicated a small area that was reinforced. We will leave these present dressings in place for now changing it tomorrow and see what we are dealing with. Family certainly indicated that they may want to try to go to a different place possibly like [place] because it would be closer to their home. 04/18/2017. Dressing remains dry at this time and the Hemovac drainage is very minimal. Physical therapy to start working with him a little bit today. He received 2 units packed cells and crits 31 this morning. Reported that he continues to get up at night without calling people will try to get him bedside commode so that he does not have to move too much. There is concern for falls at this point especially at night. Will maintain present level of care hopefully get his drains out tomorrow and then once his available to go to swing bed then we can transfer him at that time. Current Visit: Yes Subjective Patient reports: Present: pain is less, tolerating a regular diet, bowel movement, afebrile Exam - Constitutional Vitals: Period Temp Pulse Resp BP Sys/Askew Pulse Ox Last 24 Hr 97.2 F-98.6 F 61-77 14-20 105-169/59-84 96-100 General appearance: mild distress - Head Head exam: Present: normal inspection - ENT ENT exam: Present: normal exam - Neck Neck exam: Present: normal inspection - Respiratory Respiratory exam: Present: clear to auscultation bilaterally, rales - Cardiovascular Cardiovascular exam: Present: RRR - GI/Abdominal GI/Abdominal exam: Present: hypoactive bowel sounds, soft. Absent: tenderness - Extremities Exam Extremities exam: Present: other (Dressing remains dry and minimal MERRY drainage) - Back Exam Back exam: Present: normal inspection - Neurological Exam Neurological exam: Present: alert, oriented X3, CN II-XII intact - Skin Skin exam: Present: normal color, warm, dry Results - Labs CBC & BMP: 04/17/17 18:20 04/17/17 05:34 Lab Results: I have reviewed the past 24 hour labs Quality Measures - VTE Contraindication to Pharmacological VTE Prophylaxis: High Risk of Bleeding Contraindication to Mechanical VTE Prophylaxis: Vascular Ulceration Specialty Discharge - Follow Up or Referrals Follow up with: Moiz Chambers MD [Physician] -
--- NOTE | 2017-04-18 09:39 | Physician Query Form ---
CLICK EDIT DOCUMENT TO SELECT QUERY ANSWER --> OK --> SIGN Samantha Rodriguez RN, CCDS Certified Clinical Real Estate Valuer W) [phone] (f) [phone] [email or web address]: Make your selection(s) from the choices in EACH section by typing an "x" and enter comments in the comment section. Please use your independent medical judgment in providing your response. This request does not imply that any particular answer is desired or expected. CLINICAL INDICATORS: (Providers should not edit this section) The medical record indicates that the patient was admitted post fall, suffered dehiscence of a B-K amputation stump, Had Hematoma of the right, HH dropped to 8.1/25.4, and the patient was given 1 units of blood. Based on the above, could you clarify which of the following conditions you are evaluating, treating, and/or monitoring? ( x) Blood loss anemia (x ) acute ( ) chronic ( ) acute on chronic ( ) Acute blood loss anemia on baseline chronic anemia ( ) Acute blood loss anemia as a complication of a procedure ( ) Iron deficiency anemia not associated with blood loss ( ) Dilutional anemia due to IV fluids ( ) Anemia due to chemotherapy ( ) Anemia due to neoplastic disease ( ) Anemia due to chronic kidney disease ( ) Pernicious anemia ( ) Aplastic anemia ( ) Hemolytic anemia ( ) immune ( ) non-immune - please specify cause: ( ) Anemia due to other condition, please specify: ( ) Clinically unable to determine COMMENTS: PLEASE ALSO DOCUMENT RESPONSE IN PROGRESS NOTES AND/OR DISCHARGE SUMMARY Use of terms such as suspected, likely, or probable (associated with a specific diagnosis that is being evaluated, monitored, or treated as if it exists) are acceptable and can be restated in the discharge summary if not ruled out. MTDD
[2017-04-18] MEDS: CILOSTAZOL 50 MG TABLET PO SCH (20:13)
[2017-04-18] MEDS: ASPIRIN EC 81 MG TABLET PO SCH (20:13)
[2017-04-18] MEDS: PRAVASTATIN 40 MG TABLET PO SCH (22:13)
[2017-04-19] MEDS: PIPERACILLIN/TAZOBACTAM 3,375 MG in SODIUM CHLORIDE 0.9% 100 ML IV SCH ×2 (00:16→08:50)
[2017-04-19 05:20] LABS: Basophils # 0.1 10*3/uL (0.0-0.2); Eosinophils # 0.3 10*3/uL (0.0-0.87); Eosinophils % 5.2 % (0.00-10.9); Hematocrit 34.5 VOL% (42.0-52.0); Hemoglobin 11.2 GM/DL (14.0-18.0); Immature Granulocytes % 0.7 %; Immature Granulocytes Absolute 0.04 #; Lymphocytes # 1.3 10*3/uL (1.4-4.0); Mean Corpuscular HGB Conc 32.5 GM/DL (32-36); Mean Corpuscular Hemoglobin 28 PG (27-34); Mean Platelet Volume 8.4 FL (9.6-12.0); Monocytes # 0.6 10*3/uL (0.11-0.8); Monocytes % 11.1 % (1.7-12.7); Neutrophils # 3.4 10*3/uL (1.4-7.4); Platelet Count 452 T/CUMM (130-400); Red Blood Count 4.01 MC/CUMM (3.8-5.5); Red Cell Distribution Width 15.7 % (9.3-17.3); White Blood Count 5.8 T/CUMM (4-12)
[2017-04-19 05:46] LABS: Calcium 8.5 MG/DL (8.5-10.1); Magnesium 2.1 MG/DL (1.8-2.4); Osmolality,Calculated 279.5 MOS/KG (273-304); Potassium 4.5 MMOL/L (3.5-5.1)
[2017-04-19] MEDS: DILTIAZEM CD 180 MG CAPSULE PO SCH (08:39)
[2017-04-19] MEDS: PANTOPRAZOLE 40 MG TABLET PO SCH (08:39)
[2017-04-19] MEDS: INSULIN ASPART PROTAMINE/ASPART 70/30 100 UNIT/ML SUBCUT SCH (08:39)
[2017-04-19] MEDS: INSULIN REGULAR 100 UNIT/ML SUBCUT SCH ×2 (08:39→11:43)
[2017-04-19] MEDS: DOCUSATE SODIUM 100 MG CAPSULE PO SCH (08:40)
[2017-04-19] MEDS: CARVEDILOL 12.5 MG TABLET PO SCH (08:40)
[2017-04-19] MEDS: SERTRALINE 50 MG TABLET PO SCH (08:40)
[2017-04-19] MEDS: GABAPENTIN 400 MG CAPSULE PO SCH (08:40)
[2017-04-19] MEDS: FUROSEMIDE 20 MG TABLET PO SCH (08:40)
[2017-04-19] MEDS: LOSARTAN 50 MG TABLET PO SCH (08:40)
[2017-04-19] MEDS: MAGNESIUM OXIDE 400 MG TABLET PO SCH (08:40)
[2017-04-19] MEDS: CILOSTAZOL 50 MG TABLET PO SCH (08:43)
--- NOTE | 2017-04-19 08:56 | Discharge Summary ---
Hospital Course - Hospital Course Hospital Course: Discharge summary: Discharge diagnosis: 1. Wound dehiscence of the right BKA secondary to fall 2. Status post right BKA secondary to peripheral vascular disease. 3. History of coronary artery disease. Procedure: Per Dr. 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 He fell and sustained a dehiscence of the right BKA wound. He is transferred back down here where he was taken to the operating room by Dr. Chambers and this was debrided and cleaned up and closed. I have been following him since Dr. Chambers is been out of town at this time and the patient has done well. We did have to transfuse him 2 units of packed cells but his hematocrit is holding at 34 at this time. His MERRY drainage is minimal and I pull the drain today with a little bit of bleeding from the drain site. The leg looks good with no swelling and no evidence of any infection in the incision at this time. He is undergoing some physical therapy but needs a lot more. He has been cautioned multiple times that he must not get up without notifying somebody first because of his high fall risk. We will do his wound care every other day and keep it clean and keep in a compressive dressing on it for now get the edema out for future plans for prosthesis. We will keep the stitches in good [address] Chambers will remove those and begin to get him a prosthesis at that time. - Time spent with patient Time with patient DS: Greater than 30 minutes Diagnosis - Discharge Diagnosis (1) BKA stump complication Status: Resolved Specialty Discharge - Follow Up or Referrals Follow up with: Moiz Chambers MD [Physician] - - Speciality Discharge Instructions Surgery Instructions: 1. Patient to have fall risk. 2. Must instruct him and remind him not to get up without first calling somebody because of the risk of him falling. 3. Wound care every other day to the BKA stump. 4. Physical therapy to get the patient functional onto a walker and to be up in a chair. Discharge Plan - Discharge Data Disposition: Swing Bed, Hos Based, [facility] [place] Condition at Discharge: Stable Discharge Diet: advance to your usual diet Activity: as per physical therapy, no prolonged standing, other (Fall risk and instruct patient to always call somebody before getting. Probably should have a bedside commode) Hygiene: may shower Weight Bearing at Discharge: other (Full weightbearing to the left lower extremity but needs a walker at this time.) Driving: other (No) Contact your physician if you experience:: fever over 101, Redness or swelling, Bleeding, pain uncontrolled by pain medications Wound / Dressing Care Instructions: Wound care to the right BKA every other day. 1. Wash with Hibiclens--may get in the shower. 2. Apply bacitracin ointment to the incision and cover with Adaptic. 3. Aquaphor to the entire leg knee and flaps of the stump. 4. Cover the incisions with fluffs and an ABD pad over the end of the stump. 5. Wrapped with cast padding and then Coban to above the knee - Discharge Medications New Alum/Mag/Simeth Max Str Liquid [Mylanta Max Strength Liquid] 15 ml PO Q6H PRN PRN Reason: Dyspepsia HYDROcodone/ACETAMIN 7.5-325 [[place] 7.5-325] 1 tablet PO Q6H PRN #60 tablet PRN Reason: Pain Moderate (4-7) Insulin Regular [HumuLIN R] See Protocol SUBCUT ACHS unit Ondansetron Inj [Zofran Inj] 4 mg IV Q6H PRN vial PRN Reason: Nausea/Vomiting Pantoprazole Tab [Protonix Tab] 40 mg PO DAILY tablet Acetaminophen Tab [Tylenol Tab] 650 mg PO Q6H PRN tablet PRN Reason: Pain Mild (1-3) And/Or Fever Docusate Sodium Cap [Colace Cap] 100 mg PO BID capsule Skin Healing Oint (Aquaphor) [Aquaphor] 1 applic TOP PRN PRN applic PRN Reason: Dry Skin Continue Insulin Aspart Prot/Asp 70/30 [NovoLOG Mix 70/30] 55 unit SUBCUT AC BREAKFAST Metformin HCl 1,000 mg PO BID Losartan Potassium [Cozaar] 50 mg PO DAILY Docusate Sodium 100 mg PO BID PRN PRN Reason: Constipation Aspirin [Ecotrin] 81 mg PO BEDTIME Furosemide Tab [Lasix Tab] 20 mg PO BEDTIME #30 tablet Diltiazem Cd Cap [Cardizem CD] 180 mg PO DAILY #30 capsule Cilostazol [Pletal] 100 mg PO BID tablet Clopidogrel [Plavix] 75 mg PO DAILY tablet Docusate Sodium Cap [Colace Cap] 100 mg PO BID capsule Gabapentin Cap/Tab [Neurontin Cap/Tab] 800 mg PO TID capsule Losartan [Cozaar] 50 mg PO DAILY tablet Magnesium Oxide 400 mg PO DAILY tablet Methocarbamol Tab [Robaxin Tab] 750 mg PO Q8HR PRN tablet PRN Reason: Muscle Pain Pravastatin [Pravachol] 80 mg PO BEDTIME tablet Sertraline [Zoloft] 50 mg PO DAILY tablet Carvedilol [Coreg] 12.5 mg PO BID tablet Discontinued oxyCODONE/ACETAMINOPHEN 5-325 [Percocet 5-325] 1 tablet PO Q6H PRN #20 tablet PRN Reason: Pain Moderate (4-7) Pantoprazole Tab [Protonix Tab] 40 mg PO DAILY tablet oxyCODONE/ACETAMINOPHEN 5-325 [Percocet 5-325] 2 tablet PO Q6H PRN tablet PRN Reason: Pain Moderate (4-7) - Follow Up or Referral Follow Up: Moiz Chambers MD [Physician] - - Forms/Instructions Instructions: Below the Knee Amputation (DC), Fall Prevention for Older Adults (GEN), Wound Dehiscence (DC) Exam - Constitutional Vitals: Period Temp Pulse Resp BP Sys/Askew Pulse Ox Last 24 Hr 96.3 F-98.2 F 67-77 16-20 126-144/61-71 95-99 General appearance: no acute distress - Head Head exam: Present: normal inspection - ENT ENT exam: Present: normal exam - Neck Neck exam: Present: normal inspection - Respiratory Respiratory exam: Present: clear to auscultation bilaterally, rales - Cardiovascular Cardiovascular exam: Present: regular rate and rhythm - GI/Abdominal GI/Abdominal exam: Present: hypoactive bowel sounds, soft - Extremities Exam Extremities exam: Present: normal inspection, other (Right BKA incision looks clean and dry with no sign of any infection or skin loss present. Mild postoperative swelling but not anything of any significance. Minimal MERRY drainage.) - Back Exam Back exam: Present: normal inspection - Neurological Exam Neurological exam: Present: alert, oriented X3, CN II-XII intact - Psychiatric Psychiatric exam: Present: normal affect, normal mood, anxious - Skin Skin exam: Present: normal color, warm, dry Discharge Results Labs on day of discharge: Labs from last 24 hours 04/19/17 04/19/17 04/19/17 07:04 04:35 04:35 WBC 5.8 RBC 4.01 D Hgb 11.2 L Hct 34.5 L MCV 86.0 L MCH 28 MCHC 32.5 RDW 15.7 Plt Count 452 H MPV 8.4 L Neut % (Auto) 59.0 Lymph % (Auto) 23.0 [place] % (Auto) 11.1 Eos % (Auto) 5.2 Baso % (Auto) 1.0 H Neut # (Auto) 3.4 Lymph # (Auto) 1.3 L [place] # (Auto) 0.6 Eos # (Auto) 0.3 Baso # (Auto) 0.1 Immature Gran % 0.7 Nucleated RBC % 0.0 Immature Gran # 0.04 Nucleated RBCs # 0.00 Sodium 139 Potassium 4.5 Chloride 104 Carbon Dioxide 26 Anion Gap 13.5 BUN 9 Creatinine 1.00 GFR Calculation 117 BUN/Creatinine Ratio 9.00 Glucose 162 H POC Glucose 211 H Calculated Osmolality 279.5 Calcium 8.5 Magnesium 2.1 04/18/17 04/18/17 04/18/17 21:04 15:17 11:02 WBC RBC Hgb Hct MCV MCH MCHC RDW Plt Count MPV Neut % (Auto) Lymph % (Auto) [place] % (Auto) Eos % (Auto) Baso % (Auto) Neut # (Auto) Lymph # (Auto) [place] # (Auto) Eos # (Auto) Baso # (Auto) Immature Gran % Nucleated RBC % Immature Gran # Nucleated RBCs # Sodium Potassium Chloride Carbon Dioxide Anion Gap BUN Creatinine GFR Calculation BUN/Creatinine Ratio Glucose POC Glucose 305 H 75 205 H Calculated Osmolality Calcium Magnesium DS: Provider Date of admission: 04/16/17 14:04 Primary care physician: Nils Savage MD Attending physician on admission: Chuckie Davidson MD Consults: 04/14/17 16:56 Consult to Anesthesiology [CONS] Routine Consulting Provider: Reason for Anesthesiology: Pre-op Clearance 04/15/17 10:20 Consult to Case Mgmt/Social Srvs [CONS] Routine Reason for Case Mgmt/Social Srvs: Discharge Planning Swingbed/SNF/Assisted Consult Comment: IN [place] PER PATIENT REQUEST 04/16/17 09:08 Consult to Physician [CONS] Routine Comment: PATIENT KNOWN TO YOU-MEDICAL security public safety officer Provider: Nils Savage Consulting Provider Notified: Yes When should Consulting Provider be notified: Now Person Notified: dr. savage Date Notified: 04/16/17 Time Notified: 09:33 Consult Notification Comment: antolin called at 9:46 04/17/17 08:32 Consult to Physical Therapy [CONS] Routine Reason for Physical Therapy: Evaluate and Treat Start Therapy: Today Discharging clinician: Chuckie Davidson MD Expected date of discharge: 04/19/17
[2017-04-19] MEDS ORDERED: LOSARTAN 50 MG TABLET PO SCH (09:00)
--- NOTE | 2017-04-19 09:46 | Internal Med Progress Note ---
Assessment and Plan (1) BKA stump complication Status: Resolved Assessment and plan: 72-year-old male admitted to acute care * Status post repair of BKA stump. Looks clean * Diabetes. Will adjust his medications * Hypertension. His medications will be continued * Coronary artery disease. Stable * Anemia. Hematocrit is better after transfusion * Peripheral vascular disease. Restart antiplatelet agents when okay with surgery * Discussed with patient and his * Discharge to swing bed in [place]. I will see him in office in 2 weeks after discharge Current Visit: Yes (2) CAD (coronary artery disease) Status: Chronic Current Visit: No Qualifiers: Coronary Disease-Associated Artery/Lesion type: bypass graft [place] vs. transplanted heart: [place] heart Associated angina: without angina Qualified Code(s): I25.810 - Atherosclerosis of coronary artery bypass graft(s) without angina pectoris (3) Diabetes Status: Chronic Current Visit: No Qualifiers: Diabetes mellitus type: type 2 (4) Diabetic neuropathy Status: Chronic Current Visit: No (5) Dyslipidemia Status: Chronic Current Visit: No (6) Hypertension Status: Chronic Current Visit: No (7) PTSD (post-traumatic stress disorder) Status: Chronic Current Visit: No (8) PVD (peripheral vascular disease) Status: Chronic Current Visit: No (9) Paroxysmal a-fib Status: Chronic Current Visit: No (10) S/P CABG (coronary artery bypass graft) Status: Chronic Current Visit: No Internal Medicine - PN: Subj Interval history: He is feeling better this morning. No specific complaints. He had a good night Exam (Progress Note) - Constitutional Vitals: Period Temp Pulse Resp BP Sys/Askew Pulse Ox Last 24 Hr 96.3 F-98.2 F 67-77 16-20 126-144/61-71 95-99 Exam: Examination: GENERAL: NAD. CVS: Regular rate and rhythm. S1 and S2 are normal. RESPIRATORY: Lungs are clear. ABDOMEN: Soft and nontender. EXT: No edema. 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 MSK: His stump looks clean. There is no drainage. [place] are in place Results - Labs CBC & BMP: 04/19/17 04:35 04/19/17 04:35 Lab Results: I have reviewed the past 24 hour labs Quality Measures - VTE Contraindication to Pharmacological VTE Prophylaxis: High Risk of Bleeding Contraindication to Mechanical VTE Prophylaxis: Vascular Ulceration Specialty Discharge - Follow Up or Referrals Follow up with: Moiz Chambers MD [Physician] - (3 weeks)
[2017-04-19 11:21] VITALS: BP 116/67
== END 2017-04-19 12:14 | disposition swing bed (61) | DRG 501 ==
LOC: N.3E
PROVIDERS: ADMIT Specialist; ATTEND Specialist

== ENCOUNTER 2017-05-08 18:59 | Inpatient (IN) ==
--- NOTE | 2017-05-08 19:57 | Emergency Department Note ---
Kathryn Coppola Mantricia, am scribing for, and in the presence of, Mathew Mills MD 19:31. Gene Coppola Charles R, MD, personally performed the services described in this documentation, ascribed by Chente Peralta in my presence, and it is both accurate and complete [id number] . Arrival - Arrival Chief Complaint: Extremity Injury Stated Complaint: ext problem ED Nursing Triage Note: C/C bumped his R BKstump when getting into chair. Pt is [address] Beard this afternoon for FU and all was good. Bleeding is controlled with pressure dressing. EMS states surgical site is open Mode of Arrival: Stretcher Limitations: No Limitations Source: Patient Time Seen by Provider: 05/08/17 19:28 - History of Present Illness HPI Narrative: Pt is a 72 y/o black male arriving to ED by EMS with c/o injury to RLE that happened today. Pt has a right BK stump. He states that as he was sitting down in his chair at home, he bumped his stump. He did not realize that he bumped his leg that hard initially, until he saw the blood. Pt states that he was not able to control the bleeding and denies any pain to stump. Pt reports that he has his right BKA a month ago and was seen today by Dr. Chambers but had a normal appointment while there. Pt is currently taking Coumadin. He reports no other complaints to ED. Onset (ago): hour(s) Allergies/Adverse Reactions: Allergies Allergy/AdvReac Type Severity Reaction Status Date / Time vancomycin Allergy Seizure Verified 05/08/17 19:16 Home Medications: Home Medications Medication Instructions Recorded Confirmed Type Docusate Sodium 100 mg PO BID PRN 08/22/16 04/15/17 History Insulin Aspart Prot/Asp 70/30 55 unit SUBCUT AC BREAKFAST 08/22/16 04/15/17 History [NovoLOG Mix 70/30] Losartan Potassium [Cozaar] 50 mg PO DAILY 08/22/16 04/15/17 History Metformin HCl 1,000 mg PO BID 08/22/16 04/15/17 History Aspirin [Ecotrin] 81 mg PO BEDTIME 01/17/17 04/15/17 History Furosemide Tab [Lasix Tab] 20 mg PO BEDTIME #30 tablet 03/24/17 04/15/17 Rx Diltiazem Cd Cap [Cardizem CD] 180 mg PO DAILY #30 capsule 03/29/17 04/15/17 Rx Carvedilol [Coreg] 12.5 mg PO BID tablet 04/13/17 04/15/17 Rx Cilostazol [Pletal] 100 mg PO BID tablet 04/13/17 04/15/17 Rx Clopidogrel [Plavix] 75 mg PO DAILY tablet 04/13/17 04/15/17 Rx Docusate Sodium Cap [Colace Cap] 100 mg PO BID capsule 04/13/17 04/15/17 Rx Gabapentin Cap/Tab [Neurontin 800 mg PO TID capsule 04/13/17 04/15/17 Rx Cap/Tab] Losartan [Cozaar] 50 mg PO DAILY tablet 04/13/17 04/15/17 Rx Magnesium Oxide 400 mg PO DAILY tablet 04/13/17 04/15/17 Rx Methocarbamol Tab [Robaxin Tab] 750 mg PO Q8HR PRN tablet 04/13/17 04/15/17 Rx Pravastatin [Pravachol] 80 mg PO BEDTIME tablet 04/13/17 04/15/17 Rx Sertraline [Zoloft] 50 mg PO DAILY tablet 04/13/17 04/15/17 Rx Acetaminophen Tab [Tylenol Tab] 650 mg PO Q6H PRN tablet 04/19/17 Rx Alum/Mag/Simeth Max Str Liquid 15 ml PO Q6H PRN 04/19/17 Rx [Mylanta Max Strength Liquid] Docusate Sodium Cap [Colace Cap] 100 mg PO BID capsule 04/19/17 Rx HYDROcodone/ACETAMIN 7.5-325 1 tablet PO Q6H PRN #60 tablet 04/19/17 Rx [[place] 7.5-325] Insulin Regular [HumuLIN R] See Protocol SUBCUT ACHS unit 04/19/17 Rx Ondansetron Inj [Zofran Inj] 4 mg IV Q6H PRN vial 04/19/17 Rx Pantoprazole Tab [Protonix Tab] 40 mg PO DAILY tablet 04/19/17 Rx Skin Healing Oint (Aquaphor) 1 applic TOP PRN PRN applic 04/19/17 Rx [Aquaphor] Review of System - Review of System 12 point system: reviewed and no additional remarkable complaints except as stated - Review of System Constitutional: Absent: chills, diaphoresis Gastrointestinal: Absent: abdominal pain, nausea, vomiting, diarrhea Genitourinary male: Absent: urgency Musculoskeletal: Present: other (RLE injury). 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 Beard) Orthopedic Surgeries: Surgical HX of;: Orthopedic Surgery (Right below-knee amputation) - Family History Family History: Reports;: Family Diabetes, Family Heart Disease, Family Hypertension - Social History Smoking Status: Former smoker Frequency of Alcohol Use: None Type of Drug Use: None Exam Vital Signs: Vital Signs Temperature 97.3 F L 05/08/17 18:59 Pulse Rate 89 05/08/17 18:59 Respiratory Rate 18 05/08/17 18:59 Blood Pressure 128/68 05/08/17 18:59 O2 Sat by Pulse Oximetry 99 05/08/17 18:59 - General General appearance: alert, in no apparent distress - Head Head exam: Present: atraumatic, normocephalic. Absent: normal inspection - Eye Eye exam: Present: normal appearance, PERRL, EOMI - ENT ENT exam: Present: normal exam, normal oropharynx, mucous membranes moist, TM's normal bilaterally, normal external ear exam - Neck Neck exam: Present: normal inspection, full ROM, trachea midline. Absent: tenderness - Chest Chest inspection: Present: normal inspection, symmetric chest wall rise. Absent : tenderness - Respiratory Respiratory exam: Present: normal lung sounds bilaterally - Cardiovascular Cardiovascular exam: Present: regular rate, normal rhythm, normal heart sounds - Abdominal Exam Abdominal exam: Present: soft, normal bowel sounds. Absent: distention, tenderness, guarding, rebound - Extremities Exam Extremities exam: Present: full ROM, normal capillary refill, other (right BKA abrasion; bleeding controlled). Absent: tenderness, pedal edema - Back Exam Back exam: Present: normal inspection, full ROM. Absent: tenderness - Neurological Exam Neurological exam: Present: alert, oriented X3, CN II-XII intact, normal gait, reflexes normal - Psychiatric Psychiatric exam: Present: normal affect, normal mood - Skin Skin exam: Present: warm, dry, intact, normal color Course - Consultations Consultation #1: Dr. Chambers will admit the patient n.p.o. after midnight Time: 19:56 Disposition Clinical Impression: Wound dehiscence, Hx of right BKA, Chronic anticoagulation Case discussed with: patient, patient's family Disposition: Still a Patient Condition: Stable Time of Disposition: 19:57
[2017-05-08] MEDS ORDERED: DEXTROSE 50% 25 GM/50 ML VIAL IV PRN (19:58)
[2017-05-08] MEDS ORDERED: ONDANSETRON 4 MG/2 ML VIAL IV PRN (19:58)
[2017-05-08] MEDS ORDERED: HYDROmorphone 2 MG/1 ML VIAL IV PRN (19:58)
[2017-05-08] MEDS ORDERED: ALBUTEROL/IPRATROPIUM 3 ML NEB RESP TX PRN (19:58)
[2017-05-08] MEDS ORDERED: GLUCAGON 1 MG VIAL IM PRN (19:58)
[2017-05-08 20:51] LABS: Basophils # 0.1 10*3/uL (0.0-0.2); Basophils % 0.8 % (0.0-0.8); Eosinophils # 0.3 10*3/uL (0.0-0.87); Eosinophils % 3.1 % (0.00-10.9); Hematocrit 32.6 VOL% (42.0-52.0); Hemoglobin 10.9 GM/DL (14.0-18.0); Immature Granulocytes % 0.4 %; Immature Granulocytes Absolute 0.04 #; Lymphocytes # 2.4 10*3/uL (1.4-4.0); Lymphocytes % 23.5 % (21.2-54.2); Mean Corpuscular HGB Conc 33.4 GM/DL (32-36); Mean Corpuscular Hemoglobin 29 PG (27-34); Mean Corpuscular Volume 85.1 FL (87-102); Monocytes # 0.8 10*3/uL (0.11-0.8); Monocytes % 7.5 % (1.7-12.7); Neutrophils # 6.7 10*3/uL (1.4-7.4); Neutrophils % 64.7 % (38.7-73.9); Platelet Count 357 T/CUMM (130-400); Red Blood Count 3.83 MC/CUMM (3.8-5.5); Red Cell Distribution Width 15.7 % (9.3-17.3); White Blood Count 10.3 T/CUMM (4-12)
[2017-05-08 20:58] LABS: PT Patient Result 11.1 SECS
[2017-05-08 21:11] LABS: Alanine Aminotransferase 19 U/L (16-61); Albumin 3.2 G/DL (3.4-5.0); Alkaline Phosphatase 150 U/L (45-117); Aspartate Amino Transferase 14 U/L (0-37); Bilirubin,Total < 0.39 MG/DL (0.2-1.0); Blood Urea Nitrogen 24 MG/DL (7-18); Calcium 8.6 MG/DL (8.5-10.1); Glucose 212 MG/DL (74-106); Magnesium 1.7 MG/DL (1.8-2.4); Osmolality,Calculated 288.4 MOS/KG (273-304); Potassium 4.2 MMOL/L (3.5-5.1); Sodium 140 MMOL/L (136-145); Total Protein 6.4 G/DL (6.4-8.3)
[2017-05-08] MEDS: INSULIN REGULAR 100 UNIT/ML SUBCUT SCH (23:37)
[2017-05-08] MEDS: ACETAMINOPHEN 325 MG TABLET PO PRN (23:40)
[2017-05-08] MEDS: SODIUM CHLORIDE 0.9% 1,000 ML IV SCH (23:44)
[2017-05-09 05:51] LABS: Basophils # 0.1 10*3/uL (0.0-0.2); Basophils % 0.7 % (0.0-0.8); Eosinophils # 0.3 10*3/uL (0.0-0.87); Eosinophils % 3.9 % (0.00-10.9); Hematocrit 29.1 VOL% (42.0-52.0); Hemoglobin 9.8 GM/DL (14.0-18.0); Immature Granulocytes % 0.3 %; Immature Granulocytes Absolute 0.02 #; Lymphocytes # 2.4 10*3/uL (1.4-4.0); Lymphocytes % 32.4 % (21.2-54.2); Mean Corpuscular HGB Conc 33.7 GM/DL (32-36); Mean Corpuscular Hemoglobin 29 PG (27-34); Mean Corpuscular Volume 85.3 FL (87-102); Mean Platelet Volume 8.8 FL (9.6-12.0); Monocytes # 0.8 10*3/uL (0.11-0.8); Monocytes % 10.7 % (1.7-12.7); Neutrophils # 3.9 10*3/uL (1.4-7.4); Platelet Count 300 T/CUMM (130-400); Red Blood Count 3.41 MC/CUMM (3.8-5.5); Red Cell Distribution Width 15.5 % (9.3-17.3); White Blood Count 7.5 T/CUMM (4-12)
[2017-05-09 06:04] LABS: INR 1.1; PT Patient Result 11.6 SECS
[2017-05-09 06:18] LABS: Alanine Aminotransferase 15 U/L (16-61); Alkaline Phosphatase 122 U/L (45-117); Aspartate Amino Transferase 12 U/L (0-37); Bilirubin,Total < 0.39 MG/DL (0.2-1.0); Blood Urea Nitrogen 21 MG/DL (7-18); Calcium 8.6 MG/DL (8.5-10.1); Glucose 149 MG/DL (74-106); Magnesium 1.9 MG/DL (1.8-2.4); Osmolality,Calculated 288.1 MOS/KG (273-304); Potassium 3.6 MMOL/L (3.5-5.1); Sodium 142 MMOL/L (136-145)
[2017-05-09] MEDS: PANTOPRAZOLE 40 MG TABLET PO SCH (08:41)
--- NOTE | 2017-05-09 09:16 | General Surg History&Physical ---
Assessment and Plan (1) Amputated below knee Status: Acute Assessment and plan: Stump is reopened plan will be for irrigation repair in OR today patient agrees with this plan Current Visit: Yes History of Present Illness Chief complaint: open bka stump. History of present illness: Mr. Chong is a 72 year old male Luis Chong is a 72-year-old man with a one-month history of a BKA amputation due to peripheral vascular disease and actually had amputation had gone to rehab fell ruptured the stump and it was repaired he had gone back in bed in [place] bed and [place] doing well seen in the office yesterday the stump appeared to be healing very well with 3 weeks since the repair we remove the stitches and mandie the patient went home bump the leg and an open back up there appears to be some degree of hematoma that with a partially open AKA stump. He is been readmitted I am going to I am recommending return to surgery for irrigation and suture repair of the stump and he agrees with the plan Home Medications Medication Instructions Recorded Confirmed Type Docusate Sodium 100 mg PO BID PRN 08/22/16 04/15/17 History Insulin Aspart Prot/Asp 70/30 55 unit SUBCUT AC BREAKFAST 08/22/16 04/15/17 History [NovoLOG Mix 70/30] Losartan Potassium [Cozaar] 50 mg PO DAILY 08/22/16 04/15/17 History Metformin HCl 1,000 mg PO BID 08/22/16 04/15/17 History Aspirin [Ecotrin] 81 mg PO BEDTIME 01/17/17 04/15/17 History Furosemide Tab [Lasix Tab] 20 mg PO BEDTIME #30 tablet 03/24/17 04/15/17 Rx Diltiazem Cd Cap [Cardizem CD] 180 mg PO DAILY #30 capsule 03/29/17 04/15/17 Rx Carvedilol [Coreg] 12.5 mg PO BID tablet 04/13/17 04/15/17 Rx Cilostazol [Pletal] 100 mg PO BID tablet 04/13/17 04/15/17 Rx Clopidogrel [Plavix] 75 mg PO DAILY tablet 04/13/17 04/15/17 Rx Docusate Sodium Cap [Colace Cap] 100 mg PO BID capsule 04/13/17 04/15/17 Rx Gabapentin Cap/Tab [Neurontin 800 mg PO TID capsule 04/13/17 04/15/17 Rx Cap/Tab] Losartan [Cozaar] 50 mg PO DAILY tablet 04/13/17 04/15/17 Rx Magnesium Oxide 400 mg PO DAILY tablet 04/13/17 04/15/17 Rx Methocarbamol Tab [Robaxin Tab] 750 mg PO Q8HR PRN tablet 04/13/17 04/15/17 Rx Pravastatin [Pravachol] 80 mg PO BEDTIME tablet 04/13/17 04/15/17 Rx Sertraline [Zoloft] 50 mg PO DAILY tablet 04/13/17 04/15/17 Rx Acetaminophen Tab [Tylenol Tab] 650 mg PO Q6H PRN tablet 04/19/17 Rx Alum/Mag/Simeth Max Str Liquid 15 ml PO Q6H PRN 04/19/17 Rx [Mylanta Max Strength Liquid] Docusate Sodium Cap [Colace Cap] 100 mg PO BID capsule 04/19/17 Rx HYDROcodone/ACETAMIN 7.5-325 1 tablet PO Q6H PRN #60 tablet 04/19/17 Rx [[place] 7.5-325] Insulin Regular [HumuLIN R] See Protocol SUBCUT ACHS unit 04/19/17 Rx Ondansetron Inj [Zofran Inj] 4 mg IV Q6H PRN vial 04/19/17 Rx Pantoprazole Tab [Protonix Tab] 40 mg PO DAILY tablet 04/19/17 Rx Skin Healing Oint (Aquaphor) 1 applic TOP PRN PRN applic 04/19/17 Rx [Aquaphor] Allergies Allergy/AdvReac Type Severity Reaction Status Date / Time vancomycin Allergy Seizure Verified 05/08/17 19:16 Medical,Surgical,& Family Hx - Medical History Cardio: History of: Cardiac Dysrhythmia (Atrial fibrillation), CAD, Hypertension , [place] (x3, Stents x6), PVD ( orbital atherectomy and angioplasty of right anterior tibial artery), 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) Neurology: History of: Cerebrovascular Accident (Mild, ?), Dementia (Mild), Peripheral Neuropathy No history of: Seizures HEENT: History of: Eye Problem (Glasses Reading), Dental Problems (Dental Implant Upper) Endocrine: History of: Diabetes Mellitus (IDDM), Dyslipidemia Respiratory: History of: Obstructive Sleep Apnea, Respiratory Problems (Flu Vac Current 2016 Season) Comment Only: Pneumonia (Hx Pneum Vac) Genitourinary: History of: Prostate Problems Gastrointestinal: No history of: Polyps Musculoskeletal: History of: Amputation (:Right 2nd toe; Right below knee amputation on April 07, 2017), Musculoskeletal Problems (arthritis) Other: No history of: Anesthesia Reactions, Cancer - Surgical History Cardiac Surgeries: Sugical HX of: Cardiac Catheterization (stents), Cardiac Surgery (CABG 03/09/16) HEENT Surgeries: Surgical HX of: Eye Surgery (CATARACTS BILATERAL), Tonsilectomy & Adenoidectomy Abdominal Surgeries: Surgical HX of: Colonoscopy, Hernia Repair (Right inguinal hernia [place] [address] Beard) Orthopedic Surgeries: Surgical HX of;: Orthopedic Surgery (Right below-knee amputation) - Family History Family History: Reports;: Family Diabetes, Family Heart Disease, Family Hypertension - Social History Smoking Status: Former smoker Frequency of Alcohol Use: None Type of Drug Use: None Exam - Constitutional Vitals: Period Temp Pulse Resp BP Sys/Askew Pulse Ox Last 24 Hr 97.3 F-98.4 F 74-94 16-20 115-128/57-80 97-100 General appearance: normal weight, no acute distress - Head Head exam: Present: normal inspection - ENT ENT exam: Present: normal exam Mouth exam: Present: normal voice - Neck Neck exam: Present: normal inspection - Respiratory Respiratory exam: Present: clear to auscultation bilaterally - Cardiovascular Cardiovascular exam: Present: RRR - GI/Abdominal GI/Abdominal exam: Present: soft - Expanded Right Lower Upper Leg exam: Present: normal inspection Knee exam: Present: normal inspection Lower leg exam: Present: deformity (The right BKA stump is good perfusion but is open over the tibia of distance of approximately 5-6 cm to have some hematoma under the skin no active infection lateral aspects are well perfused and healed) - Neurological Exam Neurological exam: Present: alert, oriented X3 Speech: Present: normal - Skin Skin exam: Present: normal color Quality Measures - VTE Contraindication to Pharmacological VTE Prophylaxis: Already on Theraputic Agent , No Prophylaxis Needed Results - Labs CBC & BMP: 05/09/17 05:44 05/09/17 05:44
[2017-05-09] MEDS: INSULIN REGULAR 100 UNIT/ML SUBCUT SCH ×4 (09:24→20:23)
[2017-05-09] MEDS ORDERED: ceFAZolin 2,000 MG in PREMIX 1 EACH IV ONE (09:30)
--- NOTE | 2017-05-09 10:05 | Internal Medicine Consult Note ---
Assessment and Plan (1) Wound dehiscence Status: Acute Assessment and plan: 72-year-old male admitted to acute care * Wound dehiscence. Patient will require sutures and cleaning in the OR. Dr. Beard is planning to take him to the OR later today * Hypertension. Blood pressure is stable. Continue current treatment * Diabetes. He will be continued on insulin and a sliding scale * Hyperlipidemia. Continue current treatment * Peripheral vascular disease. Continue antiplatelet agent * History of CAD. Stable. Continue anticoagulation * I will follow him for medical problem. Current Visit: Yes (2) Hx of right BKA Status: Acute Current Visit: Yes (3) CAD (coronary artery disease) Status: Chronic Current Visit: No Qualifiers: Coronary Disease-Associated Artery/Lesion type: bypass graft [place] vs. transplanted heart: [place] heart Associated angina: without angina Qualified Code(s): I25.810 - Atherosclerosis of coronary artery bypass graft(s) without angina pectoris (4) Diabetes Status: Chronic Current Visit: No Qualifiers: Diabetes mellitus type: type 2 (5) Diabetic neuropathy Status: Chronic Current Visit: No (6) Dyslipidemia Status: Chronic Current Visit: No (7) Paroxysmal a-fib Status: Chronic Current Visit: No History of Present Illness - Data of Consult Patient: known to practice within the last 3 years - Consult Narrative History of present illness: Mr. Chong is a 72 year old male with history of multiple medical problems including hypertension, coronary artery disease, diabetes, paroxysmal A. fib, mild dementia, severe peripheral vascular disease, status post right below-knee amputation for peripheral vascular disease and gangrene. Patient apparently bumped his knee on the chair yesterday and her wound opened up. Her stitches were removed yesterday by Dr. Beard. He started bleeding and has an open wound. He was admitted for further evaluation and treatment. He denies any chest pain or shortness of breath. He denies any nausea vomiting or diarrhea. He denies any fever or chills. He lives at home with his . He is a former smoker. His main complaint is he is extremely hungry CC: Moiz Chambers MD - Home Medications and Allergies Home Medications: Home Medications Medication Instructions Recorded Confirmed Type Docusate Sodium 100 mg PO BID PRN 08/22/16 04/15/17 History Insulin Aspart Prot/Asp 70/30 55 unit SUBCUT AC BREAKFAST 08/22/16 04/15/17 History [NovoLOG Mix 70/30] Losartan Potassium [Cozaar] 50 mg PO DAILY 08/22/16 04/15/17 History Metformin HCl 1,000 mg PO BID 08/22/16 04/15/17 History Aspirin [Ecotrin] 81 mg PO BEDTIME 01/17/17 04/15/17 History Furosemide Tab [Lasix Tab] 20 mg PO BEDTIME #30 tablet 03/24/17 04/15/17 Rx Diltiazem Cd Cap [Cardizem CD] 180 mg PO DAILY #30 capsule 03/29/17 04/15/17 Rx Carvedilol [Coreg] 12.5 mg PO BID tablet 04/13/17 04/15/17 Rx Cilostazol [Pletal] 100 mg PO BID tablet 04/13/17 04/15/17 Rx Clopidogrel [Plavix] 75 mg PO DAILY tablet 04/13/17 04/15/17 Rx Docusate Sodium Cap [Colace Cap] 100 mg PO BID capsule 04/13/17 04/15/17 Rx Gabapentin Cap/Tab [Neurontin 800 mg PO TID capsule 04/13/17 04/15/17 Rx Cap/Tab] Losartan [Cozaar] 50 mg PO DAILY tablet 04/13/17 04/15/17 Rx Magnesium Oxide 400 mg PO DAILY tablet 04/13/17 04/15/17 Rx Methocarbamol Tab [Robaxin Tab] 750 mg PO Q8HR PRN tablet 04/13/17 04/15/17 Rx Pravastatin [Pravachol] 80 mg PO BEDTIME tablet 04/13/17 04/15/17 Rx Sertraline [Zoloft] 50 mg PO DAILY tablet 04/13/17 04/15/17 Rx Acetaminophen Tab [Tylenol Tab] 650 mg PO Q6H PRN tablet 04/19/17 Rx Alum/Mag/Simeth Max Str Liquid 15 ml PO Q6H PRN 04/19/17 Rx [Myl[place] Max Strength Liquid] Docusate Sodium Cap [Colace Cap] 100 mg PO BID capsule 04/19/17 Rx HYDROcodone/ACETAMIN 7.5-325 1 tablet PO Q6H PRN #60 tablet 04/19/17 Rx [[place] 7.5-325] Insulin Regular [HumuLIN R] See Protocol SUBCUT ACHS unit 04/19/17 Rx Ondansetron Inj [Zofran Inj] 4 mg IV Q6H PRN vial 04/19/17 Rx Pantoprazole Tab [Protonix Tab] 40 mg PO DAILY tablet 04/19/17 Rx Skin Healing Oint (Aquaphor) 1 applic TOP PRN PRN applic 04/19/17 Rx [Aquaphor] Allergies/Adverse Reactions: Allergies Allergy/AdvReac Type Severity Reaction Status Date / Time vancomycin Allergy Seizure Verified 05/08/17 19:16 12 point system: reviewed and no additional remarkable complaints except as stated (As mentioned in HPI) Medical,Surgical,& Family Hx - Medical History Cardio: History of: Cardiac Dysrhythmia (Atrial fibrillation), CAD, Hypertension , [place] (x3, Stents x6), PVD ( orbital atherectomy and angioplasty of right anterior tibial artery), Cardiovascular Problems ([employer] Dr. Stoner) Neurology: History of: Cerebrovascular Accident (Mild, ?), Dementia (Mild), Peripheral Neuropathy No history of: Seizures HEENT: History of: Eye Problem (Glasses Reading), Dental Problems (Dental Implant Upper) Endocrine: History of: Diabetes Mellitus (IDDM), Dyslipidemia Respiratory: History of: Obstructive Sleep Apnea, Respiratory Problems (Flu Vac Current 2016 Season) Comment Only: Pneumonia (Hx Pneum Vac) Genitourinary: History of: Prostate Problems Gastrointestinal: No history of: Polyps Musculoskeletal: History of: Amputation (:Right 2nd toe; Right below knee amputation on April 07, 2017), Musculoskeletal Problems (arthritis) Other: No history of: Anesthesia Reactions, Cancer - Surgical History Cardiac Surgeries: Sugical HX of: Cardiac Catheterization (stents), Cardiac Surgery (CABG 03/09/16) HEENT Surgeries: Surgical HX of: Eye Surgery (CATARACTS BILATERAL), Tonsilectomy & Adenoidectomy Abdominal Surgeries: Surgical HX of: Colonoscopy, Hernia Repair (Right inguinal hernia [place] [address] Beard) Orthopedic Surgeries: Surgical HX of;: Orthopedic Surgery (Right below-knee amputation) - Family History Family History: Reports;: Family Diabetes, Family Heart Disease, Family Hypertension - Social History Smoking Status: Former smoker Frequency of Alcohol Use: None Type of Drug Use: None Marital Status: Lives With:: Spouse Functional capacity: uses cane/walker Exam (Progress Note) - Constitutional Vitals: Period Temp Pulse Resp BP Sys/Askew Pulse Ox Last 24 Hr 97.3 F-98.4 F 74-94 16-20 115-128/57-80 97-100 Exam: Examination: GENERAL: NAD. HEENT: PERRLA. EOMI. Mucous membranes are moist. NECK: Neck is supple. No JVD. No carotid bruit. No thyromegaly. CVS: Regular rate and rhythm. S1 and S2 are normal. RESPIRATORY: Lungs are clear. No rales or rhonchi. ABDOMEN: Soft and nontender. Bowel sounds are present. No hepatosplenomegaly. EXT: No edema. Peripheral pulses are present. 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 Cranial nerves II through XII are grossly intact. Motor strength is 5 over 5 both upper and lower extremities. Sensory is intact. Deep tendon reflexes are present. SKIN: Warm and dry. MSK: Patient has a wound over her right BKA stump. It is about 5-6 cm in length and has a hematoma under the skin. No evidence of infection Results - Labs CBC & BMP: 05/09/17 05:44 05/09/17 05:44 Lab Results: I have reviewed the past 24 hour labs
[2017-05-09] MEDS ORDERED: ONDANSETRON 4 MG/2 ML VIAL ONE (10:20)
[2017-05-09] MEDS ORDERED: PROPOFOL 200 MG/20 ML VIAL IV ONE (10:20)
[2017-05-09] MEDS ORDERED: LIDOCAINE 2% 5 ML VIAL ONE (10:20)
--- NOTE | 2017-05-09 11:00 | Operative Note ---
Date of procedure: 05/09/17 Procedure: Dr. Chambers operative report Luis Chong. Surgeon: Reyes Anesthesia: Steven general LMA Preoperative diagnosis: Hematoma right below-knee stump Postoperative diagnosis: Same Procedure: Evacuation hematoma irrigation closure of right below-knee stump Indications: Mr. Chong is a 72-year-old man who is developed a recurrent hematoma and partial opening of the below-knee stump I recommended irrigation and evacuation of hematoma and reclosure of explained the alternatives and risks and complications which he understands and accepts Description of the procedure: After the induction of general LMA anesthesia the patient's right leg is prepped with Betadine soap and solution draped in usual fashion there is a moderate hematoma in the below-knee is stopped flap this is evacuated with him to ring forceps fingertips then irrigated copiously with sterile water to allow hematomas remove the flap is good and viable like to use a 7 MERRY drain bringing out lateral side of the leg above the incision the incision was then closed with interrupted 0 Prolene sutures bulky dressing is applied blood acute blood loss is less than 5 cc old blood approximately 200 cc Surgeon / Physician: Moiz Chambers Results - Labs CBC & BMP: 05/09/17 05:44 05/09/17 05:44 Discharge Plan - Discharge Medications No Action Insulin Aspart Prot/Asp 70/30 [NovoLOG Mix 70/30] 55 unit SUBCUT AC BREAKFAST Metformin HCl 1,000 mg PO BID Losartan Potassium [Cozaar] 50 mg PO DAILY Docusate Sodium 100 mg PO BID PRN PRN Reason: Constipation Aspirin [Ecotrin] 81 mg PO BEDTIME Furosemide Tab [Lasix Tab] 20 mg PO BEDTIME #30 tablet Diltiazem Cd Cap [Cardizem CD] 180 mg PO DAILY #30 capsule Cilostazol [Pletal] 100 mg PO BID tablet Clopidogrel [Plavix] 75 mg PO DAILY tablet Docusate Sodium Cap [Colace Cap] 100 mg PO BID capsule Gabapentin Cap/Tab [Neurontin Cap/Tab] 800 mg PO TID capsule Losartan [Cozaar] 50 mg PO DAILY tablet Magnesium Oxide 400 mg PO DAILY tablet Methocarbamol Tab [Robaxin Tab] 750 mg PO Q8HR PRN tablet PRN Reason: Muscle Pain Pravastatin [Pravachol] 80 mg PO BEDTIME tablet Sertraline [Zoloft] 50 mg PO DAILY tablet Alum/Mag/Simeth Max Str Liquid [Mylanta Max Strength Liquid] 15 ml PO Q6H PRN PRN Reason: Dyspepsia HYDROcodone/ACETAMIN 7.5-325 [[place] 7.5-325] 1 tablet PO Q6H PRN #60 tablet PRN Reason: Pain Moderate (4-7) Insulin Regular [HumuLIN R] See Protocol SUBCUT ACHS unit Ondansetron Inj [Zofran Inj] 4 mg IV Q6H PRN vial PRN Reason: Nausea/Vomiting Pantoprazole Tab [Protonix Tab] 40 mg PO DAILY tablet Carvedilol [Coreg] 12.5 mg PO BID tablet Acetaminophen Tab [Tylenol Tab] 650 mg PO Q6H PRN tablet PRN Reason: Pain Mild (1-3) And/Or Fever Docusate Sodium Cap [Colace Cap] 100 mg PO BID capsule Skin Healing Oint (Aquaphor) [Aquaphor] 1 applic TOP PRN PRN applic PRN Reason: Dry Skin - Follow Up or Referral - Forms/Instructions
[2017-05-09] MEDS ORDERED: fentaNYL 100 MCG/2 ML VIAL ONE (11:05)
[2017-05-09] MEDS ORDERED: MIDAZOLAM 2 MG/2 ML VIAL ONE (11:05)
--- NOTE | 2017-05-09 14:17 | Event Note ---
MrAllison Chong is postop awake alert oriented not significant pain minimal drainage in the MERRY
[2017-05-09] MEDS: SODIUM CHLORIDE 0.9% 1,000 ML IV SCH (18:09)
[2017-05-09] MEDS: ACETAMINOPHEN 325 MG TABLET PO PRN (18:57)
--- NOTE | 2017-05-10 07:25 | Anesthesia Post-Op ---
Anesthesia Post OP - Post Ansesthetic Evaluation Patient seen in post op: Yes Resp: within normal limits CV: within normal limits Mental: within normal limits Temp: within normal limits [id number]: within normal limits Nausea and Vomiting: within normal limits Pain: within normal limits Patient seen at: date (05/08/2017), time (0718)
--- NOTE | 2017-05-10 08:31 | Internal Med Progress Note ---
Assessment and Plan (1) Wound dehiscence Status: Acute Assessment and plan: 72-year-old male admitted to acute care * Wound dehiscence. Patient will require sutures and cleaning in the OR. Dr. Beard is planning to take him to the OR later today * Hypertension. Blood pressure is stable. Continue current treatment * Diabetes. He will be continued on insulin and a sliding scale * Hyperlipidemia. Continue current treatment * Peripheral vascular disease. Continue antiplatelet agent * History of CAD. Stable. Continue anticoagulation * I will follow him for medical problem. Current Visit: Yes (2) Hx of right BKA Status: Acute Current Visit: Yes (3) CAD (coronary artery disease) Status: Chronic Current Visit: No Qualifiers: Coronary Disease-Associated Artery/Lesion type: bypass graft [place] vs. transplanted heart: samish heart Associated angina: without angina Qualified Code(s): I25.810 - Atherosclerosis of coronary artery bypass graft(s) without angina pectoris (4) Diabetes Status: Chronic Current Visit: No Qualifiers: Diabetes mellitus type: type 2 (5) Diabetic neuropathy Status: Chronic Current Visit: No (6) Dyslipidemia Status: Chronic Current Visit: No (7) Paroxysmal a-fib Status: Chronic Current Visit: No Internal Medicine - PN: Subj Interval history: Feels okay. No chest pain or shortness of breath. No nausea or vomiting Exam (Progress Note) - Constitutional Vitals: Period Temp Pulse Resp BP Sys/Askew Pulse Ox Last 24 Hr 97.4 F-99.2 F 71-101 14-20 103-144/45-87 95-100 Exam: Examination: GENERAL: NAD. HEENT: PERRLA. EOMI. NECK: Neck is supple. CVS: Regular rate and rhythm. S1 and S2 are normal. RESPIRATORY: Lungs are clear. ABDOMEN: Soft and nontender. Bowel sounds are present. EXT: No edema. 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 MSK: Patient has a wound over her right BKA stump. Dressing is present Results - Labs CBC & BMP: 05/09/17 05:44 05/09/17 05:44 Quality Measures - VTE Contraindication to Pharmacological VTE Prophylaxis: High Risk of Bleeding Specialty Discharge - Follow Up or Referrals Follow up with: Nils Savaeg MD [Primary Care Provider] - Moiz Chambers MD [Physician] -
--- NOTE | 2017-05-10 08:48 | Event Note ---
Mr. Chong appears to be doing well today with minimal drainage I will change the dressing and possibly discharge later today
[2017-05-10] MEDS: PANTOPRAZOLE 40 MG TABLET PO SCH (09:36)
[2017-05-10] MEDS: INSULIN REGULAR 100 UNIT/ML SUBCUT SCH ×3 (09:37→17:22)
[2017-05-10] MEDS: ACETAMINOPHEN 325 MG TABLET PO PRN (13:09)
[2017-05-10] MEDS ORDERED: SKIN HEALING OINT (AQUAPHOR) 50 GM TUBE TOP PRN (13:59)
[2017-05-10] MEDS ORDERED: ALUMINUM/MAGNES/SIMETH MAX STR 30 ML UDCUP PO PRN (13:59)
[2017-05-10] MEDS ORDERED: METHOCARBAMOL 750 MG TABLET PO PRN (13:59)
[2017-05-10] MEDS ORDERED: SERTRALINE 50 MG TABLET PO SCH (14:00)
[2017-05-10] MEDS ORDERED: CARVEDILOL 12.5 MG TABLET PO SCH (14:00)
[2017-05-10] MEDS ORDERED: DOCUSATE SODIUM 100 MG CAPSULE PO SCH (14:00)
[2017-05-10] MEDS ORDERED: MAGNESIUM OXIDE 400 MG TABLET PO SCH (14:00)
[2017-05-10] MEDS ORDERED: DILTIAZEM CD 180 MG CAPSULE PO SCH (14:00)
[2017-05-10] MEDS ORDERED: LOSARTAN 50 MG TABLET PO SCH (14:00)
--- NOTE | 2017-05-10 14:46 | Discharge Summary ---
Hospital Course - Hospital Course Hospital Course: Luis Chong was admitted with a partial opening of his B-K amputation had some hematoma this was treated with evacuation irrigation and repair is doing well today with minimal drainage stump looks good with no sign of infection he will be discharged home to continue his rehabilitation there as he has been doing my thoughts are to see him in office next week and remove the MERRY drain I will leave the sutures in for approximately 1 month he is on course for prosthesis fitting and ambulation training in approximately a month there will be no significant changes in his medications we did instruct Mrs. Chong on Mr. Chong in managing the MERRY drain how to strip empty and drain it thank Diagnosis - Discharge Diagnosis (1) Amputated below knee Status: Acute Specialty Discharge - Follow Up or Referrals Follow up with: Nils Savage MD [Primary Care Provider] - 05/24/17 1:00 pm Moiz Chambers MD [Physician] - 05/14/17 1:15 pm Discharge Plan - Discharge Data Disposition: Disch To Home/Self Care Condition at Discharge: Stable Discharge Diet: diabetic diet Activity: as per physical therapy Hygiene: may shower Weight Bearing at Discharge: weight bear as tolerated Driving: not until seen by doctor Contact your physician if you experience:: fever over 101, Redness or swelling, Bleeding - Discharge Medications No Action Insulin Aspart Prot/Asp 70/30 [NovoLOG Mix 70/30] 55 unit SUBCUT AC BREAKFAST Metformin HCl 1,000 mg PO BID Losartan Potassium [Cozaar] 50 mg PO DAILY Aspirin [Ecotrin] 81 mg PO BEDTIME Furosemide Tab [Lasix Tab] 20 mg PO BEDTIME #30 tablet Diltiazem Cd Cap [Cardizem CD] 180 mg PO DAILY #30 capsule Cilostazol [Pletal] 100 mg PO BID tablet Clopidogrel [Plavix] 75 mg PO DAILY tablet Docusate Sodium Cap [Colace Cap] 100 mg PO BID capsule Gabapentin Cap/Tab [Neurontin Cap/Tab] 800 mg PO TID capsule Magnesium Oxide 400 mg PO DAILY tablet Methocarbamol Tab [Robaxin Tab] 750 mg PO Q8HR PRN tablet PRN Reason: Muscle Pain Pravastatin [Pravachol] 80 mg PO BEDTIME tablet Sertraline [Zoloft] 50 mg PO DAILY tablet Alum/Mag/Simeth Max Str Liquid [Mylanta Max Strength Liquid] 15 ml PO Q6H PRN PRN Reason: Dyspepsia HYDROcodone/ACETAMIN 7.5-325 [[place] 7.5-325] 1 tablet PO Q6H PRN #60 tablet PRN Reason: Pain Moderate (4-7) Insulin Regular [HumuLIN R] See Protocol SUBCUT ACHS unit Pantoprazole Tab [Protonix Tab] 40 mg PO DAILY tablet Carvedilol [Coreg] 12.5 mg PO BID tablet Acetaminophen Tab [Tylenol Tab] 650 mg PO Q6H PRN tablet PRN Reason: Pain Mild (1-3) And/Or Fever Skin Healing Oint (Aquaphor) [Aquaphor] 1 applic TOP PRN PRN applic PRN Reason: Dry Skin - Follow Up or Referral Follow Up: Nils Savage MD [Primary Care Provider] - 05/24/17 1:00 pm Moiz Chambers MD [Physician] - 05/14/17 1:15 pm - Forms/Instructions Exam - Constitutional Vitals: Period Temp Pulse Resp BP Sys/Askew Pulse Ox Last 24 Hr 97.4 F-97.8 F 71-101 17-20 107-144/55-87 96-100 Discharge Results Labs on day of discharge: Labs from last 24 hours 05/10/17 05/10/17 05/09/17 11:30 07:01 19:54 POC Glucose 298 H 266 H 252 H 05/09/17 05/09/17 15:49 12:26 POC Glucose 237 H 229 H DS: Provider Date of admission: 05/08/17 19:57 Primary care physician: Nils Savage MD Attending physician on admission: Moiz Chambers MD Consults: 05/08/17 20:00 Consult to Case Mgmt/Social Srvs [CONS] Routine Reason for Case Mgmt/Social Srvs: Rehab Other Consult Comment: Home situation 05/09/17 09:54 Consult to Physician [CONS] Routine Comment: Consulting Provider: Nils Savage Consulting Provider Notified: Yes When should Consulting Provider be notified: Now Person Notified: stefania gardy Date Notified: 05/09/17 Time Notified: 09:56 Discharging clinician: Moiz Chambers MD
[2017-05-10] MEDS ORDERED: GABAPENTIN 400 MG CAPSULE PO SCH (15:00)
[2017-05-10 16:04] VITALS: BP 157/77
[2017-05-10] MEDS: SODIUM CHLORIDE 0.9% 1,000 ML IV SCH (17:22)
[2017-05-10] MEDS ORDERED: FUROSEMIDE 20 MG TABLET PO SCH (21:00)
[2017-05-10] MEDS ORDERED: ASPIRIN EC 81 MG TABLET PO SCH (21:00)
[2017-05-10] MEDS ORDERED: PRAVASTATIN 40 MG TABLET PO SCH (21:00)
== END 2017-05-10 17:00 | disposition home health service (06) | DRG 982 ==
LOC: EDUNIT# → EDBD → N.ED 18:59 → N.EDINP 19:57 → N.3E 21:04
PROVIDERS: ADMIT Surgery; ATTEND Surgery

== ENCOUNTER 2017-05-20 09:32 | Inpatient (IN) ==
--- NOTE | 2017-05-20 11:23 | Emergency Department Note ---
IIggy Brittany, am scribing for, and in the presence of, Kain Hyman MD 11:01. Boogie Coppola Sunil, MD, personally performed the services described in this documentation, ascribed by Ju Parkinson in my presence, and it is both accurate and complete . Arrival - Arrival Chief Complaint: Non-Specific Stated Complaint: Stitches open up ED Nursing Triage Note: C/O Having a right below the knee amputation in April 2017, states he had physical therapy done on sunday and he feels like they over used the leg.,states he went to rewrap the leg this am and noticed that it was again gaping open., patient has coban on the leg at time of triage., no blood noted on the outside of the coban Mode of Arrival: Wheelchair Limitations: No Limitations Source: Patient, RN Notes Reviewed - History of Present Illness HPI Narrative: Patient is a 72 y/o black male presenting to the ED with c/o gaping wound at Right BKA site. Patient states that on Sunday during PT he believes that he overworked his RLE and notes that a suture may have came out. He reports that he had to rewrap his stump this morning and noticed fluid leakage and some bleeding. Patient had Right BKA performed in April 2017 secondary to IDDM and is being seen by Dr. Chambers for this. On exam Right BKA site has a gaping wound. Patient does not appear to be in any acute distress. PMHx significant for Atrial Fibrillation, HTN, MA, PVD, CVA, Dementia, Peripheral Neuropathy, IDDM, Dyslipidemia, Obstructive Sleep Apnea, and Cardiac Catheterization. No other complaint/pain. Onset (ago): day(s) Consistency: constant Allergies/Adverse Reactions: Allergies Allergy/AdvReac Type Severity Reaction Status Date / Time vancomycin Allergy Seizure Verified 05/20/17 10:02 Home Medications: Home Medications Medication Instructions Recorded Confirmed Type Insulin Aspart Prot/Asp 70/30 55 unit SUBCUT AC BREAKFAST 08/22/16 05/09/17 History [NovoLOG Mix 70/30] Losartan Potassium [Cozaar] 50 mg PO DAILY 08/22/16 05/09/17 History Metformin HCl 1,000 mg PO BID 08/22/16 05/09/17 History Aspirin [Ecotrin] 81 mg PO BEDTIME 01/17/17 05/09/17 History Furosemide Tab [Lasix Tab] 20 mg PO BEDTIME #30 tablet 03/24/17 05/09/17 Rx Diltiazem Cd Cap [Cardizem CD] 180 mg PO DAILY #30 capsule 03/29/17 05/09/17 Rx Carvedilol [Coreg] 12.5 mg PO BID tablet 04/13/17 05/09/17 Rx Cilostazol [Pletal] 100 mg PO BID tablet 04/13/17 05/09/17 Rx Clopidogrel [Plavix] 75 mg PO DAILY tablet 04/13/17 05/09/17 Rx Docusate Sodium Cap [Colace Cap] 100 mg PO BID capsule 04/13/17 05/09/17 Rx Gabapentin Cap/Tab [Neurontin 800 mg PO TID capsule 04/13/17 05/09/17 Rx Cap/Tab] Magnesium Oxide 400 mg PO DAILY tablet 04/13/17 05/09/17 Rx Methocarbamol Tab [Robaxin Tab] 750 mg PO Q8HR PRN tablet 04/13/17 05/09/17 Rx Pravastatin [Pravachol] 80 mg PO BEDTIME tablet 04/13/17 05/09/17 Rx Sertraline [Zoloft] 50 mg PO DAILY tablet 04/13/17 05/09/17 Rx Acetaminophen Tab [Tylenol Tab] 650 mg PO Q6H PRN tablet 04/19/17 05/09/17 Rx Alum/Mag/Simeth Max Str Liquid 15 ml PO Q6H PRN 04/19/17 05/09/17 Rx [Mylanta Max Strength Liquid] HYDROcodone/ACETAMIN 7.5-325 1 tablet PO Q6H PRN #60 tablet 04/19/17 05/09/17 Rx [[place] 7.5-325] Insulin Regular [HumuLIN R] See Protocol SUBCUT ACHS unit 04/19/17 05/09/17 Rx Pantoprazole Tab [Protonix Tab] 40 mg PO DAILY tablet 04/19/17 05/09/17 Rx Skin Healing Oint (Aquaphor) 1 applic TOP PRN PRN applic 04/19/17 05/09/17 Rx [Aquaphor] Review of System - Review of System 12 point system: reviewed and no additional remarkable complaints except as stated - Review of System Constitutional: Absent: chills, fever Eyes: Absent: vision change Head/Ears/Nose/Throat: Absent: nasal drainage, sore throat Respiratory: Absent: respiratory distress Cardiovascular: Absent: chest pain Gastrointestinal: Absent: abdominal pain, nausea, vomiting, diarrhea Genitourinary male: Absent: urgency, dysuria, frequency Musculoskeletal: Present: other (gaping wound to Right BKA). 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 Beard) Orthopedic Surgeries: Surgical HX of;: Orthopedic Surgery (Right below-knee amputation) - Family History Family History: Reports;: Family Diabetes, Family Heart Disease, Family Hypertension - Social History Smoking Status: Former smoker Frequency of Alcohol Use: None Type of Drug Use: None Exam Vital Signs: Vital Signs Temperature 99.2 F 05/20/17 09:58 Pulse Rate 109 H 05/20/17 09:58 Respiratory Rate 20 05/20/17 09:58 Blood Pressure 100/52 05/20/17 09:58 O2 Sat by Pulse Oximetry 99 05/20/17 09:58 - General General appearance: alert, in no apparent distress - Head Head exam: Present: atraumatic, normocephalic, normal inspection - Eye Eye exam: Present: normal appearance, PERRL, EOMI - ENT ENT exam: Present: normal exam, normal oropharynx - Neck Neck exam: Present: normal inspection, full ROM, trachea midline - Chest Chest inspection: Present: normal inspection, symmetric chest wall rise - Respiratory Respiratory exam: Present: normal lung sounds bilaterally - Cardiovascular Cardiovascular exam: Present: regular rate, normal rhythm, normal heart sounds - Abdominal Exam Abdominal exam: Present: soft, normal bowel sounds. Absent: tenderness - Extremities Exam Extremities exam: Present: full ROM. Absent: normal inspection (gaping wound noted to Right BKA stump site) - Back Exam Back exam: Present: normal inspection - Neurological Exam Neurological exam: Present: alert, oriented X3, CN II-XII intact. Absent: motor sensory deficit - Psychiatric Psychiatric exam: Present: normal affect, normal mood - Skin Skin exam: Present: warm, dry. Absent: intact (gaping wound noted to Right BKA stump site) Results - Impressions Patient recently had below the knee amputation on the right side. Today he presents with the wound gaping on examination he has a large wound gaping on the anterior aspect of the stump of the [id number] amputation on the right side I discussed with Dr. Dominguez who would see the patient Disposition Clinical Impression: Wound, open with complication Case discussed with: patient Disposition: Disch To Home/Self Care
--- NOTE | 2017-05-20 11:42 | General Surg History&Physical ---
Assessment and Plan (1) Wound, open with complication Status: Acute Assessment and plan: This patient has an open wound over his right below-knee amputation stump. I recommended washout and closure again in the OR and will use some pretty heavy retention sutures this time and use a knee immobilizer because it seemed like it opened up when he bent it with physical therapy today. We will also evaluate for deep infection during the operation. Current Visit: Yes History of Present Illness Chief complaint: Right below-knee amputation stump pain and drainage History of present illness: Mr. Chong is a 72 year old male who noticed that his stump opened up today and he called me to ask what he should do. I instructed him to come in to the ER for evaluation. Apparently he was here last week and he had some stitches placed by ER physician and then was seen and followed by Dr. Chambers earlier this past week with no complications or problems. The wound reopened itself today and he presents for evaluation with pain and drainage from the wound. He denies any fevers. Home Medications Medication Instructions Recorded Confirmed Type Insulin Aspart Prot/Asp 70/30 55 unit SUBCUT AC BREAKFAST 08/22/16 05/09/17 History [NovoLOG Mix 70/30] Losartan Potassium [Cozaar] 50 mg PO DAILY 08/22/16 05/09/17 History Metformin HCl 1,000 mg PO BID 08/22/16 05/09/17 History Aspirin [Ecotrin] 81 mg PO BEDTIME 01/17/17 05/09/17 History Furosemide Tab [Lasix Tab] 20 mg PO BEDTIME #30 tablet 03/24/17 05/09/17 Rx Diltiazem Cd Cap [Cardizem CD] 180 mg PO DAILY #30 capsule 03/29/17 05/09/17 Rx Carvedilol [Coreg] 12.5 mg PO BID tablet 04/13/17 05/09/17 Rx Cilostazol [Pletal] 100 mg PO BID tablet 04/13/17 05/09/17 Rx Clopidogrel [Plavix] 75 mg PO DAILY tablet 04/13/17 05/09/17 Rx Docusate Sodium Cap [Colace Cap] 100 mg PO BID capsule 04/13/17 05/09/17 Rx Gabapentin Cap/Tab [Neurontin 800 mg PO TID capsule 04/13/17 05/09/17 Rx Cap/Tab] Magnesium Oxide 400 mg PO DAILY tablet 04/13/17 05/09/17 Rx Methocarbamol Tab [Robaxin Tab] 750 mg PO Q8HR PRN tablet 04/13/17 05/09/17 Rx Pravastatin [Pravachol] 80 mg PO BEDTIME tablet 04/13/17 05/09/17 Rx Sertraline [Zoloft] 50 mg PO DAILY tablet 04/13/17 05/09/17 Rx Acetaminophen Tab [Tylenol Tab] 650 mg PO Q6H PRN tablet 04/19/17 05/09/17 Rx Alum/Mag/Simeth Max Str Liquid 15 ml PO Q6H PRN 04/19/17 05/09/17 Rx [Mylanta Max Strength Liquid] HYDROcodone/ACETAMIN 7.5-325 1 tablet PO Q6H PRN #60 tablet 04/19/17 05/09/17 Rx [[place] 7.5-325] Insulin Regular [HumuLIN R] See Protocol SUBCUT ACHS unit 04/19/17 05/09/17 Rx Pantoprazole Tab [Protonix Tab] 40 mg PO DAILY tablet 04/19/17 05/09/17 Rx Skin Healing Oint (Aquaphor) 1 applic TOP PRN PRN applic 04/19/17 05/09/17 Rx [Aquaphor] Allergies Allergy/AdvReac Type Severity Reaction Status Date / Time vancomycin Allergy Seizure Verified 05/20/17 10:02 Medical,Surgical,& Family Hx - Medical History Cardio: History of: Cardiac Dysrhythmia (Atrial fibrillation), CAD, Hypertension , [place], PVD ( orbital atherectomy and angioplasty of right anterior tibial artery) , 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) Neurology: History of: Cerebrovascular Accident (Mild, ?), Dementia (Mild), Peripheral Neuropathy No history of: Seizures HEENT: History of: Eye Problem (Glasses Reading), Dental Problems (Dental Implant Upper) Endocrine: History of: Diabetes Mellitus (IDDM), Dyslipidemia Respiratory: History of: Obstructive Sleep Apnea, Respiratory Problems (Flu Vac Current 2016 Season) Comment Only: Pneumonia (Hx Pneum Vac) Genitourinary: History of: Prostate Problems Gastrointestinal: No history of: Polyps Musculoskeletal: History of: Amputation (:Right 2nd toe; Right below knee amputation on April 07, 2017), Musculoskeletal Problems (arthritis) Other: No history of: Anesthesia Reactions, Cancer - Surgical History Cardiac Surgeries: Sugical HX of: Cardiac Catheterization (stents), Cardiac Surgery (CABG 03/09/16) HEENT Surgeries: Surgical HX of: Eye Surgery (CATARACTS BILATERAL), Tonsilectomy & Adenoidectomy Abdominal Surgeries: Surgical HX of: Colonoscopy, Hernia Repair (Right inguinal hernia in [address] Beard) Orthopedic Surgeries: Surgical HX of;: Orthopedic Surgery (Right below-knee amputation) - Family History Family History: Reports;: Family Diabetes, Family Heart Disease, Family Hypertension - Social History Smoking Status: Former smoker Frequency of Alcohol Use: None Type of Drug Use: None Exam - Constitutional Vitals: Period Temp Pulse Resp BP Sys/[place] Pulse Ox Last 24 Hr 99.2 F 109 20 100/52 99 General appearance: no acute distress, over weight - Head Head exam: Present: normal inspection, normocephalic - Eye Eye exam: Present: EOMI Pupils: Present: BARB - ENT ENT exam: Present: normal exam Mouth exam: Present: normal external inspection, normal voice - Neck Neck exam: Present: normal inspection - Respiratory Respiratory exam: Present: clear to auscultation bilaterally. Absent: accessory muscle use, chest wall tenderness - Cardiovascular Cardiovascular exam: Present: RRR. Absent: systolic murmur, tachycardia - GI/Abdominal GI/Abdominal exam: Present: soft. Absent: tenderness, rebound - Extremities Exam Extremities exam: Present: other (The wound has opened up about 4 cm in the tibia is exposed. There is clear drainage but no erythema or purulence but no necrotic tissue obvious) - Back Exam Back exam: Present: normal inspection - Neurological Exam Neurological exam: Present: alert, oriented X3 Speech: Present: normal - Skin Skin exam: Present: normal color, warm - Constitutional Constitutional: Present: as per HPI - EENT Nose, mouth and throat: Present: as per HPI - Cardiovascular Cardiovascular: Present: as per HPI - Respiratory Respiratory: Present: as per HPI - Gastrointestinal Gastrointestinal: Present: as per HPI - Genitourinary Genitourinary: Present: as per HPI - Musculoskeletal Musculoskeletal: Present: as per HPI - Neurological Neurological: Present: as per HPI - Endocrine Endocrine: Present: as per HPI Hematologic/Lymphatic: Present: as per HPI
[2017-05-20 11:57] LABS: Basophils # 0.1 10*3/uL (0.0-0.2); Basophils % 0.6 % (0.0-0.8); Eosinophils # 0.4 10*3/uL (0.0-0.87); Eosinophils % 4.9 % (0.00-10.9); Hematocrit 31.5 VOL% (42.0-52.0); Hemoglobin 10.7 GM/DL (14.0-18.0); Immature Granulocytes % 0.4 %; Immature Granulocytes Absolute 0.03 #; Lymphocytes # 2.4 10*3/uL (1.4-4.0); Lymphocytes % 28.6 % (21.2-54.2); Mean Corpuscular Hemoglobin 29 PG (27-34); Mean Corpuscular Volume 83.8 FL (87-102); Mean Platelet Volume 8.8 FL (9.6-12.0); Monocytes # 0.7 10*3/uL (0.11-0.8); Monocytes % 7.9 % (1.7-12.7); Neutrophils # 4.8 10*3/uL (1.4-7.4); Neutrophils % 57.6 % (38.7-73.9); Platelet Count 367 T/CUMM (130-400); Red Blood Count 3.76 MC/CUMM (3.8-5.5); Red Cell Distribution Width 14.9 % (9.3-17.3); White Blood Count 8.4 T/CUMM (4-12)
[2017-05-20 12:19] LABS: Magnesium 1.6 MG/DL (1.8-2.4); Osmolality,Calculated 284.4 MOS/KG (273-304); Potassium 3.7 MMOL/L (3.5-5.1)
[2017-05-20] MEDS ORDERED: ALUMINUM/MAGNES/SIMETH MAX STR 30 ML UDCUP PO PRN (13:30)
[2017-05-20] MEDS ORDERED: LACTATED RINGERS 1,000 ML IV SCH (13:30)
[2017-05-20] MEDS ORDERED: SKIN HEALING OINT (AQUAPHOR) 50 GM TUBE TOP PRN (13:30)
[2017-05-20] MEDS ORDERED: METHOCARBAMOL 750 MG TABLET PO PRN (13:30)
[2017-05-20] MEDS ORDERED: ACETAMINOPHEN 325 MG TABLET PO PRN (13:30)
[2017-05-20] MEDS ORDERED: ONDANSETRON 4 MG/2 ML VIAL IV PRN (13:30)
[2017-05-20] MEDS ORDERED: GABAPENTIN 400 MG CAPSULE PO SCH (15:00)
[2017-05-20] MEDS ORDERED: INSULIN REGULAR 100 UNIT/ML SUBCUT SCH (16:30)
[2017-05-20] MEDS ORDERED: PHENYLEPHRINE 1 MG/10 ML SYRINGE IV ONE (17:21)
[2017-05-20] MEDS ORDERED: PROPOFOL 200 MG/20 ML VIAL IV ONE (17:21)
[2017-05-20] MEDS ORDERED: BUPIVACAINE 0.25% 50 ML VIAL ONE (17:27)
--- NOTE | 2017-05-20 17:53 | Operative Note ---
Date of procedure: 05/20/17 Pre-op diagnosis: open wound right below knee amputation stump Post-op diagnosis: same Procedure: Preoperative diagnosis Open wound right lower extremity below-knee amputation stump Postoperative diagnosis Same Procedure performed Washout and closure of right below-knee amputation stump Findings There is clean tissue with no evidence of necrotic tissue or infection. Skin flaps were raised and a delayed closure was performed after it was washed out. #1 nylon sutures were used. The knee immobilizer was placed over a bulky dressing to prevent flexion of the knee and tension on the sutures. Complications None apparent Specimen None Anesthesia Monitored local Blood loss Minimal Indications Open wound right lower extremity below-knee amputation stump. Description of procedure The patient was taken to the operating room and transferred to the operating table in supine position. Pressure points were padded and monitored anesthesia was administered. The right below-knee potation stump was prepped Betadine and draped sterilely. Timeout was called. Local anesthetic was administered and a washout was performed and exploration revealing no necrotic tissue or infection. The wound was irrigated copiously and closed after skin flaps were raised to assist with closure. #1 nylon sutures horizontal mattress and simple interrupted were used to close the wound. The wound size measured 6 cm. The wound was dressed with a sterile bulky dressing and a knee immobilizer was placed. Postoperative plan Follow-up in 2 week Anesthesia: MAC, local Surgeon / Physician: Juan Dominguez Estimated blood loss: minimal Specimens: none sent Condition: stable Disposition: PACU Results - Labs CBC & BMP: 05/20/17 11:55 05/20/17 11:55 Discharge Plan - Discharge Data Disposition: Disch To Home/Self Care Condition at Discharge: Stable Discharge Diet: advance to your usual diet Activity: other (do not bear weight on right below knee stump) Hygiene: may shower, keep area(s) dry Weight Bearing at Discharge: non-weight bearing (Nonweightbearing right lower extremity) Driving: not until seen by doctor Contact your physician if you experience:: fever over 101, Difficulty voiding, Redness or swelling, Nausea/Vomiting, Shortness of breath, Bleeding, pain uncontrolled by pain medications Wound / Dressing Care Instructions: It is okay to remove the dressing and clean your wound. Once her wound is clean and dried off she must redress it and wear knee immobilizer at all times to prevent any flexion at the knee. Do not bend your knee or pursue any activity in such a manner until you are seen back by me in clinic. - Discharge Medications New HYDROcodone/ACETAMIN 7.5-325 [[place] 7.5-325] 1 tablet PO Q4H PRN #5 tablet PRN Reason: Pain Moderate (4-7) Continue Insulin Aspart Prot/Asp 70/30 [NovoLOG Mix 70/30] 55 unit SUBCUT AC BREAKFAST Metformin HCl 1,000 mg PO BID Losartan Potassium [Cozaar] 50 mg PO DAILY Aspirin [Ecotrin] 81 mg PO BEDTIME Furosemide Tab [Lasix Tab] 20 mg PO BEDTIME #30 tablet Diltiazem Cd Cap [Cardizem CD] 180 mg PO DAILY #30 capsule Cilostazol [Pletal] 100 mg PO BID tablet Clopidogrel [Plavix] 75 mg PO DAILY tablet Docusate Sodium Cap [Colace Cap] 100 mg PO BID capsule Gabapentin Cap/Tab [Neurontin Cap/Tab] 800 mg PO TID capsule Magnesium Oxide 400 mg PO DAILY tablet Methocarbamol Tab [Robaxin Tab] 750 mg PO Q8HR PRN tablet PRN Reason: Muscle Pain Pravastatin [Pravachol] 80 mg PO BEDTIME tablet Sertraline [Zoloft] 50 mg PO DAILY tablet Alum/Mag/Simeth Max Str Liquid [Mylanta Max Strength Liquid] 15 ml PO Q6H PRN PRN Reason: Dyspepsia Insulin Regular [HumuLIN R] See Protocol SUBCUT ACHS unit Pantoprazole Tab [Protonix Tab] 40 mg PO DAILY tablet Carvedilol [Coreg] 12.5 mg PO BID tablet Acetaminophen Tab [Tylenol Tab] 650 mg PO Q6H PRN tablet PRN Reason: Pain Mild (1-3) And/Or Fever Skin Healing Oint (Aquaphor) [Aquaphor] 1 applic TOP PRN PRN applic PRN Reason: Dry Skin Discontinued HYDROcodone/ACETAMIN 7.5-325 [[place] 7.5-325] 1 tablet PO Q6H PRN #60 tablet PRN Reason: Pain Moderate (4-7) - Follow Up or Referral Follow Up: Juan Dominguez MD [Physician] - 2 Weeks - Forms/Instructions
[2017-05-20] MEDS ORDERED: fentaNYL 100 MCG/2 ML VIAL ONE (18:06)
[2017-05-20] MEDS ORDERED: MIDAZOLAM 2 MG/2 ML VIAL ONE (18:06)
[2017-05-20 19:26] VITALS: BP 109/60
[2017-05-20] MEDS ORDERED: CARVEDILOL 12.5 MG TABLET PO SCH (21:00)
[2017-05-20] MEDS ORDERED: CILOSTAZOL 100 MG TABLET PO SCH (21:00)
[2017-05-20] MEDS ORDERED: metFORMIN 500 MG TABLET PO SCH (21:00)
[2017-05-20] MEDS ORDERED: FUROSEMIDE 20 MG TABLET PO SCH (21:00)
[2017-05-20] MEDS ORDERED: DOCUSATE SODIUM 100 MG CAPSULE PO SCH (21:00)
[2017-05-20] MEDS ORDERED: PRAVASTATIN 40 MG TABLET PO SCH (21:00)
[2017-05-20] MEDS ORDERED: ASPIRIN EC 81 MG TABLET PO SCH (21:00)
[2017-05-21] MEDS ORDERED: INSULIN ASPART PROTAMINE/ASPART 70/30 100 UNIT/ML SUBCUT SCH (07:30)
[2017-05-21] MEDS ORDERED: DILTIAZEM CD 180 MG CAPSULE PO SCH (09:00)
[2017-05-21] MEDS ORDERED: PANTOPRAZOLE 40 MG TABLET PO SCH ×2 (09:00)
[2017-05-21] MEDS ORDERED: MAGNESIUM OXIDE 400 MG TABLET PO SCH (09:00)
[2017-05-21] MEDS ORDERED: SERTRALINE 50 MG TABLET PO SCH (09:00)
[2017-05-21] MEDS ORDERED: CLOPIDOGREL 75 MG TABLET PO SCH (09:00)
[2017-05-21] MEDS ORDERED: LOSARTAN 50 MG TABLET PO SCH (09:00)
== END 2017-05-20 20:15 | disposition home or self-care (01) | DRG 983 ==
LOC: N.ED 09:32 → N.EDINP 11:30 → N.3E 12:40
PROVIDERS: ADMIT Surgery; ATTEND Surgery

== ENCOUNTER 2018-07-12 20:43 | Inpatient (IN) ==
[2018-07-12 21:12] LABS: Basophils % 0.5 % (0.0-0.8); Eosinophils % 0.7 % (0.00-10.9); Hematocrit 37.5 VOL% (42.0-52.0); Hemoglobin 12.4 GM/DL (14.0-18.0); Immature Granulocytes % 0.5 %; Immature Granulocytes Absolute 0.03 #; Lymphocytes # 1.1 10*3/uL (1.4-4.0); Lymphocytes % 19.8 % (21.2-54.2); Mean Corpuscular HGB Conc 33.1 GM/DL (32-36); Mean Corpuscular Hemoglobin 27 PG (27-34); Mean Corpuscular Volume 82.2 FL (87-102); Mean Platelet Volume 9.2 FL (9.6-12.0); Monocytes # 0.5 10*3/uL (0.11-0.8); Monocytes % 9.5 % (1.7-12.7); Neutrophils # 3.8 10*3/uL (1.4-7.4); Platelet Count 321 T/CUMM (130-400); Red Blood Count 4.56 MC/CUMM (3.8-5.5); Red Cell Distribution Width 14.5 % (9.3-17.3); White Blood Count 5.6 T/CUMM (4-12)
[2018-07-12 21:26] LABS: Apearance,Urine CLEAR (Clear); Bilirubin,Urine Negative (Negative); Blood, Urine Small mg/dL (Negative); Calcium 9.4 MG/DL (8.5-10.1); Glucose,Urine (UA) 150 mg/dL (Negative); Ketones,Urine 5 mg/dL (Negative); Mucus,Urine Occasional /LPF (Occasional); Nitrite,Urine Negative (Negative); Osmolality,Calculated 285.4 MOS/KG (273-304); Potassium 3.7 MMOL/L (3.5-5.1); Protein,Urine 100 MG/DL; RBC,Urine 1 /HPF (0-4); Squamous Epithelial Cell,Urine Occasional /HPF (0-10); Urine Color Yellow (Yellow); Urine Specific Gravity 1.013 (1.001-1.035); Urine Urobilinogen < 2.0 EU/DL (0.2-1.0); WBC,Urine <1 /HPF (0-6)
[2018-07-12] MEDS ORDERED: DEXTROSE 50% 25 GM/50 ML VIAL IV PRN (22:03)
[2018-07-12] MEDS ORDERED: ACETAMINOPHEN 325 MG TABLET PO PRN (22:03)
[2018-07-12] MEDS ORDERED: GLUCAGON 1 MG VIAL IM PRN (22:03)
[2018-07-12] MEDS ORDERED: IBUPROFEN 600 MG TABLET PO PRN (22:03)
[2018-07-12] MEDS ORDERED: ONDANSETRON 4 MG/2 ML VIAL IV PRN (22:03)
[2018-07-12] MEDS ORDERED: SODIUM CHLORIDE 0.9% 1,000 ML IV SCH (22:30)
[2018-07-12] MEDS ORDERED: cloNIDine 0.1 MG TABLET PO PRN (23:53)
[2018-07-13] MEDS: ALPRAZolam 0.25 MG TABLET PO PRN ×3 (00:46→13:42)
[2018-07-13] MEDS ORDERED: GLUCAGON 1 MG VIAL IM PRN (04:48)
[2018-07-13] MEDS ORDERED: DEXTROSE 50% 25 GM/50 ML VIAL IV PRN (04:48)
[2018-07-13] MEDS ORDERED: INSULIN LISPRO 100 UNIT/ML SUBCUT SCH (07:30)
[2018-07-13] MEDS ORDERED: PANTOPRAZOLE 40 MG TABLET PO SCH (09:00)
[2018-07-13] MEDS ORDERED: DOCUSATE SODIUM 100 MG CAPSULE PO SCH (09:00)
[2018-07-13] MEDS ORDERED: ACETAMINOPHEN 325 MG TABLET PO PRN (13:00)
[2018-07-13] MEDS ORDERED: SKIN HEALING OINT (AQUAPHOR) 50 GM TUBE TOP PRN (13:00)
[2018-07-13] MEDS ORDERED: METHOCARBAMOL 750 MG TABLET PO PRN (13:00)
[2018-07-13 13:53] LABS: Thyroid Stimulating Hormone 0.69 uIU/ml (0.358-3.74)
[2018-07-13] MEDS: CARVEDILOL 3.125 MG TABLET PO SCH (16:35)
[2018-07-13] MEDS: INSULIN ASPART PROTAMINE/ASPART 70/30 100 UNIT/ML SUBCUT SCH ×2 (16:36→20:51)
[2018-07-13] MEDS: INSULIN LISPRO 100 UNIT/ML SUBCUT SCH ×2 (17:34→20:51)
[2018-07-13] MEDS ORDERED: SOTALOL 80 MG TABLET PO ONE (18:00)
[2018-07-13] MEDS: APIXABAN 5 MG TABLET PO SCH ×2 (18:22→20:52)
[2018-07-13] MEDS: PANTOPRAZOLE 40 MG TABLET PO SCH (20:50)
[2018-07-13] MEDS: CILOSTAZOL 50 MG TABLET PO SCH (20:50)
[2018-07-13] MEDS: metFORMIN 500 MG TABLET PO SCH (20:51)
[2018-07-13] MEDS: FUROSEMIDE 20 MG TABLET PO SCH (20:51)
[2018-07-13] MEDS: INSULIN GLARGINE 100 UNIT/ML SUBCUT SCH (20:51)
[2018-07-13] MEDS: DOCUSATE SODIUM 100 MG CAPSULE PO SCH (20:51)
[2018-07-13] MEDS ORDERED: HALOPERIDOL 5 MG/ML AMP IV SCH (22:30)
[2018-07-13] MEDS ORDERED: HALOPERIDOL 5 MG/ML AMP IV PRN (22:30)
[2018-07-13] MEDS ORDERED: HALOPERIDOL 5 MG/ML AMP IM PRN (22:43)
[2018-07-14] MEDS: SOTALOL 80 MG TABLET PO SCH ×3 (02:04→20:28)
[2018-07-14] MEDS: ALPRAZolam 0.25 MG TABLET PO PRN (02:11)
[2018-07-14 06:21] LABS: Basophils # 0.1 10*3/uL (0.0-0.2); Basophils % 0.7 % (0.0-0.8); Eosinophils # 0.1 10*3/uL (0.0-0.87); Eosinophils % 1.3 % (0.00-10.9); Hematocrit 38.6 VOL% (42.0-52.0); Hemoglobin 12.5 GM/DL (14.0-18.0); Immature Granulocytes % 0.3 %; Immature Granulocytes Absolute 0.02 #; Lymphocytes # 1.4 10*3/uL (1.4-4.0); Lymphocytes % 19.2 % (21.2-54.2); Mean Corpuscular HGB Conc 32.4 GM/DL (32-36); Mean Corpuscular Hemoglobin 27 PG (27-34); Mean Platelet Volume 9.6 FL (9.6-12.0); Monocytes # 0.8 10*3/uL (0.11-0.8); Monocytes % 11.3 % (1.7-12.7); Neutrophils % 67.2 % (38.7-73.9); Platelet Count 357 T/CUMM (130-400); Red Blood Count 4.65 MC/CUMM (3.8-5.5); Red Cell Distribution Width 14.6 % (9.3-17.3); White Blood Count 7.5 T/CUMM (4-12)
[2018-07-14 06:53] LABS: Calcium 9.4 MG/DL (8.5-10.1); Potassium 3.4 MMOL/L (3.5-5.1)
[2018-07-14] MEDS: INSULIN ASPART PROTAMINE/ASPART 70/30 100 UNIT/ML SUBCUT SCH ×3 (10:00→20:54)
[2018-07-14] MEDS: INSULIN LISPRO 100 UNIT/ML SUBCUT SCH ×4 (10:00→20:29)
[2018-07-14] MEDS: FLUTICASONE 50 MCG NASAL SPRAY 16 GM BOTTLE BOTH NARES SCH (10:02)
[2018-07-14] MEDS: FUROSEMIDE 40 MG TABLET PO SCH (10:02)
[2018-07-14] MEDS: metFORMIN 500 MG TABLET PO SCH ×2 (10:03→20:29)
[2018-07-14] MEDS: APIXABAN 5 MG TABLET PO SCH ×2 (10:03→20:28)
[2018-07-14] MEDS: CILOSTAZOL 50 MG TABLET PO SCH ×2 (10:03→20:55)
[2018-07-14] MEDS: CARVEDILOL 3.125 MG TABLET PO SCH ×2 (10:03→16:18)
[2018-07-14] MEDS: DOCUSATE SODIUM 100 MG CAPSULE PO SCH ×2 (10:03→20:27)
[2018-07-14] MEDS: SERTRALINE 100 MG TABLET PO SCH (10:04)
[2018-07-14] MEDS ORDERED: ASPIRIN EC 81 MG TABLET PO SCH (12:00)
[2018-07-14] MEDS ORDERED: POTASSIUM CHLORIDE 20 MEQ/15 ML UDCUP PO ONE (14:06)
[2018-07-14] MEDS ORDERED: LORazepam 2 MG/1 ML VIAL IV ONE (15:00)
[2018-07-14] MEDS: MAGNESIUM OXIDE 400 MG TABLET PO SCH (16:14)
[2018-07-14] MEDS: CLOPIDOGREL 75 MG TABLET PO SCH (16:15)
[2018-07-14] MEDS: ROSUVASTATIN 20 MG TABLET PO SCH (16:18)
[2018-07-14] MEDS: FUROSEMIDE 20 MG TABLET PO SCH (20:29)
[2018-07-14] MEDS: INSULIN GLARGINE 100 UNIT/ML SUBCUT SCH (20:29)
[2018-07-14] MEDS: PANTOPRAZOLE 40 MG TABLET PO SCH (20:55)
[2018-07-15 06:45] LABS: Albumin 3.3 G/DL (3.4-5.0); Bilirubin,Total 0.8 MG/DL (0.2-1.0); Calcium 9.8 MG/DL (8.5-10.1); Osmolality,Calculated 288.1 MOS/KG (273-304); Potassium 3.4 MMOL/L (3.5-5.1); Total Protein 7.1 G/DL (6.4-8.3)
[2018-07-15] MEDS: APIXABAN 5 MG TABLET PO SCH ×2 (09:59→21:12)
[2018-07-15] MEDS: SERTRALINE 100 MG TABLET PO SCH (09:59)
[2018-07-15] MEDS: DOCUSATE SODIUM 100 MG CAPSULE PO SCH ×2 (09:59→21:13)
[2018-07-15] MEDS: FUROSEMIDE 40 MG TABLET PO SCH (09:59)
[2018-07-15] MEDS: CARVEDILOL 3.125 MG TABLET PO SCH ×2 (09:59→17:12)
[2018-07-15] MEDS: CILOSTAZOL 50 MG TABLET PO SCH ×2 (09:59→21:12)
[2018-07-15] MEDS: SOTALOL 80 MG TABLET PO SCH ×2 (09:59→21:12)
[2018-07-15] MEDS: FLUTICASONE 50 MCG NASAL SPRAY 16 GM BOTTLE BOTH NARES SCH (10:00)
[2018-07-15] MEDS: INSULIN LISPRO 100 UNIT/ML SUBCUT SCH ×4 (10:00→21:13)
[2018-07-15] MEDS: INSULIN ASPART PROTAMINE/ASPART 70/30 100 UNIT/ML SUBCUT SCH ×3 (11:40→21:13)
[2018-07-15] MEDS: metFORMIN 500 MG TABLET PO SCH ×2 (11:40→21:11)
[2018-07-15] MEDS: MAGNESIUM OXIDE 400 MG TABLET PO SCH (12:44)
[2018-07-15] MEDS: CLOPIDOGREL 75 MG TABLET PO SCH (12:44)
[2018-07-15] MEDS: ROSUVASTATIN 20 MG TABLET PO SCH (12:44)
[2018-07-15] MEDS: cefTRIAXone 2,000 MG in SYRINGE 1 EACH IV SCH (15:15)
[2018-07-15] MEDS: GABAPENTIN 400 MG CAPSULE PO PRN (15:15)
[2018-07-15] MEDS: POTASSIUM CHLORIDE 20 MEQ TABLET PO PRN (15:15)
[2018-07-15] MEDS ORDERED: POTASSIUM CHLORIDE 20 MEQ/15 ML UDCUP PO ONE (16:42)
[2018-07-15] MEDS: FUROSEMIDE 20 MG TABLET PO SCH (21:12)
[2018-07-15] MEDS: PANTOPRAZOLE 40 MG TABLET PO SCH (21:12)
[2018-07-15] MEDS: INSULIN GLARGINE 100 UNIT/ML SUBCUT SCH (21:13)
[2018-07-16] MEDS: ALPRAZolam 0.25 MG TABLET PO PRN (02:42)
[2018-07-16 05:56] LABS: Basophils % 0.7 % (0.0-0.8); Eosinophils # 0.1 10*3/uL (0.0-0.87); Eosinophils % 2.3 % (0.00-10.9); Hematocrit 40.4 VOL% (42.0-52.0); Hemoglobin 13.5 GM/DL (14.0-18.0); Immature Granulocytes % 0.4 %; Immature Granulocytes Absolute 0.02 #; Lymphocytes # 1.2 10*3/uL (1.4-4.0); Lymphocytes % 20.5 % (21.2-54.2); Mean Corpuscular HGB Conc 33.4 GM/DL (32-36); Mean Corpuscular Hemoglobin 27 PG (27-34); Mean Corpuscular Volume 80.6 FL (87-102); Mean Platelet Volume 9.4 FL (9.6-12.0); Monocytes # 0.6 10*3/uL (0.11-0.8); Monocytes % 10.6 % (1.7-12.7); Neutrophils # 3.7 10*3/uL (1.4-7.4); Neutrophils % 65.5 % (38.7-73.9); Platelet Count 389 T/CUMM (130-400); Red Blood Count 5.01 MC/CUMM (3.8-5.5); Red Cell Distribution Width 14.6 % (9.3-17.3); White Blood Count 5.7 T/CUMM (4-12)
[2018-07-16] MEDS: POTASSIUM CHLORIDE 20 MEQ TABLET PO PRN (06:10)
[2018-07-16 06:29] LABS: Calcium 9.8 MG/DL (8.5-10.1); Osmolality,Calculated 283.7 MOS/KG (273-304); Potassium 4.2 MMOL/L (3.5-5.1)
[2018-07-16] MEDS: DOCUSATE SODIUM 100 MG CAPSULE PO SCH ×2 (10:12→21:42)
[2018-07-16] MEDS: CILOSTAZOL 50 MG TABLET PO SCH ×2 (10:12→21:58)
[2018-07-16] MEDS: SOTALOL 80 MG TABLET PO SCH ×2 (10:12→21:42)
[2018-07-16] MEDS: metFORMIN 500 MG TABLET PO SCH ×2 (10:12→21:42)
[2018-07-16] MEDS: INSULIN LISPRO 100 UNIT/ML SUBCUT SCH ×4 (10:12→21:43)
[2018-07-16] MEDS: FUROSEMIDE 40 MG TABLET PO SCH (10:13)
[2018-07-16] MEDS: SERTRALINE 100 MG TABLET PO SCH (10:13)
[2018-07-16] MEDS: APIXABAN 5 MG TABLET PO SCH ×2 (10:13→21:42)
[2018-07-16] MEDS: CARVEDILOL 3.125 MG TABLET PO SCH ×2 (10:13→16:17)
[2018-07-16] MEDS: INSULIN ASPART PROTAMINE/ASPART 70/30 100 UNIT/ML SUBCUT SCH ×3 (10:13→21:43)
[2018-07-16] MEDS: FLUTICASONE 50 MCG NASAL SPRAY 16 GM BOTTLE BOTH NARES SCH (10:13)
[2018-07-16] MEDS: ROSUVASTATIN 20 MG TABLET PO SCH (12:26)
[2018-07-16] MEDS: CLOPIDOGREL 75 MG TABLET PO SCH (12:26)
[2018-07-16] MEDS: MAGNESIUM OXIDE 400 MG TABLET PO SCH (12:26)
[2018-07-16] MEDS: cefTRIAXone 2,000 MG in SYRINGE 1 EACH IV SCH (15:02)
[2018-07-16] MEDS: GABAPENTIN 400 MG CAPSULE PO PRN (15:03)
[2018-07-16] MEDS: FUROSEMIDE 20 MG TABLET PO SCH (21:42)
[2018-07-16] MEDS: INSULIN GLARGINE 100 UNIT/ML SUBCUT SCH (21:43)
[2018-07-16] MEDS: PANTOPRAZOLE 40 MG TABLET PO SCH (21:43)
[2018-07-17 06:10] LABS: Basophils % 0.8 % (0.0-0.8); Eosinophils # 0.1 10*3/uL (0.0-0.87); Eosinophils % 1.6 % (0.00-10.9); Hematocrit 41.9 VOL% (42.0-52.0); Hemoglobin 13.7 GM/DL (14.0-18.0); Immature Granulocytes % 0.2 %; Immature Granulocytes Absolute 0.01 #; Lymphocytes # 1.1 10*3/uL (1.4-4.0); Lymphocytes % 22.5 % (21.2-54.2); Mean Corpuscular HGB Conc 32.7 GM/DL (32-36); Mean Corpuscular Hemoglobin 27 PG (27-34); Mean Corpuscular Volume 81.7 FL (87-102); Monocytes # 0.6 10*3/uL (0.11-0.8); Monocytes % 12.1 % (1.7-12.7); Neutrophils # 3.1 10*3/uL (1.4-7.4); Neutrophils % 62.8 % (38.7-73.9); Platelet Count 338 T/CUMM (130-400); Red Blood Count 5.13 MC/CUMM (3.8-5.5); Red Cell Distribution Width 14.4 % (9.3-17.3); White Blood Count 4.9 T/CUMM (4-12)
[2018-07-17 06:23] LABS: Calcium 9.3 MG/DL (8.5-10.1); Osmolality,Calculated 283.8 MOS/KG (273-304); Potassium 3.8 MMOL/L (3.5-5.1)
[2018-07-17] MEDS: DOCUSATE SODIUM 100 MG CAPSULE PO SCH (09:13)
[2018-07-17] MEDS: INSULIN LISPRO 100 UNIT/ML SUBCUT SCH ×4 (09:26→22:11)
[2018-07-17] MEDS: metFORMIN 500 MG TABLET PO SCH ×2 (09:27→22:20)
[2018-07-17] MEDS: FUROSEMIDE 40 MG TABLET PO SCH (09:27)
[2018-07-17] MEDS: SOTALOL 80 MG TABLET PO SCH ×2 (09:27→22:09)
[2018-07-17] MEDS: CILOSTAZOL 50 MG TABLET PO SCH ×2 (09:27→22:22)
[2018-07-17] MEDS: LOSARTAN 25 MG TABLET PO SCH (09:28)
[2018-07-17] MEDS: SERTRALINE 100 MG TABLET PO SCH (09:28)
[2018-07-17] MEDS: APIXABAN 5 MG TABLET PO SCH ×2 (09:28→22:10)
[2018-07-17] MEDS: CARVEDILOL 3.125 MG TABLET PO SCH ×2 (09:28→18:10)
[2018-07-17] MEDS: FLUTICASONE 50 MCG NASAL SPRAY 16 GM BOTTLE BOTH NARES SCH (09:33)
[2018-07-17] MEDS: INSULIN ASPART PROTAMINE/ASPART 70/30 100 UNIT/ML SUBCUT SCH ×3 (10:22→22:21)
[2018-07-17] MEDS: MAGNESIUM OXIDE 400 MG TABLET PO SCH (11:56)
[2018-07-17] MEDS: CLOPIDOGREL 75 MG TABLET PO SCH (11:56)
[2018-07-17] MEDS: ROSUVASTATIN 20 MG TABLET PO SCH (12:15)
[2018-07-17] MEDS: cefTRIAXone 2,000 MG in SYRINGE 1 EACH IV SCH (16:07)
[2018-07-17] MEDS ORDERED: SOTALOL 80 MG TABLET PO ONE (16:29)
[2018-07-17] MEDS: PANTOPRAZOLE 40 MG TABLET PO SCH (22:11)
[2018-07-17] MEDS: INSULIN GLARGINE 100 UNIT/ML SUBCUT SCH (22:20)
[2018-07-17] MEDS: FUROSEMIDE 20 MG TABLET PO SCH (22:23)
[2018-07-18 05:58] LABS: Basophils % 0.7 % (0.0-0.8); Eosinophils # 0.1 10*3/uL (0.0-0.87); Eosinophils % 1.7 % (0.00-10.9); Hematocrit 39.3 VOL% (42.0-52.0); Hemoglobin 13.4 GM/DL (14.0-18.0); Immature Granulocytes % 0.2 %; Immature Granulocytes Absolute 0.01 #; Lymphocytes % 24.7 % (21.2-54.2); Mean Corpuscular HGB Conc 34.1 GM/DL (32-36); Mean Corpuscular Hemoglobin 28 PG (27-34); Mean Corpuscular Volume 81.9 FL (87-102); Mean Platelet Volume 9.7 FL (9.6-12.0); Monocytes # 0.5 10*3/uL (0.11-0.8); Monocytes % 12.4 % (1.7-12.7); Neutrophils # 2.5 10*3/uL (1.4-7.4); Neutrophils % 60.3 % (38.7-73.9); Platelet Count 355 T/CUMM (130-400); Red Cell Distribution Width 14.2 % (9.3-17.3); White Blood Count 4.2 T/CUMM (4-12)
[2018-07-18 06:27] LABS: Calcium 9.6 MG/DL (8.5-10.1); Osmolality,Calculated 278.7 MOS/KG (273-304); Potassium 3.1 MMOL/L (3.5-5.1)
[2018-07-18] MEDS: INSULIN LISPRO 100 UNIT/ML SUBCUT SCH ×4 (07:42→20:55)
[2018-07-18] MEDS ORDERED: ONDANSETRON 4 MG/2 ML VIAL ONE (08:07)
[2018-07-18] MEDS: ONDANSETRON 4 MG/2 ML VIAL IV PRN ×2 (08:52→17:28)
[2018-07-18] MEDS: ROSUVASTATIN 20 MG TABLET PO SCH ×2 (10:28→11:42)
[2018-07-18] MEDS: MAGNESIUM OXIDE 400 MG TABLET PO SCH ×2 (10:28→11:43)
[2018-07-18] MEDS: CLOPIDOGREL 75 MG TABLET PO SCH ×2 (10:29→11:43)
[2018-07-18] MEDS: LOSARTAN 25 MG TABLET PO SCH (10:29)
[2018-07-18] MEDS: SERTRALINE 100 MG TABLET PO SCH (10:29)
[2018-07-18] MEDS: APIXABAN 5 MG TABLET PO SCH ×2 (10:29→20:53)
[2018-07-18] MEDS: SOTALOL 80 MG TABLET PO SCH ×2 (10:30→20:50)
[2018-07-18] MEDS: CARVEDILOL 3.125 MG TABLET PO SCH ×2 (10:30→18:03)
[2018-07-18] MEDS: FUROSEMIDE 40 MG TABLET PO SCH (10:30)
[2018-07-18] MEDS: metFORMIN 500 MG TABLET PO SCH ×2 (10:30→20:49)
[2018-07-18] MEDS: FLUTICASONE 50 MCG NASAL SPRAY 16 GM BOTTLE BOTH NARES SCH (10:30)
[2018-07-18] MEDS: CILOSTAZOL 50 MG TABLET PO SCH ×2 (10:32→20:53)
[2018-07-18] MEDS: cefTRIAXone 2,000 MG in SYRINGE 1 EACH IV SCH (13:58)
[2018-07-18] MEDS: PANTOPRAZOLE 40 MG TABLET PO SCH (20:53)
[2018-07-18] MEDS: FUROSEMIDE 20 MG TABLET PO SCH (20:53)
[2018-07-18] MEDS: INSULIN GLARGINE 100 UNIT/ML SUBCUT SCH (20:54)
[2018-07-19 05:29] LABS: Basophils % 0.4 % (0.0-0.8); Eosinophils # 0.1 10*3/uL (0.0-0.87); Eosinophils % 1.3 % (0.00-10.9); Hematocrit 40.3 VOL% (42.0-52.0); Hemoglobin 13.7 GM/DL (14.0-18.0); Immature Granulocytes % 0.2 %; Immature Granulocytes Absolute 0.01 #; Lymphocytes # 1.1 10*3/uL (1.4-4.0); Lymphocytes % 24.2 % (21.2-54.2); Mean Corpuscular Hemoglobin 27 PG (27-34); Mean Corpuscular Volume 80.1 FL (87-102); Mean Platelet Volume 9.8 FL (9.6-12.0); Monocytes # 0.6 10*3/uL (0.11-0.8); Monocytes % 12.2 % (1.7-12.7); Neutrophils # 2.8 10*3/uL (1.4-7.4); Neutrophils % 61.7 % (38.7-73.9); Platelet Count 365 T/CUMM (130-400); Red Blood Count 5.03 MC/CUMM (3.8-5.5); Red Cell Distribution Width 14.1 % (9.3-17.3); White Blood Count 4.5 T/CUMM (4-12)
[2018-07-19 05:55] LABS: Calcium 9.2 MG/DL (8.5-10.1); Osmolality,Calculated 279.8 MOS/KG (273-304); Potassium 3.3 MMOL/L (3.5-5.1)
[2018-07-19] MEDS: LOSARTAN 25 MG TABLET PO SCH (08:44)
[2018-07-19] MEDS: CARVEDILOL 3.125 MG TABLET PO SCH (08:44)
[2018-07-19] MEDS: ROSUVASTATIN 20 MG TABLET PO SCH ×2 (08:44→12:08)
[2018-07-19] MEDS: CILOSTAZOL 50 MG TABLET PO SCH (08:44)
[2018-07-19] MEDS: MAGNESIUM OXIDE 400 MG TABLET PO SCH ×2 (08:45→12:08)
[2018-07-19] MEDS: POTASSIUM CHLORIDE 20 MEQ TABLET PO PRN ×3 (08:45→14:45)
[2018-07-19] MEDS: CLOPIDOGREL 75 MG TABLET PO SCH ×2 (08:45→12:34)
[2018-07-19] MEDS: APIXABAN 5 MG TABLET PO SCH (08:45)
[2018-07-19] MEDS: SOTALOL 80 MG TABLET PO SCH (08:45)
[2018-07-19] MEDS: FUROSEMIDE 40 MG TABLET PO SCH (08:45)
[2018-07-19] MEDS: FLUTICASONE 50 MCG NASAL SPRAY 16 GM BOTTLE BOTH NARES SCH (08:45)
[2018-07-19] MEDS: SERTRALINE 100 MG TABLET PO SCH (08:45)
[2018-07-19] MEDS: INSULIN LISPRO 100 UNIT/ML SUBCUT SCH ×2 (09:28→13:02)
[2018-07-19] MEDS: metFORMIN 500 MG TABLET PO SCH (09:29)
[2018-07-19 13:00] VITALS: BP 111/77
[2018-07-19] MEDS: cefTRIAXone 2,000 MG in SYRINGE 1 EACH IV SCH (14:45)
== END 2018-07-19 15:05 | disposition swing bed (61) | DRG 948 ==
LOC: EDUNIT# → N.ED 20:43 → N.EDINP 22:03 → N.TELEN 22:56
PROVIDERS: ADMIT Internal Medicine; ATTEND Internal Medicine

== ENCOUNTER 2020-11-28 17:47 | Inpatient (IN) ==
[2020-11-28] MEDS ORDERED: SODIUM CHLORIDE 0.9% 1,000 ML IV STA (18:40)
[2020-11-28 19:22] LABS: Basophils % 0.5 % (0.0-0.8); Eosinophils # 0.2 10*3/uL (0.0-0.87); Eosinophils % 2.4 % (0.00-10.9); Hematocrit 33.7 VOL% (42.0-52.0); Hemoglobin 10.7 GM/DL (14.0-18.0); Immature Granulocytes % 0.3 %; Immature Granulocytes Absolute 0.02 #; Lymphocytes # 1.1 10*3/uL (1.4-4.0); Lymphocytes % 16.1 % (21.2-54.2); Mean Corpuscular HGB Conc 31.8 GM/DL (32-36); Mean Corpuscular Volume 82.4 FL (87-102); Mean Platelet Volume 8.4 FL (9.6-12.0); Monocytes % 11.4 % (1.7-12.7); Neutrophils % 69.3 % (38.7-73.9); Platelet Count 410 T/CUMM (130-400); Red Blood Count 4.09 MC/CUMM (3.8-5.5); Red Cell Distribution Width 14.8 % (9.3-17.3); White Blood Count 6.7 T/CUMM (4-12)
[2020-11-28 19:35] LABS: Bacteria,Urine Occasional /HPF (Few); Bilirubin,Urine Negative (Negative); Blood, Urine Small mg/dL (Negative); Glucose,Urine (UA) >=500 mg/dL (Negative); Ketones,Urine Negative (Negative); Mucus,Urine Occasional /LPF (Occasional); Nitrite,Urine Negative (Negative); Protein,Urine 30 MG/DL; RBC,Urine 2 /HPF (0-4); Squamous Epithelial Cell,Urine Occasional /HPF (0-10); Urine Appearance CLEAR (Clear); Urine Color Yellow (Yellow); Urine Urobilinogen < 2.0 EU/DL (0.2-1.0); WBC,Urine 7 /HPF (0-6)
[2020-11-28 19:49] LABS: Alanine Aminotransferase 13 U/L (16-61); Albumin 2.6 G/DL (3.4-5.0); Alkaline Phosphatase 79 U/L (45-117); Aspartate Amino Transferase 17 U/L (0-37); Bilirubin,Total < 0.39 MG/DL (0.2-1.0); Blood Urea Nitrogen 16 MG/DL (7-18); Calcium 8.4 MG/DL (8.5-10.1); Estimated Glom Filtration Rate 81 ML/MIN; Total Protein 7.5 G/DL (6.4-8.3)
[2020-11-28 19:53] LABS: Glucose 44 MG/DL (74-106)
[2020-11-28] MEDS ORDERED: DEXTROSE 50% 25 GM/50 ML VIAL IV STA (19:54)
[2020-11-28] MEDS ORDERED: DEXTROSE 50% 25 GM/50 ML SYRINGE IV ONE (19:54)
[2020-11-28] MEDS ORDERED: cefTRIAXone 1,000 MG in SODIUM CHLORIDE 0.9% 100 ML IV STA (19:57)
[2020-11-28] MEDS ORDERED: ONDANSETRON 4 MG/2 ML VIAL IV PRN (20:03)
[2020-11-28] MEDS ORDERED: DEXTROSE 50% 25 GM/50 ML VIAL IV PRN (20:03)
[2020-11-28] MEDS ORDERED: GLUCAGON 1 MG VIAL IM PRN (20:03)
[2020-11-29] MEDS: DEXT 5% NACL 0.45% KCL 20 MEQ 20 MEQ/1,000 ML BAG IV SCH ×5 (05:56→20:00)
[2020-11-29 06:12] LABS: Basophils % 0.5 % (0.0-0.8); Eosinophils # 0.1 10*3/uL (0.0-0.87); Eosinophils % 1.8 % (0.00-10.9); Hematocrit 32.1 VOL% (42.0-52.0); Hemoglobin 10.4 GM/DL (14.0-18.0); Immature Granulocytes % 0.4 %; Immature Granulocytes Absolute 0.03 #; Lymphocytes % 12.5 % (21.2-54.2); Mean Corpuscular HGB Conc 32.4 GM/DL (32-36); Mean Corpuscular Volume 81.1 FL (87-102); Mean Platelet Volume 8.7 FL (9.6-12.0); Monocytes % 9.6 % (1.7-12.7); Neutrophils % 75.2 % (38.7-73.9); Platelet Count 432 T/CUMM (130-400); Red Blood Count 3.96 MC/CUMM (3.8-5.5); Red Cell Distribution Width 14.7 % (9.3-17.3)
[2020-11-29 06:38] LABS: Albumin 2.6 G/DL (3.4-5.0); Bilirubin,Total 0.4 MG/DL (0.2-1.0); Osmolality,Calculated 280.1 MOS/KG (273-304); Total Protein 7.3 G/DL (6.4-8.3)
[2020-11-29] MEDS: PANTOPRAZOLE 40 MG TABLET PO SCH (09:26)
[2020-11-29] MEDS ORDERED: NITROGLYCERIN SL 0.4 MG TABLET SL PRN (16:10)
[2020-11-29] MEDS ORDERED: FLUTICASONE 50 MCG NASAL SPRAY 16 GM BOTTLE BOTH NARES PRN (16:10)
[2020-11-29] MEDS ORDERED: DENOSUMAB 60 MG/ML SYRINGE SUBCUT SCH (16:30)
[2020-11-29] MEDS: INSULIN LISPRO 100 UNIT/ML SUBCUT SCH (17:55)
[2020-11-29] MEDS: cefTRIAXone 1,000 MG in SYRINGE 1 EACH IV SCH (18:10)
[2020-11-29] MEDS ORDERED: CIPROFLOXACIN 500 MG TABLET PO SCH (21:00)
[2020-11-29] MEDS ORDERED: INSULIN GLARGINE 100 UNIT/ML SUBCUT SCH (21:00)
[2020-11-29] MEDS: cilostazoL 100 MG TABLET PO SCH (21:12)
[2020-11-29] MEDS: SOTALOL 80 MG TABLET PO SCH (21:12)
[2020-11-29] MEDS: ACETAMINOPHEN 325 MG TABLET PO PRN (21:13)
[2020-11-29] MEDS: carvediloL 6.25 MG TABLET PO SCH (21:13)
[2020-11-29] MEDS: CALCIUM (CARBONATE) 600 MG TABLET PO SCH (21:13)
[2020-11-29] MEDS: MEMANTINE 10 MG TABLET PO SCH (21:14)
[2020-11-29] MEDS: metFORMIN 500 MG TABLET PO SCH (21:14)
[2020-11-30 04:40] LABS: Basophils % 0.5 % (0.0-0.8); Eosinophils # 0.2 10*3/uL (0.0-0.87); Eosinophils % 2.5 % (0.00-10.9); Hematocrit 34.2 VOL% (42.0-52.0); Hemoglobin 10.7 GM/DL (14.0-18.0); Immature Granulocytes % 0.3 %; Immature Granulocytes Absolute 0.02 #; Lymphocytes # 1.1 10*3/uL (1.4-4.0); Lymphocytes % 14.4 % (21.2-54.2); Mean Corpuscular HGB Conc 31.3 GM/DL (32-36); Mean Corpuscular Volume 82.4 FL (87-102); Mean Platelet Volume 8.4 FL (9.6-12.0); Monocytes % 15.2 % (1.7-12.7); Neutrophils % 67.1 % (38.7-73.9); Platelet Count 420 T/CUMM (130-400); Red Blood Count 4.15 MC/CUMM (3.8-5.5); Red Cell Distribution Width 14.6 % (9.3-17.3); White Blood Count 7.3 T/CUMM (4-12)
[2020-11-30 05:00] LABS: Calcium 8.7 MG/DL (8.5-10.1); Osmolality,Calculated 278.1 MOS/KG (273-304)
[2020-11-30] MEDS: DEXT 5% NACL 0.45% KCL 20 MEQ 20 MEQ/1,000 ML BAG IV SCH ×4 (06:08→22:04)
[2020-11-30] MEDS: INSULIN LISPRO 100 UNIT/ML SUBCUT SCH ×3 (07:15→16:48)
[2020-11-30] MEDS ORDERED: PANTOPRAZOLE 40 MG TABLET PO SCH (09:00)
[2020-11-30] MEDS: SOTALOL 80 MG TABLET PO SCH ×2 (09:21→21:53)
[2020-11-30] MEDS: DOCUSATE SODIUM 100 MG CAPSULE PO SCH (09:22)
[2020-11-30] MEDS: cilostazoL 100 MG TABLET PO SCH ×2 (09:22→21:51)
[2020-11-30] MEDS: MAGNESIUM OXIDE 400 MG TABLET PO SCH (09:22)
[2020-11-30] MEDS: carvediloL 6.25 MG TABLET PO SCH ×2 (09:24→21:51)
[2020-11-30] MEDS: traMADol 50 MG TABLET PO SCH (09:24)
[2020-11-30] MEDS: CYANOCOBALAMIN 500 MCG TABLET PO SCH (09:24)
[2020-11-30] MEDS: GABAPENTIN 400 MG CAPSULE PO SCH (09:24)
[2020-11-30] MEDS: ASPIRIN EC 81 MG TABLET PO SCH (09:24)
[2020-11-30] MEDS: FUROSEMIDE 40 MG TABLET PO SCH (09:24)
[2020-11-30] MEDS: CITALOPRAM 20 MG TABLET PO SCH (09:26)
[2020-11-30] MEDS: CALCIUM (CARBONATE) 600 MG TABLET PO SCH ×2 (09:26→21:51)
[2020-11-30] MEDS: PANTOPRAZOLE 40 MG TABLET PO SCH (09:26)
[2020-11-30] MEDS: LORATADINE 10 MG TABLET PO SCH (09:26)
[2020-11-30] MEDS: MEMANTINE 10 MG TABLET PO SCH ×2 (09:26→21:51)
[2020-11-30] MEDS: POLYETHYLENE GLYCOL POWDER 17 GM PACK PO SCH (09:27)
[2020-11-30] MEDS: NON-FORMULARY MEDICATION (Empagliflozin 25 mg Tablet) PO SCH (10:07)
[2020-11-30] MEDS: metFORMIN 500 MG TABLET PO SCH ×2 (10:07→21:54)
[2020-11-30] MEDS: ACETAMINOPHEN 325 MG TABLET PO PRN (13:03)
[2020-11-30] MEDS: ROSUVASTATIN 20 MG TABLET PO SCH (13:03)
[2020-11-30] MEDS ORDERED: POTASSIUM CHLORIDE 20 MEQ TABLET PO ONE (15:00)
[2020-11-30] MEDS: cefTRIAXone 1,000 MG in SYRINGE 1 EACH IV SCH (21:49)
[2020-11-30] MEDS: QUEtiapine 25 MG TABLET PO SCH (21:52)
[2020-11-30] MEDS: INSULIN GLARGINE 100 UNIT/ML SUBCUT SCH (21:54)
[2020-12-01 05:59] LABS: Basophils % 0.9 % (0.0-0.8); Eosinophils # 0.2 10*3/uL (0.0-0.87); Eosinophils % 4.4 % (0.00-10.9); Hematocrit 30.5 VOL% (42.0-52.0); Hemoglobin 9.7 GM/DL (14.0-18.0); Immature Granulocytes % 0.4 %; Immature Granulocytes Absolute 0.02 #; Lymphocytes # 0.9 10*3/uL (1.4-4.0); Mean Corpuscular HGB Conc 31.8 GM/DL (32-36); Mean Corpuscular Volume 83.3 FL (87-102); Mean Platelet Volume 8.8 FL (9.6-12.0); Monocytes % 13.9 % (1.7-12.7); Neutrophils % 61.4 % (38.7-73.9); Platelet Count 394 T/CUMM (130-400); Red Blood Count 3.66 MC/CUMM (3.8-5.5); Red Cell Distribution Width 14.7 % (9.3-17.3); White Blood Count 4.5 T/CUMM (4-12)
[2020-12-01 06:09] LABS: Calcium 8.5 MG/DL (8.5-10.1); Osmolality,Calculated 278.5 MOS/KG (273-304)
[2020-12-01] MEDS: DEXT 5% NACL 0.45% KCL 20 MEQ 20 MEQ/1,000 ML BAG IV SCH ×4 (07:15→21:48)
[2020-12-01] MEDS: INSULIN LISPRO 100 UNIT/ML SUBCUT SCH ×3 (08:25→16:15)
[2020-12-01] MEDS: RIVASTIGMINE 9.5 MG/24 HR PATCH TRANSDERM SCH (08:26)
[2020-12-01] MEDS: POLYETHYLENE GLYCOL POWDER 17 GM PACK PO SCH (08:27)
[2020-12-01] MEDS: SOTALOL 80 MG TABLET PO SCH ×2 (08:28→21:47)
[2020-12-01] MEDS: ASPIRIN EC 81 MG TABLET PO SCH (08:28)
[2020-12-01] MEDS: MAGNESIUM OXIDE 400 MG TABLET PO SCH (08:28)
[2020-12-01] MEDS: CALCIUM (CARBONATE) 600 MG TABLET PO SCH ×2 (08:28→21:47)
[2020-12-01] MEDS: DOCUSATE SODIUM 100 MG CAPSULE PO SCH (08:28)
[2020-12-01] MEDS: MEMANTINE 10 MG TABLET PO SCH ×2 (08:29→21:48)
[2020-12-01] MEDS: cilostazoL 100 MG TABLET PO SCH ×2 (08:29→21:47)
[2020-12-01] MEDS: carvediloL 6.25 MG TABLET PO SCH ×2 (08:29→21:48)
[2020-12-01] MEDS: GABAPENTIN 400 MG CAPSULE PO SCH (08:29)
[2020-12-01] MEDS: metFORMIN 500 MG TABLET PO SCH ×2 (08:29→21:46)
[2020-12-01] MEDS: FUROSEMIDE 40 MG TABLET PO SCH (08:29)
[2020-12-01] MEDS: PANTOPRAZOLE 40 MG TABLET PO SCH (08:29)
[2020-12-01] MEDS: LORATADINE 10 MG TABLET PO SCH (08:29)
[2020-12-01] MEDS: CYANOCOBALAMIN 500 MCG TABLET PO SCH (08:29)
[2020-12-01] MEDS: traMADol 50 MG TABLET PO SCH (08:29)
[2020-12-01] MEDS: CITALOPRAM 20 MG TABLET PO SCH (08:29)
[2020-12-01] MEDS: NON-FORMULARY MEDICATION (Empagliflozin 25 mg Tablet) PO SCH (08:30)
[2020-12-01] MEDS: ROSUVASTATIN 20 MG TABLET PO SCH (11:09)
[2020-12-01] MEDS: cefTRIAXone 1,000 MG in SYRINGE 1 EACH IV SCH (21:45)
[2020-12-01] MEDS: INSULIN GLARGINE 100 UNIT/ML SUBCUT SCH (21:46)
[2020-12-01] MEDS: ACETAMINOPHEN 325 MG TABLET PO PRN (21:48)
[2020-12-01] MEDS: QUEtiapine 25 MG TABLET PO SCH (21:48)
[2020-12-02] MEDS: DEXT 5% NACL 0.45% KCL 20 MEQ 20 MEQ/1,000 ML BAG IV SCH (06:36)
[2020-12-02 07:07] LABS: Basophils # 0.1 10*3/uL (0.0-0.2); Basophils % 0.9 % (0.0-0.8); Eosinophils # 0.3 10*3/uL (0.0-0.87); Eosinophils % 5.1 % (0.00-10.9); Hematocrit 33.4 VOL% (42.0-52.0); Hemoglobin 10.5 GM/DL (14.0-18.0); Immature Granulocytes % 0.5 %; Immature Granulocytes Absolute 0.03 #; Lymphocytes # 0.9 10*3/uL (1.4-4.0); Lymphocytes % 16.6 % (21.2-54.2); Mean Corpuscular HGB Conc 31.4 GM/DL (32-36); Mean Corpuscular Volume 82.9 FL (87-102); Mean Platelet Volume 8.5 FL (9.6-12.0); Monocytes % 10.6 % (1.7-12.7); Neutrophils % 66.3 % (38.7-73.9); Platelet Count 420 T/CUMM (130-400); Red Blood Count 4.03 MC/CUMM (3.8-5.5); Red Cell Distribution Width 14.6 % (9.3-17.3); White Blood Count 5.7 T/CUMM (4-12)
[2020-12-02 07:46] LABS: Calcium 9.4 MG/DL (8.5-10.1); Osmolality,Calculated 274.8 MOS/KG (273-304)
[2020-12-02] MEDS: POLYETHYLENE GLYCOL POWDER 17 GM PACK PO SCH (08:19)
[2020-12-02] MEDS: INSULIN LISPRO 100 UNIT/ML SUBCUT SCH ×3 (08:19→16:00)
[2020-12-02] MEDS: cilostazoL 100 MG TABLET PO SCH ×2 (08:19→22:00)
[2020-12-02] MEDS: DOCUSATE SODIUM 100 MG CAPSULE PO SCH (08:21)
[2020-12-02] MEDS: CALCIUM (CARBONATE) 600 MG TABLET PO SCH ×2 (08:21→21:59)
[2020-12-02] MEDS: CYANOCOBALAMIN 500 MCG TABLET PO SCH (08:21)
[2020-12-02] MEDS: SOTALOL 80 MG TABLET PO SCH ×2 (08:21→21:59)
[2020-12-02] MEDS: FUROSEMIDE 40 MG TABLET PO SCH (08:22)
[2020-12-02] MEDS: carvediloL 6.25 MG TABLET PO SCH ×2 (08:22→21:59)
[2020-12-02] MEDS: ASPIRIN EC 81 MG TABLET PO SCH (08:22)
[2020-12-02] MEDS: CITALOPRAM 20 MG TABLET PO SCH (08:22)
[2020-12-02] MEDS: traMADol 50 MG TABLET PO SCH (08:22)
[2020-12-02] MEDS: MEMANTINE 10 MG TABLET PO SCH ×2 (08:22→22:00)
[2020-12-02] MEDS: PANTOPRAZOLE 40 MG TABLET PO SCH (08:22)
[2020-12-02] MEDS: metFORMIN 500 MG TABLET PO SCH ×2 (08:22→22:01)
[2020-12-02] MEDS: GABAPENTIN 400 MG CAPSULE PO SCH (08:22)
[2020-12-02] MEDS: LORATADINE 10 MG TABLET PO SCH (08:23)
[2020-12-02] MEDS: RIVASTIGMINE 9.5 MG/24 HR PATCH TRANSDERM SCH (08:32)
[2020-12-02] MEDS: MAGNESIUM OXIDE 400 MG TABLET PO SCH (09:48)
[2020-12-02] MEDS: NON-FORMULARY MEDICATION (Empagliflozin 25 mg Tablet) PO SCH (09:48)
[2020-12-02] MEDS: ROSUVASTATIN 20 MG TABLET PO SCH (13:11)
[2020-12-02] MEDS: QUEtiapine 25 MG TABLET PO SCH (22:01)
[2020-12-02] MEDS: cefTRIAXone 1,000 MG in SYRINGE 1 EACH IV SCH (22:01)
[2020-12-02] MEDS: INSULIN GLARGINE 100 UNIT/ML SUBCUT SCH (22:02)
[2020-12-03] MEDS: ACETAMINOPHEN 325 MG TABLET PO PRN (03:09)
[2020-12-03 08:32] VITALS: BP 150/76
[2020-12-03] MEDS: SOTALOL 80 MG TABLET PO SCH (09:27)
[2020-12-03] MEDS: CALCIUM (CARBONATE) 600 MG TABLET PO SCH (09:27)
[2020-12-03] MEDS: INSULIN LISPRO 100 UNIT/ML SUBCUT SCH (09:27)
[2020-12-03] MEDS: ASPIRIN EC 81 MG TABLET PO SCH (09:27)
[2020-12-03] MEDS: carvediloL 6.25 MG TABLET PO SCH (09:28)
[2020-12-03] MEDS: DOCUSATE SODIUM 100 MG CAPSULE PO SCH (09:28)
[2020-12-03] MEDS: CITALOPRAM 20 MG TABLET PO SCH (09:28)
[2020-12-03] MEDS: LORATADINE 10 MG TABLET PO SCH (09:28)
[2020-12-03] MEDS: NON-FORMULARY MEDICATION (Empagliflozin 25 mg Tablet) PO SCH (09:28)
[2020-12-03] MEDS: GABAPENTIN 400 MG CAPSULE PO SCH (09:29)
[2020-12-03] MEDS: metFORMIN 500 MG TABLET PO SCH (09:29)
[2020-12-03] MEDS: MEMANTINE 10 MG TABLET PO SCH (09:29)
[2020-12-03] MEDS: RIVASTIGMINE 9.5 MG/24 HR PATCH TRANSDERM SCH (09:29)
[2020-12-03] MEDS: FUROSEMIDE 40 MG TABLET PO SCH (09:29)
[2020-12-03] MEDS: MAGNESIUM OXIDE 400 MG TABLET PO SCH (09:29)
[2020-12-03] MEDS: POLYETHYLENE GLYCOL POWDER 17 GM PACK PO SCH (09:29)
[2020-12-03] MEDS: cilostazoL 100 MG TABLET PO SCH (09:30)
[2020-12-03] MEDS: CYANOCOBALAMIN 500 MCG TABLET PO SCH (09:30)
[2020-12-03] MEDS: PANTOPRAZOLE 40 MG TABLET PO SCH (09:30)
[2020-12-03] MEDS: traMADol 50 MG TABLET PO SCH (09:30)
== END 2020-12-03 10:13 | DRG 690 ==
LOC: N.EDINP 17:47 → N.ED 17:47 → N.EDINP 22:10 → N.5E 11-29 01:23
PROVIDERS: ADMIT Internal Medicine; ATTEND Internal Medicine